=== PATIENT | male | born 1930 | race American Indian/Alaskan Native ===

== ENCOUNTER 2016-10-05 21:52 | Inpatient (IN) | payer MEDICARE ==
[2016-10-05 22:59] LABS: BASO % 0.4 % (0.0-2.0); EOS # 0.1 K/uL (0.0-0.7); EOS % 0.7 % (0.0-4.0); HEMOGLOBIN 11.2 g/dL (12.0-18.0); LYMPH # 0.9 K/uL (1.0-4.3); LYMPH % 12.3 % (20.0-40.0); MEAN CELL VOLUME 89.6 fL (80.0-94.0); MEAN CORPUSCULAR HEMOGLOBIN 28.7 pg (27.0-31.0); MEAN CORPUSCULAR HGB CONC 32.1 g/dL (33.0-37.0); MEAN PLATELET VOLUME 10.4 fL (7.2-11.7); MONO # 0.6 K/uL (0.0-0.8); MONO % 7.7 % (0.0-10.0); NEUT % 78.9 % (50.0-75.0); RBC 3.89 Mil/uL (4.40-5.90); RED CELL DISTRIBUTION WIDTH 16.6 % (11.5-14.5); WHITE BLOOD COUNT 7.7 K/uL (4.8-10.8)
[2016-10-05 22:59] LABS: VENOUS BLOOD GAS BASE EXCESS -3.5 mmol/L (0.0-2.0); VENOUS BLOOD GAS PCO2 44 mmHg (40-60); VENOUS BLOOD GAS PO2 35 mm/Hg (30-55); VENOUS BLOOD PH 7.32 (7.32-7.43)
[2016-10-05] MEDS: (Novolog) Insulin Aspart, Recombinant 100 u/ml 10 ml vial SC SCH (23:00)
[2016-10-05 23:07] LABS: ALBUMIN 3.3 g/dL (3.5-5.0)
[2016-10-05 23:10] LABS: ALB/GLOB RATIO 0.8 (1.0-2.1)
[2016-10-05 23:11] LABS: CALCIUM 8.9 mg/dl (8.6-10.4)
--- NOTE | 2016-10-05 23:18 | C.PDOC ---
History Of Present Illness 86 y/o male brought in to ER from snf for abdominal pain and reported altered mental status. Patient also reports chest pain and back pain. Denies fever, chills, shortness of breath, nausea, vomiting, diarrhea, or other associated symptoms. Time Seen by Provider: 10/05/16 23:17 Chief Complaint (Nursing): Weakness/Neurological Deficit History Per: Patient History/Exam Limitations: no limitations Onset/Duration Of Symptoms: Hrs Current Symptoms Are (Timing): Still Present Fall Associated With With Symptoms: No Recent travel outside of the [place]: No Additional History Per: [facility] Past Medical History Reviewed: Historical Data, Nursing Documentation, Vital Signs Vital Signs: Last Vital Signs Temp 98.7 F 10/06/16 00:59 Pulse 131 H 10/06/16 03:10 Resp 20 10/06/16 03:10 BP 113/74 10/06/16 02:59 Pulse Ox 97 10/06/16 03:32 - Medical History PMH: CHF, HTN Surgical History: CABG Family History: States: No Known Family Hx - Social History Hx Alcohol Use: No Hx Substance Use: No Review Of Systems Constitutional: Positive for: Malaise. Negative for: Fever, Chills Eyes: Negative for: Redness Cardiovascular: Positive for: Chest Pain. Negative for: Palpitations Respiratory: Negative for: Cough, Shortness of Breath Gastrointestinal: Positive for: Abdominal Pain. Negative for: Nausea, Vomiting , Diarrhea Musculoskeletal: Positive for: Back Pain. Negative for: Neck Pain Skin: Negative for: Rash Neurological: Negative for: Weakness, Numbness, Dizziness Psych: Negative for: Anxiety Physical Exam - Physical Exam Appears: Non-toxic, Other (moderate distress, AAO x 3) Skin: Warm, Dry Head: Atraumatic, Normacephalic Oral Mucosa: Dry Lips: Other (dry) Neck: Normal ROM, Supple Chest: Symmetrical, Other (fresh CABG scars with keloids ) Cardiovascular: Rhythm Regular (tachycardic), Other (pacemaker left chest) Respiratory: No Accessory Muscle Use, No Rales, Rhonchi (bibasilar), No Wheezing Gastrointestinal/Abdominal: Soft, Distention, No Guarding, No Rebound, Other ( tympanic to percussion, right lower quadrant T tube drainage) Back: Normal Inspection, No Vertebral Tenderness, No Paraspinal Tenderness Extremity: Normal ROM, Pedal Edema (trace, bilateral) Neurological/Psych: Oriented x3, Normal Speech, Normal Cognition ED Course And Treatment - Laboratory Results Result Diagrams: 10/05/16 22:56 10/05/16 22:56 ECG: Interpreted By Me, Viewed By Me ECG Rhythm: Sinus Tachycardia (128), R BBB, Nonspecific Changes (lahb) O2 Sat by Pulse Oximetry: 97 Pulse Ox Interpretation: Normal - Radiology CXR: Interpreted by Me, Viewed By Me CXR Interpretation: Yes: Cardiomegaly, Other (pacer left, cabg). No: Fracture Progress Note: Treated with Tylenol and IVFs. Bloodwork, VBG, and chest xray ordered. spoke with dr willett - icu- will come and see the pt in the ed. fluids not given as per sepsis protocol due to the pt's cardiac function. vitals stable Critical Care Time - Critical Care Note Total Time (in mins): 30 Documented critical care: time excludes all time spent performing seperately billable procedures. Disposition Discussed With : Eva Barrow Comment: accepted the pt on his service and took over the care Doctor Will See Patient In The: Hospital Counseled Patient/Family Regarding: Studies Performed, Diagnosis - Disposition Disposition: HOSPITALIZED Disposition Time: 01:00 Condition: CRITICAL - POA Present On Arrival: Poor Glycemic Control, [facility] - Clinical Impression Clinical Impression: Abdominal pain, Sepsis - Scribe Statement The provider has reviewed the documentation as recorded by the Leela Johnson Provider Attestation: All medical record entries made by the Leela were at my direction and personally dictated by me. I have reviewed the chart and agree that the record accurately reflects my personal performance of the history, physical exam, medical decision making, and the department course for this patient. I have also personally directed, reviewed, and agree with the discharge instructions and disposition. Decision To Admit - Pt Status Changed To: Hospital Disposition Of: Inpatient - Admit Certification Admit to Inpatient:: After my assessment, the patient will require hospitalization for at least two midnights. This is because of the severity of symptoms shown, intensity of services needed, and/or the medical risk in this patient being treated as an outpatient. - InPatient: Physician Admission Certification: I certify that this patient requires 2 or more midnights of care for the following reason:: After my assessment, the patient will require hospitalization for at least two midnights. This is because of the severity of symptoms shown, intensity of services needed, and/or the medical risk in this patient being treated as an outpatient. - . Bed Request Type: ICU Admitting Physician: Eva Barrow Patient Diagnosis: Abdominal pain, Sepsis
[2016-10-05] MEDS ORDERED: Sodium Chloride 0.9% 1,000 ML IV ONE (23:33)
[2016-10-05] MEDS ORDERED: Vancomycin 1 GM 1 GM/250 ML BAG IVPB SCH (23:45)
[2016-10-05] MEDS ORDERED: Vancomycin 1 GM 1 GM/250 ML BAG IVPB ONE ×2 (23:45→23:56)
[2016-10-05] MEDS ORDERED: Piperacillin/Tazobact 3.375 gm 100 ML IVPB STA (23:50)
[2016-10-05] MEDS ORDERED: Piperacillin/Tazobact 3.375 gm 100 ML IVPB ONE (23:56)
[2016-10-06] MEDS ORDERED: Vancomycin 1 GM 1 GM/250 ML BAG IVPB STA (00:04)
--- NOTE | 2016-10-06 00:33 | CP.CCUPN ---
CCU Subjective - Physician Review Events Since Last Encounter (Free Text): 10/06/16 01:15 The Patient was seen and examined at the bedside, Medical records reviewed, all clinical/lab/hemodynamic/radiographic data were reviewed and management issues were discussed and formulated, Mr Wilder is 86 years old Male with PMHx of HTN, HLD, DM, CHF, CAD S/P CABG who was brought in to ER from long term for abdominal pain and reported altered mental status. In the emergency room code sepsis was called for hypotension, tachycardia and elevated temp of 100.4 with 2.4 serum lactate. Patient is alert and awake Patient reports RUQ and Right lower chest pain and back pain. Denies fever, chills, shortness of breath, nausea, vomiting, diarrhea, or other associated symptoms. IV fluids initiated with good blood pressure response but still tachycardia Patient received rectal Tylenol, IV antibiotics with Vanco and Zosyn and IVFs. CXR: Cardiomegaly, There is no evidence of pulmonary parenchymal consolidation or pleural effusion. The mediastinum is unremarkable. Osseous thoracic structures are unremarkable. 10/06/16 02:12 CCU Objective - Vital Signs / Intake & Output Vital Signs (Last 4 hours): Vital Signs Temp Pulse Resp BP Pulse Ox 10/06/16 00:22 97 10/05/16 23:50 100.1 F H 10/05/16 22:20 100.4 F H 128 H 22 100/56 L 97 Intake and Output (Last 8hrs): Intake & Output 10/05/16 10/05/16 10/06/16 14:59 22:59 06:59 Weight 177 lb - Physical Exam Physical Exam Limitations: Positive for: Clinical Condition Head: Positive for: Atraumatic, Normocephalic Pupils: Positive for: PERRL. Negative for: Sluggish, Non-Reactive Extroacular Muscles: Positive for: EOMI Conjunctiva: Positive for: Normal. Negative for: Injected, Icteric Mouth: Positive for: Moist Mucous Membranes Neck: Positive for: Normal Range of Motion, Trachea Midline. Negative for: Meningeal Signs, MIDLINE TENDERNESS, Paraspinal Tenderness, JVD, Lymphadenopathy , Bruit, Other Respiratory/Chest: Positive for: Clear to Auscultation, Good Air Exchange. Negative for: Respiratory Distress, Accessory Muscle Use, Wheezes, Decreased Breath Sounds, Rales, Retracting Cardiovascular: Positive for: Regular Rate and Rhythm, Peripheal Pulses Present , Tachycardic. Negative for: Murmurs Abdomen: Positive for: Tenderness, Distention, Peritoneal Signs Upper Extremity: Positive for: Normal Inspection, NORMAL PULSES, Capillary Refill < 2s. Negative for: Cyanosis, Edema Lower Extremity: Positive for: Normal Inspection, NORMAL PULSES, Capillary Refill < 2 s. Negative for: Edema, CALF TENDERNESS - Medications Active Medications: Active Medications Generic Name Dose Route Start Last Admin Trade Name Freq PRN Reason Stop Dose Admin Sodium Chloride 1,000 mls @ 100 mls/hr 10/05/16 23:33 10/05/16 23:39 Sodium Chloride 0.9% IV 10/06/16 09:32 100 mls/hr .Q10H ONE Administration Vancomycin HCl 1 gm in 250 mls @ 166.667 mls/hr 10/06/16 00:04 Vancomycin 1gm In Normal Saline Addvantage IVPB 10/06/16 01:33 STAT STA - Patient Studies Lab Studies: Lab Studies 10/05/16 10/05/16 10/05/16 Range/Units 22:56 22:56 22:55 WBC 7.7 (4.8-10.8) K/uL RBC 3.89 L (4.40-5.90) Mil/uL Hgb 11.2 L (12.0-18.0) g/dL Hct 34.9 L (35.0-51.0) % MCV 89.6 (80.0-94.0) fL MCH 28.7 (27.0-31.0) pg MCHC 32.1 L (33.0-37.0) g/dL RDW 16.6 H (11.5-14.5) % Plt Count 100 L (130-400) K/uL MPV 10.4 (7.2-11.7) fL Neut % (Auto) 78.9 H (50.0-75.0) % Lymph % (Auto) 12.3 L (20.0-40.0) % Branch % (Auto) 7.7 (0.0-10.0) % Eos % (Auto) 0.7 (0.0-4.0) % Baso % (Auto) 0.4 (0.0-2.0) % Neut # 6.0 (1.8-7.0) K/uL Lymph # 0.9 L (1.0-4.3) K/uL Branch # 0.6 (0.0-0.8) K/uL Eos # 0.1 (0.0-0.7) K/uL Baso # 0.0 (0.0-0.2) K/uL pO2 35 (30-55) mm/Hg VBG pH 7.32 (7.32-7.43) VBG pCO2 44 (40-60) mmHg VBG HCO3 21.2 mmol/L VBG Total CO2 24.1 (22-28) mmol/L VBG O2 Sat (Calc) 75.5 H (40-65) % VBG Base Excess -3.5 L (0.0-2.0) mmol/L VBG Potassium 5.1 (3.6-5.2) mmol/L Sodium 134 132.0 (132-148) mmol/l Chloride 99 101.0 (98-107) mmol/L Glucose 242 H (75-110) mg/dl Lactate 2.4 H (0.7-2.1) mmol/L Potassium 5.0 (3.6-5.2) mmol/L Carbon Dioxide 19 L (22-30) mmol/L Anion Gap 21 H (10-20) BUN 65 H (9-20) mg/dL Creatinine 4.1 H (0.8-1.5) MG/DL Est GFR ( Amer) 17 Est GFR (Non-Af Amer) 14 Random Glucose 253 H (75-110) mg/dL Calcium 8.9 (8.6-10.4) mg/dl Total Bilirubin 1.9 H (0.2-1.3) mg/dL AST 85 H (17-59) U/L ALT 90 H (21-72) U/L Alkaline Phosphatase 85 (38-126) U/L Total Protein 7.2 (6.3-8.3) g/dL Albumin 3.3 L (3.5-5.0) g/dL Globulin 3.9 (2.2-3.9) gm/dL Albumin/Globulin Ratio 0.8 L (1.0-2.1) Venous Blood Potassium 5.1 (3.6-5.2) mmol/L Laboratory Results - last 24 hr 06/22/17 06/22/17 06/22/17 22:55 22:56 22:56 WBC 7.7 RBC 3.89 L Hgb 11.2 L Hct 34.9 L MCV 89.6 MCH 28.7 MCHC 32.1 L RDW 16.6 H Plt Count 100 L MPV 10.4 Neut % (Auto) 78.9 H Lymph % (Auto) 12.3 L Branch % (Auto) 7.7 Eos % (Auto) 0.7 Baso % (Auto) 0.4 Neut # 6.0 Lymph # 0.9 L Branch # 0.6 Eos # 0.1 Baso # 0.0 pO2 35 VBG pH 7.32 VBG pCO2 44 VBG HCO3 21.2 VBG Total CO2 24.1 VBG O2 Sat (Calc) 75.5 H VBG Base Excess -3.5 L VBG Potassium 5.1 Sodium 132.0 134 Chloride 101.0 99 Glucose 242 H Lactate 2.4 H Potassium 5.0 Carbon Dioxide 19 L Anion Gap 21 H BUN 65 H Creatinine 4.1 H Est GFR ( Amer) 17 Est GFR (Non-Af Amer) 14 Random Glucose 253 H Calcium 8.9 Total Bilirubin 1.9 H AST 85 H ALT 90 H Alkaline Phosphatase 85 Total Protein 7.2 Albumin 3.3 L Globulin 3.9 Albumin/Globulin Ratio 0.8 L Venous Blood Potassium 5.1 Review of Systems - Cardiovascular Cardiovascular: absent: Chest Pain, Chest Pain at Rest, Chest Pain with Activity , Claudication, Diaphoresis, Dyspnea, Dyspnea on Exertion, Edema - Respiratory Respiratory: Pain with Coughing (Right lower chest). absent: Cough, Dyspnea, Hemoptysis - Gastrointestinal Gastrointestinal: Abdominal Pain (RUQ), Bloating, Constipation. absent: Coffee Ground Emesis, Cramping, Diarrhea, Melena, Nausea, Vomiting Critical Care Progress Note - Extremities/Vascular Does the Patient have a Central Venous Catheter?: Yes Does the Patient need a Central Venous Catheter?: Yes Does the Patient have a Casey Catheter?: Yes Does the Patient need a Casey Catheter?: Yes Assessment/Plan (1) Severe sepsis Current Visit: Yes Status: Acute (2) HTN (hypertension) Current Visit: Yes Status: Acute (3) CAD (coronary artery disease) Current Visit: Yes Status: Acute - Assessment and Plan (Free Text) Assessment: Admit to ICU for hemodynamic monitoring Optimize blood pressure, hemodynamic monitoring and maintain end-organ perfusion Continuer BP support, Vasopressors as needed to maintain MAP 65-75 Monitor resp status IV hydration with 0.9%ns @ 75 ml/hr; continue to reassess fluid status regularly Monitor UOP Strict Is/Os IV antibiotics with IV vanco and zosyn Pain control with tylenol Monitor urine output Monitor fever curve, Tylenol PRN fevers Trend WBC count, lactate ABD CT Scan Tight glycemic control, RISS coverage Repeat LABS/LYTES/CBC/Amylase/lipase/Serum lactate TOTAL CRITICAL CARE TIME 58 MINUTES - Date & Time Date: 10/06/16 Time: :
--- NOTE | 2016-10-06 00:33 | PCM.SEPTIC ---
Sepsis Progress Note - Reassessment Type Date of Evaluation: 10/06/16 Time of Evaluation: 02:15 Reassessment Type: Non-invasive reassessment - Non Invasive Reassessment Were the most recent vital sign reviewed: Yes Vital Sign (Latest): Temp Pulse Resp BP Pulse Ox 100.1 F H 128 H 22 100/56 L 97 10/05/16 23:50 10/05/16 22:20 10/05/16 22:20 10/05/16 22:20 10/06/16 00:22 Cardiovascular: Yes: Regular Rate, Rhythm, Tachycardia. No: Chest Non Tender, Edema, Gallop, JVD, Murmur, Bradycardia Respiratory: Yes: Normal Breath Sounds. No: Accessory Muscle Use, Crackles, Rales, Rhonchi, Wheezing, Respiratory Distress Capillary Refill: Normal (Less than 2 sec) Pulses: Normal Radial, Normal Dorsalis Pedis, Normal Posterior Tibialis Skin: Warm
[2016-10-06] MEDS: Piperacill/Tazo 2.25gm in Dex 2.25 GM/50 ML BAG IVPB SCH ×2 (01:13→06:33)
[2016-10-06 01:44] LABS: VENOUS BLOOD GAS BASE EXCESS -2.6 mmol/L (0.0-2.0); VENOUS BLOOD GAS PCO2 43 mmHg (40-60); VENOUS BLOOD GAS PO2 58 mm/Hg (30-55); VENOUS BLOOD PH 7.34 (7.32-7.43)
[2016-10-06] MEDS: Sodium Chloride 0.9% 1,000 ML IV SCH ×2 (01:45→14:28)
--- NOTE | 2016-10-06 02:13 | CT ---
EXAM: CT Abdomen and Pelvis Without Intravenous Contrast CLINICAL HISTORY: 86 years old, male; Pain; Abdominal pain; Generalized; Additional info: Intra abdominal source of sepsis TECHNIQUE: Axial computed tomography images of the abdomen and pelvis without intravenous contrast. This CT exam was performed using one or more of the following dose reduction techniques: automated exposure control, adjustment of the mA and/or kV according to patient size, and/or use of iterative reconstruction technique. Coronal and sagittal reformatted images were created and reviewed. COMPARISON: No relevant prior studies available. FINDINGS: Limitations: Motion artifact - mild. Lack of intravenous contrast. Lower thorax: Moderate cardiomegaly. Coronary artery and valvular calcifications. Pacemaker lead. Small RIGHT pleural effusion. Mild patchy airspace disease posterior lower lobes. ABDOMEN: Liver: Unremarkable. Gallbladder and bile ducts: Cholecystostomy tube. No calcified gallstones. No ductal dilation. Pancreas: Unremarkable. No ductal dilation. Spleen: No splenomegaly. Adrenals: No mass. Kidneys and ureters: Mild stranding about kidneys, nonspecific. Few renal cysts. No renal calculi. No hydronephrosis. Stomach and bowel: No definite mural thickening. No obstruction. Appendix: Normal caliber. No inflammation. PELVIS: Bladder: Unremarkable. No stones. Reproductive: Mildly enlarged prostate. ABDOMEN and PELVIS: Intraperitoneal space: No significant fluid collection. No free air. Bones/joints: Median sternotomy with mild stranding about scar. Degenerative changes of spine. No acute fracture. Soft tissues: Mild stranding about laparotomy scar. 7.6 x 2.9 x 2.7 cm fluid collection within LEFT inguinal region Vasculature: Extensive atherosclerotic disease of visualized arteries. No aneurysm. Lymph nodes: No pathologically enlarged lymph nodes. Other findings: IMPRESSION: 1. RIGHT pleural effusion with bibasilar atelectasis. Superimposed pneumonia not excluded. 2. LEFT inguinal collection. DDX: Seroma, hematoma, abscess, pseudoaneurysm. 3. Incidental/non-acute findings are described above.
[2016-10-06] MEDS ORDERED: Phenylephrine 30 MG in Sodium Chloride 0.9% 250 ML IV PRN (02:16)
[2016-10-06] MEDS ORDERED: Sodium Chloride 0.9% 250 ML IV ONE (02:17)
[2016-10-06 06:28] LABS: BASO % 0.9 % (0.0-2.0); EOS # 0.1 K/uL (0.0-0.7); EOS % 2.4 % (0.0-4.0); HEMOGLOBIN 10.5 g/dL (12.0-18.0); LYMPH # 0.8 K/uL (1.0-4.3); LYMPH % 14.4 % (20.0-40.0); MEAN CELL VOLUME 89.4 fL (80.0-94.0); MEAN CORPUSCULAR HEMOGLOBIN 28.6 pg (27.0-31.0); MEAN PLATELET VOLUME 10.4 fL (7.2-11.7); MONO # 0.4 K/uL (0.0-0.8); MONO % 7.9 % (0.0-10.0); NEUT % 74.4 % (50.0-75.0); RBC 3.66 Mil/uL (4.40-5.90); RED CELL DISTRIBUTION WIDTH 16.9 % (11.5-14.5); WHITE BLOOD COUNT 5.3 K/uL (4.8-10.8)
[2016-10-06 06:56] LABS: ALB/GLOB RATIO 0.8 (1.0-2.1)
[2016-10-06 06:57] LABS: CALCIUM 8.4 mg/dl (8.6-10.4)
--- NOTE | 2016-10-06 07:02 | CP.PCM.CON ---
History of Present Illness - History of Present Illness History of Present Illness: General surgery - Dr. Acevedo 86yo M brought in to ER last night from senior care fro abdominal pain and AMS. Pt is somewhat altered on exam but states that he developed severe Right Flank pain yesterday with SOB. He has a cholecystostomy tube in place which is draining bilious fluid. Pt states that this was placed approx 2 weeks ago at [facility] center. Pt denies any N/V, Diarrhea. Pt was a code sepsis with Fever of 101.4, Hypotension, tachycardia in the 130s, Lactate 2.4. Pt was admitted to the ICU and started on IV Abx, unable to give aggressive IVF d/t cardiac hx. CT Abdomen pelvis was done which showed possible R LL pneumonia, Cadence tube in place, and a small fluid collection in the L groin, otherwise unremarkable for any acute pathology. Surgery was consulted for the cholecystostomy tube. Review of Systems - Review of Systems Systems not reviewed;Unavailable: Altered Mental Status All systems: reviewed and no additional remarkable complaints except (as oper HPI) Past Patient History - Past Medical History & Family History Past Medical History?: Yes - Past Social History Smoking Status: Never Smoked - CARDIAC Hx Congestive Heart Failure: Yes Hx Hypertension: Yes - PULMONARY Hx Respiratory Disorders: No - NEUROLOGICAL Hx Neurological Disorder: No - HEENT Hx HEENT Problems: No - RENAL Hx Chronic Kidney Disease: Yes - ENDOCRINE/METABOLIC Hx Diabetes Mellitus Type 1: Yes - HEMATOLOGICAL/ONCOLOGICAL Hx Blood Disorders: No - INTEGUMENTARY Hx Dermatological Problems: No - MUSCULOSKELETAL/RHEUMATOLOGICAL Hx Musculoskeletal Disorders: No Hx Falls: No - GASTROINTESTINAL Hx Gastrointestinal Disorders: No - GENITOURINARY/GYNECOLOGICAL Hx Genitourinary Disorders: No - PSYCHIATRIC Hx Substance Use: No - SURGICAL HISTORY Hx Coronary Artery Bypass Graft: Yes - ANESTHESIA Hx Anesthesia: Yes Hx Anesthesia Reactions: No Hx Malignant Hyperthermia: No Has any member of the family had a problem w/ anesthesia?: No Meds Allergies/Adverse Reactions: Allergies Allergy/AdvReac Type Severity Reaction Status Date / Time No Known Allergies Allergy Unverified 10/05/16 22:02 - Medications Medications: Current Medications Sodium Chloride (Sodium Chloride 0.9%) 1,000 mls @ 100 mls/hr IV .Q10H ONE Stop: 10/06/16 09:32 Last Admin: 10/05/16 23:39 Dose: 100 mls/hr Piperacillin Sod/Tazobactam Sod (Zosyn 2.25 Gm Iv Premix) 2.25 gm in 50 mls @ 100 mls/hr IVPB Q6H [facility] Last Admin: 10/06/16 06:33 Dose: 100 mls/hr Sodium Chloride (Sodium Chloride 0.9%) 1,000 mls @ 75 mls/hr IV .[id number] [facility] Last Admin: 10/06/16 01:45 Dose: 75 mls/hr Phenylephrine HCl 30 mg/ (Sodium Chloride) 253 mls @ 10.12 mls/hr IV .Q24H PRN ; Protocol; 20 MCG/MIN PRN Reason: TITRATE PER MD ORDER Last Admin: 10/06/16 03:41 Dose: 20 mcg/min, 10.12 mls/hr Physical Exam - Constitutional Appears: No Acute Distress - Head Exam Head Exam: ATRAUMATIC, NORMAL INSPECTION, NORMOCEPHALIC - Respiratory Exam Respiratory Exam: Chest Wall Tenderness (R lower ), Respiratory Distress ( Tachypneic and chest congestion) - Cardiovascular Exam Cardiovascular Exam: Tachycardia - GI/Abdominal Exam GI & Abdominal Exam: Distended, Firm (R flank), Guarding (RUQ), Tenderness (R abdomen) - Neurological Exam Neurological exam: Alert, Altered - Skin Skin Exam: Dry, Intact Results - Vital Signs Recent Vital Signs: Last Vital Signs Temp 98.7 F 10/06/16 00:59 Pulse 130 H 10/06/16 05:20 Resp 24 10/06/16 05:20 BP 111/63 10/06/16 05:10 Pulse Ox 85 L 10/06/16 05:20 - Labs Result Diagrams: 10/06/16 06:20 10/05/16 22:56 Labs: Laboratory Results - last 24 hr 10/06/16 10/06/16 01:40 06:20 WBC 5.3 RBC 3.66 L Hgb 10.5 L Hct 32.8 L MCV 89.4 MCH 28.6 MCHC 32.0 L RDW 16.9 H Plt Count 110 L MPV 10.4 Neut % (Auto) 74.4 Lymph % (Auto) 14.4 L [place] % (Auto) 7.9 Eos % (Auto) 2.4 Baso % (Auto) 0.9 Neut # 4.0 Lymph # 0.8 L [place] # 0.4 Eos # 0.1 Baso # 0.0 pO2 58 H VBG pH 7.34 VBG pCO2 43 VBG HCO3 22.6 VBG Total CO2 24.5 VBG O2 Sat (Calc) 94.4 H VBG Base Excess -2.6 L VBG Potassium 4.9 Sodium 133.0 Chloride 103.0 Glucose 252 H Lactate 1.6 Venous Blood Potassium 4.9 - Imaging and Cardiology CT scan - abdomen Status: Image reviewed by me, Report reviewed by me Assessment & Plan - Assessment and Plan (Free Text) Assessment: 86 yo M w/ recent cholecystostomy tube admitted w/ Sepsis, R Flank pain and SOB -Continue care in ICU, IVF as able, IV Abx -CT images reviewed -Unclear source of sepsis -Poss. pneumonia vs. RUQ pathology -Will obtain records from medical center regarding previous admission -Dr Acevedo to see this AM and give further reccs DW Dr Kristina Dickson PGY2
[2016-10-06] MEDS ORDERED: Metoprolol 1 mg/ml Inj IVP ONE (07:16)
--- NOTE | 2016-10-06 08:19 | RAD ---
HISTORY: COUGH COMPARISON: No prior. FINDINGS: LUNGS: Mild venous congestion. Patchy bibasilar airspace opacities. Question trace bilateral pleural effusions. PLEURA: As above. CARDIOVASCULAR: Cardiomegaly. Left-sided pacemaker. OSSEOUS STRUCTURES: No significant abnormalities. VISUALIZED UPPER ABDOMEN: Normal. OTHER FINDINGS: None. IMPRESSION: Mild venous congestion. Patchy bibasilar airspace opacities. Question trace bilateral pleural effusions. Cardiomegaly. Left-sided pacemaker.
--- NOTE | 2016-10-06 11:17 | CARD ---
APPROVED REPORT EKG Measurement Heart [id number] <Conclusion> Wide QRS tachycardia Right bundle branch block Left anterior fascicular block Bifascicular block Cannot rule out Inferior infarct, age undetermined Abnormal ECG
[2016-10-06] MEDS: Acetylcysteine 20% Inhal Soln (4ml) INH SCH ×2 (13:02→19:31)
[2016-10-06] MEDS: Albuterol-Ipratrop 3 mg / 0.5 (3 ml) UD INH SCH ×2 (13:02→19:30)
--- NOTE | 2016-10-06 13:28 | CP.PCM.CON ---
History of Present Illness - History of Present Illness History of Present Illness: 86yo M brought in to ER last night from assisted for abdominal pain and AMS. patient states that he developed severe Right Flank pain yesterday with SOB. He has a cholecystostomy tube in place which is draining bilious fluid. Tube placed approx [address] [facility]. Pt was a code sepsis with Fever of 101.4, Hypotension, tachycardia in the 130s , Lactate 2.4. Pt was admitted to the ICU and started on IV Abx,. CT Abdomen pelvis was done which showed possible R LL pneumonia, Cadence tube in place, and a small fluid collection in the L groin, otherwise unremarkable for any acute pathology. ID consulted for sepsis PMH HTN CKD CAD s/p CABG COPD ASHD Review of Systems - Constitutional Constitutional: As Per HPI, Chills, Fever, Malaise - EENT Eyes: absent: As Per HPI, Blind Spots, Blurred Vision, Change in Vision, Decreased Night Vision, Diplopia, Discharge, Dry Eye, Exophthalmos, Floaters, Irritation, Itchy Eyes, Loss of Peripheral Vision, Pain, Photophobia, Requires Corrective Lenses, Sees Flashes, Spots in Vision, Tunnel Vision, Other Visual Disturbances, Loss of Vision, Other Ears: absent: As Per HPI, Decreased Hearing, Ear Discharge, Ear Pain, Tinnitus, Abnormal Hearing, Disequilibrium, Dizziness, Other Nose/Mouth/Throat: absent: As Per HPI, Epistaxis, Nasal Congestion, Nasal Discharge, Nasal Obstruction, Nasal Trauma, Nose Pain, Post Nasal Drip, Sinus Pain, Sinus Pressure, Bleeding Gums, Change in Voice, Dental Pain, Dry Mouth, Dysphagia, Halitosis, Hoarsness, Lip Swelling, Mouth Lesions, Mouth Pain, Odynophagia, Sore Throat, Throat Swelling, Tongue Swelling, Facial Pain, Neck Pain, Neck Mass, Other - Cardiovascular Cardiovascular: As Per HPI - Respiratory Respiratory: As Per HPI, Cough, Dyspnea. absent: Hemoptysis - Gastrointestinal Gastrointestinal: As Per HPI - Genitourinary Genitourinary: absent: As Per HPI, Change in Urinary Stream, Difficulty Urinating, Dysuria, Flank Pain, Hematuria, Pyuria, Nocturia, Urinary Incontinence, Urinary Frequency, Urinary Hesitance, Urinary Urgency, Voiding Freq/Small Amts, Freq UTI, Hx Renal/Bladder Calculi, Hx /Renal Surgery, Bladder Distension, Other - Musculoskeletal Musculoskeletal: absent: As Per HPI, Abnormal Gait, Arthralgias, Atrophy, Back Pain, Deformity, Joint Swelling, Limited Range of Motion, Loss of Height, Muscle Cramps, Muscle Weakness, Myalgias, Neck Pain, Numbness, Radiating Pain into Limb, Stiffness, Tingling, Other - Integumentary Integumentary: absent: As Per HPI, Acne, Alopecia, Bleeding Lesions, Change in Hair, Change in Nails, Change in Pigmentation, Changing Lesions, Dry Skin, Erythema, Furuncle, Hirsutism, Lesions, New Lesions, Non-Healing Lesions, Photosensitivity, Pruritus, Rash, Skin Pain, Skin Ulcer, Sores, Striae, Swelling , Unusual Bruising, Wounds, Jaundice, Other - Neurological Neurological: absent: As Per HPI, Abnormal Gait, Abnormal Hearing, Abnormal Movements, Abnormal Speech, Behavioral Changes, Burning Sensations, Confusion, Convulsions, Disequilibrium, Dizziness, Numbness, Focal Weakness, Frequent Falls , Headaches, Lack of Coordination, Loss of Vision, Memory Loss, Paresthesias, Radicular Pain, Restless Legs, Sensory Deficit, Syncope, Tingling, Tremor, Vertigo, Weakness, Other Visual Disturbances, Other - Psychiatric Psychiatric: absent: As Per HPI, Abnormal Sleep Pattern, Anhedonia, Anxiety, Auditory Hallucinations, Behavioral Changes, Change in Appetite, Change in Libido, Confusion, Depression, Difficulty Concentrating, Hallucinations, Homicidal Ideation, Hopelessness, Irritability, Memory Loss, Mood Swings, Panic Attacks, Paranoia, Suicidal Ideation, Visual Hallucinations, Tactile Hallucinations, Other - Endocrine Endocrine: absent: As Per HPI, Change in Body Appearance, Change in Libido, Cold Intolorance, Deepening of Voice, Excessive Sweating, Fatigue, Flushing, Heat Intolorance, Increase in Ring/Shoe/Hat Size, Palpitations, Polydipsia, Polyphagia, Polyuria, Other - Hematologic/Lymphatic Hematologic: absent: As Per HPI, Easy Bleeding, Easy Bruising, Lymphadenopathy, Other Past Patient History - Past Medical History & Family History Past Medical History?: Yes - Past Social History Smoking Status: Never Smoked - CARDIAC Hx Congestive Heart Failure: Yes Hx Hypertension: Yes - PULMONARY Hx Respiratory Disorders: No - NEUROLOGICAL Hx Neurological Disorder: No - HEENT Hx HEENT Problems: No - RENAL Hx Chronic Kidney Disease: Yes - ENDOCRINE/METABOLIC Hx Diabetes Mellitus Type 1: Yes - HEMATOLOGICAL/ONCOLOGICAL Hx Blood Disorders: No - INTEGUMENTARY Hx Dermatological Problems: No - MUSCULOSKELETAL/RHEUMATOLOGICAL Hx Musculoskeletal Disorders: No Hx Falls: No - GASTROINTESTINAL Hx Gastrointestinal Disorders: No - GENITOURINARY/GYNECOLOGICAL Hx Genitourinary Disorders: No - PSYCHIATRIC Hx Substance Use: No - SURGICAL HISTORY Hx Coronary Artery Bypass Graft: Yes - ANESTHESIA Hx Anesthesia: Yes Hx Anesthesia Reactions: No Hx Malignant Hyperthermia: No Has any member of the family had a problem w/ anesthesia?: No Meds Allergies/Adverse Reactions: Allergies Allergy/AdvReac Type Severity Reaction Status Date / Time No Known Allergies Allergy Unverified 10/05/16 22:02 - Medications Medications: Current Medications Acetylcysteine (Acetylcysteine 20%) 4 ml INH RQ6 [facility] Last Admin: 10/06/16 13:02 Dose: 4 ml Albuterol/Ipratropium (Duoneb 3 Mg/0.5 Mg (3 Ml) Ud) 3 ml INH RQ6 [facility] Last Admin: 10/06/16 13:02 Dose: 3 ml Heparin Sodium (Porcine) (Heparin) 5,000 units SC Q12 [facility] Last Admin: 10/06/16 10:37 Dose: 5,000 units Piperacillin Sod/Tazobactam Sod (Zosyn 2.25 Gm Iv Premix) 2.25 gm in 50 mls @ 100 mls/hr IVPB Q6H [facility] Last Admin: 10/06/16 06:33 Dose: 100 mls/hr Sodium Chloride (Sodium Chloride 0.9%) 1,000 mls @ 75 mls/hr IV .[id number] [facility] Last Admin: 10/06/16 01:45 Dose: 75 mls/hr Phenylephrine HCl 30 mg/ (Sodium Chloride) 253 mls @ 10.12 mls/hr IV .Q24H PRN ; Protocol; 20 MCG/MIN PRN Reason: TITRATE PER MD ORDER Last Titration: 10/06/16 13:20 Dose: 10 mcg/min, 5.05 mls/hr Insulin Aspart (Novolog) 0 unit SC ACHS [facility] PRN Reason: Protocol Physical Exam - Constitutional Appears: Toxic, Chronically Ill - Head Exam Head Exam: ATRAUMATIC, NORMAL INSPECTION, NORMOCEPHALIC - Eye Exam Eye Exam: PERRL. absent: Scleral icterus - ENT Exam ENT Exam: Mucous Membranes Dry, Normal External Ear Exam - Neck Exam Neck exam: Negative for: Lymphadenopathy - Respiratory Exam Respiratory Exam: Decreased Breath Sounds, Rhonchi - Cardiovascular Exam Cardiovascular Exam: REGULAR RHYTHM, +S1, +S2 - GI/Abdominal Exam GI & Abdominal Exam: Diminished Bowel Sounds, Distended, Soft. absent: Guarding , Rebound, Rigid, Tenderness Additional comments: tube in RUQ - Rectal Exam Rectal Exam: Deferred - Exam Exam: NORMAL INSPECTION - Extremities Exam Extremities exam: Positive for: pedal pulses present. Negative for: calf tenderness, pedal edema, tenderness - Back Exam Back exam: absent: CVA tenderness (L), CVA tenderness (R) - Neurological Exam Neurological exam: Alert, CN II-XII Intact, Oriented x3, Reflexes Normal - Psychiatric Exam Psychiatric exam: Normal Mood - Skin Skin Exam: Dry Results - Vital Signs Recent Vital Signs: Last Vital Signs Temp 97.4 F L 10/06/16 08:00 Pulse 132 H 10/06/16 13:20 Resp 22 10/06/16 13:20 BP 113/80 10/06/16 13:10 Pulse Ox 100 10/06/16 13:20 - Labs Result Diagrams: 10/06/16 06:20 10/06/16 06:22 Labs: Laboratory Results - last 24 hr 10/06/16 10/06/16 10/06/16 01:40 06:20 06:22 WBC 5.3 RBC 3.66 L Hgb 10.5 L Hct 32.8 L MCV 89.4 MCH 28.6 MCHC 32.0 L RDW 16.9 H Plt Count 110 L MPV 10.4 Neut % (Auto) 74.4 Lymph % (Auto) 14.4 L Will % (Auto) 7.9 Eos % (Auto) 2.4 Baso % (Auto) 0.9 Neut # 4.0 Lymph # 0.8 L Will # 0.4 Eos # 0.1 Baso # 0.0 pO2 58 H VBG pH 7.34 VBG pCO2 43 VBG HCO3 22.6 VBG Total CO2 24.5 VBG O2 Sat (Calc) 94.4 H VBG Base Excess -2.6 L VBG Potassium 4.9 Sodium 133.0 136 Chloride 103.0 97 L Glucose 252 H Lactate 1.6 Potassium 4.6 Carbon Dioxide 24 Anion Gap 20 BUN 61 H Creatinine 4.1 H Est GFR ( Amer) 17 Est GFR (Non-Af Amer) 14 POC Glucose (mg/dL) Random Glucose 206 H Hemoglobin A1c Calcium 8.4 L Total Bilirubin 2.1 H AST 74 H ALT 72 Alkaline Phosphatase 82 Total Protein 6.7 Albumin 3.0 L Globulin 3.7 Albumin/Globulin Ratio 0.8 L Venous Blood Potassium 4.9 10/06/16 10/06/16 11:14 11:52 WBC RBC Hgb Hct MCV MCH MCHC RDW Plt Count MPV Neut % (Auto) Lymph % (Auto) Will % (Auto) Eos % (Auto) Baso % (Auto) Neut # Lymph # Will # Eos # Baso # pO2 VBG pH VBG pCO2 VBG HCO3 VBG Total CO2 VBG O2 Sat (Calc) VBG Base Excess VBG Potassium Sodium Chloride Glucose Lactate Potassium Carbon Dioxide Anion Gap BUN Creatinine Est GFR ( Amer) Est GFR (Non-Af Amer) POC Glucose (mg/dL) 203 H Random Glucose Hemoglobin A1c 8.6 H Calcium Total Bilirubin AST ALT Alkaline Phosphatase Total Protein Albumin Globulin Albumin/Globulin Ratio Venous Blood Potassium Assessment & Plan (1) Pneumonia Status: Acute (2) Abdominal pain Status: Acute (3) CAD (coronary artery disease) Status: Acute (4) HTN (hypertension) Status: Acute (5) Sepsis Status: Acute (6) Severe sepsis Status: Acute - Assessment and Plan (Free Text) Assessment: r/o HCAP sepsis resp insuff cad s/p cabg ckd cont empiric IV rx check vanco levels add merrem
[2016-10-06 13:46] LABS: CK-MB 1.08 ng/mL (0.0-3.38)
[2016-10-06] MEDS ORDERED: Meropenem 500 MG in Sodium Chloride 0.9% 100 ML IVPB SCH (14:00)
[2016-10-06] MEDS: Meropenem 500 MG in Sodium Chloride 0.9% 100 ML IVPB SCH ×2 (15:00→21:00)
[2016-10-06 15:54] LABS: SQUAMOUS EPITHIAL < 1 /hpf (0-5); URINE AMORPHOUS SEDIMENT RARE /ul (<OCC); URINE BILIRUBIN NEGATIVE (NEGATIVE); URINE BLOOD NEGATIVE (NEGATIVE); URINE CLARITY Hazy (Clear); URINE COLOR Amber (YELLOW); URINE GLUCOSE (UA) NORMAL (Normal); URINE LEUKOCYTE ESTERASE NEG Leu/uL (Negative); URINE NITRATE NEGATIVE (NEGATIVE); URINE PROTEIN 1+ mg/dL (NEGATIVE); URINE UROBILINOGEN NORMAL mg/dL (0.2-1.0)
--- NOTE | 2016-10-06 16:47 | CON ---
DATE: 10/06/2016 This is an 86-year-old black male who was transferred from half-way. The patient complained of a bdominal pain and chest pain. The patient also has altered mental status. Complete detailed history not available from patient. The patient is moaning. The patient had coronary artery bypass surgery done about 3 weeks ago. The details of bypass surgery are also not available. Since patient had hy potension and altered mental status with possible septic shock, patient was admitted to the ICU. REVIEW OF SYSTEMS: The patient is not able to give. PAST MEDICAL HISTORY: History of coronary artery disease, congestive heart failure and hypertension. MEDICATIONS: Reviewed by me. FAMILY HISTORY: No history of coronary artery disease. ALLERGIES: No known allergy. SOCIAL HISTORY: Nonsmoker, nonalcoholic, no IVDA. PHYSICAL EXAMINATION: GENERAL: This is an 86-year-old black male, weak and moaning, but awake and oriented. VITAL SIGNS: Temperature 98.8 degrees, pulse 92 per minute, respirations 16 per minute, and blood pr essure 91/60 mmHg. HEENT: Normal. NECK: JVP is flat. Carotids, no bruit. LUNGS: No rales, no wheezing. HEART: S1, S2 normal. No gallop, no murmur. Tachycardic. ABDOMEN: Soft, mild tenderness present. No rebound. No mass. CENTRAL NERVOUS SYSTEM: No focal neurological deficit. On admission, EKG is sinus tachycardia with right bundle branch and bifascicular block. LABORATORY WORK: Shows elevated BUN and creatinine. Chest x-ray is consistent with mild congestive heart failure. IMPRESSION: Hypotension. Rule out sepsis. Rule out septic shock. Status post bypass surgery, everett nary artery disease. SUGGEST: Agree with present management. Will need septic workup. For cardiac workup, patient needs EKG, workup to rule out myocardial infarction. Echocardiogram. Continue all the medication. Other workup as needed. Afia Anderson MD cc: [phone] TT: 10/06/2016 15:55:33 Confirmation # [id number] Dictation # [id number]
--- NOTE | 2016-10-06 17:36 | PCM.PROC ---
<Mary Ventura - Last Filed: 10/06/16 17:33> Procedures Attestation:: I certify that I have explained the specified Operation(s) or Procedure(s), risks, benefits and reasonable alternatives to the Patient and/or other person responsible. The opportunity was given to ask questions and all questions answered - Central Line Placement Right Internal Jugular Triple Lumen Catheter Aseptic technique was employed throughout the procedure: Hand Hygiene done prior to procedure, Full sterile barriers (mask, hair cover, sterile gown, sterile gloves), Full body sterile drape, Chloraprep Antiseptic: 30 second prep for IJ or SC sites CVP Time Out Performed: Yes Pt. Placed on Pulse Ox Monitor: Yes Central Line Prep: Chlorhexidine-Alcohol Combination Local Anesthesia Used: Lidocaine 2% Ultrasound Used for Placement: Yes Central Line Lumen Inserted: triple Central Line Length: 20 cm Post Procedure: Sutured in Place, Good Blood Return, All Ports Aspirated, Flushed, Capped, Sterile Dressing Applied Secured by: Suture Post procedure dressing: Gauze, Chlorhexidine disc (Biopatch) Post Procedure X-Ray: Yes Patient Tolerated Procedure: No Complications Immediate Complications: None Additional Comments: Triple lumen IJ catheter was placed under direct supervision and guidance of certified athletic trainer Dr. Win Consent was given by son Mr. Genaro Wilder as patient had AMS. Nurse witnessed consent. <Alejandro Win - Last Filed: 10/06/16 18:57> Attending/Attestation - Attestation I have personally seen and examined this patient.: Yes I have fully participated in the care of the patient.: Yes I have reviewed all pertinent clinical information, including history, physical exam and plan: Yes Notes (Text): 10/06/16 18:56 Procedure performed with resident under my supervision. No complications, patient tolerated well. Line confirmed on CXR and no pneumothorax.
[2016-10-06 17:44] LABS: ABG ALLEN TEST POS; ARTERIAL BLOOD GAS HCO3 20.1 mmol/L (21-28); ARTERIAL BLOOD GAS O2 SAT 97.3 % (95-98); ARTERIAL BLOOD GAS PCO2 34 mm/Hg (35-45); ARTERIAL BLOOD GAS PH 7.35 (7.35-7.45); ARTERIAL BLOOD GAS PO2 70 mm/Hg (80-100); ARTERIAL BLOOD GAS TCO2 19.8 mmol/L (22-28)
[2016-10-06] MEDS: (Novolog) Insulin Aspart, Recombinant 100 u/ml 10 ml vial SC SCH (17:55)
--- NOTE | 2016-10-06 19:12 | CARD ---
APPROVED REPORT EXAM: Two-dimensional and M-mode echocardiogram with Doppler and color Doppler. Other Information Quality : GoodRhythm : INDICATION Congestive Heart Failure CARDIGENIC SHOCK Surgery/Intervention CABG: RISK FACTORS Hypertension 2D DIMENSIONS LVOT Diameter1.7 (1.8-2.4cm) M-Mode DIMENSIONS Left Atrium (MM)4.87 (2.5-4.0cm)IVSd0.90 (0.7-1.1cm) Aortic Root2.58 (2.2-3.7cm)LVDd5.83 (4.0-5.6cm) Aortic Cusp Exc.1.11 (1.5-2.0cm)PWd1.18 (0.7-1.1cm) FS (%) 28 %LVDs4.20 (2.0-3.8cm) LVEF (%)53 (>50%) Aortic Valve AoV Peak Qmnjtoqh869.6cm/sAoV VTI35.7cmAO Peak GR.21mmHg LVOT Peak Ddjfjmvg466.4cm/sLVOT VTI18.08cmAO Mean GR.11mmHg GALA (VMAX)0.75ys0TKZ (VTI)1.09cm2 Mitral Valve MV E Wfozrcst246.5cm/sMV A Abreycvu06.3cm/sE/A ratio3.0 TDI E/Lateral E'0.0E/Medial E'0.0 Tricuspid Valve TR Peak Jyqzhpha522pq/sTR Peak Gr.[id number] LEFT VENTRICLE The left ventricle is normal size. There is borderline concentric left ventricular hypertrophy. Left ventricle systolic function is low normal. The Ejection Fraction is 50-55%. There is hypokinesis in the inferior wall. Transmitral Doppler flow pattern is Grade II-pseudonormal filling dynamics. There is no ventricular septal defect visualized. RIGHT VENTRICLE The right ventricle is normal size. The right ventricular systolic function is normal. There is a pacemaker lead in the right ventricle. ATRIA The left atrium is mildly dilated. The right atrium size is normal. AORTIC VALVE The aortic valve is mildly sclerotic. The aortic valve is tri-cuspid. The aortic valve is not well visualized. No aortic regurgitation is present. There is mild valvular aortic stenosis. Calculated aortic valve area is 1.5 cm2 with maximum pressure gradient of 27 mmHg. MITRAL VALVE Mitral annular calcification is mild. There is no evidence of mitral valve prolapse. There is no mitral valve regurgitation noted. TRICUSPID VALVE The tricuspid valve is normal in structure. There is mild tricuspid regurgitation. Right ventricular systolic pressure is estimated at 30-40 mmHg. There is mild pulmonary hypertension. PULMONIC VALVE The pulmonic valve is not well visualized. There is trace pulmonic valvular regurgitation. GREAT VESSELS The IVC is dilated. PERICARDIAL EFFUSION There is no pericardial effusion. <Conclusion> Suboptimal study, poor acoustic window, RICH is more specific to evaluate endocarditis. There is borderline concentric left ventricular hypertrophy. Left ventricle systolic function is low normal. The Ejection Fraction is 50-55%. There is hypokinesis in the inferior wall. Transmitral Doppler flow pattern is Grade II-pseudonormal filling dynamics. There is mild valvular aortic stenosis. There is mild pulmonary hypertension.
[2016-10-06] MEDS: Metoprolol 1 mg/ml Inj IVP SCH (20:03)
[2016-10-06 21:48] LABS: CK-MB 1.19 ng/mL (0.0-3.38)
--- NOTE | 2016-10-06 22:22 | CP.PCM.CON ---
History of Present Illness - History of Present Illness History of Present Illness: 86 yo male w/ hx of HTN, HLD, DM, CHF, CAD S/P CABG who was brought in to ER from shelter for abdominal pain and reported altered mental status. In the emergency room code sepsis was called for hypotension, tachycardia and elevated temp of 100.4 with 2.4 serum lactate. REceived iv fluids 80cc/hr NS, iv vanco and zosyn. appears comfortable at this time. c/o rt abdominal pain. of note, pt had a cholecystostomy tube placed at [facility] [place] [address] scan revealed possible pneumonia and rlq fluid collection. creatinine elevated to 4 mg/dl, renal consultation called. Review of Systems - Review of Systems Systems not reviewed;Unavailable: Altered Mental Status Past Patient History - Past Medical History & Family History Past Medical History?: Yes - Past Social History Smoking Status: Never Smoked - CARDIAC Hx Congestive Heart Failure: Yes Hx Hypertension: Yes - PULMONARY Hx Respiratory Disorders: No - NEUROLOGICAL Hx Neurological Disorder: No - HEENT Hx HEENT Problems: No - RENAL Hx Chronic Kidney Disease: Yes - ENDOCRINE/METABOLIC Hx Diabetes Mellitus Type 1: Yes - HEMATOLOGICAL/ONCOLOGICAL Hx Blood Disorders: No - INTEGUMENTARY Hx Dermatological Problems: No - MUSCULOSKELETAL/RHEUMATOLOGICAL Hx Musculoskeletal Disorders: No Hx Falls: No - GASTROINTESTINAL Hx Gastrointestinal Disorders: No - GENITOURINARY/GYNECOLOGICAL Hx Genitourinary Disorders: No - PSYCHIATRIC Hx Substance Use: No - SURGICAL HISTORY Hx Coronary Artery Bypass Graft: Yes - ANESTHESIA Hx Anesthesia: Yes Hx Anesthesia Reactions: No Hx Malignant Hyperthermia: No Has any member of the family had a problem w/ anesthesia?: No Meds Allergies/Adverse Reactions: Allergies Allergy/AdvReac Type Severity Reaction Status Date / Time No Known Allergies Allergy Unverified 10/05/16 22:02 - Medications Medications: Current Medications Acetylcysteine (Acetylcysteine 20%) 4 ml INH RQ6 [facility] Last Admin: 10/06/16 19:31 Dose: 4 ml Albuterol/Ipratropium (Duoneb 3 Mg/0.5 Mg (3 Ml) Ud) 3 ml INH RQ6 [facility] Last Admin: 10/06/16 19:30 Dose: 3 ml Heparin Sodium (Porcine) (Heparin) 5,000 units SC Q12 [facility] Last Admin: 10/06/16 21:03 Dose: 5,000 units Sodium Chloride (Sodium Chloride 0.9%) 1,000 mls @ 75 mls/hr IV .[id number] [facility] Last Admin: 10/06/16 14:28 Dose: Not Given Phenylephrine HCl 30 mg/ (Sodium Chloride) 253 mls @ 10.12 mls/hr IV .Q24H PRN ; Protocol; 20 MCG/MIN PRN Reason: TITRATE PER MD ORDER Last Titration: 10/06/16 14:00 Dose: 0 mcg/min, 0 mls/hr Meropenem 500 mg/ Sodium (Chloride) 100 mls @ 100 mls/hr IVPB Q8 [facility] Last Admin: 10/06/16 21:00 Dose: 100 mls/hr Insulin Aspart (Novolog) 0 unit SC ACHS [facility] PRN Reason: Protocol Last Admin: 10/06/16 17:55 Dose: 3 unit Metoprolol Tartrate (Lopressor) 5 mg IVP Q6H [facility] Last Admin: 10/06/16 20:03 Dose: 5 mg Physical Exam - Constitutional Appears: Non-toxic, No Acute Distress, Agitated - Head Exam Head Exam: NORMAL INSPECTION - Eye Exam Eye Exam: Normal appearance - ENT Exam ENT Exam: Mucous Membranes Dry - Neck Exam Neck exam: Positive for: Normal Inspection - Respiratory Exam Respiratory Exam: Decreased Breath Sounds, NORMAL BREATHING PATTERN - Cardiovascular Exam Cardiovascular Exam: Tachycardia, REGULAR RHYTHM - GI/Abdominal Exam GI & Abdominal Exam: Distended, Soft, Tenderness - Extremities Exam Extremities exam: Positive for: normal inspection Results - Vital Signs Recent Vital Signs: Last Vital Signs Temp 98.2 F 10/06/16 16:00 Pulse 133 H 10/06/16 19:00 Resp 23 10/06/16 19:00 BP 109/62 10/06/16 18:10 Pulse Ox 96 10/06/16 19:00 - Labs Result Diagrams: 10/06/16 06:20 10/06/16 06:22 Labs: Laboratory Results - last 24 hr 10/06/16 10/06/16 10/06/16 01:40 06:20 06:22 WBC 5.3 RBC 3.66 L Hgb 10.5 L Hct 32.8 L MCV 89.4 MCH 28.6 MCHC 32.0 L RDW 16.9 H Plt Count 110 L MPV 10.4 Neut % (Auto) 74.4 Lymph % (Auto) 14.4 L Ralls % (Auto) 7.9 Eos % (Auto) 2.4 Baso % (Auto) 0.9 Neut # 4.0 Lymph # 0.8 L Ralls # 0.4 Eos # 0.1 Baso # 0.0 Puncture Site pCO2 pO2 58 H HCO3 ABG pH ABG Total CO2 ABG O2 Saturation ABG Base Excess Julius Test VBG pH 7.34 VBG pCO2 43 VBG HCO3 22.6 VBG Total CO2 24.5 VBG O2 Sat (Calc) 94.4 H VBG Base Excess -2.6 L VBG Potassium 4.9 Sodium 133.0 136 Chloride 103.0 97 L Glucose 252 H Lactate 1.6 Liter Flow Crit Value Called To Crit Value Called By Crit Value Read Back Blood Gas Notified Time Potassium 4.6 Carbon Dioxide 24 Anion Gap 20 BUN 61 H Creatinine 4.1 H Est GFR ( Amer) 17 Est GFR (Non-Af Amer) 14 POC Glucose (mg/dL) Random Glucose 206 H Hemoglobin A1c Calcium 8.4 L Total Bilirubin 2.1 H AST 74 H ALT 72 Alkaline Phosphatase 82 Total Creatine Kinase CK-MB (Mass) Troponin I, Quant Total Protein 6.7 Albumin 3.0 L Globulin 3.7 Albumin/Globulin Ratio 0.8 L Venous Blood Potassium 4.9 Urine Color Urine Clarity Urine pH Ur Specific Webster Urine Protein Urine Glucose (UA) Urine Ketones Urine Blood Urine Nitrate Urine Bilirubin Urine Urobilinogen Ur Leukocyte Esterase Urine WBC (Auto) Ur Squamous Epith Cells Amorphous Sediment 10/06/16 10/06/16 10/06/16 11:14 11:52 13:22 WBC RBC Hgb Hct MCV MCH MCHC RDW Plt Count MPV Neut % (Auto) Lymph % (Auto) Ralls % (Auto) Eos % (Auto) Baso % (Auto) Neut # Lymph # Ralls # Eos # Baso # Puncture Site pCO2 pO2 HCO3 ABG pH ABG Total CO2 ABG O2 Saturation ABG Base Excess Julius Test VBG pH VBG pCO2 VBG HCO3 VBG Total CO2 VBG O2 Sat (Calc) VBG Base Excess VBG Potassium Sodium Chloride Glucose Lactate Liter Flow Crit Value Called To Crit Value Called By Crit Value Read Back Blood Gas Notified Time Potassium Carbon Dioxide Anion Gap BUN Creatinine Est GFR ( Amer) Est GFR (Non-Af Amer) POC Glucose (mg/dL) 203 H Random Glucose Hemoglobin A1c 8.6 H Calcium Total Bilirubin AST ALT Alkaline Phosphatase Total Creatine Kinase 20 L CK-MB (Mass) 1.08 Troponin I, Quant 0.1620 H* Total Protein Albumin Globulin Albumin/Globulin Ratio Venous Blood Potassium Urine Color Urine Clarity Urine pH Ur Specific Webster Urine Protein Urine Glucose (UA) Urine Ketones Urine Blood Urine Nitrate Urine Bilirubin Urine Urobilinogen Ur Leukocyte Esterase Urine WBC (Auto) Ur Squamous Epith Cells Amorphous Sediment 10/06/16 10/06/16 10/06/16 15:46 17:35 17:38 WBC RBC Hgb Hct MCV MCH MCHC RDW Plt Count MPV Neut % (Auto) Lymph % (Auto) Ralls % (Auto) Eos % (Auto) Baso % (Auto) Neut # Lymph # Ralls # Eos # Baso # Puncture Site Lra pCO2 34 L pO2 70 L HCO3 20.1 L ABG pH 7.35 ABG Total CO2 19.8 L ABG O2 Saturation 97.3 ABG Base Excess -6.0 L Julius Test Pos VBG pH VBG pCO2 VBG HCO3 VBG Total CO2 VBG O2 Sat (Calc) VBG Base Excess VBG Potassium Sodium 137.0 Chloride 109.0 H Glucose 247 H Lactate 1.8 Liter Flow 3.0 Crit Value Called To Dr sanford Crit Value Called By Kimberly ozuna Crit Value Read Back Y Blood Gas Notified Time 1745 Potassium Carbon Dioxide Anion Gap BUN Creatinine Est GFR ( Amer) Est GFR (Non-Af Amer) POC Glucose (mg/dL) 261 H Random Glucose Hemoglobin A1c Calcium Total Bilirubin AST ALT Alkaline Phosphatase Total Creatine Kinase CK-MB (Mass) Troponin I, Quant Total Protein Albumin Globulin Albumin/Globulin Ratio Venous Blood Potassium Urine Color Mary Urine Clarity Hazy Urine pH 5.0 Ur Specific Webster 1.016 Urine Protein 1+ H Urine Glucose (UA) Normal Urine Ketones Negative Urine Blood Negative Urine Nitrate Negative Urine Bilirubin Negative Urine Urobilinogen Normal Ur Leukocyte Esterase Neg Urine WBC (Auto) 1 Ur Squamous Epith Cells < 1 Amorphous Sediment Rare H 10/06/16 10/06/16 21:22 21:36 WBC RBC Hgb Hct MCV MCH MCHC RDW Plt Count MPV Neut % (Auto) Lymph % (Auto) Ralls % (Auto) Eos % (Auto) Baso % (Auto) Neut # Lymph # Ralls # Eos # Baso # Puncture Site pCO2 pO2 HCO3 ABG pH ABG Total CO2 ABG O2 Saturation ABG Base Excess Julius Test VBG pH VBG pCO2 VBG HCO3 VBG Total CO2 VBG O2 Sat (Calc) VBG Base Excess VBG Potassium Sodium Chloride Glucose Lactate Liter Flow Crit Value Called To Crit Value Called By Crit Value Read Back Blood Gas Notified Time Potassium Carbon Dioxide Anion Gap BUN Creatinine Est GFR ( Amer) Est GFR (Non-Af Amer) POC Glucose (mg/dL) 307 H Random Glucose Hemoglobin A1c Calcium Total Bilirubin AST ALT Alkaline Phosphatase Total Creatine Kinase 22 L CK-MB (Mass) 1.19 Troponin I, Quant 0.1430 H* Total Protein Albumin Globulin Albumin/Globulin Ratio Venous Blood Potassium Urine Color Urine Clarity Urine pH Ur Specific Webster Urine Protein Urine Glucose (UA) Urine Ketones Urine Blood Urine Nitrate Urine Bilirubin Urine Urobilinogen Ur Leukocyte Esterase Urine WBC (Auto) Ur Squamous Epith Cells Amorphous Sediment Assessment & Plan (1) Abdominal pain Status: Acute (2) CAD (coronary artery disease) Status: Acute (3) HTN (hypertension) Status: Acute (4) Pneumonia Status: Acute (5) Sepsis Status: Acute - Assessment and Plan (Free Text) Assessment: # tc / sepsis # ckd, unclear baseline # septic shock # abdominal pain # troponin leak plan: iv fluids, pressor support as needed to maintain map>65 mm hg quijano catheter for strict I/Os urine culture antibiotics per id obtain prior records troponon leak of unclear significance, follow trend ct abd negative for obstruction
[2016-10-07] MEDS: Metoprolol 1 mg/ml Inj IVP SCH ×4 (00:35→19:55)
[2016-10-07] MEDS: Albuterol-Ipratrop 3 mg / 0.5 (3 ml) UD INH SCH ×4 (01:14→19:34)
[2016-10-07] MEDS: Acetylcysteine 20% Inhal Soln (4ml) INH SCH ×4 (01:14→19:33)
[2016-10-07] MEDS: Sodium Chloride 0.9% 1,000 ML IV SCH ×2 (02:45→09:54)
[2016-10-07] MEDS: Meropenem 500 MG in Sodium Chloride 0.9% 100 ML IVPB SCH ×3 (05:00→21:00)
[2016-10-07 06:32] LABS: BASO % 0.7 % (0.0-2.0); EOS # 0.1 K/uL (0.0-0.7); EOS % 1.3 % (0.0-4.0); HEMOGLOBIN 9.4 g/dL (12.0-18.0); LYMPH # 0.6 K/uL (1.0-4.3); LYMPH % 14.7 % (20.0-40.0); MEAN CELL VOLUME 88.8 fL (80.0-94.0); MEAN CORPUSCULAR HEMOGLOBIN 28.6 pg (27.0-31.0); MEAN CORPUSCULAR HGB CONC 32.2 g/dL (33.0-37.0); MEAN PLATELET VOLUME 10.4 fL (7.2-11.7); MONO # 0.3 K/uL (0.0-0.8); MONO % 6.8 % (0.0-10.0); NEUT # 3.2 K/uL (1.8-7.0); NEUT % 76.5 % (50.0-75.0); NRBC % 0.2 % (0.0-2.0); RBC 3.29 Mil/uL (4.40-5.90); RED CELL DISTRIBUTION WIDTH 16.7 % (11.5-14.5); WHITE BLOOD COUNT 4.2 K/uL (4.8-10.8)
[2016-10-07 06:33] LABS: ALBUMIN 2.7 g/dL (3.5-5.0)
[2016-10-07 06:35] LABS: GFR AFRICAN-AMERICAN 20; GFR NON-AFRICAN AMERICAN 17
[2016-10-07 06:36] LABS: ALB/GLOB RATIO 0.7 (1.0-2.1); ALT/SGPT 68 U/L (21-72); AST/SGOT 36 U/L (17-59); BLOOD UREA NITROGEN 58 mg/dL (9-20)
[2016-10-07 06:37] LABS: CALCIUM 8.5 mg/dl (8.6-10.4); MAGNESIUM 1.7 mg/dL (1.6-2.3)
[2016-10-07 06:45] LABS: CK-MB 0.67 ng/mL (0.0-3.38)
[2016-10-07] MEDS: (Novolog) Insulin Aspart, Recombinant 100 u/ml 10 ml vial SC SCH ×4 (07:54→22:00)
--- NOTE | 2016-10-07 09:16 | CP.PCM.PN ---
Subjective - Date & Time of Evaluation Date of Evaluation: 10/07/16 Time of Evaluation: 09:10 - Subjective Subjective: outoput 1338 about 1.8 liter positive water balance afebrile creatine down to 3.8,bun down to [address] shows large prostate,no hydronephrosis and kidney cysts and left inguinal collection Up in bed eating intermittent cough states was told of renal problem in past No head ache dizziness pleuritic chest pain cough productive of brown sputum no abd pain nausea vomiting dialrrhea quijano in place Objective - Vital Signs/Intake and Output Vital Signs (last 24 hours): Temp Pulse Resp BP Pulse Ox 97.5 F L 130 H 32 H 105/57 L 98 10/07/16 08:00 10/07/16 08:20 10/07/16 08:20 10/07/16 08:10 10/07/16 08:20 Intake and Output: 10/07/16 10/07/16 06:59 18:59 Intake Total 1870 150 Output Total 688 233 Balance 1182 -83 - Medications Medications: Current Medications Acetylcysteine (Acetylcysteine 20%) 4 ml INH RQ6 [facility] Last Admin: 10/07/16 07:49 Dose: Not Given Albuterol/Ipratropium (Duoneb 3 Mg/0.5 Mg (3 Ml) Ud) 3 ml INH RQ6 [facility] Last Admin: 10/07/16 07:50 Dose: Not Given Heparin Sodium (Porcine) (Heparin) 5,000 units SC Q12 [facility] Last Admin: 10/06/16 21:03 Dose: 5,000 units Sodium Chloride (Sodium Chloride 0.9%) 1,000 mls @ 75 mls/hr IV .[id number] [facility] Last Admin: 10/07/16 02:45 Dose: 75 mls/hr Phenylephrine HCl 30 mg/ (Sodium Chloride) 253 mls @ 10.12 mls/hr IV .Q24H PRN ; Protocol; 20 MCG/MIN PRN Reason: TITRATE PER MD ORDER Last Titration: 10/06/16 14:00 Dose: 0 mcg/min, 0 mls/hr Meropenem 500 mg/ Sodium (Chloride) 100 mls @ 100 mls/hr IVPB Q8 [facility] Last Admin: 10/07/16 05:00 Dose: 100 mls/hr Insulin Aspart (Novolog) 0 unit SC ACHS [facility] PRN Reason: Protocol Last Admin: 10/07/16 07:54 Dose: 3 unit Metoprolol Tartrate (Lopressor) 5 mg IVP Q6H [facility] Last Admin: 10/07/16 06:53 Dose: 5 mg - Labs Labs: 10/07/16 06:17 10/07/16 06:17 - Constitutional Appears: No Acute Distress - ENT Exam ENT Exam: Mucous Membranes Moist - Respiratory Exam Additional comments: midsternal scar appears clean ocasional rhonchi coarse sounds prolonged inspiration and expiration - Cardiovascular Exam Cardiovascular Exam: Tachycardia, Irregular Rhythm - GI/Abdominal Exam GI & Abdominal Exam: Distended, Soft. absent: Tenderness - Exam Additional comments: quijano in place - Extremities Exam Extremities Exam: absent: Calf Tenderness, Pedal Edema - Skin Skin Exam: Dry Assessment and Plan (1) SAGAR (acute kidney injury) Status: Acute (2) CAD (coronary artery disease) Status: Acute (3) HTN (hypertension) Status: Acute (4) Pneumonia Status: Acute (5) Sepsis Status: Acute - Assessment and Plan (Free Text) Plan: follow cardiolgy recommendations re probable atrial fib antibitics per ID follow chems closely reduce iv's for now repeat bmp this PM
[2016-10-07] MEDS ORDERED: Metoprolol 1 mg/ml Inj IVP ONE (10:09)
--- NOTE | 2016-10-07 11:10 | CP.PCM.PN ---
Subjective - Date & Time of Evaluation Date of Evaluation: 10/07/16 Time of Evaluation: 11:08 - Subjective Subjective: PT AWAKE. NO DISTRESS. NO CHEST PAIN. AFEBRILE. VS WNL. TROPONIN SLIGHTLY ELEVATED. BLOOD C/S POSITIVE FOR GM POS COCCI. Objective - Vital Signs/Intake and Output Vital Signs (last 24 hours): Temp Pulse Resp BP Pulse Ox 97.5 F L 130 H 32 H 105/57 L 98 10/07/16 08:00 10/07/16 08:20 10/07/16 08:20 10/07/16 08:10 10/07/16 08:20 Intake and Output: 10/07/16 10/07/16 06:59 18:59 Intake Total 1870 150 Output Total 688 233 Balance 1182 -83 - Medications Medications: Current Medications Acetylcysteine (Acetylcysteine 20%) 4 ml INH RQ6 [facility] Last Admin: 10/07/16 07:49 Dose: Not Given Albuterol/Ipratropium (Duoneb 3 Mg/0.5 Mg (3 Ml) Ud) 3 ml INH RQ6 [facility] Last Admin: 10/07/16 07:50 Dose: Not Given Aspirin (Ecotrin) 81 mg PO DAILY [facility] Famotidine (Pepcid) 20 mg PO DAILY [facility] Heparin Sodium (Porcine) (Heparin) 5,000 units SC Q12 [facility] Last Admin: 10/07/16 09:21 Dose: 5,000 units Phenylephrine HCl 30 mg/ (Sodium Chloride) 253 mls @ 10.12 mls/hr IV .Q24H PRN ; Protocol; 20 MCG/MIN PRN Reason: TITRATE PER MD ORDER Last Titration: 10/06/16 14:00 Dose: 0 mcg/min, 0 mls/hr Meropenem 500 mg/ Sodium (Chloride) 100 mls @ 100 mls/hr IVPB Q8 [facility] Last Admin: 10/07/16 05:00 Dose: 100 mls/hr Sodium Chloride (Sodium Chloride 0.9%) 1,000 mls @ 50 mls/hr IV .Q20H [facility] Last Admin: 10/07/16 09:54 Dose: 50 mls/hr Insulin Aspart (Novolog) 0 unit SC ACHS [facility] PRN Reason: Protocol Metoprolol Tartrate (Lopressor) 5 mg IVP Q6H [facility] Last Admin: 10/07/16 06:53 Dose: 5 mg - Labs Labs: 10/07/16 06:17 10/07/16 06:17 - Constitutional Appears: No Acute Distress - Eye Exam Eye Exam: Normal appearance Pupil Exam: PERRL - ENT Exam ENT Exam: Mucous Membranes Moist - Neck Exam Neck Exam: Full ROM - Respiratory Exam Respiratory Exam: NORMAL BREATHING PATTERN - Cardiovascular Exam Cardiovascular Exam: Tachycardia, +S1, +S2 - GI/Abdominal Exam GI & Abdominal Exam: Soft. absent: Organomegaly - Exam External exam: NORMAL EXTERNAL EXAM - Extremities Exam Extremities Exam: Normal Capillary Refill - Back Exam Back Exam: NORMAL INSPECTION - Neurological Exam Neurological Exam: Alert, Awake, CN II-XII Intact, Normal Gait, Oriented x3 - Skin Skin Exam: Dry, Intact, Normal Color, Warm Assessment and Plan - Assessment and Plan (Free Text) Assessment: SEPSIS. CABG STABLE. ECHO CONSISTENT WITH CAD. LV FUNCTION LOW NORMAL.EF 50-55%. Plan: CT PRESENT TREATMENT. RENAL EVAL. METOPROLOL.
[2016-10-07 11:26] LABS: INR 1.5; PROTHROMBIN TIME 17.9 SECONDS (9.7-12.2)
[2016-10-07 11:29] LABS: CALCIUM 8.8 mg/dl (8.6-10.4)
--- NOTE | 2016-10-07 12:00 | CP.PCM.PN ---
Subjective - Date & Time of Evaluation Date of Evaluation: 10/07/16 Time of Evaluation: 11:59 - Subjective Subjective: clinically improved abdomen benign would dc drain tube prior to dc Objective - Vital Signs/Intake and Output Vital Signs (last 24 hours): Temp Pulse Resp BP Pulse Ox 97.5 F L 129 H 25 H 97/62 L 98 10/07/16 08:00 10/07/16 11:50 10/07/16 11:50 10/07/16 11:10 10/07/16 11:50 Intake and Output: 10/07/16 10/07/16 06:59 18:59 Intake Total 1870 375 Output Total 688 363 Balance 1182 12 - Medications Medications: Current Medications Acetylcysteine (Acetylcysteine 20%) 4 ml INH RQ6 [facility] Last Admin: 10/07/16 07:49 Dose: Not Given Albuterol/Ipratropium (Duoneb 3 Mg/0.5 Mg (3 Ml) Ud) 3 ml INH RQ6 [facility] Last Admin: 10/07/16 07:50 Dose: Not Given Aspirin (Ecotrin) 81 mg PO DAILY [facility] Last Admin: 10/07/16 11:09 Dose: 81 mg Famotidine (Pepcid) 20 mg PO DAILY [facility] Last Admin: 10/07/16 11:09 Dose: 20 mg Heparin Sodium (Porcine) (Heparin) 5,000 units SC Q12 [facility] Last Admin: 10/07/16 09:21 Dose: 5,000 units Phenylephrine HCl 30 mg/ (Sodium Chloride) 253 mls @ 10.12 mls/hr IV .Q24H PRN ; Protocol; 20 MCG/MIN PRN Reason: TITRATE PER MD ORDER Last Titration: 10/06/16 14:00 Dose: 0 mcg/min, 0 mls/hr Meropenem 500 mg/ Sodium (Chloride) 100 mls @ 100 mls/hr IVPB Q8 [facility] Last Admin: 10/07/16 05:00 Dose: 100 mls/hr Sodium Chloride (Sodium Chloride 0.9%) 1,000 mls @ 50 mls/hr IV .Q20H [facility] Last Admin: 10/07/16 09:54 Dose: 50 mls/hr Insulin Aspart (Novolog) 0 unit SC ACHS [facility] PRN Reason: Protocol Last Admin: 10/07/16 11:47 Dose: 6 unit Metoprolol Tartrate (Lopressor) 5 mg IVP Q6H [facility] Last Admin: 10/07/16 06:53 Dose: 5 mg - Labs Labs: 10/07/16 06:17 10/07/16 11:14 PT 17.9 SECONDS (9.7-12.2) H 10/07/16 11:14 INR 1.5 10/07/16 11:14 APTT 33 SECONDS (21-34) 10/07/16 11:14
--- NOTE | 2016-10-07 13:44 | RAD ---
HISTORY: s/p central line COMPARISON: 10/05/2016 FINDINGS: LUNGS: No definite infiltrate. Opacity at right lung base most likely secondary to pleural effusion. PLEURA: Small right pleural effusion. No left pleural effusion. No pneumothorax. CARDIOVASCULAR: New right subclavian central venous catheter terminating at the level of the cavoatrial junction. AICD noted. Sternotomy wires. Status post CABG. OSSEOUS STRUCTURES: No significant abnormalities. VISUALIZED UPPER ABDOMEN: Normal. OTHER FINDINGS: None. IMPRESSION: Right central venous catheter terminating at approximately the level of the cavoatrial junction. Small right pleural effusion.
--- NOTE | 2016-10-07 15:32 | CP.CCUPN ---
CCU Subjective - Physician Review Events Since Last Encounter (Free Text): 10/07/16 15:30 patient seen and examined in the intensive care unit. 86-year-old male admitted for abdominal pain and change in mental status. He has a cholecystostomy tube in place which is draining bilious fluid. Pt states that this was placed approx 2 weeks ago at [facility]. Pt was a code sepsis on admission with Fever of 101.4, Hypotension, tachycardia in the 130s, Lactate 2.4. Pt was admitted to the ICU and started on IV Abx. CT Abdomen pelvis was done which showed possible R LL pneumonia patient started on IV antibiotics with positive blood cultures. Midline removed and triple lumen catheter placed Patient with persistent tachycardia heart rate 125-130 Also complaining of slight cough Denies chest pain patient also has elevated troponins CCU Objective - Vital Signs / Intake & Output Vital Signs (Last 4 hours): Vital Signs Temp Pulse Resp BP Pulse Ox 10/07/16 13:00 127 H 20 96 10/07/16 12:50 127 H 29 H 96 10/07/16 12:40 122 H 10/07/16 12:30 125 H 15 98 10/07/16 12:20 128 H 22 97 10/07/16 12:10 127 H 17 105/66 97 10/07/16 12:00 98.1 F 128 H 21 98 10/07/16 11:50 129 H 25 H 98 10/07/16 11:40 127 H 32 H 98 Intake and Output (Last 8hrs): Intake & Output 10/07/16 10/07/16 10/07/16 06:59 14:59 22:59 Intake Total 1005 425 Output Total 464 443 Balance 541 -18 Weight 178 lb 9 oz Intake: Intake, IV Amount 625 425 Left Forearm 625 225 RJugTLC 200 Oral 380 Output: Drainage 100 Right Medial Abdomen 100 Urine 464 343 Urine, Voided 464 343 Stool 0 - Physical Exam Head: Positive for: Atraumatic, Normocephalic Pupils: Positive for: PERRL. Negative for: Sluggish, Non-Reactive Extroacular Muscles: Positive for: EOMI Conjunctiva: Positive for: Normal. Negative for: Injected, Icteric Mouth: Positive for: Moist Mucous Membranes Neck: Positive for: Normal Range of Motion, Trachea Midline. Negative for: Meningeal Signs, MIDLINE TENDERNESS, Paraspinal Tenderness, JVD, Lymphadenopathy , Bruit, Other Respiratory/Chest: Positive for: Clear to Auscultation, Good Air Exchange. Negative for: Respiratory Distress, Accessory Muscle Use, Wheezes, Decreased Breath Sounds, Rales, Retracting Cardiovascular: Positive for: Regular Rate and Rhythm, Peripheal Pulses Present , Tachycardic. Negative for: Murmurs Abdomen: Positive for: Tenderness, Distention, Peritoneal Signs Upper Extremity: Positive for: Normal Inspection, NORMAL PULSES, Capillary Refill < 2s. Negative for: Cyanosis, Edema Lower Extremity: Positive for: Normal Inspection, NORMAL PULSES, Capillary Refill < 2 s. Negative for: Edema, CALF TENDERNESS - Medications Active Medications: Active Medications Generic Name Dose Route Start Last Admin Trade Name Freq PRN Reason Stop Dose Admin Acetylcysteine 4 ml 10/06/16 14:00 10/07/16 13:32 Acetylcysteine 20% INH Not Given RQ6 CHERY Albuterol/Ipratropium 3 ml 10/06/16 14:00 10/07/16 13:32 Duoneb 3 Mg/0.5 Mg (3 Ml) Ud INH Not Given RQ6 CHERY Aspirin 81 mg 10/07/16 10:15 10/07/16 11:09 Ecotrin PO 81 mg DAILY CHERY Administration Famotidine 20 mg 10/07/16 10:15 10/07/16 11:09 Pepcid PO 20 mg DAILY CHERY Administration Heparin Sodium (Porcine) 5,000 units 10/06/16 10:30 10/07/16 09:21 Heparin SC 5,000 units Q12 CHERY Administration Phenylephrine HCl 30 mg/ 253 mls @ 10.12 mls/hr 10/06/16 02:16 10/06/16 14:00 Sodium Chloride IV 0 mcg/min .Q24H PRN 0 mls/hr TITRATE PER MD ORDER Titration Protocol 20 MCG/MIN Meropenem 500 mg/ Sodium 100 mls @ 100 mls/hr 10/06/16 14:00 10/07/16 13:09 Chloride IVPB 100 mls/hr Q8 CHERY Administration Sodium Chloride 1,000 mls @ 50 mls/hr 10/07/16 09:45 10/07/16 09:54 Sodium Chloride 0.9% IV 50 mls/hr .Q20H CHERY Administration Insulin Aspart 0 unit 10/07/16 10:14 10/07/16 11:47 Novolog SC 6 unit ACHS CHERY Administration Protocol Metoprolol Tartrate 5 mg 10/06/16 19:15 10/07/16 13:07 Lopressor IVP 5 mg Q6H CHERY Administration - Patient Studies Lab Studies: Microbiology Studies 10/06/16 06:00 MRSA Culture (Admit) - Final Nose MRSA DETECTED 10/06/16 12:08 Gram Stain - Final Sputum Induced Sputum Culture - Preliminary Gram Negative Pop Gram Positive Cocci 10/06/16 15:20 Urine Culture - Final Urine,Casey No Growth (<1,000 CFU/ML) Lab Studies 10/07/16 10/07/16 10/07/16 Range/Units 11:22 11:14 11:14 WBC (4.8-10.8) K/uL RBC (4.40-5.90) Mil/uL Hgb (12.0-18.0) g/dL Hct (35.0-51.0) % MCV (80.0-94.0) fL MCH (27.0-31.0) pg MCHC (33.0-37.0) g/dL RDW (11.5-14.5) % Plt Count (130-400) K/uL MPV (7.2-11.7) fL Neut % (Auto) (50.0-75.0) % Lymph % (Auto) (20.0-40.0) % [place] % (Auto) (0.0-10.0) % Eos % (Auto) (0.0-4.0) % Baso % (Auto) (0.0-2.0) % Neut # (1.8-7.0) K/uL Lymph # (1.0-4.3) K/uL [place] # (0.0-0.8) K/uL Eos # (0.0-0.7) K/uL Baso # (0.0-0.2) K/uL PT 17.9 H (9.7-12.2) SECONDS INR 1.5 APTT 33 (21-34) SECONDS Puncture Site pCO2 (35-45) mm/Hg pO2 (80-100) mm/Hg HCO3 (21-28) mmol/L ABG pH (7.35-7.45) ABG Total CO2 (22-28) mmol/L ABG O2 Saturation (95-98) % ABG Base Excess (-2.0-3.0) mmol/L Julius Test Sodium (132-148) mmol/l Chloride (98-107) mmol/L Glucose (75-110) mg/dl Lactate (0.7-2.1) mmol/L Liter Flow Crit Value Called To Crit Value Called By Crit Value Read Back Blood Gas Notified Time Potassium (3.6-5.2) mmol/L Carbon Dioxide (22-30) mmol/L Anion Gap (10-20) BUN (9-20) mg/dL Creatinine (0.8-1.5) MG/DL Est GFR ( Amer) Est GFR (Non-Af Amer) POC Glucose (mg/dL) 275 H (65-110) mg/dL Random Glucose (75-110) mg/dL Calcium (8.6-10.4) mg/dl Phosphorus (2.5-4.5) mg/dL Magnesium (1.6-2.3) mg/dL Total Bilirubin (0.2-1.3) mg/dL AST (17-59) U/L ALT (21-72) U/L Alkaline Phosphatase (38-126) U/L Total Creatine Kinase (55-170) U/L CK-MB (Mass) (0.0-3.38) ng/mL Troponin I, Quant (0.00-0.120) ng/mL Total Protein (6.3-8.3) g/dL Albumin (3.5-5.0) g/dL Globulin (2.2-3.9) gm/dL Albumin/Globulin Ratio (1.0-2.1) Procalcitonin 7.00 H (0.19-0.49) NG/ML Urine Color (YELLOW) Urine Clarity (Clear) Urine pH (5.0-8.0) Ur Specific [place] (1.003-1.030) Urine Protein (NEGATIVE) mg/dL Urine Glucose (UA) (Normal) mg/dL Urine Ketones (NEGATIVE) mg/dL Urine Blood (NEGATIVE) Urine Nitrate (NEGATIVE) Urine Bilirubin (NEGATIVE) Urine Urobilinogen (0.2-1.0) mg/dL Ur Leukocyte Esterase (Negative) Andrew/uL Urine WBC (Auto) (0-5) /hpf Ur Squamous Epith Cells (0-5) /hpf Amorphous Sediment (<OCC) /ul Random Vancomycin ug/mL 10/07/16 10/07/16 10/07/16 Range/Units 11:14 07:29 06:17 WBC (4.8-10.8) K/uL RBC (4.40-5.90) Mil/uL Hgb (12.0-18.0) g/dL Hct (35.0-51.0) % MCV (80.0-94.0) fL MCH (27.0-31.0) pg MCHC (33.0-37.0) g/dL RDW (11.5-14.5) % Plt Count (130-400) K/uL MPV (7.2-11.7) fL Neut % (Auto) (50.0-75.0) % Lymph % (Auto) (20.0-40.0) % [place] % (Auto) (0.0-10.0) % Eos % (Auto) (0.0-4.0) % Baso % (Auto) (0.0-2.0) % Neut # (1.8-7.0) K/uL Lymph # (1.0-4.3) K/uL [place] # (0.0-0.8) K/uL Eos # (0.0-0.7) K/uL Baso # (0.0-0.2) K/uL PT (9.7-12.2) SECONDS INR APTT (21-34) SECONDS Puncture Site pCO2 (35-45) mm/Hg pO2 (80-100) mm/Hg HCO3 (21-28) mmol/L ABG pH (7.35-7.45) ABG Total CO2 (22-28) mmol/L ABG O2 Saturation (95-98) % ABG Base Excess (-2.0-3.0) mmol/L Julius Test Sodium 138 (132-148) mmol/l Chloride 104 (98-107) mmol/L Glucose (75-110) mg/dl Lactate (0.7-2.1) mmol/L Liter Flow Crit Value Called To Crit Value Called By Crit Value Read Back Blood Gas Notified Time Potassium 4.8 (3.6-5.2) mmol/L Carbon Dioxide 24 (22-30) mmol/L Anion Gap 14 (10-20) BUN 58 H (9-20) mg/dL Creatinine 3.4 H (0.8-1.5) MG/DL Est GFR ( Amer) 21 Est GFR (Non-Af Amer) 17 POC Glucose (mg/dL) 292 H (65-110) mg/dL Random Glucose 268 H (75-110) mg/dL Calcium 8.8 (8.6-10.4) mg/dl Phosphorus (2.5-4.5) mg/dL Magnesium (1.6-2.3) mg/dL Total Bilirubin (0.2-1.3) mg/dL AST (17-59) U/L ALT (21-72) U/L Alkaline Phosphatase (38-126) U/L Total Creatine Kinase (55-170) U/L CK-MB (Mass) (0.0-3.38) ng/mL Troponin I, Quant (0.00-0.120) ng/mL Total Protein (6.3-8.3) g/dL Albumin (3.5-5.0) g/dL Globulin (2.2-3.9) gm/dL Albumin/Globulin Ratio (1.0-2.1) Procalcitonin (0.19-0.49) NG/ML Urine Color (YELLOW) Urine Clarity (Clear) Urine pH (5.0-8.0) Ur Specific [place] (1.003-1.030) Urine Protein (NEGATIVE) mg/dL Urine Glucose (UA) (Normal) mg/dL Urine Ketones (NEGATIVE) mg/dL Urine Blood (NEGATIVE) Urine Nitrate (NEGATIVE) Urine Bilirubin (NEGATIVE) Urine Urobilinogen (0.2-1.0) mg/dL Ur Leukocyte Esterase (Negative) Andrew/uL Urine WBC (Auto) (0-5) /hpf Ur Squamous Epith Cells (0-5) /hpf Amorphous Sediment (<OCC) /ul Random Vancomycin 8.10 ug/mL 10/07/16 10/07/16 10/06/16 Range/Units 06:17 06:17 21:36 WBC 4.2 L (4.8-10.8) K/uL RBC 3.29 L (4.40-5.90) Mil/uL Hgb 9.4 L (12.0-18.0) g/dL Hct 29.2 L (35.0-51.0) % MCV 88.8 (80.0-94.0) fL MCH 28.6 (27.0-31.0) pg MCHC 32.2 L (33.0-37.0) g/dL RDW 16.7 H (11.5-14.5) % Plt Count 97 L (130-400) K/uL MPV 10.4 (7.2-11.7) fL Neut % (Auto) 76.5 H (50.0-75.0) % Lymph % (Auto) 14.7 L (20.0-40.0) % [place] % (Auto) 6.8 (0.0-10.0) % Eos % (Auto) 1.3 (0.0-4.0) % Baso % (Auto) 0.7 (0.0-2.0) % Neut # 3.2 (1.8-7.0) K/uL Lymph # 0.6 L (1.0-4.3) K/uL [place] # 0.3 (0.0-0.8) K/uL Eos # 0.1 (0.0-0.7) K/uL Baso # 0.0 (0.0-0.2) K/uL PT (9.7-12.2) SECONDS INR APTT (21-34) SECONDS Puncture Site pCO2 (35-45) mm/Hg pO2 (80-100) mm/Hg HCO3 (21-28) mmol/L ABG pH (7.35-7.45) ABG Total CO2 (22-28) mmol/L ABG O2 Saturation (95-98) % ABG Base Excess (-2.0-3.0) mmol/L Julius Test Sodium 135 (132-148) mmol/l Chloride 100 (98-107) mmol/L Glucose (75-110) mg/dl Lactate (0.7-2.1) mmol/L Liter Flow Crit Value Called To Crit Value Called By Crit Value Read Back Blood Gas Notified Time Potassium 4.9 (3.6-5.2) mmol/L Carbon Dioxide 22 (22-30) mmol/L Anion Gap 18 (10-20) BUN 58 H (9-20) mg/dL Creatinine 3.5 H (0.8-1.5) MG/DL Est GFR ( Amer) 20 Est GFR (Non-Af Amer) 17 POC Glucose (mg/dL) 307 H (65-110) mg/dL Random Glucose 283 H (75-110) mg/dL Calcium 8.5 L (8.6-10.4) mg/dl Phosphorus 4.7 H (2.5-4.5) mg/dL Magnesium 1.7 (1.6-2.3) mg/dL Total Bilirubin 2.2 H (0.2-1.3) mg/dL AST 36 (17-59) U/L ALT 68 (21-72) U/L Alkaline Phosphatase 86 (38-126) U/L Total Creatine Kinase < 20 L (55-170) U/L CK-MB (Mass) 0.67 (0.0-3.38) ng/mL Troponin I, Quant 0.1120 (0.00-0.120) ng/mL Total Protein 6.3 (6.3-8.3) g/dL Albumin 2.7 L (3.5-5.0) g/dL Globulin 3.7 (2.2-3.9) gm/dL Albumin/Globulin Ratio 0.7 L (1.0-2.1) Procalcitonin (0.19-0.49) NG/ML Urine Color (YELLOW) Urine Clarity (Clear) Urine pH (5.0-8.0) Ur Specific [place] (1.003-1.030) Urine Protein (NEGATIVE) mg/dL Urine Glucose (UA) (Normal) mg/dL Urine Ketones (NEGATIVE) mg/dL Urine Blood (NEGATIVE) Urine Nitrate (NEGATIVE) Urine Bilirubin (NEGATIVE) Urine Urobilinogen (0.2-1.0) mg/dL Ur Leukocyte Esterase (Negative) Andrew/uL Urine WBC (Auto) (0-5) /hpf Ur Squamous Epith Cells (0-5) /hpf Amorphous Sediment (<OCC) /ul Random Vancomycin ug/mL 10/06/16 10/06/16 10/06/16 Range/Units 21:22 17:38 17:35 WBC (4.8-10.8) K/uL RBC (4.40-5.90) Mil/uL Hgb (12.0-18.0) g/dL Hct (35.0-51.0) % MCV (80.0-94.0) fL MCH (27.0-31.0) pg MCHC (33.0-37.0) g/dL RDW (11.5-14.5) % Plt Count (130-400) K/uL MPV (7.2-11.7) fL Neut % (Auto) (50.0-75.0) % Lymph % (Auto) (20.0-40.0) % [place] % (Auto) (0.0-10.0) % Eos % (Auto) (0.0-4.0) % Baso % (Auto) (0.0-2.0) % Neut # (1.8-7.0) K/uL Lymph # (1.0-4.3) K/uL [place] # (0.0-0.8) K/uL Eos # (0.0-0.7) K/uL Baso # (0.0-0.2) K/uL PT (9.7-12.2) SECONDS INR APTT (21-34) SECONDS Puncture Site Lra pCO2 34 L (35-45) mm/Hg pO2 70 L (80-100) mm/Hg HCO3 20.1 L (21-28) mmol/L ABG pH 7.35 (7.35-7.45) ABG Total CO2 19.8 L (22-28) mmol/L ABG O2 Saturation 97.3 (95-98) % ABG Base Excess -6.0 L (-2.0-3.0) mmol/L Julius Test Pos Sodium 137.0 (132-148) mmol/l Chloride 109.0 H (98-107) mmol/L Glucose 247 H (75-110) mg/dl Lactate 1.8 (0.7-2.1) mmol/L Liter Flow 3.0 Crit Value Called To Dr sanford Crit Value Called By Kimberly ozuna Crit Value Read Back Y Blood Gas Notified Time 1745 Potassium (3.6-5.2) mmol/L Carbon Dioxide (22-30) mmol/L Anion Gap (10-20) BUN (9-20) mg/dL Creatinine (0.8-1.5) MG/DL Est GFR ( Amer) Est GFR (Non-Af Amer) POC Glucose (mg/dL) 261 H (65-110) mg/dL Random Glucose (75-110) mg/dL Calcium (8.6-10.4) mg/dl Phosphorus (2.5-4.5) mg/dL Magnesium (1.6-2.3) mg/dL Total Bilirubin (0.2-1.3) mg/dL AST (17-59) U/L ALT (21-72) U/L Alkaline Phosphatase (38-126) U/L Total Creatine Kinase 22 L (55-170) U/L CK-MB (Mass) 1.19 (0.0-3.38) ng/mL Troponin I, Quant 0.1430 H* (0.00-0.120) ng/mL Total Protein (6.3-8.3) g/dL Albumin (3.5-5.0) g/dL Globulin (2.2-3.9) gm/dL Albumin/Globulin Ratio (1.0-2.1) Procalcitonin (0.19-0.49) NG/ML Urine Color (YELLOW) Urine Clarity (Clear) Urine pH (5.0-8.0) Ur Specific [place] (1.003-1.030) Urine Protein (NEGATIVE) mg/dL Urine Glucose (UA) (Normal) mg/dL Urine Ketones (NEGATIVE) mg/dL Urine Blood (NEGATIVE) Urine Nitrate (NEGATIVE) Urine Bilirubin (NEGATIVE) Urine Urobilinogen (0.2-1.0) mg/dL Ur Leukocyte Esterase (Negative) Andrew/uL Urine WBC (Auto) (0-5) /hpf Ur Squamous Epith Cells (0-5) /hpf Amorphous Sediment (<OCC) /ul Random Vancomycin ug/mL 10/06/16 10/06/16 Range/Units 15:46 13:22 WBC (4.8-10.8) K/uL RBC (4.40-5.90) Mil/uL Hgb (12.0-18.0) g/dL Hct (35.0-51.0) % MCV (80.0-94.0) fL MCH (27.0-31.0) pg MCHC (33.0-37.0) g/dL RDW (11.5-14.5) % Plt Count (130-400) K/uL MPV (7.2-11.7) fL Neut % (Auto) (50.0-75.0) % Lymph % (Auto) (20.0-40.0) % [place] % (Auto) (0.0-10.0) % Eos % (Auto) (0.0-4.0) % Baso % (Auto) (0.0-2.0) % Neut # (1.8-7.0) K/uL Lymph # (1.0-4.3) K/uL [place] # (0.0-0.8) K/uL Eos # (0.0-0.7) K/uL Baso # (0.0-0.2) K/uL PT (9.7-12.2) SECONDS INR APTT (21-34) SECONDS Puncture Site pCO2 (35-45) mm/Hg pO2 (80-100) mm/Hg HCO3 (21-28) mmol/L ABG pH (7.35-7.45) ABG Total CO2 (22-28) mmol/L ABG O2 Saturation (95-98) % ABG Base Excess (-2.0-3.0) mmol/L Julius Test Sodium (132-148) mmol/l Chloride (98-107) mmol/L Glucose (75-110) mg/dl Lactate (0.7-2.1) mmol/L Liter Flow Crit Value Called To Crit Value Called By Crit Value Read Back Blood Gas Notified Time Potassium (3.6-5.2) mmol/L Carbon Dioxide (22-30) mmol/L Anion Gap (10-20) BUN (9-20) mg/dL Creatinine (0.8-1.5) MG/DL Est GFR ( Amer) Est GFR (Non-Af Amer) POC Glucose (mg/dL) (65-110) mg/dL Random Glucose (75-110) mg/dL Calcium (8.6-10.4) mg/dl Phosphorus (2.5-4.5) mg/dL Magnesium (1.6-2.3) mg/dL Total Bilirubin (0.2-1.3) mg/dL AST (17-59) U/L ALT (21-72) U/L Alkaline Phosphatase (38-126) U/L Total Creatine Kinase 20 L (55-170) U/L CK-MB (Mass) 1.08 (0.0-3.38) ng/mL Troponin I, Quant 0.1620 H* (0.00-0.120) ng/mL Total Protein (6.3-8.3) g/dL Albumin (3.5-5.0) g/dL Globulin (2.2-3.9) gm/dL Albumin/Globulin Ratio (1.0-2.1) Procalcitonin (0.19-0.49) NG/ML Urine Color Mary (YELLOW) Urine Clarity Hazy (Clear) Urine pH 5.0 (5.0-8.0) Ur Specific [place] 1.016 (1.003-1.030) Urine Protein 1+ H (NEGATIVE) mg/dL Urine Glucose (UA) Normal (Normal) mg/dL Urine Ketones Negative (NEGATIVE) mg/dL Urine Blood Negative (NEGATIVE) Urine Nitrate Negative (NEGATIVE) Urine Bilirubin Negative (NEGATIVE) Urine Urobilinogen Normal (0.2-1.0) mg/dL Ur Leukocyte Esterase Neg (Negative) Andrew/uL Urine WBC (Auto) 1 (0-5) /hpf Ur Squamous Epith Cells < 1 (0-5) /hpf Amorphous Sediment Rare H (<OCC) /ul Random Vancomycin ug/mL Laboratory Results - last 24 hr 10/06/16 10/06/16 10/06/16 13:22 15:46 17:35 WBC RBC Hgb Hct MCV MCH MCHC RDW Plt Count MPV Neut % (Auto) Lymph % (Auto) [place] % (Auto) Eos % (Auto) Baso % (Auto) Neut # Lymph # [place] # Eos # Baso # PT INR APTT Puncture Site Lra pCO2 34 L pO2 70 L HCO3 20.1 L ABG pH 7.35 ABG Total CO2 19.8 L ABG O2 Saturation 97.3 ABG Base Excess -6.0 L Julius Test Pos Sodium 137.0 Chloride 109.0 H Glucose 247 H Lactate 1.8 Liter Flow 3.0 Crit Value Called To Dr sanford Crit Value Called By Kimberly ozuna Crit Value Read Back Y Blood Gas Notified Time 1745 Potassium Carbon Dioxide Anion Gap BUN Creatinine Est GFR ( Amer) Est GFR (Non-Af Amer) POC Glucose (mg/dL) Random Glucose Calcium Phosphorus Magnesium Total Bilirubin AST ALT Alkaline Phosphatase Total Creatine Kinase 20 L CK-MB (Mass) 1.08 Troponin I, Quant 0.1620 H* Total Protein Albumin Globulin Albumin/Globulin Ratio Procalcitonin Urine Color Mary Urine Clarity Hazy Urine pH 5.0 Ur Specific [place] 1.016 Urine Protein 1+ H Urine Glucose (UA) Normal Urine Ketones Negative Urine Blood Negative Urine Nitrate Negative Urine Bilirubin Negative Urine Urobilinogen Normal Ur Leukocyte Esterase Neg Urine WBC (Auto) 1 Ur Squamous Epith Cells < 1 Amorphous Sediment Rare H Random Vancomycin 10/06/16 10/06/16 10/06/16 17:38 21:22 21:36 WBC RBC Hgb Hct MCV MCH MCHC RDW Plt Count MPV Neut % (Auto) Lymph % (Auto) [place] % (Auto) Eos % (Auto) Baso % (Auto) Neut # Lymph # [place] # Eos # Baso # PT INR APTT Puncture Site pCO2 pO2 HCO3 ABG pH ABG Total CO2 ABG O2 Saturation ABG Base Excess Julius Test Sodium Chloride Glucose Lactate Liter Flow Crit Value Called To Crit Value Called By Crit Value Read Back Blood Gas Notified Time Potassium Carbon Dioxide Anion Gap BUN Creatinine Est GFR ( Amer) Est GFR (Non-Af Amer) POC Glucose (mg/dL) 261 H 307 H Random Glucose Calcium Phosphorus Magnesium Total Bilirubin AST ALT Alkaline Phosphatase Total Creatine Kinase 22 L CK-MB (Mass) 1.19 Troponin I, Quant 0.1430 H* Total Protein Albumin Globulin Albumin/Globulin Ratio Procalcitonin Urine Color Urine Clarity Urine pH Ur Specific [place] Urine Protein Urine Glucose (UA) Urine Ketones Urine Blood Urine Nitrate Urine Bilirubin Urine Urobilinogen Ur Leukocyte Esterase Urine WBC (Auto) Ur Squamous Epith Cells Amorphous Sediment Random Vancomycin 10/07/16 10/07/16 10/07/16 06:17 06:17 06:17 WBC 4.2 L RBC 3.29 L Hgb 9.4 L Hct 29.2 L MCV 88.8 MCH 28.6 MCHC 32.2 L RDW 16.7 H Plt Count 97 L MPV 10.4 Neut % (Auto) 76.5 H Lymph % (Auto) 14.7 L [place] % (Auto) 6.8 Eos % (Auto) 1.3 Baso % (Auto) 0.7 Neut # 3.2 Lymph # 0.6 L [place] # 0.3 Eos # 0.1 Baso # 0.0 PT INR APTT Puncture Site pCO2 pO2 HCO3 ABG pH ABG Total CO2 ABG O2 Saturation ABG Base Excess Julius Test Sodium 135 Chloride 100 Glucose Lactate Liter Flow Crit Value Called To Crit Value Called By Crit Value Read Back Blood Gas Notified Time Potassium 4.9 Carbon Dioxide 22 Anion Gap 18 BUN 58 H Creatinine 3.5 H Est GFR ( Amer) 20 Est GFR (Non-Af Amer) 17 POC Glucose (mg/dL) Random Glucose 283 H Calcium 8.5 L Phosphorus 4.7 H Magnesium 1.7 Total Bilirubin 2.2 H AST 36 ALT 68 Alkaline Phosphatase 86 Total Creatine Kinase < 20 L CK-MB (Mass) 0.67 Troponin I, Quant 0.1120 Total Protein 6.3 Albumin 2.7 L Globulin 3.7 Albumin/Globulin Ratio 0.7 L Procalcitonin Urine Color Urine Clarity Urine pH Ur Specific [place] Urine Protein Urine Glucose (UA) Urine Ketones Urine Blood Urine Nitrate Urine Bilirubin Urine Urobilinogen Ur Leukocyte Esterase Urine WBC (Auto) Ur Squamous Epith Cells Amorphous Sediment Random Vancomycin 8.10 10/07/16 10/07/16 10/07/16 07:29 11:14 11:14 WBC RBC Hgb Hct MCV MCH MCHC RDW Plt Count MPV Neut % (Auto) Lymph % (Auto) [place] % (Auto) Eos % (Auto) Baso % (Auto) Neut # Lymph # [place] # Eos # Baso # PT INR APTT Puncture Site pCO2 pO2 HCO3 ABG pH ABG Total CO2 ABG O2 Saturation ABG Base Excess Julius Test Sodium 138 Chloride 104 Glucose Lactate Liter Flow Crit Value Called To Crit Value Called By Crit Value Read Back Blood Gas Notified Time Potassium 4.8 Carbon Dioxide 24 Anion Gap 14 BUN 58 H Creatinine 3.4 H Est GFR ( Amer) 21 Est GFR (Non-Af Amer) 17 POC Glucose (mg/dL) 292 H Random Glucose 268 H Calcium 8.8 Phosphorus Magnesium Total Bilirubin AST ALT Alkaline Phosphatase Total Creatine Kinase CK-MB (Mass) Troponin I, Quant Total Protein Albumin Globulin Albumin/Globulin Ratio Procalcitonin 7.00 H Urine Color Urine Clarity Urine pH Ur Specific [place] Urine Protein Urine Glucose (UA) Urine Ketones Urine Blood Urine Nitrate Urine Bilirubin Urine Urobilinogen Ur Leukocyte Esterase Urine WBC (Auto) Ur Squamous Epith Cells Amorphous Sediment Random Vancomycin 10/07/16 10/07/16 11:14 11:22 WBC RBC Hgb Hct MCV MCH MCHC RDW Plt Count MPV Neut % (Auto) Lymph % (Auto) [place] % (Auto) Eos % (Auto) Baso % (Auto) Neut # Lymph # [place] # Eos # Baso # PT 17.9 H INR 1.5 APTT 33 Puncture Site pCO2 pO2 HCO3 ABG pH ABG Total CO2 ABG O2 Saturation ABG Base Excess Julius Test Sodium Chloride Glucose Lactate Liter Flow Crit Value Called To Crit Value Called By Crit Value Read Back Blood Gas Notified Time Potassium Carbon Dioxide Anion Gap BUN Creatinine Est GFR ( Amer) Est GFR (Non-Af Amer) POC Glucose (mg/dL) 275 H Random Glucose Calcium Phosphorus Magnesium Total Bilirubin AST ALT Alkaline Phosphatase Total Creatine Kinase CK-MB (Mass) Troponin I, Quant Total Protein Albumin Globulin Albumin/Globulin Ratio Procalcitonin Urine Color Urine Clarity Urine pH Ur Specific [place] Urine Protein Urine Glucose (UA) Urine Ketones Urine Blood Urine Nitrate Urine Bilirubin Urine Urobilinogen Ur Leukocyte Esterase Urine WBC (Auto) Ur Squamous Epith Cells Amorphous Sediment Random Vancomycin EKG/Cardiology Studies: Cardiology / EKG Studies 10/06/16 22:13 EKG [ELECTROCARDIOGRAM] Stat Comment: Mode Of Transportation: BED Reason For Exam: cp Fingerstick Blood Sugar Results: 203 Critical Care Progress Note - Nutrition Nutrition: Nutrition Category Date Time Status Heart Healthy Diet [DIET] Diets 10/06/16 Lunch Active Assessment/Plan (1) Severe sepsis Current Visit: Yes Status: Acute Comment: patient status post code sepsis Blood culture positive for gram-positive cocci On IV antibiotics CAT scan of the abdomen consistent with right lower lung infil Seen by surgery (2) SAGAR (acute kidney injury) Current Visit: Yes Status: Acute Comment: Continue gentle hydration and follow BUN and creatinine Nephrology consult (3) CAD (coronary artery disease) Current Visit: Yes Status: Acute (4) Pneumonia Current Visit: Yes Status: Acute
--- NOTE | 2016-10-07 18:04 | HP ---
An 86-year-old male chief complaint weakness, fatigue, tiredness, hypertension, tachycardia. T he patient came to the ER and advised admission. Patient ____ sepsis. PHYSICAL EXAMINATION: GENERAL: The patient is awake, alert, oriented. VITAL SIGNS: Temperature 98, pulse is ____. HEENT: Normal limits. NECK: Supple. CHEST: Symmetrical. HEART: Tachycardic. ABDOMEN: Distended. EXTREMITIES: No edema. Patient suffers from sepsis ____ antibiotic, supportive care ____. Eva Diaz MD cc: [phone] TT: 10/06/2016 11:24:44 [email or web address] 10/07/2016 17:03:13
--- NOTE | 2016-10-07 22:22 | CARD ---
APPROVED REPORT EKG Measurement Heart [id number] <Conclusion> Wide QRS tachycardia Left axis deviation Right bundle branch block Minimal voltage criteria for LVH, may be normal variant Abnormal ECG
[2016-10-08] MEDS: Metoprolol 1 mg/ml Inj IVP SCH ×2 (00:37→07:37)
[2016-10-08] MEDS: Acetylcysteine 20% Inhal Soln (4ml) INH SCH ×5 (01:53→19:46)
[2016-10-08] MEDS: Albuterol-Ipratrop 3 mg / 0.5 (3 ml) UD INH SCH ×4 (01:53→15:40)
[2016-10-08] MEDS: Sodium Chloride 0.9% 1,000 ML IV SCH ×2 (04:45→12:49)
[2016-10-08] MEDS: Meropenem 500 MG in Sodium Chloride 0.9% 100 ML IVPB SCH ×3 (05:00→21:26)
[2016-10-08 06:17] LABS: BASO % 0.4 % (0.0-2.0); EOS # 0.2 K/uL (0.0-0.7); EOS % 2.3 % (0.0-4.0); HEMOGLOBIN 9.4 g/dL (12.0-18.0); LYMPH # 0.8 K/uL (1.0-4.3); LYMPH % 11.1 % (20.0-40.0); MEAN CELL VOLUME 89.8 fL (80.0-94.0); MEAN CORPUSCULAR HEMOGLOBIN 28.8 pg (27.0-31.0); MEAN CORPUSCULAR HGB CONC 32.1 g/dL (33.0-37.0); MEAN PLATELET VOLUME 10.5 fL (7.2-11.7); MONO # 0.5 K/uL (0.0-0.8); MONO % 6.9 % (0.0-10.0); NEUT # 5.8 K/uL (1.8-7.0); NEUT % 79.3 % (50.0-75.0); NRBC % 0.2 % (0.0-2.0); RBC 3.28 Mil/uL (4.40-5.90); WHITE BLOOD COUNT 7.3 K/uL (4.8-10.8)
[2016-10-08 06:28] LABS: ALBUMIN 2.7 g/dL (3.5-5.0)
[2016-10-08 06:31] LABS: ALB/GLOB RATIO 0.7 (1.0-2.1)
[2016-10-08 06:32] LABS: CALCIUM 8.9 mg/dl (8.6-10.4)
[2016-10-08] MEDS: (Novolog) Insulin Aspart, Recombinant 100 u/ml 10 ml vial SC SCH ×4 (07:34→21:52)
--- NOTE | 2016-10-08 08:11 | CP.CCUPN ---
CCU Subjective - Physician Review Events Since Last Encounter (Free Text): 10/08/16 08:10 Patient is 85-year-old male with history of hypertension hyperlipidemia CHF CAD status post a CABG. Recently had cholecystostomy. Admitted with the sepsis and fever. Patient still continues to be having tachycardia. No fever noted. Currently covered with antibiotic. Patient has no no chills, complaining of cough, with the thick yellow mucus production. No abdominal pain. Leg swelling noted. Patient has a Casey catheter, urine output is on the low side On examination: Vital signs reviewed Low-grade fever noted, tachycardia noted. Chest bilateral rales and wheezing noted regular heart sound Abdomen soft nontender. Edema 1+ bilaterally noted Labs reviewed Elevated BUN/creatinine noted. Chest x-ray yesterday showing evidence of right lower lung pneumonia. Currently on patient is currently on low IV fluid Assessment and a condition: 85-year-old male with history of hypertension, high cholesterol, diabetes, heart failure, CAD, status post a CABG Patient is currently admitted with a multiple organisms a positive in the culture. Sepsis. Acute worsening renal insufficiency. Tachycardia. Patient is on low-dose metoprolol. IV fluid. Currently not responding well at. On antibiotic. We'll continue to monitor in the intensive care unit. Will follow the patient. CCU Objective - Vital Signs / Intake & Output Vital Signs (Last 4 hours): Vital Signs Pulse Resp Pulse Ox 10/08/16 07:00 121 H 18 100 10/08/16 06:50 120 H 23 10/08/16 06:40 119 H 10/08/16 06:30 116 H 18 10/08/16 06:20 122 H 23 90 L 10/08/16 06:10 123 H 26 H 90 L 10/08/16 06:00 120 H 25 H 93 L 10/08/16 05:50 118 H 31 H 94 L 10/08/16 05:40 120 H 21 90 L 10/08/16 05:30 122 H 28 H 85 L 10/08/16 05:20 123 H 29 H 92 L 10/08/16 05:10 124 H 29 H 91 L 10/08/16 05:00 127 H 31 H 93 L 10/08/16 04:50 127 H 25 H 79 L 10/08/16 04:40 130 H 25 H 100 10/08/16 04:30 130 H 29 H 98 10/08/16 04:20 130 H 28 H 100 Intake and Output (Last 8hrs): Intake & Output 10/07/16 10/08/16 10/08/16 22:59 06:59 14:59 Intake Total 1160 980 50 Output Total 510 680 385 Balance 650 300 -335 Weight 178 lb 5 oz Intake: Intake, IV Amount 500 500 50 Left Forearm 100 100 RJugTLC 400 400 50 Oral 660 480 Output: Drainage 300 Right Medial Abdomen 300 Urine 510 680 85 Urine, Voided 510 680 85 Stool 0 Other: # Bowel Movements 1 1 - Physical Exam Head: Positive for: Atraumatic, Normocephalic Pupils: Positive for: PERRL. Negative for: Sluggish, Non-Reactive Extroacular Muscles: Positive for: EOMI Conjunctiva: Positive for: Normal. Negative for: Injected, Icteric Mouth: Positive for: Moist Mucous Membranes Neck: Positive for: Normal Range of Motion, Trachea Midline. Negative for: Meningeal Signs, MIDLINE TENDERNESS, Paraspinal Tenderness, JVD, Lymphadenopathy , Bruit, Other Respiratory/Chest: Positive for: Clear to Auscultation, Good Air Exchange. Negative for: Respiratory Distress, Accessory Muscle Use, Wheezes, Decreased Breath Sounds, Rales, Retracting Cardiovascular: Positive for: Regular Rate and Rhythm, Peripheal Pulses Present , Tachycardic. Negative for: Murmurs Abdomen: Positive for: Tenderness, Distention, Peritoneal Signs Upper Extremity: Positive for: Normal Inspection, NORMAL PULSES, Capillary Refill < 2s. Negative for: Cyanosis, Edema Lower Extremity: Positive for: Normal Inspection, NORMAL PULSES, Capillary Refill < 2 s. Negative for: Edema, CALF TENDERNESS - Medications Active Medications: Active Medications Generic Name Dose Route Start Last Admin Trade Name Freq PRN Reason Stop Dose Admin Acetylcysteine 4 ml 10/06/16 14:00 10/08/16 07:45 Acetylcysteine 20% INH 4 ml RQ6 [facility]ERY Administration Albuterol/Ipratropium 3 ml 10/08/16 08:15 Duoneb 3 Mg/0.5 Mg (3 Ml) Ud INH RQ8 [facility] Aspirin 81 mg 10/07/16 10:15 10/07/16 11:09 Ecotrin PO 81 mg DAILY CHERY Administration Famotidine 20 mg 10/07/16 10:15 10/07/16 11:09 Pepcid PO 20 mg DAILY CHERY Administration Heparin Sodium (Porcine) 5,000 units 10/06/16 10:30 10/07/16 21:09 Heparin SC 5,000 units Q12 [facility]ERY Administration Meropenem 500 mg/ Sodium 100 mls @ 100 mls/hr 10/06/16 14:00 10/08/16 05:00 Chloride IVPB 100 mls/hr Q8 CHERY Administration Sodium Chloride 1,000 mls @ 50 mls/hr 10/07/16 09:45 10/08/16 04:45 Sodium Chloride 0.9% IV Not Given .Q20H CHERY Vancomycin/Sodium Chloride 1 gm in 200 mls @ 166.7 mls/hr 10/08/16 00:00 00:00 Vancocin IVPB 10/13/16 00:01 166.7 mls/hr Q24H CHERY Administration Insulin Aspart 0 unit 10/07/16 10:14 10/08/16 07:34 Novolog SC 4 unit ACHS CHERY Administration Protocol Metoprolol Tartrate 25 mg 10/08/16 10:00 Lopressor PO BID CHERY - Patient Studies Lab Studies: Microbiology Studies 10/06/16 06:00 MRSA Culture (Admit) - Final Nose MRSA DETECTED 10/06/16 12:08 Gram Stain - Final Sputum Induced Sputum Culture - Preliminary Gram Negative Pop Gram Positive Cocci 10/06/16 15:20 Urine Culture - Final Urine,Casey No Growth (<1,000 CFU/ML) Lab Studies 10/08/16 10/08/16 10/08/16 Range/Units 07:17 06:08 06:08 WBC 7.3 D (4.8-10.8) K/uL RBC 3.28 L (4.40-5.90) Mil/uL Hgb 9.4 L (12.0-18.0) g/dL Hct 29.5 L (35.0-51.0) % MCV 89.8 (80.0-94.0) fL MCH 28.8 (27.0-31.0) pg MCHC 32.1 L (33.0-37.0) g/dL RDW 17.0 H (11.5-14.5) % Plt Count 113 L (130-400) K/uL MPV 10.5 (7.2-11.7) fL Neut % (Auto) 79.3 H (50.0-75.0) % Lymph % (Auto) 11.1 L (20.0-40.0) % Preston % (Auto) 6.9 (0.0-10.0) % Eos % (Auto) 2.3 (0.0-4.0) % Baso % (Auto) 0.4 (0.0-2.0) % Neut # 5.8 (1.8-7.0) K/uL Lymph # 0.8 L (1.0-4.3) K/uL Preston # 0.5 (0.0-0.8) K/uL Eos # 0.2 (0.0-0.7) K/uL Baso # 0.0 (0.0-0.2) K/uL PT (9.7-12.2) SECONDS INR APTT (21-34) SECONDS Sodium 136 (132-148) mmol/L Potassium 5.1 (3.6-5.2) mmol/L Chloride 104 (98-107) mmol/L Carbon Dioxide 17 L (22-30) mmol/L Anion Gap 20 (10-20) BUN 64 H (9-20) mg/dL Creatinine 3.3 H (0.8-1.5) MG/DL Est GFR ( Amer) 22 Est GFR (Non-Af Amer) 18 POC Glucose (mg/dL) 218 H (65-110) mg/dL Random Glucose 197 H (75-110) mg/dL Calcium 8.9 (8.6-10.4) mg/dl Phosphorus 5.1 H (2.5-4.5) mg/dL Magnesium 2.0 (1.6-2.3) mg/dL Total Bilirubin 2.8 H (0.2-1.3) mg/dL AST 116 H D (17-59) U/L ALT 126 H D (21-72) U/L Alkaline Phosphatase 91 (38-126) U/L Total Protein 6.5 (6.3-8.3) g/dL Albumin 2.7 L (3.5-5.0) g/dL Globulin 3.8 (2.2-3.9) gm/dL Albumin/Globulin Ratio 0.7 L (1.0-2.1) Procalcitonin (0.19-0.49) NG/ML 10/07/16 10/07/16 10/07/16 Range/Units 21:27 16:37 11:22 WBC (4.8-10.8) K/uL RBC (4.40-5.90) Mil/uL Hgb (12.0-18.0) g/dL Hct (35.0-51.0) % MCV (80.0-94.0) fL MCH (27.0-31.0) pg MCHC (33.0-37.0) g/dL RDW (11.5-14.5) % Plt Count (130-400) K/uL MPV (7.2-11.7) fL Neut % (Auto) (50.0-75.0) % Lymph % (Auto) (20.0-40.0) % Preston % (Auto) (0.0-10.0) % Eos % (Auto) (0.0-4.0) % Baso % (Auto) (0.0-2.0) % Neut # (1.8-7.0) K/uL Lymph # (1.0-4.3) K/uL Preston # (0.0-0.8) K/uL Eos # (0.0-0.7) K/uL Baso # (0.0-0.2) K/uL PT (9.7-12.2) SECONDS INR APTT (21-34) SECONDS Sodium (132-148) mmol/L Potassium (3.6-5.2) mmol/L Chloride (98-107) mmol/L Carbon Dioxide (22-30) mmol/L Anion Gap (10-20) BUN (9-20) mg/dL Creatinine (0.8-1.5) MG/DL Est GFR ( Amer) Est GFR (Non-Af Amer) POC Glucose (mg/dL) 201 H 240 H 275 H (65-110) mg/dL Random Glucose (75-110) mg/dL Calcium (8.6-10.4) mg/dl Phosphorus (2.5-4.5) mg/dL Magnesium (1.6-2.3) mg/dL Total Bilirubin (0.2-1.3) mg/dL AST (17-59) U/L ALT (21-72) U/L Alkaline Phosphatase (38-126) U/L Total Protein (6.3-8.3) g/dL Albumin (3.5-5.0) g/dL Globulin (2.2-3.9) gm/dL Albumin/Globulin Ratio (1.0-2.1) Procalcitonin (0.19-0.49) NG/ML 10/07/16 10/07/16 10/07/16 Range/Units 11:14 11:14 11:14 WBC (4.8-10.8) K/uL RBC (4.40-5.90) Mil/uL Hgb (12.0-18.0) g/dL Hct (35.0-51.0) % MCV (80.0-94.0) fL MCH (27.0-31.0) pg MCHC (33.0-37.0) g/dL RDW (11.5-14.5) % Plt Count (130-400) K/uL MPV (7.2-11.7) fL Neut % (Auto) (50.0-75.0) % Lymph % (Auto) (20.0-40.0) % Preston % (Auto) (0.0-10.0) % Eos % (Auto) (0.0-4.0) % Baso % (Auto) (0.0-2.0) % Neut # (1.8-7.0) K/uL Lymph # (1.0-4.3) K/uL Preston # (0.0-0.8) K/uL Eos # (0.0-0.7) K/uL Baso # (0.0-0.2) K/uL PT 17.9 H (9.7-12.2) SECONDS INR 1.5 APTT 33 (21-34) SECONDS Sodium 138 (132-148) mmol/L Potassium 4.8 (3.6-5.2) mmol/L Chloride 104 (98-107) mmol/L Carbon Dioxide 24 (22-30) mmol/L Anion Gap 14 (10-20) BUN 58 H (9-20) mg/dL Creatinine 3.4 H (0.8-1.5) MG/DL Est GFR ( Amer) 21 Est GFR (Non-Af Amer) 17 POC Glucose (mg/dL) (65-110) mg/dL Random Glucose 268 H (75-110) mg/dL Calcium 8.8 (8.6-10.4) mg/dl Phosphorus (2.5-4.5) mg/dL Magnesium (1.6-2.3) mg/dL Total Bilirubin (0.2-1.3) mg/dL AST (17-59) U/L ALT (21-72) U/L Alkaline Phosphatase (38-126) U/L Total Protein (6.3-8.3) g/dL Albumin (3.5-5.0) g/dL Globulin (2.2-3.9) gm/dL Albumin/Globulin Ratio (1.0-2.1) Procalcitonin 7.00 H (0.19-0.49) NG/ML 10/07/16 Range/Units 07:29 WBC (4.8-10.8) K/uL RBC (4.40-5.90) Mil/uL Hgb (12.0-18.0) g/dL Hct (35.0-51.0) % MCV (80.0-94.0) fL MCH (27.0-31.0) pg MCHC (33.0-37.0) g/dL RDW (11.5-14.5) % Plt Count (130-400) K/uL MPV (7.2-11.7) fL Neut % (Auto) (50.0-75.0) % Lymph % (Auto) (20.0-40.0) % Preston % (Auto) (0.0-10.0) % Eos % (Auto) (0.0-4.0) % Baso % (Auto) (0.0-2.0) % Neut # (1.8-7.0) K/uL Lymph # (1.0-4.3) K/uL Preston # (0.0-0.8) K/uL Eos # (0.0-0.7) K/uL Baso # (0.0-0.2) K/uL PT (9.7-12.2) SECONDS INR APTT (21-34) SECONDS Sodium (132-148) mmol/L Potassium (3.6-5.2) mmol/L Chloride (98-107) mmol/L Carbon Dioxide (22-30) mmol/L Anion Gap (10-20) BUN (9-20) mg/dL Creatinine (0.8-1.5) MG/DL Est GFR ( Amer) Est GFR (Non-Af Amer) POC Glucose (mg/dL) 292 H (65-110) mg/dL Random Glucose (75-110) mg/dL Calcium (8.6-10.4) mg/dl Phosphorus (2.5-4.5) mg/dL Magnesium (1.6-2.3) mg/dL Total Bilirubin (0.2-1.3) mg/dL AST (17-59) U/L ALT (21-72) U/L Alkaline Phosphatase (38-126) U/L Total Protein (6.3-8.3) g/dL Albumin (3.5-5.0) g/dL Globulin (2.2-3.9) gm/dL Albumin/Globulin Ratio (1.0-2.1) Procalcitonin (0.19-0.49) NG/ML Laboratory Results - last 24 hr 10/07/16 10/07/16 10/07/16 07:29 11:14 11:14 WBC RBC Hgb Hct MCV MCH MCHC RDW Plt Count MPV Neut % (Auto) Lymph % (Auto) Preston % (Auto) Eos % (Auto) Baso % (Auto) Neut # Lymph # Preston # Eos # Baso # PT INR APTT Sodium 138 Potassium 4.8 Chloride 104 Carbon Dioxide 24 Anion Gap 14 BUN 58 H Creatinine 3.4 H Est GFR ( Amer) 21 Est GFR (Non-Af Amer) 17 POC Glucose (mg/dL) 292 H Random Glucose 268 H Calcium 8.8 Phosphorus Magnesium Total Bilirubin AST ALT Alkaline Phosphatase Total Protein Albumin Globulin Albumin/Globulin Ratio Procalcitonin 7.00 H 10/07/16 10/07/16 10/07/16 11:14 11:22 16:37 WBC RBC Hgb Hct MCV MCH MCHC RDW Plt Count MPV Neut % (Auto) Lymph % (Auto) Preston % (Auto) Eos % (Auto) Baso % (Auto) Neut # Lymph # Preston # Eos # Baso # PT 17.9 H INR 1.5 APTT 33 Sodium Potassium Chloride Carbon Dioxide Anion Gap BUN Creatinine Est GFR ( Amer) Est GFR (Non-Af Amer) POC Glucose (mg/dL) 275 H 240 H Random Glucose Calcium Phosphorus Magnesium Total Bilirubin AST ALT Alkaline Phosphatase Total Protein Albumin Globulin Albumin/Globulin Ratio Procalcitonin 10/07/16 10/08/16 10/08/16 21:27 06:08 06:08 WBC 7.3 D RBC 3.28 L Hgb 9.4 L Hct 29.5 L MCV 89.8 MCH 28.8 MCHC 32.1 L RDW 17.0 H Plt Count 113 L MPV 10.5 Neut % (Auto) 79.3 H Lymph % (Auto) 11.1 L Preston % (Auto) 6.9 Eos % (Auto) 2.3 Baso % (Auto) 0.4 Neut # 5.8 Lymph # 0.8 L Preston # 0.5 Eos # 0.2 Baso # 0.0 PT INR APTT Sodium 136 Potassium 5.1 Chloride 104 Carbon Dioxide 17 L Anion Gap 20 BUN 64 H Creatinine 3.3 H Est GFR ( Amer) 22 Est GFR (Non-Af Amer) 18 POC Glucose (mg/dL) 201 H Random Glucose 197 H Calcium 8.9 Phosphorus 5.1 H Magnesium 2.0 Total Bilirubin 2.8 H AST 116 H D ALT 126 H D Alkaline Phosphatase 91 Total Protein 6.5 Albumin 2.7 L Globulin 3.8 Albumin/Globulin Ratio 0.7 L Procalcitonin 10/08/16 07:17 WBC RBC Hgb Hct MCV MCH MCHC RDW Plt Count MPV Neut % (Auto) Lymph % (Auto) Preston % (Auto) Eos % (Auto) Baso % (Auto) Neut # Lymph # Preston # Eos # Baso # PT INR APTT Sodium Potassium Chloride Carbon Dioxide Anion Gap BUN Creatinine Est GFR ( Amer) Est GFR (Non-Af Amer) POC Glucose (mg/dL) 218 H Random Glucose Calcium Phosphorus Magnesium Total Bilirubin AST ALT Alkaline Phosphatase Total Protein Albumin Globulin Albumin/Globulin Ratio Procalcitonin Fingerstick Blood Sugar Results: 203 Critical Care Progress Note - Nutrition Nutrition: Nutrition Category Date Time Status Heart Healthy Diet [DIET] Diets 10/06/16 Lunch Active
--- NOTE | 2016-10-08 08:18 | CP.PCM.PN ---
Subjective - Date & Time of Evaluation Date of Evaluation: 10/08/16 Time of Evaluation: 08:16 - Subjective Subjective: Surgery: Dr. Acevedo Pt seen and examined. Pt states that in general he does not feel well. No specific complaints of abd pain. No N/V. Objective - Vital Signs/Intake and Output Vital Signs (last 24 hours): Temp Pulse Resp BP Pulse Ox 97.9 F 121 H 18 114/66 100 10/08/16 04:00 10/08/16 07:00 10/08/16 07:00 10/08/16 04:10 10/08/16 07:00 Intake and Output: 10/08/16 10/08/16 06:59 18:59 Intake Total 1520 50 Output Total 1020 385 Balance 500 -335 - Medications Medications: Current Medications Acetylcysteine (Acetylcysteine 20%) 4 ml INH RQ6 [facility] Last Admin: 10/08/16 07:45 Dose: 4 ml Albuterol/Ipratropium (Duoneb 3 Mg/0.5 Mg (3 Ml) Ud) 3 ml INH RQ8 [facility] Aspirin (Ecotrin) 81 mg PO DAILY [facility] Last Admin: 10/07/16 11:09 Dose: 81 mg Famotidine (Pepcid) 20 mg PO DAILY [facility] Last Admin: 10/07/16 11:09 Dose: 20 mg Heparin Sodium (Porcine) (Heparin) 5,000 units SC Q12 [facility] Last Admin: 10/07/16 21:09 Dose: 5,000 units Meropenem 500 mg/ Sodium (Chloride) 100 mls @ 100 mls/hr IVPB Q8 [facility] Last Admin: 10/08/16 05:00 Dose: 100 mls/hr Sodium Chloride (Sodium Chloride 0.9%) 1,000 mls @ 50 mls/hr IV .Q20H [facility] Last Admin: 10/08/16 04:45 Dose: Not Given Vancomycin/Sodium Chloride (Vancocin) 1 gm in 200 mls @ 166.7 mls/hr IVPB Q24H [facility] Stop: 10/13/16 00:01 Last Admin: 10/08/16 00:00 Dose: 166.7 mls/hr Insulin Aspart (Novolog) 0 unit SC ACHS [facility]ERY PRN Reason: Protocol Last Admin: 10/08/16 07:34 Dose: 4 unit Metoprolol Tartrate (Lopressor) 25 mg PO BID CHERY - Labs Labs: 10/08/16 06:08 10/08/16 06:08 PT 17.9 SECONDS (9.7-12.2) H 10/07/16 11:14 INR 1.5 10/07/16 11:14 APTT 33 SECONDS (21-34) 10/07/16 11:14 - Constitutional Appears: Non-toxic, No Acute Distress - Head Exam Head Exam: ATRAUMATIC, NORMOCEPHALIC - Eye Exam Eye Exam: EOMI - ENT Exam ENT Exam: Mucous Membranes Moist - Neck Exam Neck Exam: Full ROM - Respiratory Exam Respiratory Exam: NORMAL BREATHING PATTERN. absent: Accessory Muscle Use, Respiratory Distress - Cardiovascular Exam Cardiovascular Exam: Tachycardia - GI/Abdominal Exam GI & Abdominal Exam: Soft. absent: Distended, Firm, Guarding, Rigid, Tenderness , Rebound - Neurological Exam Neurological Exam: Alert, Awake Assessment and Plan - Assessment and Plan (Free Text) Assessment: 86M w. sepsis -Blood Cx + gram (+) cocci -sputum cx positive gram + cocci and gram -rods -abd remains benign -LFTs trending up -will order MRCP -c/w abx and medical management -d/w attending Zemaitis PGY2
--- NOTE | 2016-10-08 10:55 | CP.PCM.PN ---
Subjective - Date & Time of Evaluation Date of Evaluation: 10/08/16 Time of Evaluation: 10:00 - Subjective Subjective: GENERAL CONDITION SAME AND POOR. SEPSIS- STAPH AUREUS. TACHYCARDIC. S/P CHOLECYSTECTOMY. DETERIORATING LFT'S. RENAL INSUFFICIENCY. OEDEMA OD LEGS. NO CP. Objective - Vital Signs/Intake and Output Vital Signs (last 24 hours): Temp Pulse Resp BP Pulse Ox 97.3 F L 128 H 28 H 92/51 L 96 10/08/16 08:00 10/08/16 10:10 10/08/16 10:10 10/08/16 10:10 10/08/16 10:10 Intake and Output: 10/08/16 10/08/16 06:59 18:59 Intake Total 1520 560 Output Total 1020 610 Balance 500 -50 - Medications Medications: Current Medications Acetylcysteine (Acetylcysteine 20%) 4 ml INH RQ6 [facility] Last Admin: 10/08/16 07:45 Dose: 4 ml Albuterol/Ipratropium (Duoneb 3 Mg/0.5 Mg (3 Ml) Ud) 3 ml INH RQ8 [facility] Aspirin (Ecotrin) 81 mg PO DAILY [facility] Last Admin: 10/08/16 09:35 Dose: 81 mg Famotidine (Pepcid) 20 mg PO DAILY [facility] Last Admin: 10/08/16 09:35 Dose: 20 mg Heparin Sodium (Porcine) (Heparin) 5,000 units SC Q12 [facility] Last Admin: 10/08/16 09:35 Dose: 5,000 units Meropenem 500 mg/ Sodium (Chloride) 100 mls @ 100 mls/hr IVPB Q8 [facility] Last Admin: 10/08/16 05:00 Dose: 100 mls/hr Sodium Chloride (Sodium Chloride 0.9%) 1,000 mls @ 50 mls/hr IV .Q20H [facility] Last Admin: 10/08/16 04:45 Dose: Not Given Vancomycin/Sodium Chloride (Vancocin) 1 gm in 200 mls @ 166.7 mls/hr IVPB Q24H [facility] Stop: 10/13/16 00:01 Last Admin: 10/08/16 00:00 Dose: 166.7 mls/hr Insulin Aspart (Novolog) 0 unit SC ACHS [facility] PRN Reason: Protocol Last Admin: 10/08/16 07:34 Dose: 4 unit Metoprolol Tartrate (Lopressor) 25 mg PO BID [facility] Last Admin: 10/08/16 09:36 Dose: 25 mg - Labs Labs: 10/08/16 06:08 10/08/16 06:08 PT 17.9 SECONDS (9.7-12.2) H 10/07/16 11:14 INR 1.5 10/07/16 11:14 APTT 33 SECONDS (21-34) 10/07/16 11:14 - Constitutional Appears: No Acute Distress, Chronically Ill - Eye Exam Eye Exam: Normal appearance, PERRL - ENT Exam ENT Exam: Normal Exam - Respiratory Exam Respiratory Exam: Clear to Ausculation Bilateral, NORMAL BREATHING PATTERN - Cardiovascular Exam Cardiovascular Exam: Tachycardia, +S1, +S2 - GI/Abdominal Exam GI & Abdominal Exam: Soft, Normal Bowel Sounds - Exam External exam: Swelling - Extremities Exam Extremities Exam: Pedal Edema - Back Exam Back Exam: NORMAL INSPECTION - Psychiatric Exam Psychiatric exam: Normal Affect, Normal Mood Assessment and Plan - Assessment and Plan (Free Text) Assessment: TACHYCARDIA. SEPSIS. CAD. CRF. S/P CHOLECYSTECTOMY. Plan: CT METOPROLOL. IV ABTS. PROGNOSIS POOR. ICU CARE.
--- NOTE | 2016-10-08 13:49 | CP.PCM.PN ---
Subjective - Date & Time of Evaluation Date of Evaluation: 10/08/16 Time of Evaluation: 09:00 - Subjective Subjective: improving awake alert less SOB\NAD Objective - Vital Signs/Intake and Output Vital Signs (last 24 hours): Temp Pulse Resp BP Pulse Ox 97.9 F 126 H 10 L 121/76 100 10/08/16 12:00 10/08/16 13:11 10/08/16 13:11 10/08/16 13:11 10/08/16 13:11 Intake and Output: 10/08/16 10/08/16 06:59 18:59 Intake Total 1520 830 Output Total 1020 835 Balance 500 -5 - Medications Medications: Current Medications Acetylcysteine (Acetylcysteine 20%) 4 ml INH RQ6 [facility] Last Admin: 10/08/16 13:28 Dose: Not Given Albuterol/Ipratropium (Duoneb 3 Mg/0.5 Mg (3 Ml) Ud) 3 ml INH RQ8 [facility] Last Admin: 10/08/16 13:28 Dose: Not Given Aspirin (Ecotrin) 81 mg PO DAILY [facility] Last Admin: 10/08/16 09:35 Dose: 81 mg Famotidine (Pepcid) 20 mg PO DAILY [facility] Last Admin: 10/08/16 09:35 Dose: 20 mg Heparin Sodium (Porcine) (Heparin) 5,000 units SC Q12 [facility] Last Admin: 10/08/16 09:35 Dose: 5,000 units Meropenem 500 mg/ Sodium (Chloride) 100 mls @ 100 mls/hr IVPB Q8 [facility] Last Admin: 10/08/16 13:29 Dose: 100 mls/hr Sodium Chloride (Sodium Chloride 0.9%) 1,000 mls @ 50 mls/hr IV .Q20H [facility] Last Admin: 10/08/16 12:49 Dose: 50 mls/hr Vancomycin/Sodium Chloride (Vancocin) 1 gm in 200 mls @ 166.7 mls/hr IVPB Q24H [facility] Stop: 10/13/16 00:01 Last Admin: 10/08/16 00:00 Dose: 166.7 mls/hr Insulin Aspart (Novolog) 0 unit SC ACHS [facility] PRN Reason: Protocol Last Admin: 10/08/16 12:23 Dose: 4 unit Metoprolol Tartrate (Lopressor) 25 mg PO BID [facility] Last Admin: 10/08/16 09:36 Dose: 25 mg - Labs Labs: 10/08/16 06:08 10/08/16 06:08 PT 17.9 SECONDS (9.7-12.2) H 10/07/16 11:14 INR 1.5 10/07/16 11:14 APTT 33 SECONDS (21-34) 10/07/16 11:14 - Constitutional Appears: Non-toxic, Cachectic, Chronically Ill - Head Exam Head Exam: NORMOCEPHALIC - Eye Exam Eye Exam: PERRL. absent: Scleral icterus - ENT Exam ENT Exam: Mucous Membranes Dry - Neck Exam Neck Exam: absent: Lymphadenopathy - Respiratory Exam Respiratory Exam: Decreased Breath Sounds, Rhonchi - Cardiovascular Exam Cardiovascular Exam: REGULAR RHYTHM, +S1, +S2 - GI/Abdominal Exam GI & Abdominal Exam: Distended, Soft. absent: Tenderness - Rectal Exam Rectal Exam: Deferred - Exam Exam: NORMAL INSPECTION - Extremities Exam Extremities Exam: absent: Pedal Edema - Back Exam Back Exam: absent: CVA tenderness (L), CVA tenderness (R), paraspinal tenderness - Neurological Exam Neurological Exam: Alert, Awake, Oriented x3 - Psychiatric Exam Psychiatric exam: Normal Mood - Skin Skin Exam: Dry Assessment and Plan (1) Pneumonia Status: Acute (2) Abdominal pain Status: Acute (3) CAD (coronary artery disease) Status: Acute (4) HTN (hypertension) Status: Acute (5) Sepsis Status: Acute (6) Severe sepsis Status: Acute - Assessment and Plan (Free Text) Assessment: MRSA bacteremia/ sepsis - r/o endocarditis will order TTE may need RICH repeat cultures Cardio eval dr Celestine Anderson
[2016-10-08] MEDS: Vancomycin 1 gm/NS 200 ml 1 GM/200 ML BAG IVPB SCH ×2 (23:25)
[2016-10-09] MEDS: Albuterol-Ipratrop 3 mg / 0.5 (3 ml) UD INH SCH ×4 (00:13→23:54)
[2016-10-09] MEDS: Sodium Chloride 0.9% 1,000 ML IV SCH (01:33)
[2016-10-09] MEDS: Meropenem 500 MG in Sodium Chloride 0.9% 100 ML IVPB SCH ×3 (05:05→21:05)
[2016-10-09 06:20] LABS: BASO % 0.3 % (0.0-2.0); EOS # 0.2 K/uL (0.0-0.7); EOS % 3.2 % (0.0-4.0); HEMOGLOBIN 9.3 g/dL (12.0-18.0); LYMPH # 0.8 K/uL (1.0-4.3); MEAN CELL VOLUME 89.8 fL (80.0-94.0); MEAN CORPUSCULAR HEMOGLOBIN 28.8 pg (27.0-31.0); MEAN CORPUSCULAR HGB CONC 32.1 g/dL (33.0-37.0); MEAN PLATELET VOLUME 10.6 fL (7.2-11.7); MONO # 0.4 K/uL (0.0-0.8); MONO % 5.9 % (0.0-10.0); NEUT # 6.1 K/uL (1.8-7.0); NEUT % 79.6 % (50.0-75.0); NRBC % 1.2 % (0.0-2.0); RBC 3.23 Mil/uL (4.40-5.90); RED CELL DISTRIBUTION WIDTH 17.2 % (11.5-14.5); WHITE BLOOD COUNT 7.7 K/uL (4.8-10.8)
[2016-10-09 06:33] LABS: ALBUMIN 2.6 g/dL (3.5-5.0)
[2016-10-09 06:36] LABS: ALB/GLOB RATIO 0.7 (1.0-2.1); CALCIUM 8.8 mg/dl (8.6-10.4)
[2016-10-09 06:37] LABS: MAGNESIUM 2.1 mg/dL (1.6-2.3)
--- NOTE | 2016-10-09 07:26 | CP.CCUPN ---
CCU Subjective - Physician Review Subjective (Free Text): 10/09/16 09:14 Patient seen and examined at beside. As per nursing patient was afebrile overnight but tachycardic. Has poor PO intake and not making good UO. Patient was sleeping and denied any headache, dizziness, chest pain, palpitations, SOB, nausea, vomiting, bowel/bladder complaints. He is still complaining of a cough with sputum and reports some mild abd pain. CCU Objective - Vital Signs / Intake & Output Vital Signs (Last 4 hours): Vital Signs Temp Pulse Resp BP Pulse Ox 10/09/16 07:00 126 H 21 100 10/09/16 06:28 128 H 24 101/58 L 100 10/09/16 06:00 126 H 19 100 10/09/16 05:28 126 H 17 111/66 98 10/09/16 05:00 127 H 24 100 10/09/16 04:28 127 H 25 H 107/66 100 10/09/16 04:00 97.7 F 129 H 29 H 100 10/09/16 03:28 126 H 32 H 102/63 98 Intake and Output (Last 8hrs): Intake & Output 10/08/16 10/09/16 10/09/16 22:59 06:59 14:59 Intake Total 530 650 50 Output Total 350 220 20 Balance 180 430 30 Weight 180 lb Intake: Intake, IV Amount 350 650 50 RJugTLC 350 650 50 Oral 180 Output: Drainage 60 Right Medial Abdomen 60 Urine 290 220 20 Urine, Voided 290 220 20 Stool 0 Emesis 0 - Physical Exam Head: Positive for: Atraumatic, Normocephalic Pupils: Positive for: PERRL. Negative for: Sluggish, Non-Reactive Extroacular Muscles: Positive for: EOMI Conjunctiva: Positive for: Normal. Negative for: Injected, Icteric Mouth: Positive for: Moist Mucous Membranes Neck: Positive for: Normal Range of Motion, Trachea Midline. Negative for: Meningeal Signs, MIDLINE TENDERNESS, Paraspinal Tenderness, JVD, Lymphadenopathy , Bruit, Other Respiratory/Chest: Positive for: Wheezes (b/l), Rales (b/l). Negative for: Clear to Auscultation, Respiratory Distress, Accessory Muscle Use, Decreased Breath Sounds, Retracting, Rhonchi Cardiovascular: Positive for: Regular Rate and Rhythm, Peripheal Pulses Present , Tachycardic. Negative for: Murmurs Abdomen: Positive for: Distention, Other (cholecystostomy tube in place) Upper Extremity: Positive for: Normal Inspection, Edema (+1 b/l), NORMAL PULSES , Capillary Refill < 2s. Negative for: Cyanosis Lower Extremity: Positive for: Normal Inspection, NORMAL PULSES, Capillary Refill < 2 s. Negative for: Edema, CALF TENDERNESS Skin: Positive for: Warm, Dry, Normal Color Psychiatric: Positive for: Alert - Medications Active Medications: Active Medications Generic Name Dose Route Start Last Admin Trade Name Freq PRN Reason Stop Dose Admin Acetylcysteine 4 ml 10/06/16 14:00 10/08/16 19:46 Acetylcysteine 20% INH Not Given RQ6 CHERY Albuterol/Ipratropium 3 ml 10/08/16 08:15 10/09/16 00:13 Duoneb 3 Mg/0.5 Mg (3 Ml) Ud INH 3 ml RQ8 CHERY Administration Aspirin 81 mg 10/07/16 10:15 10/08/16 09:35 Ecotrin PO 81 mg DAILY CHERY Administration Famotidine 20 mg 10/07/16 10:15 10/08/16 09:35 Pepcid PO 20 mg DAILY CHERY Administration Heparin Sodium (Porcine) 5,000 units 10/06/16 10:30 10/08/16 21:26 Heparin SC 5,000 units Q12 CHERY Administration Meropenem 500 mg/ Sodium 100 mls @ 100 mls/hr 10/06/16 14:00 10/09/16 05:05 Chloride IVPB 100 mls/hr Q8 CHERY Administration Sodium Chloride 1,000 mls @ 50 mls/hr 10/07/16 09:45 10/09/16 01:33 Sodium Chloride 0.9% IV Not Given .Q20H CHERY Vancomycin/Sodium Chloride 1 gm in 200 mls @ 166.7 mls/hr 10/08/16 00:00 23:25 Vancocin IVPB 10/13/16 00:01 166.7 mls/hr Q24H CHERY Administration Insulin Aspart 0 unit 10/07/16 10:14 10/08/16 21:52 Novolog SC Not Given ACHS CHERY Protocol Metoprolol Tartrate 25 mg 10/08/16 10:00 10/08/16 18:10 Lopressor PO 25 mg BID CHERY Administration - Patient Studies Lab Studies: Microbiology Studies 10/06/16 12:08 Gram Stain - Final Sputum Induced Sputum Culture - Final Acinetobacter Baumannii Methicillin Resistant S Aureus Lab Studies 10/09/16 10/09/16 10/08/16 Range/Units 06:09 06:09 21:46 WBC 7.7 (4.8-10.8) K/uL RBC 3.23 L (4.40-5.90) Mil/uL Hgb 9.3 L (12.0-18.0) g/dL Hct 29.0 L (35.0-51.0) % MCV 89.8 (80.0-94.0) fL MCH 28.8 (27.0-31.0) pg MCHC 32.1 L (33.0-37.0) g/dL RDW 17.2 H (11.5-14.5) % Plt Count 98 L (130-400) K/uL MPV 10.6 (7.2-11.7) fL Neut % (Auto) 79.6 H (50.0-75.0) % Lymph % (Auto) 11.0 L (20.0-40.0) % [place] % (Auto) 5.9 (0.0-10.0) % Eos % (Auto) 3.2 (0.0-4.0) % Baso % (Auto) 0.3 (0.0-2.0) % Neut # 6.1 (1.8-7.0) K/uL Lymph # 0.8 L (1.0-4.3) K/uL [place] # 0.4 (0.0-0.8) K/uL Eos # 0.2 (0.0-0.7) K/uL Baso # 0.0 (0.0-0.2) K/uL Sodium 139 (132-148) mmol/L Potassium 5.2 (3.6-5.2) mmol/L Chloride 105 (98-107) mmol/L Carbon Dioxide 21 L (22-30) mmol/L Anion Gap 18 (10-20) BUN 71 H (9-20) mg/dL Creatinine 3.9 H (0.8-1.5) MG/DL Est GFR ( Amer) 18 Est GFR (Non-Af Amer) 15 POC Glucose (mg/dL) 148 H (65-110) mg/dL Random Glucose 131 H (75-110) mg/dL Calcium 8.8 (8.6-10.4) mg/dl Phosphorus 5.9 H (2.5-4.5) mg/dL Magnesium 2.1 (1.6-2.3) mg/dL Total Bilirubin 3.2 H (0.2-1.3) mg/dL AST 913 H D (17-59) U/L ALT 713 H D (21-72) U/L Alkaline Phosphatase 104 (38-126) U/L Total Protein 6.5 (6.3-8.3) g/dL Albumin 2.6 L (3.5-5.0) g/dL Globulin 3.9 (2.2-3.9) gm/dL Albumin/Globulin Ratio 0.7 L (1.0-2.1) 10/08/16 10/08/16 Range/Units 16:04 11:19 WBC (4.8-10.8) K/uL RBC (4.40-5.90) Mil/uL Hgb (12.0-18.0) g/dL Hct (35.0-51.0) % MCV (80.0-94.0) fL MCH (27.0-31.0) pg MCHC (33.0-37.0) g/dL RDW (11.5-14.5) % Plt Count (130-400) K/uL MPV (7.2-11.7) fL Neut % (Auto) (50.0-75.0) % Lymph % (Auto) (20.0-40.0) % [place] % (Auto) (0.0-10.0) % Eos % (Auto) (0.0-4.0) % Baso % (Auto) (0.0-2.0) % Neut # (1.8-7.0) K/uL Lymph # (1.0-4.3) K/uL [place] # (0.0-0.8) K/uL Eos # (0.0-0.7) K/uL Baso # (0.0-0.2) K/uL Sodium (132-148) mmol/L Potassium (3.6-5.2) mmol/L Chloride (98-107) mmol/L Carbon Dioxide (22-30) mmol/L Anion Gap (10-20) BUN (9-20) mg/dL Creatinine (0.8-1.5) MG/DL Est GFR ( Amer) Est GFR (Non-Af Amer) POC Glucose (mg/dL) 222 H 247 H (65-110) mg/dL Random Glucose (75-110) mg/dL Calcium (8.6-10.4) mg/dl Phosphorus (2.5-4.5) mg/dL Magnesium (1.6-2.3) mg/dL Total Bilirubin (0.2-1.3) mg/dL AST (17-59) U/L ALT (21-72) U/L Alkaline Phosphatase (38-126) U/L Total Protein (6.3-8.3) g/dL Albumin (3.5-5.0) g/dL Globulin (2.2-3.9) gm/dL Albumin/Globulin Ratio (1.0-2.1) Laboratory Results - last 24 hr 10/08/16 10/08/16 10/08/16 11:19 16:04 21:46 WBC RBC Hgb Hct MCV MCH MCHC RDW Plt Count MPV Neut % (Auto) Lymph % (Auto) [place] % (Auto) Eos % (Auto) Baso % (Auto) Neut # Lymph # [place] # Eos # Baso # Sodium Potassium Chloride Carbon Dioxide Anion Gap BUN Creatinine Est GFR ( Amer) Est GFR (Non-Af Amer) POC Glucose (mg/dL) 247 H 222 H 148 H Random Glucose Calcium Phosphorus Magnesium Total Bilirubin AST ALT Alkaline Phosphatase Total Protein Albumin Globulin Albumin/Globulin Ratio 10/09/16 10/09/16 06:09 06:09 WBC 7.7 RBC 3.23 L Hgb 9.3 L Hct 29.0 L MCV 89.8 MCH 28.8 MCHC 32.1 L RDW 17.2 H Plt Count 98 L MPV 10.6 Neut % (Auto) 79.6 H Lymph % (Auto) 11.0 L [place] % (Auto) 5.9 Eos % (Auto) 3.2 Baso % (Auto) 0.3 Neut # 6.1 Lymph # 0.8 L [place] # 0.4 Eos # 0.2 Baso # 0.0 Sodium 139 Potassium 5.2 Chloride 105 Carbon Dioxide 21 L Anion Gap 18 BUN 71 H Creatinine 3.9 H Est GFR ( Amer) 18 Est GFR (Non-Af Amer) 15 POC Glucose (mg/dL) Random Glucose 131 H Calcium 8.8 Phosphorus 5.9 H Magnesium 2.1 Total Bilirubin 3.2 H AST 913 H D ALT 713 H D Alkaline Phosphatase 104 Total Protein 6.5 Albumin 2.6 L Globulin 3.9 Albumin/Globulin Ratio 0.7 L Fingerstick Blood Sugar Results: 203 Review of Systems - Constitutional Constitutional: absent: Fever, Chills - Cardiovascular Cardiovascular: As Per HPI. absent: Chest Pain, Dyspnea - Respiratory Respiratory: As Per HPI, Cough, Chest Congestion - Gastrointestinal Gastrointestinal: As Per HPI, Abdominal Pain (mild). absent: Constipation, Diarrhea, Nausea, Vomiting - Musculoskeletal Musculoskeletal: As Par HPI. absent: Numbness, Tingling - Integumentary Integumentary: As Per HPI. absent: Dry Skin, Rash - Neurological Neurological: As Per HPI. absent: Dizziness, Headaches Critical Care Progress Note - Nutrition Nutrition: Nutrition Category Date Time Status Heart Healthy Diet [DIET] Diets 10/06/16 Lunch Active Assessment/Plan - Assessment and Plan (Free Text) Assessment: 86yo M PMHx of HTN, HLD, DM, CHF, CAD s/p CABG presented with abdominal pain and reported AMS Plan: Neuro -AO x 3 -no acute issues Cardio -tachycardic and hypotensive -Amiodarone gtt started today- monitor LFTs -Echo 10/06: recommend RICH to evaluate endocarditis; [place] LVH, LV systolic function is low normal, EF 50-55%, hypokinesis in inferior wall, Grad II pseudonormal filling dynamics; mild valvular and mild pulmonary HTN -ASA 81mg po daily -EP Cardiology Dr Tinsley following -Cardiology Dr Celestine Anderson following Respiratory -CXR 10/09: mod venous congestion with bibasilar airspace opacities and small R pleural effusion. Cardiomegaly. -Spontaneous respiration on NC -Sputum: +Acinetobacter Baumannii and MRSA -Nares: +MRSA -Duoneb 3ml inh q8 -Acetylcystine 4ml inh q6 -Merrem 500mg Q8 -Vancocin 1gm ivpb q24 -Dr Nice ID following GI -f/u repeat CT abd/pelvis -Cholecystostomy tube in place -transaminitis AST 913 ALT 713 Alk Phos 104 -Acute hep panel negative -MRCP cancelled due to pacemaker -CT Abd/pelvis: R pleural effusion with bibasilar atelectasis. Superimposed pneumonia not excluded. L inguinal collection [seroma vs hematoma vs abscess vs pseudoaneurysm] -Surgery Dr Acevedo consulted -GI Dr Perry consulted -IR Dr Arzola consulted ID -Severe sepsis -No white count this AM -Procalcitonin 7 -Sputum: +Acinetobacter Baumannii and MRSA -Blood: +S Aureus x 2 -Nares: +MRSA -Urine: negative -Merrem 500mg Q8 -Vancocin 1gm ivpb q24 -Dr Nice ID following Heme -Likely anemia of chronic disease -H&H stable Renal -SAGAR vs CKD -f/u renal U/S -Nephro Dr. Newell following Endocrine -Hx of DM2 -RISS -Accucheck MSK -no acute issues DVT ppx: Heparin 5000u sc q12, SCDs GI ppx: Pepcid 20mg po daily Diet: Heart Healthy moderate consistent carb renal diet with supplements Code Status: full code Case discussed with Dr. Yodit Ventura PGY1
--- NOTE | 2016-10-09 07:43 | CP.PCM.PN ---
Subjective - Date & Time of Evaluation Date of Evaluation: 10/09/16 Time of Evaluation: 07:42 - Subjective Subjective: Gen Sx: Dr Acevedo Pt S&E. NAEO. Pt reports less pain in the abdomen. Denies N/V. Remains tachycardic and hypotensive. Objective - Vital Signs/Intake and Output Vital Signs (last 24 hours): Temp Pulse Resp BP Pulse Ox 97.7 F 126 H 21 101/58 L 100 10/09/16 04:00 10/09/16 07:00 10/09/16 07:00 10/09/16 06:28 10/09/16 07:00 Intake and Output: 10/09/16 10/09/16 06:59 18:59 Intake Total 800 50 Output Total 350 20 Balance 450 30 - Medications Medications: Current Medications Acetylcysteine (Acetylcysteine 20%) 4 ml INH RQ6 [facility] Last Admin: 10/08/16 19:46 Dose: Not Given Albuterol/Ipratropium (Duoneb 3 Mg/0.5 Mg (3 Ml) Ud) 3 ml INH RQ8 [facility] Last Admin: 10/09/16 00:13 Dose: 3 ml Aspirin (Ecotrin) 81 mg PO DAILY [facility] Last Admin: 10/08/16 09:35 Dose: 81 mg Famotidine (Pepcid) 20 mg PO DAILY [facility] Last Admin: 10/08/16 09:35 Dose: 20 mg Heparin Sodium (Porcine) (Heparin) 5,000 units SC Q12 [facility] Last Admin: 10/08/16 21:26 Dose: 5,000 units Meropenem 500 mg/ Sodium (Chloride) 100 mls @ 100 mls/hr IVPB Q8 [facility] Last Admin: 10/09/16 05:05 Dose: 100 mls/hr Sodium Chloride (Sodium Chloride 0.9%) 1,000 mls @ 50 mls/hr IV .Q20H [facility] Last Admin: 10/09/16 01:33 Dose: Not Given Vancomycin/Sodium Chloride (Vancocin) 1 gm in 200 mls @ 166.7 mls/hr IVPB Q24H [facility] Stop: 10/13/16 00:01 Last Admin: 10/08/16 23:25 Dose: 166.7 mls/hr Insulin Aspart (Novolog) 0 unit SC ACHS [facility] PRN Reason: Protocol Last Admin: 10/08/16 21:52 Dose: Not Given Metoprolol Tartrate (Lopressor) 25 mg PO BID [facility] Last Admin: 10/08/16 18:10 Dose: 25 mg - Labs Labs: 10/09/16 06:09 10/09/16 06:09 PT 17.9 SECONDS (9.7-12.2) H 10/07/16 11:14 INR 1.5 10/07/16 11:14 APTT 33 SECONDS (21-34) 10/07/16 11:14 - Constitutional Appears: Toxic - Respiratory Exam Respiratory Exam: absent: Accessory Muscle Use, Respiratory Distress - Cardiovascular Exam Cardiovascular Exam: Tachycardia Additional comments: hypotensive - GI/Abdominal Exam GI & Abdominal Exam: Distended, Soft, Tenderness (diffuse but improved). absent : Firm, Guarding, Rigid Additional comments: RUQ drain in place - Neurological Exam Neurological Exam: Alert, Awake - Psychiatric Exam Psychiatric exam: Normal Affect, Normal Mood - Skin Skin Exam: Normal Color, Warm Assessment and Plan - Assessment and Plan (Free Text) Plan: 86M w. sepsis -Blood Cx + gram (+) cocci -sputum cx positive gram + cocci and gram -rods -abd remains benign -No MRCP due to pacemaker -c/w abx and medical management -would recommend IR evaluation of RUQ tube some time this admission [facility] PGY2
[2016-10-09] MEDS: (Novolog) Insulin Aspart, Recombinant 100 u/ml 10 ml vial SC SCH ×3 (07:46→18:10)
[2016-10-09] MEDS: Acetylcysteine 20% Inhal Soln (4ml) INH SCH ×3 (08:11→23:54)
--- NOTE | 2016-10-09 08:37 | RAD ---
Chest x-ray single frontal view History: Coughing. Comparison: 10/06/2016 Findings: Moderate venous congestion with bibasilar airspace opacities and small right pleural effusion. Cardiomegaly. Status post median sternotomy and CABG. Left-sided pacemaker. Lines and tubes in stable position. Impression: Moderate venous congestion with bibasilar airspace opacities and small right pleural effusion. Cardiomegaly.
[2016-10-09 09:43] LABS: HEPATITIS B SURFACE AG NEGATIVE (NEGATIVE)
[2016-10-09 09:48] LABS: HEPATITIS A IGM NEGATIVE (NEGATIVE); HEPATITIS B CORE AB NEGATIVE (NEGATIVE)
[2016-10-09 10:00] LABS: HEPATITIS C ANTIBODY NEGATIVE (NEGATIVE)
--- NOTE | 2016-10-09 10:31 | CP.PCM.PN ---
Subjective - Date & Time of Evaluation Date of Evaluation: 10/09/16 Time of Evaluation: 08:00 - Subjective Subjective: slow progress growing MRSA in blood/ sputum echo pending Objective - Vital Signs/Intake and Output Vital Signs (last 24 hours): Temp Pulse Resp BP Pulse Ox 98 F 127 H 24 111/64 100 10/09/16 08:00 10/09/16 09:32 10/09/16 09:32 10/09/16 09:34 10/09/16 07:00 Intake and Output: 10/09/16 10/09/16 06:59 18:59 Intake Total 800 100 Output Total 350 50 Balance 450 50 - Medications Medications: Current Medications Acetylcysteine (Acetylcysteine 20%) 4 ml INH RQ6 [facility] Last Admin: 10/09/16 08:11 Dose: 4 ml Albuterol/Ipratropium (Duoneb 3 Mg/0.5 Mg (3 Ml) Ud) 3 ml INH RQ8 [facility] Last Admin: 10/09/16 08:11 Dose: 3 ml Aspirin (Ecotrin) 81 mg PO DAILY [facility] Last Admin: 10/09/16 09:33 Dose: 81 mg Famotidine (Pepcid) 20 mg PO DAILY [facility] Last Admin: 10/09/16 09:33 Dose: 20 mg Heparin Sodium (Porcine) (Heparin) 5,000 units SC Q12 [facility] Last Admin: 10/09/16 09:34 Dose: 5,000 units Meropenem 500 mg/ Sodium (Chloride) 100 mls @ 100 mls/hr IVPB Q8 [facility] Last Admin: 10/09/16 05:05 Dose: 100 mls/hr Vancomycin/Sodium Chloride (Vancocin) 1 gm in 200 mls @ 166.7 mls/hr IVPB Q24H [facility] Stop: 10/13/16 00:01 Last Admin: 10/08/16 23:25 Dose: 166.7 mls/hr Amiodarone HCl 900 mg/ (Dextrose) 500 mls @ 33.33 mls/hr IV .Q15H1M ONE; 1 MG/ MIN PRN Reason: Protocol Stop: 10/09/16 23:49 Last Admin: 10/09/16 09:32 Dose: 33.33 mls/hr Insulin Aspart (Novolog) 0 unit SC ACHS [facility] PRN Reason: Protocol Last Admin: 10/09/16 07:46 Dose: 2 unit Metoprolol Tartrate (Lopressor) 25 mg PO BID [facility] Last Admin: 10/09/16 09:34 Dose: 25 mg - Labs Labs: 10/09/16 06:09 10/09/16 06:09 PT 17.9 SECONDS (9.7-12.2) H 10/07/16 11:14 INR 1.5 10/07/16 11:14 APTT 33 SECONDS (21-34) 10/07/16 11:14 - Constitutional Appears: Non-toxic, Cachectic, Chronically Ill - Eye Exam Eye Exam: Normal appearance - ENT Exam ENT Exam: Mucous Membranes Dry, Normal External Ear Exam - Neck Exam Neck Exam: absent: Lymphadenopathy - Respiratory Exam Respiratory Exam: Decreased Breath Sounds - Cardiovascular Exam Cardiovascular Exam: REGULAR RHYTHM - GI/Abdominal Exam GI & Abdominal Exam: Distended, Soft - Rectal Exam Rectal Exam: Deferred - Exam Exam: NORMAL INSPECTION - Extremities Exam Extremities Exam: absent: Calf Tenderness, Pedal Edema - Back Exam Back Exam: absent: CVA tenderness (L), CVA tenderness (R) - Neurological Exam Neurological Exam: Alert, Awake, Oriented x3 - Psychiatric Exam Psychiatric exam: Normal Mood - Skin Skin Exam: Dry, Intact Assessment and Plan (1) Pneumonia Status: Acute (2) Abdominal pain Status: Acute (3) CAD (coronary artery disease) Status: Acute (4) HTN (hypertension) Status: Acute (5) Sepsis Status: Acute (6) Severe sepsis Status: Acute
--- NOTE | 2016-10-09 11:12 | CP.PCM.PN ---
Subjective - Date & Time of Evaluation Date of Evaluation: 10/09/16 Time of Evaluation: 11:09 - Subjective Subjective: Lethargic Now with decreased UO Creat remains elevated at 3.9 CXR reported as CHF colostomy tube in place Objective - Vital Signs/Intake and Output Vital Signs (last 24 hours): Temp Pulse Resp BP Pulse Ox 98 F 125 H 24 106/55 L 100 10/09/16 08:00 10/09/16 10:28 10/09/16 10:28 10/09/16 10:28 10/09/16 10:28 Intake and Output: 10/09/16 10/09/16 06:59 18:59 Intake Total 800 303.3 Output Total 350 70 Balance 450 233.3 - Medications Medications: Current Medications Acetylcysteine (Acetylcysteine 20%) 4 ml INH RQ6 [facility] Last Admin: 10/09/16 08:11 Dose: 4 ml Albuterol/Ipratropium (Duoneb 3 Mg/0.5 Mg (3 Ml) Ud) 3 ml INH RQ8 [facility] Last Admin: 10/09/16 08:11 Dose: 3 ml Aspirin (Ecotrin) 81 mg PO DAILY [facility] Last Admin: 10/09/16 09:33 Dose: 81 mg Famotidine (Pepcid) 20 mg PO DAILY [facility] Last Admin: 10/09/16 09:33 Dose: 20 mg Heparin Sodium (Porcine) (Heparin) 5,000 units SC Q12 [facility] Last Admin: 10/09/16 09:34 Dose: 5,000 units Meropenem 500 mg/ Sodium (Chloride) 100 mls @ 100 mls/hr IVPB Q8 [facility] Last Admin: 10/09/16 05:05 Dose: 100 mls/hr Vancomycin/Sodium Chloride (Vancocin) 1 gm in 200 mls @ 166.7 mls/hr IVPB Q24H [facility] Stop: 10/13/16 00:01 Last Admin: 10/08/16 23:25 Dose: 166.7 mls/hr Amiodarone HCl 900 mg/ (Dextrose) 500 mls @ 33.33 mls/hr IV .Q15H1M ONE; 1 MG/ MIN PRN Reason: Protocol Stop: 10/09/16 23:49 Last Admin: 10/09/16 09:32 Dose: 33.33 mls/hr Amiodarone HCl 900 mg/ (Dextrose) 500 mls @ 16.66 mls/hr IV .Q24H ONE; 0.5 MG/ MIN PRN Reason: Protocol Stop: 10/10/16 15:29 Insulin Aspart (Novolog) 0 unit SC ACHS [facility] PRN Reason: Protocol Last Admin: 10/09/16 07:46 Dose: 2 unit Metoprolol Tartrate (Lopressor) 25 mg PO BID [facility] Last Admin: 10/09/16 09:34 Dose: 25 mg - Labs Labs: 10/09/16 06:09 10/09/16 06:09 PT 17.9 SECONDS (9.7-12.2) H 10/07/16 11:14 INR 1.5 10/07/16 11:14 APTT 33 SECONDS (21-34) 10/07/16 11:14 - Constitutional Appears: Confused, Chronically Ill - Head Exam Head Exam: ATRAUMATIC, NORMAL INSPECTION - Eye Exam Eye Exam: EOMI, Normal appearance - Neck Exam Neck Exam: Normal Inspection. absent: Tenderness - Respiratory Exam Respiratory Exam: Clear to Ausculation Bilateral, NORMAL BREATHING PATTERN - Cardiovascular Exam Cardiovascular Exam: REGULAR RHYTHM, +S1 - GI/Abdominal Exam GI & Abdominal Exam: Soft, Tenderness - Extremities Exam Extremities Exam: Normal Inspection. absent: Tenderness - Neurological Exam Neurological Exam: Awake, CN II-XII Intact - Skin Skin Exam: Dry, Warm Assessment and Plan - Assessment and Plan (Free Text) Assessment: Oliguria Sepsis syndrome CHF as per CXR report s/p CABG s/p colostomy Tachyarrythmias CKD 4- SAGAR Plan: Trial lasix Treat sepsis Renal US Serial chemistries
--- NOTE | 2016-10-09 11:14 | CP.PCM.CON ---
History of Present Illness - History of Present Illness History of Present Illness: Consult Note for Dr. Tinsley Reason for Consult: Persistent Tachycardia 86 y/o M with PMH of HTN, HLD, CHF, DM, and CAD s/p CABG initially presented from retirement on 10/05/16. Information gathered from prior medical records and staff due to pt's altered mental status. Pt had recently had a cholecystomy tube placed. Pt developed severe abdominal pain in addition to altered mental status. Pt was found to be in sever sepsis and was admitted to the ICU for further observation. Cardiology has been consulted due to persistent tachycardia. Pt's heart rate has steadily been in the 120's over the past several days. Pt has been on metoprolol, which is his home medication, but it has not helped to control his heart rate. 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 PMH: HTN, HLD, CHF, DM, CAD PSH: CABG Allergies: NKDA Medication: See MAR Review of Systems - Review of Systems Systems not reviewed;Unavailable: Altered Mental Status Past Patient History - Past Medical History & Family History Past Medical History?: Yes - Past Social History Smoking Status: Never Smoked - CARDIAC Hx Congestive Heart Failure: Yes Hx Hypertension: Yes - PULMONARY Hx Respiratory Disorders: No - NEUROLOGICAL Hx Neurological Disorder: No - HEENT Hx HEENT Problems: No - RENAL Hx Chronic Kidney Disease: Yes - ENDOCRINE/METABOLIC Hx Diabetes Mellitus Type 1: Yes - HEMATOLOGICAL/ONCOLOGICAL Hx Blood Disorders: No - INTEGUMENTARY Hx Dermatological Problems: No - MUSCULOSKELETAL/RHEUMATOLOGICAL Hx Musculoskeletal Disorders: No Hx Falls: No - GASTROINTESTINAL Hx Gastrointestinal Disorders: No - GENITOURINARY/GYNECOLOGICAL Hx Genitourinary Disorders: No - PSYCHIATRIC Hx Substance Use: No - SURGICAL HISTORY Hx Coronary Artery Bypass Graft: Yes - ANESTHESIA Hx Anesthesia: Yes Hx Anesthesia Reactions: No Hx Malignant Hyperthermia: No Has any member of the family had a problem w/ anesthesia?: No Meds Allergies/Adverse Reactions: Allergies Allergy/AdvReac Type Severity Reaction Status Date / Time No Known Allergies Allergy Unverified 10/05/16 22:02 - Medications Medications: Current Medications Acetylcysteine (Acetylcysteine 20%) 4 ml INH RQ6 [facility] Last Admin: 10/09/16 08:11 Dose: 4 ml Albuterol/Ipratropium (Duoneb 3 Mg/0.5 Mg (3 Ml) Ud) 3 ml INH RQ8 [facility] Last Admin: 10/09/16 08:11 Dose: 3 ml Aspirin (Ecotrin) 81 mg PO DAILY [facility] Last Admin: 10/09/16 09:33 Dose: 81 mg Famotidine (Pepcid) 20 mg PO DAILY [facility] Last Admin: 10/09/16 09:33 Dose: 20 mg Heparin Sodium (Porcine) (Heparin) 5,000 units SC Q12 [facility] Last Admin: 10/09/16 09:34 Dose: 5,000 units Meropenem 500 mg/ Sodium (Chloride) 100 mls @ 100 mls/hr IVPB Q8 [facility] Last Admin: 10/09/16 05:05 Dose: 100 mls/hr Vancomycin/Sodium Chloride (Vancocin) 1 gm in 200 mls @ 166.7 mls/hr IVPB Q24H [facility] Stop: 10/13/16 00:01 Last Admin: 10/08/16 23:25 Dose: 166.7 mls/hr Amiodarone HCl 900 mg/ (Dextrose) 500 mls @ 33.33 mls/hr IV .Q15H1M ONE; 1 MG/ MIN PRN Reason: Protocol Stop: 10/09/16 23:49 Last Admin: 10/09/16 09:32 Dose: 33.33 mls/hr Amiodarone HCl 900 mg/ (Dextrose) 500 mls @ 16.66 mls/hr IV .Q24H ONE; 0.5 MG/ MIN PRN Reason: Protocol Stop: 10/10/16 15:29 Insulin Aspart (Novolog) 0 unit SC ACHS [facility] PRN Reason: Protocol Last Admin: 10/09/16 07:46 Dose: 2 unit Metoprolol Tartrate (Lopressor) 25 mg PO BID [facility] Last Admin: 10/09/16 09:34 Dose: 25 mg Physical Exam - Constitutional Appears: Toxic, No Acute Distress - Head Exam Head Exam: ATRAUMATIC, NORMAL INSPECTION, NORMOCEPHALIC - ENT Exam ENT Exam: Mucous Membranes Dry - Respiratory Exam Respiratory Exam: Decreased Breath Sounds, NORMAL BREATHING PATTERN - Cardiovascular Exam Cardiovascular Exam: Tachycardia, +S1, +S2 - GI/Abdominal Exam GI & Abdominal Exam: Normal Bowel Sounds, Soft. absent: Tenderness Results - Vital Signs Recent Vital Signs: Last Vital Signs Temp 98 F 10/09/16 08:00 Pulse 125 H 10/09/16 10:28 Resp 24 10/09/16 10:28 BP 106/55 L 10/09/16 10:28 Pulse Ox 100 10/09/16 10:28 - Labs Result Diagrams: 10/09/16 06:09 10/09/16 06:09 Labs: Laboratory Results - last 24 hr 10/08/16 10/08/16 10/08/16 11:19 16:04 21:46 WBC RBC Hgb Hct MCV MCH MCHC RDW Plt Count MPV Neut % (Auto) Lymph % (Auto) Calloway % (Auto) Eos % (Auto) Baso % (Auto) Neut # Lymph # Calloway # Eos # Baso # Sodium Potassium Chloride Carbon Dioxide Anion Gap BUN Creatinine Est GFR ( Amer) Est GFR (Non-Af Amer) POC Glucose (mg/dL) 247 H 222 H 148 H Random Glucose Calcium Phosphorus Magnesium Total Bilirubin AST ALT Alkaline Phosphatase Total Protein Albumin Globulin Albumin/Globulin Ratio Hepatitis A IgM Ab Hep Bs Antigen Hep B Core IgM Ab Hepatitis C Antibody 10/09/16 10/09/16 10/09/16 06:09 06:09 07:28 WBC 7.7 RBC 3.23 L Hgb 9.3 L Hct 29.0 L MCV 89.8 MCH 28.8 MCHC 32.1 L RDW 17.2 H Plt Count 98 L MPV 10.6 Neut % (Auto) 79.6 H Lymph % (Auto) 11.0 L Calloway % (Auto) 5.9 Eos % (Auto) 3.2 Baso % (Auto) 0.3 Neut # 6.1 Lymph # 0.8 L Calloway # 0.4 Eos # 0.2 Baso # 0.0 Sodium 139 Potassium 5.2 Chloride 105 Carbon Dioxide 21 L Anion Gap 18 BUN 71 H Creatinine 3.9 H Est GFR ( Amer) 18 Est GFR (Non-Af Amer) 15 POC Glucose (mg/dL) 158 H Random Glucose 131 H Calcium 8.8 Phosphorus 5.9 H Magnesium 2.1 Total Bilirubin 3.2 H AST 913 H D ALT 713 H D Alkaline Phosphatase 104 Total Protein 6.5 Albumin 2.6 L Globulin 3.9 Albumin/Globulin Ratio 0.7 L Hepatitis A IgM Ab Hep Bs Antigen Hep B Core IgM Ab Hepatitis C Antibody 10/09/16 08:56 WBC RBC Hgb Hct MCV MCH MCHC RDW Plt Count MPV Neut % (Auto) Lymph % (Auto) Calloway % (Auto) Eos % (Auto) Baso % (Auto) Neut # Lymph # Calloway # Eos # Baso # Sodium Potassium Chloride Carbon Dioxide Anion Gap BUN Creatinine Est GFR ( Amer) Est GFR (Non-Af Amer) POC Glucose (mg/dL) Random Glucose Calcium Phosphorus Magnesium Total Bilirubin AST ALT Alkaline Phosphatase Total Protein Albumin Globulin Albumin/Globulin Ratio Hepatitis A IgM Ab Negative Hep Bs Antigen Negative Hep B Core IgM Ab Negative Hepatitis C Antibody Negative Assessment & Plan (1) Tachycardia Assessment and Plan: May be secondary to severe sepsis In addition to metoprolol, pt will be started on Amiodarone Continue to monitor for any worsening of tachycardia Status: Acute
--- NOTE | 2016-10-09 12:44 | CP.PCM.PN ---
Subjective - Date & Time of Evaluation Date of Evaluation: 10/09/16 Time of Evaluation: 12:41 - Subjective Subjective: CONDITION POOR. CONGESTED. TACHYCARDIC. SEPTIC , MRSA. CAD. DETERIORATING LFT'S. S/P CHILECYSTECTOMY. Objective - Vital Signs/Intake and Output Vital Signs (last 24 hours): Temp Pulse Resp BP Pulse Ox 98 F 125 H 24 106/55 L 100 10/09/16 08:00 10/09/16 10:28 10/09/16 10:28 10/09/16 10:28 10/09/16 10:28 Intake and Output: 10/09/16 10/09/16 06:59 18:59 Intake Total 800 303.3 Output Total 350 70 Balance 450 233.3 - Medications Medications: Current Medications Acetylcysteine (Acetylcysteine 20%) 4 ml INH RQ6 [facility] Last Admin: 10/09/16 08:11 Dose: 4 ml Albuterol/Ipratropium (Duoneb 3 Mg/0.5 Mg (3 Ml) Ud) 3 ml INH RQ8 [facility] Last Admin: 10/09/16 08:11 Dose: 3 ml Aspirin (Ecotrin) 81 mg PO DAILY [facility] Last Admin: 10/09/16 09:33 Dose: 81 mg Famotidine (Pepcid) 20 mg PO DAILY [facility] Last Admin: 10/09/16 09:33 Dose: 20 mg Furosemide (Lasix) 40 mg IVP BID [facility] Heparin Sodium (Porcine) (Heparin) 5,000 units SC Q12 [facility] Last Admin: 10/09/16 09:34 Dose: 5,000 units Meropenem 500 mg/ Sodium (Chloride) 100 mls @ 100 mls/hr IVPB Q8 [facility] Last Admin: 10/09/16 05:05 Dose: 100 mls/hr Vancomycin/Sodium Chloride (Vancocin) 1 gm in 200 mls @ 166.7 mls/hr IVPB Q24H [facility] Stop: 10/13/16 00:01 Last Admin: 10/08/16 23:25 Dose: 166.7 mls/hr Amiodarone HCl 900 mg/ (Dextrose) 500 mls @ 33.33 mls/hr IV .Q15H1M [facility]; 1 MG/ MIN PRN Reason: Protocol Stop: 10/09/16 23:49 Last Admin: 10/09/16 09:32 Dose: 33.33 mls/hr Amiodarone HCl 900 mg/ (Dextrose) 500 mls @ 16.66 mls/hr IV .Q24H [facility]; 0.5 MG/ MIN PRN Reason: Protocol Stop: 10/10/16 15:29 Insulin Aspart (Novolog) 0 unit SC ACHS [facility] PRN Reason: Protocol Last Admin: 10/09/16 12:09 Dose: 4 unit Metoprolol Tartrate (Lopressor) 25 mg PO BID [facility] Last Admin: 10/09/16 09:34 Dose: 25 mg - Labs Labs: 10/09/16 06:09 10/09/16 06:09 PT 17.9 SECONDS (9.7-12.2) H 10/07/16 11:14 INR 1.5 10/07/16 11:14 APTT 33 SECONDS (21-34) 10/07/16 11:14 - Constitutional Appears: Toxic, Chronically Ill - Head Exam Head Exam: NORMAL INSPECTION - Eye Exam Eye Exam: Normal appearance, PERRL - ENT Exam ENT Exam: Normal Exam - Respiratory Exam Respiratory Exam: Clear to Ausculation Bilateral - Cardiovascular Exam Cardiovascular Exam: Tachycardia, +S1, +S2 - GI/Abdominal Exam GI & Abdominal Exam: Soft, Normal Bowel Sounds - Extremities Exam Extremities Exam: Pedal Edema Assessment and Plan - Assessment and Plan (Free Text) Assessment: SEPTIC. CRF. ABN LFT'S. Plan: CT PRESENT TREATMENT. ICU CARE. AMIODORONE TO CONTROL HR. IV ANTIBIOTICS.
--- NOTE | 2016-10-09 13:24 | PN ---
DATE: 10/07/2016 The patient is more awake, still tachycardic. Blood cultures show ____ MRSA and acinetobacter in the sputum. 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 Will discuss with cardiology. Eva Diaz MD cc: [id number] TT: 10/09/2016 11:38:32 Confirmation # [id number] Dictation # [id number] mn
--- NOTE | 2016-10-09 14:04 | CON ---
DATE: 10/09/2016 LOCATION: ICU 4. This is an 86-year-old male who was [facility] to the hospital [facility] to recurrent episodes of severe crampy abdominal pain with change of mental status initial ly as well as chest pain and mid back pain, but no chills or fever and no reported active bleeding, b ut mild jaundice at the time of his initial admission. No other significant complaint at the patient's admission. However, there was elevated liver functio n test initially, but the most recent lab results done today showed low hemoglobin of 9.3, hematocrit 26.0 with thrombocytopenia of 98 with blood glucose level 216, low CO2 content of 21 indicative of m etabolic acidosis with increased BUN 71, creatinine elevated 3.9 with phosphorus elevated 5.9, total bilirubin 3.2 with AST elevated to 913, ALT 713 with low albumin 2.6. After being admitted, also patient had recently CAT scan of the abdomen and pelvis, which showed a ri ght-sided pleural effusion with possible pneumonia with left inguinal collection. PAST MEDICAL HISTORY: Including mainly, but not limited to: 1. Hypertension. 2. Congestive heart failure. 3. Peptic ulcer disease. 4. Coronary artery disease. 5. Status post coronary artery bypass graft. 6. Reported cholecystostomy tube for drainage, apparently done at [facility] recentl y. ALLERGY TO MEDICATION: None. CURRENT MEDICATIONS: Lists were reviewed. FAMILY HISTORY: Unknown. SOCIAL HISTORY: No known recent history of cigarette smoking or alcohol intake. PHYSICAL EXAMINATION: GENERAL: An 86-year-old male. VITAL SIGNS: Afebrile with pulse of 114, blood pressure 118/66, respiratory rate 20-22. HEENT: Showed pale, dry oral mucoid membranes. Bilateral icteric sclerae. LYMPH NODES: No lymphadenitis or lymphadenopathy. LUNGS: Few scattered crepitation bilaterally with decreased air entry, especially at the right side. HEART: Positive S1 and S2 with increased rate. ABDOMEN: Soft with mild generalized tenderness. Cholecystostomy tube is in place with small amount of drainage of bile content. No mass or organomegaly. No rebound tenderness or guarding. EXTREMITIES: With lower extremities mild edematous changes. No clubbing or cyanosis. NEUROLOGIC: No reported new significant neurological deficit, sensory or motor. IMPRESSION: 1. Abnormal liver function tests. 2. Obstructive jaundice clinically and biochemically versus hepatocellular injury, the possibility o f common bile duct partial obstruction was raised since admission, more proximal to the cystic duct. 3. Status post cholecystostomy tube insertion for drainage. 4. Right-sided pleural effusion with possible pneumonia. 5. Past medical history as above. 6. To rule out viral hepatitis, to rule out possible early stage of mononucleosis. 7. It has to be mentioned that the elevated liver function test could be also secondary to pneumonia with infectious process. 8. Anemia, secondary to above most likely. SUGGESTION: 1. Continue current management. 2. Abdominal ultrasound with attention to the biliary tree and the pancreas. 3. Viral hepatitis. 4. Monospot. 5. Pending on the outcome of the ultrasound, further recommendation to follow, patient may need endo scopic retrograde cholangiopancreatography with biliary stent insertion, as needed. 6. Surgical consultation. 7. Guaiac all the stool daily x 3. 8. Cancer markers including alpha fetoprotein. 9. Correct any underlying electrolyte imbalance. 10. Further recommendation to follow. It has to be mentioned that the case was discussed at length with the staff in the intensive care uni t. Emilia Perry MD cc: 14 TT: 10/09/2016 14:03:30 Confirmation # [id number] Dictation # [id number]
[2016-10-09 14:45] LABS: INR 1.8; PROTHROMBIN TIME 20.3 SECONDS (9.7-12.2)
[2016-10-09 15:04] LABS: ARTERIAL BLOOD GAS HCO3 11.2 mmol/L (21-28); ARTERIAL BLOOD GAS O2 SAT 89.8 % (95-98); ARTERIAL BLOOD GAS PCO2 48 mm/Hg (35-45); ARTERIAL BLOOD GAS PH 7.05 (7.35-7.45); ARTERIAL BLOOD GAS PO2 64 mm/Hg (80-100); ARTERIAL BLOOD GAS TCO2 14.8 mmol/L (22-28)
--- NOTE | 2016-10-09 15:06 | CP.PCM.PN ---
Subjective - Date & Time of Evaluation Date of Evaluation: 10/09/16 Time of Evaluation: 14:26 - Subjective Subjective: MICROBIOLOGY LAB ASSISTANT called at 14:26 due to possible vaso-vagal episode while patient was straining for a Bowel Movement. Upon entering the patients room, CPR was in progress, IVF were running, and 1 dose of Epi was administered. Total CPR time was approximately 5 minutes, with breaths provided via bag mask. Pulses were quickly recovered, and patient began to breath spontaneously at roughly 14:33, however breaths were shallow. Heart rhythm converted to sinus rhythm during CPR. BP 185/68, HR 106, RR 18, O2 sat 94. The patient was prepped for intubation and ABG's ordered. Objective - Vital Signs/Intake and Output Vital Signs (last 24 hours): Temp Pulse Resp BP Pulse Ox 98 F 125 H 24 106/55 L 100 10/09/16 08:00 10/09/16 10:28 10/09/16 10:28 10/09/16 10:28 10/09/16 10:28 Intake and Output: 10/09/16 10/09/16 06:59 18:59 Intake Total 800 303.3 Output Total 350 70 Balance 450 233.3 - Medications Medications: Current Medications Acetylcysteine (Acetylcysteine 20%) 4 ml INH RQ6 [facility] Last Admin: 10/09/16 08:11 Dose: 4 ml Albuterol/Ipratropium (Duoneb 3 Mg/0.5 Mg (3 Ml) Ud) 3 ml INH RQ8 [facility] Last Admin: 10/09/16 08:11 Dose: 3 ml Aspirin (Ecotrin) 81 mg PO DAILY [facility] Last Admin: 10/09/16 09:33 Dose: 81 mg Docusate Sodium (Colace) 100 mg PO DAILY [facility] Famotidine (Pepcid) 20 mg PO DAILY [facility] Last Admin: 10/09/16 09:33 Dose: 20 mg Furosemide (Lasix) 40 mg IVP BID [facility] Heparin Sodium (Porcine) (Heparin) 5,000 units SC Q12 [facility] Last Admin: 10/09/16 09:34 Dose: 5,000 units Meropenem 500 mg/ Sodium (Chloride) 100 mls @ 100 mls/hr IVPB Q8 [facility] Last Admin: 10/09/16 14:03 Dose: 100 mls/hr Vancomycin/Sodium Chloride (Vancocin) 1 gm in 200 mls @ 166.7 mls/hr IVPB Q24H [facility] Stop: 10/13/16 00:01 Last Admin: 10/08/16 23:25 Dose: 166.7 mls/hr Amiodarone HCl 900 mg/ (Dextrose) 500 mls @ 33.33 mls/hr IV .Q15H1M [facility]; 1 MG/ MIN PRN Reason: Protocol Stop: 10/09/16 23:49 Last Admin: 10/09/16 09:32 Dose: 33.33 mls/hr Amiodarone HCl 900 mg/ (Dextrose) 500 mls @ 16.66 mls/hr IV .Q24H [facility]; 0.5 MG/ MIN PRN Reason: Protocol Stop: 10/10/16 15:29 Norepinephrine Bitartrate 4 mg (/ Sodium Chloride) 254 mls @ 15.24 mls/hr IV .[id number] PRN; Protocol; 4 MCG/MIN PRN Reason: TITRATE PER MD ORDER Insulin Aspart (Novolog) 0 unit SC ACHS [facility] PRN Reason: Protocol Last Admin: 10/09/16 12:09 Dose: 4 unit Metoprolol Tartrate (Lopressor) 25 mg PO BID [facility] Last Admin: 10/09/16 09:34 Dose: 25 mg Simethicone (Mylicon Chew Tab) 80 mg PO BID [facility] - Labs Labs: 10/09/16 06:09 10/09/16 06:09 PT 20.3 SECONDS (9.7-12.2) H 10/09/16 14:22 INR 1.8 10/09/16 14:22 APTT 37 SECONDS (21-34) H 10/09/16 14:22
[2016-10-09] MEDS ORDERED: NS IV ONE (15:07)
[2016-10-09] MEDS ORDERED: Sodium Bicarbonate (8.4%) 50 Meq Syringe IVP ONE (15:07)
[2016-10-09] MEDS ORDERED: Sodium Chloride 0.9% 500 ML IV ONE (15:07)
[2016-10-09] MEDS ORDERED: DEXTROSE IV ONE (15:07)
[2016-10-09] MEDS ORDERED: SODIUM BICARBONATE IV ONE (15:07)
[2016-10-09] MEDS ORDERED: Etomidate 20 mg/10ml Inj IV ONE (15:12)
[2016-10-09] MEDS ORDERED: Succinylcholine Chloride 20 mg/ml Syr (5 ml) IV ONE (15:12)
--- NOTE | 2016-10-09 15:13 | US ---
Abdomen limited/renal ultrasound Indication: Transaminitis Comparison: CT abdomen and pelvis without oral or IV contrast performed the same day. Findings: Examination limited due to patient condition/discomfort. The liver measures approximately 18.4 cm in sagittal dimension. Echogenic liver may be seen in setting of hepatic parenchymal disease or fatty infiltration. The main portal vein appears patent with normal directional flow. There is no evidence of intrahepatic ductal dilatation. The common bile duct appears within normal limits of caliber, measuring approximately 4 mm. Cholecystectomy. The pancreas was not visualized. The right kidney measures 8.5 x 4.8 x 5.7 cm and is without evidence of stones or hydronephrosis. 1.8 cm midpole and 5.4 cm lower pole renal cysts. Echogenic renal parenchyma. The left kidney measures 9.6 x 5.4 x 4.9 and is without evidence of stones or hydronephrosis. 4.0 midpole and 2.4 cm lower pole renal cysts. Echogenic renal parenchyma. The spleen was not well-visualized. The abdominal aorta and IVC are not well visualized. Casey catheter within the urinary bladder. Incidental note is made of right pleural effusion. Impression: Limited study. Bilateral renal cysts. Echogenic renal parenchyma may be seen in the setting of medical renal disease. Casey catheter within the urinary bladder. Echogenic liver may be seen in setting of hepatic parenchymal disease or fatty infiltration. Cholecystectomy. Incidental note is made of right-sided pleural effusion.
--- NOTE | 2016-10-09 15:14 | CT ---
PROCEDURE: CT abdomen and pelvis dated neck 10/09/2016 HISTORY: Cholecystostomy my tube and acute hepatitis COMPARISON: Comparison made with prior study 10/06/2016 TECHNIQUE: Contiguous axial images of the abdomen and pelvis. Oral contrast was administered. No IV contrast given. Coronal and Sagittal reformats generated. Radiation dose: Total exam DLP = 413.1 mGy-cm. This CT exam was performed using one or more of the following dose reduction techniques: Automated exposure control, adjustment of the mA and/or kV according to patient size, and/or use of iterative reconstruction technique. FINDINGS: LOWER THORAX: Moderate size right-sided effusion increased from prior study. Mild right basilar atelectasis. There is also a trace left effusion and minimal left basilar atelectasis. Heart is enlarged. No significant pericardial effusion. LIVER: Liver exhibits normal size measuring approximately 15.4 cm in CC dimension. No obvious hepatic mass or collection seen on this noncontrast study. . GALLBLADDER AND BILE DUCTS: In situ cholecystostomy tube again noted. PANCREAS: There appears to be some vague infiltration changes in the mesenteries surrounding the distal pancreas nonspecific. Clinic correlation with serum amylase and lipase recommended. SPLEEN: Unremarkable. No splenomegaly. ADRENALS: No adrenal lesions. KIDNEYS AND URETERS: Bilateral renal cysts appeared unchanged. No evidence of nephrolithiasis or hydronephrosis. Infiltration changes in the perinephric fat left greater than right nonspecific. BLADDER: There is an in situ unclamped Casey catheter. Most of the bladder is collapsed about a Casey catheter though there is small amount of air within the nondependent anterior margin of the partially collapsed urinary bladder. The bladder wall is difficult to assess due to collapse of does appear somewhat thickened in part due to collapsed cell or however muscular hypertrophy may contribute. Clinic correlation recommended to exclude the possibility of a cystitis or other intrinsic wall lesion. REPRODUCTIVE: Prostate gland measures approximately 64.7 cm in transverse dimension. There appear to be a few punctate prostatic calcifications. . Probable scrotal hydroceles. APPENDIX: Appendix appears grossly unremarkable. BOWEL: Evaluation of the bowel is limited due to the lack of oral contrast material. . Bowel evaluation further limited by motion artifact Stomach is distended with food debris liquid and air. Visualized loops of small bowel exhibit normal contour and caliber. No evidence of acute mechanical bowel obstruction. . Stool and air seen throughout the colon. PERITONEUM: Unremarkable. No fluid collection. No free air. . Note again made of what may represent postoperative scarring and fluid within the left inguinal region. Scarring seen in the right parasagittal lower abdomen/pelvis region. Small fat containing umbilical hernia. LYMPH NODES: Unremarkable. No enlarged lymph nodes. VASCULATURE: The no evidence of abdominal aortic aneurysm however partially calcified atherosclerotic plaque seen along the abdominal aorta and iliac arteries and along the origins of the large branch vessels including the renal arteries BONES: Mild multilevel degenerative spondylosis of the lower thoracic and lumbar spine. There are no acute compression fractures. OTHER FINDINGS: None. IMPRESSION: Moderate size right-sided effusion increased from prior study. Mild right basilar atelectasis. Trace left effusion and minimal left basilar atelectasis. Cardiomegaly. Incident to cholecystostomy tube again noted. Vague infiltration changes seen within the mesentery about the distal pancreas nonspecific. Rule out pancreatitis therefore correlation with serum amylase and lipase recommended. . Areas present within the urinary bladder likely due to instrumentation with in situ unclamped Casey catheter as above. Rule out cystitis. Small fluid collection left inguinal region unchanged. Probable small scrotal hydroceles. See above discussion for additional findings and details.
--- NOTE | 2016-10-09 15:45 | RAD ---
HISTORY: s/p intubation and NGT COMPARISON: 10/09/2016. FINDINGS: The endotracheal tube terminates 1.9 cm proximal to the anita. The nasogastric tube terminates in the stomach. The right IJV line terminates at the cavoatrial junction. LUNGS: There is pulmonary venous congestion and increased interstitial markings in both lungs. PLEURA: Small bilateral pleural effusions. No pneumothorax. CARDIOVASCULAR: The heart remains enlarged. Status post CABG. OSSEOUS STRUCTURES: No significant abnormalities. VISUALIZED UPPER ABDOMEN: Normal. OTHER FINDINGS: None. IMPRESSION: 1. Endotracheal tube terminates 1.9 cm proximal to the anita. The nasogastric tube terminates in the stomach. 2. Findings are most compatible with congestive heart failure.
[2016-10-09] MEDS: [UNRECOGNIZED DRUG - OTHER] IV ONE (16:33)
[2016-10-09] MEDS: DEXTROSE IV ONE (16:33)
[2016-10-09] MEDS: SODIUM BICARBONATE IV ONE (16:33)
[2016-10-09] MEDS: Simethicone 80 mg Chewtab PO SCH (18:10)
[2016-10-09] MEDS: Dexmedetomidine Hydrochloride 200 MCG in Sodium Chloride 0.9% 48 ML IV PRN (19:00)
[2016-10-09] MEDS ORDERED: Digoxin 500 mcg/2ml (0.5 mg/2ml) Inj IVP ONE (20:50)
[2016-10-10] MEDS: (Novolog) Insulin Aspart, Recombinant 100 u/ml 10 ml vial SC SCH ×5 (00:03→23:37)
[2016-10-10] MEDS: Vancomycin 1 gm/NS 200 ml 1 GM/200 ML BAG IVPB SCH (00:08)
[2016-10-10] MEDS: Dexmedetomidine Hydrochloride 200 MCG in Sodium Chloride 0.9% 48 ML IV PRN ×7 (00:20→23:51)
[2016-10-10] MEDS: Acetylcysteine 20% Inhal Soln (4ml) INH SCH ×4 (03:12→23:50)
[2016-10-10 04:19] LABS: ABG ALLEN TEST POS; ARTERIAL BLOOD GAS HCO3 20.4 mmol/L (21-28); ARTERIAL BLOOD GAS HEMOGLOBIN 8.6 g/dL (11.7-17.4); ARTERIAL BLOOD GAS PCO2 41 mm/Hg (35-45); ARTERIAL BLOOD GAS PO2 139 mm/Hg (80-100); ARTERIAL BLOOD GAS TCO2 21.5 mmol/L (22-28)
[2016-10-10] MEDS: Meropenem 500 MG in Sodium Chloride 0.9% 100 ML IVPB SCH ×2 (05:53→18:29)
[2016-10-10 06:27] LABS: BASO % 0.4 % (0.0-2.0); EOS # 0.2 K/uL (0.0-0.7); EOS % 2.7 % (0.0-4.0); HEMOGLOBIN 8.6 g/dL (12.0-18.0); LYMPH # 0.9 K/uL (1.0-4.3); LYMPH % 10.1 % (20.0-40.0); MEAN CELL VOLUME 90.7 fL (80.0-94.0); MEAN CORPUSCULAR HEMOGLOBIN 28.9 pg (27.0-31.0); MEAN CORPUSCULAR HGB CONC 31.9 g/dL (33.0-37.0); MONO # 0.3 K/uL (0.0-0.8); MONO % 3.7 % (0.0-10.0); NEUT # 7.7 K/uL (1.8-7.0); NEUT % 83.1 % (50.0-75.0); NRBC % 3.4 % (0.0-2.0); RBC 2.99 Mil/uL (4.40-5.90); WHITE BLOOD COUNT 9.2 K/uL (4.8-10.8)
[2016-10-10 06:37] LABS: ALBUMIN 2.3 g/dL (3.5-5.0)
[2016-10-10 06:40] LABS: ALB/GLOB RATIO 0.7 (1.0-2.1); INR 2.3; PROTHROMBIN TIME 27.1 SECONDS (9.7-12.2)
[2016-10-10 06:41] LABS: CALCIUM 7.9 mg/dl (8.6-10.4)
--- NOTE | 2016-10-10 07:19 | CP.CCUPN ---
<Raymon Venturaima - Last Filed: 10/10/16 11:58> CCU Subjective - Physician Review Subjective (Free Text): 10/10/16 11:58 Patient seen and examined at beside. Intubated on vent (18, 100, 500, 5). Minimal secretions. No acute events overnight. Patient afebrile but continues to be tachycardic. Not making good urine. ERCP cancelled this AM. LFTs worsening and Creatinine is trending up. Amiodarone gtt on hold due to elevated LFTS. Patient on precedex gtt and levophed gtt. Will start tube feeds today @ 25cc/hr ROS unobtainable. CCU Objective - Vital Signs / Intake & Output Vital Signs (Last 4 hours): Vital Signs Temp Pulse Resp BP Pulse Ox 10/10/16 06:52 95 H 21 132/75 100 10/10/16 06:41 135/77 10/10/16 06:39 98 H 18 135/77 100 10/10/16 06:22 91 H 16 139/81 100 10/10/16 06:00 105 H 23 91 L 10/10/16 05:51 96 H 21 121/71 92 L 10/10/16 05:22 97 H 21 129/72 90 L 10/10/16 05:00 102 H 21 90 L 10/10/16 04:52 99 H 20 122/66 92 L 10/10/16 04:23 91 H 20 135/63 91 L 10/10/16 04:00 98 F 118 H 14 100 10/10/16 03:56 115 H 24 111/61 100 10/10/16 03:22 98 H 21 112/67 95 Intake and Output (Last 8hrs): Intake & Output 10/09/16 10/10/16 10/10/16 22:59 06:59 14:59 Intake Total 1029.1 1469.3 Output Total 130 260 Balance 899.1 1209.3 Weight 184 lb Intake: IV 254 354 Intake, IV Amount 775.1 1115.3 Right Distal Port 132 379.7 Internal Jugular Right Medial Port 326.4 202 Right Proximal Port 300 400 Internal Jugular right medial port y 16.7 133.6 Oral 0 Output: Drainage 30 Right Medial Abdomen 30 Urine 100 260 Urethral (Quijano) 70 260 Urine, Voided 30 - Physical Exam Head: Positive for: Atraumatic, Normocephalic Pupils: Positive for: PERRL. Negative for: Sluggish, Non-Reactive Extroacular Muscles: Positive for: EOMI Conjunctiva: Positive for: Normal. Negative for: Injected, Icteric Mouth: Positive for: Dry, Other (ET tube in place- minimal secretions) Neck: Positive for: Trachea Midline. Negative for: Meningeal Signs, MIDLINE TENDERNESS, Paraspinal Tenderness, JVD, Lymphadenopathy, Bruit, Other Respiratory/Chest: Positive for: Wheezes (b/l), Rales (b/l), Other (intubated on vent). Negative for: Clear to Auscultation, Respiratory Distress, Accessory Muscle Use, Decreased Breath Sounds, Retracting, Rhonchi Cardiovascular: Positive for: Normal S1, S2, Tachycardic. Negative for: Murmurs , Irregular Rhythm Abdomen: Positive for: Distention, Other (cholecystostomy tube in place) Upper Extremity: Positive for: Normal Inspection, Edema (+1 b/l), NORMAL PULSES , Capillary Refill < 2s. Negative for: Cyanosis Lower Extremity: Positive for: Normal Inspection, NORMAL PULSES, Capillary Refill < 2 s. Negative for: Edema, CALF TENDERNESS Neurological: Negative for: Speech Normal Skin: Positive for: Warm, Dry, Normal Color Psychiatric: Positive for: Other (sedated- intubated on vent). Negative for: Alert, Oriented x 3, Normal Insight, Normal Concentration - Medications Active Medications: Active Medications Generic Name Dose Route Start Last Admin Trade Name Freq PRN Reason Stop Dose Admin Acetylcysteine 4 ml 10/06/16 14:00 10/10/16 03:12 Acetylcysteine 20% INH Not Given RQ6 CHERY Albuterol/Ipratropium 3 ml 10/08/16 08:15 10/09/16 23:54 Duoneb 3 Mg/0.5 Mg (3 Ml) Ud INH 3 ml RQ8 CHERY Administration Aspirin 81 mg 10/07/16 10:15 10/09/16 09:33 Ecotrin PO 81 mg DAILY CHERY Administration Docusate Sodium 100 mg 10/09/16 14:15 10/09/16 15:40 Colace PO Not Given DAILY CHERY Famotidine 20 mg 10/07/16 10:15 10/09/16 09:33 Pepcid PO 20 mg DAILY CHERY Administration Furosemide 40 mg 10/09/16 18:00 10/09/16 18:10 Lasix IVP Not Given BID CHERY Heparin Sodium (Porcine) 5,000 units 10/06/16 10:30 10/09/16 21:05 Heparin SC 5,000 units Q12 CHERY Administration Meropenem 500 mg/ Sodium 100 mls @ 100 mls/hr 10/06/16 14:00 10/10/16 05:53 Chloride IVPB 100 mls/hr Q8 CHERY Administration Vancomycin/Sodium Chloride 1 gm in 200 mls @ 166.7 mls/hr 10/08/16 00:00 00:08 Vancocin IVPB 10/13/16 00:01 166.7 mls/hr Q24H CHERY Administration Amiodarone HCl 900 mg/ 500 mls @ 16.66 mls/hr 10/09/16 15:30 10/09/16 22:11 Dextrose IV 10/10/16 15:29 16.66 mls/hr .Q24H ONE Administration Protocol 0.5 MG/MIN Norepinephrine Bitartrate 4 mg 254 mls @ 15.24 mls/hr 10/09/16 14:32 06:41 / Sodium Chloride IV 5.24 mcg/min .[id number] PRN 19.96 mls/hr TITRATE PER MD ORDER Administration Protocol 4 MCG/MIN Sodium Bicarbonate 200 meq/ 1,000 mls @ 50 mls/hr 10/09/16 16:15 10/09/16 16: 33 Dextrose/Sodium Chloride IV 10/10/16 12:14 50 mls/hr .Q20H ONE Administration Dexmedetomidine HCl 200 mcg/ 50 mls @ 4.08 mls/hr 10/09/16 16:28 10/10/16 05: 52 Sodium Chloride IV 0.77 mcg/kg/hr TITR PRN 15.9 mls/hr Agitation Administration Protocol 0.2 MCG/KG/HR Insulin Aspart 0 unit 10/09/16 18:00 10/10/16 06:36 Novolog SC 4 unit Q6H CHERY Administration Protocol Lorazepam 2 mg 10/09/16 15:25 10/10/16 04:08 Ativan IVP 2 mg Q4H PRN Administration Anxiety Metoprolol Tartrate 25 mg 10/08/16 10:00 10/09/16 18:10 Lopressor PO Not Given BID [facility] Simethicone 80 mg 10/09/16 18:00 10/09/16 18:10 Mylicon Chew Tab PO Not Given BID CHERY - Patient Studies Lab Studies: Lab Studies 10/10/16 10/10/16 10/10/16 Range/Units 06:25 06:18 06:16 WBC (4.8-10.8) K/uL RBC (4.40-5.90) Mil/uL Hgb (12.0-18.0) g/dL Hct (35.0-51.0) % MCV (80.0-94.0) fL MCH (27.0-31.0) pg MCHC (33.0-37.0) g/dL RDW (11.5-14.5) % Plt Count (130-400) K/uL MPV (7.2-11.7) fL Neut % (Auto) (50.0-75.0) % Lymph % (Auto) (20.0-40.0) % [place] % (Auto) (0.0-10.0) % Eos % (Auto) (0.0-4.0) % Baso % (Auto) (0.0-2.0) % Neut # (1.8-7.0) K/uL Lymph # (1.0-4.3) K/uL [place] # (0.0-0.8) K/uL Eos # (0.0-0.7) K/uL Baso # (0.0-0.2) K/uL PT 27.1 H D (9.7-12.2) SECONDS INR 2.3 D APTT 36 H (21-34) SECONDS Puncture Site pCO2 (35-45) mm/Hg pO2 (80-100) mm/Hg HCO3 (21-28) mmol/L ABG pH (7.35-7.45) ABG Total CO2 (22-28) mmol/L ABG O2 Saturation (95-98) % ABG Base Excess (-2.0-3.0) mmol/L ABG Hemoglobin (11.7-17.4) g/dL ABG Carboxyhemoglobin (0.5-1.5) % POC ABG HHb (Measured) (0.0-5.0) % ABG Methemoglobin (0.0-3.0) % Julius Test ABG Potassium (3.6-5.2) mmol/L A-a O2 Difference mm/Hg Respiratory Index Hgb O2 Saturation (95.0-98.0) % Sodium (132-148) mmol/l Chloride (98-107) mmol/L Glucose (75-110) mg/dl Lactate (0.7-2.1) mmol/L Mechanical Rate FiO2 % Tidal Volume PEEP Crit Value Called To Crit Value Called By Crit Value Read Back Blood Gas Notified Time Potassium (3.6-5.2) mmol/L Carbon Dioxide (22-30) mmol/L Anion Gap (10-20) BUN (9-20) mg/dL Creatinine (0.8-1.5) MG/DL Est GFR ( Amer) Est GFR (Non-Af Amer) POC Glucose (mg/dL) 211 H (65-110) mg/dL Random Glucose (75-110) mg/dL Calcium (8.6-10.4) mg/dl Phosphorus (2.5-4.5) mg/dL Magnesium (1.6-2.3) mg/dL Total Bilirubin (0.2-1.3) mg/dL AST (17-59) U/L ALT (21-72) U/L Alkaline Phosphatase (38-126) U/L Total Protein (6.3-8.3) g/dL Albumin (3.5-5.0) g/dL Globulin (2.2-3.9) gm/dL Albumin/Globulin Ratio (1.0-2.1) Alpha Fetoprotein (0.0-7.5) ng/mL Carcinoembryonic Ag (0-3.0) ng/mL CA 19-9 Antigen (0-37) U/mL Arterial Blood Potassium (3.6-5.2) mmol/L Random Vancomycin 30.47 ug/mL Hepatitis A IgM Ab (NEGATIVE) Hep Bs Antigen (NEGATIVE) Hep B Core IgM Ab (NEGATIVE) Hepatitis C Antibody (NEGATIVE) 10/10/16 10/10/16 10/10/16 Range/Units 06:16 06:16 04:15 WBC 9.2 (4.8-10.8) K/uL RBC 2.99 L (4.40-5.90) Mil/uL Hgb 8.6 L (12.0-18.0) g/dL Hct 27.1 L (35.0-51.0) % MCV 90.7 (80.0-94.0) fL MCH 28.9 (27.0-31.0) pg MCHC 31.9 L (33.0-37.0) g/dL RDW 17.0 H (11.5-14.5) % Plt Count 74 L D (130-400) K/uL MPV 11.0 (7.2-11.7) fL Neut % (Auto) 83.1 H (50.0-75.0) % Lymph % (Auto) 10.1 L (20.0-40.0) % [place] % (Auto) 3.7 (0.0-10.0) % Eos % (Auto) 2.7 (0.0-4.0) % Baso % (Auto) 0.4 (0.0-2.0) % Neut # 7.7 H (1.8-7.0) K/uL Lymph # 0.9 L (1.0-4.3) K/uL [place] # 0.3 (0.0-0.8) K/uL Eos # 0.2 (0.0-0.7) K/uL Baso # 0.0 (0.0-0.2) K/uL PT (9.7-12.2) SECONDS INR APTT (21-34) SECONDS Puncture Site Rr pCO2 41 (35-45) mm/Hg pO2 139 H (80-100) mm/Hg HCO3 20.4 L (21-28) mmol/L ABG pH 7.30 L (7.35-7.45) ABG Total CO2 21.5 L (22-28) mmol/L ABG O2 Saturation 100.0 H (95-98) % ABG Base Excess -5.8 L (-2.0-3.0) mmol/L ABG Hemoglobin 8.6 L (11.7-17.4) g/dL ABG Carboxyhemoglobin 1.7 H (0.5-1.5) % POC ABG HHb (Measured) 0.0 (0.0-5.0) % ABG Methemoglobin 0.7 (0.0-3.0) % Julius Test Pos ABG Potassium (3.6-5.2) mmol/L A-a O2 Difference 523.0 mm/Hg Respiratory Index 3.8 Hgb O2 Saturation 97.6 (95.0-98.0) % Sodium 139 (132-148) mmol/l Chloride 106 (98-107) mmol/L Glucose (75-110) mg/dl Lactate (0.7-2.1) mmol/L Mechanical Rate 18 FiO2 100.0 % Tidal Volume 500 PEEP 5 Crit Value Called To Crit Value Called By Crit Value Read Back Blood Gas Notified Time Potassium 6.0 H (3.6-5.2) mmol/L Carbon Dioxide 23 (22-30) mmol/L Anion Gap 16 (10-20) BUN 76 H (9-20) mg/dL Creatinine 4.2 H (0.8-1.5) MG/DL Est GFR ( Amer) 16 Est GFR (Non-Af Amer) 14 POC Glucose (mg/dL) (65-110) mg/dL Random Glucose 213 H (75-110) mg/dL Calcium 7.9 L (8.6-10.4) mg/dl Phosphorus 6.4 H (2.5-4.5) mg/dL Magnesium 2.0 (1.6-2.3) mg/dL Total Bilirubin 4.7 H (0.2-1.3) mg/dL AST 3950 H (17-59) U/L ALT 2494 H (21-72) U/L Alkaline Phosphatase 110 (38-126) U/L Total Protein 5.8 L (6.3-8.3) g/dL Albumin 2.3 L (3.5-5.0) g/dL Globulin 3.4 (2.2-3.9) gm/dL Albumin/Globulin Ratio 0.7 L (1.0-2.1) Alpha Fetoprotein (0.0-7.5) ng/mL Carcinoembryonic Ag (0-3.0) ng/mL CA 19-9 Antigen (0-37) U/mL Arterial Blood Potassium (3.6-5.2) mmol/L Random Vancomycin ug/mL Hepatitis A IgM Ab (NEGATIVE) Hep Bs Antigen (NEGATIVE) Hep B Core IgM Ab (NEGATIVE) Hepatitis C Antibody (NEGATIVE) 10/09/16 10/09/16 10/09/16 Range/Units 23:50 17:52 15:54 WBC (4.8-10.8) K/uL RBC (4.40-5.90) Mil/uL Hgb (12.0-18.0) g/dL Hct (35.0-51.0) % MCV (80.0-94.0) fL MCH (27.0-31.0) pg MCHC (33.0-37.0) g/dL RDW (11.5-14.5) % Plt Count (130-400) K/uL MPV (7.2-11.7) fL Neut % (Auto) (50.0-75.0) % Lymph % (Auto) (20.0-40.0) % [place] % (Auto) (0.0-10.0) % Eos % (Auto) (0.0-4.0) % Baso % (Auto) (0.0-2.0) % Neut # (1.8-7.0) K/uL Lymph # (1.0-4.3) K/uL [place] # (0.0-0.8) K/uL Eos # (0.0-0.7) K/uL Baso # (0.0-0.2) K/uL PT (9.7-12.2) SECONDS INR APTT (21-34) SECONDS Puncture Site pCO2 (35-45) mm/Hg pO2 (80-100) mm/Hg HCO3 (21-28) mmol/L ABG pH (7.35-7.45) ABG Total CO2 (22-28) mmol/L ABG O2 Saturation (95-98) % ABG Base Excess (-2.0-3.0) mmol/L ABG Hemoglobin (11.7-17.4) g/dL ABG Carboxyhemoglobin (0.5-1.5) % POC ABG HHb (Measured) (0.0-5.0) % ABG Methemoglobin (0.0-3.0) % Julius Test ABG Potassium (3.6-5.2) mmol/L A-a O2 Difference mm/Hg Respiratory Index Hgb O2 Saturation (95.0-98.0) % Sodium (132-148) mmol/l Chloride (98-107) mmol/L Glucose (75-110) mg/dl Lactate (0.7-2.1) mmol/L Mechanical Rate FiO2 % Tidal Volume PEEP Crit Value Called To Crit Value Called By Crit Value Read Back Blood Gas Notified Time Potassium (3.6-5.2) mmol/L Carbon Dioxide (22-30) mmol/L Anion Gap (10-20) BUN (9-20) mg/dL Creatinine (0.8-1.5) MG/DL Est GFR ( Amer) Est GFR (Non-Af Amer) POC Glucose (mg/dL) 197 H 134 H 156 H (65-110) mg/dL Random Glucose (75-110) mg/dL Calcium (8.6-10.4) mg/dl Phosphorus (2.5-4.5) mg/dL Magnesium (1.6-2.3) mg/dL Total Bilirubin (0.2-1.3) mg/dL AST (17-59) U/L ALT (21-72) U/L Alkaline Phosphatase (38-126) U/L Total Protein (6.3-8.3) g/dL Albumin (3.5-5.0) g/dL Globulin (2.2-3.9) gm/dL Albumin/Globulin Ratio (1.0-2.1) Alpha Fetoprotein (0.0-7.5) ng/mL Carcinoembryonic Ag (0-3.0) ng/mL CA 19-9 Antigen (0-37) U/mL Arterial Blood Potassium (3.6-5.2) mmol/L Random Vancomycin ug/mL Hepatitis A IgM Ab (NEGATIVE) Hep Bs Antigen (NEGATIVE) Hep B Core IgM Ab (NEGATIVE) Hepatitis C Antibody (NEGATIVE) 10/09/16 10/09/16 10/09/16 Range/Units 15:01 14:22 14:22 WBC (4.8-10.8) K/uL RBC (4.40-5.90) Mil/uL Hgb (12.0-18.0) g/dL Hct (35.0-51.0) % MCV (80.0-94.0) fL MCH (27.0-31.0) pg MCHC (33.0-37.0) g/dL RDW (11.5-14.5) % Plt Count (130-400) K/uL MPV (7.2-11.7) fL Neut % (Auto) (50.0-75.0) % Lymph % (Auto) (20.0-40.0) % [place] % (Auto) (0.0-10.0) % Eos % (Auto) (0.0-4.0) % Baso % (Auto) (0.0-2.0) % Neut # (1.8-7.0) K/uL Lymph # (1.0-4.3) K/uL [place] # (0.0-0.8) K/uL Eos # (0.0-0.7) K/uL Baso # (0.0-0.2) K/uL PT (9.7-12.2) SECONDS INR APTT (21-34) SECONDS Puncture Site Rb pCO2 48 H (35-45) mm/Hg pO2 64 L (80-100) mm/Hg HCO3 11.2 L (21-28) mmol/L ABG pH 7.05 L* (7.35-7.45) ABG Total CO2 14.8 L (22-28) mmol/L ABG O2 Saturation 89.8 L (95-98) % ABG Base Excess -17.0 L (-2.0-3.0) mmol/L ABG Hemoglobin (11.7-17.4) g/dL ABG Carboxyhemoglobin (0.5-1.5) % POC ABG HHb (Measured) (0.0-5.0) % ABG Methemoglobin (0.0-3.0) % Julius Test Na ABG Potassium 5.4 H (3.6-5.2) mmol/L A-a O2 Difference 589.0 mm/Hg Respiratory Index 9.2 Hgb O2 Saturation (95.0-98.0) % Sodium 139.0 (132-148) mmol/l Chloride 110.0 H (98-107) mmol/L Glucose 155 H (75-110) mg/dl Lactate 5.7 H* (0.7-2.1) mmol/L Mechanical Rate 18 FiO2 100.0 % Tidal Volume 500 PEEP 5 Crit Value Called To Dr workman Crit Value Called By Oscar chow Crit Value Read Back Y Blood Gas Notified Time 1504 Potassium (3.6-5.2) mmol/L Carbon Dioxide (22-30) mmol/L Anion Gap (10-20) BUN (9-20) mg/dL Creatinine (0.8-1.5) MG/DL Est GFR ( Amer) Est GFR (Non-Af Amer) POC Glucose (mg/dL) (65-110) mg/dL Random Glucose (75-110) mg/dL Calcium (8.6-10.4) mg/dl Phosphorus (2.5-4.5) mg/dL Magnesium (1.6-2.3) mg/dL Total Bilirubin (0.2-1.3) mg/dL AST (17-59) U/L ALT (21-72) U/L Alkaline Phosphatase (38-126) U/L Total Protein (6.3-8.3) g/dL Albumin (3.5-5.0) g/dL Globulin (2.2-3.9) gm/dL Albumin/Globulin Ratio (1.0-2.1) Alpha Fetoprotein < 0.8 (0.0-7.5) ng/mL Carcinoembryonic Ag 3.5 H (0-3.0) ng/mL CA 19-9 Antigen 160 H (0-37) U/mL Arterial Blood Potassium 5.4 H (3.6-5.2) mmol/L Random Vancomycin ug/mL Hepatitis A IgM Ab (NEGATIVE) Hep Bs Antigen (NEGATIVE) Hep B Core IgM Ab (NEGATIVE) Hepatitis C Antibody (NEGATIVE) 10/09/16 10/09/16 10/09/16 Range/Units 14:22 12:04 08:56 WBC (4.8-10.8) K/uL RBC (4.40-5.90) Mil/uL Hgb (12.0-18.0) g/dL Hct (35.0-51.0) % MCV (80.0-94.0) fL MCH (27.0-31.0) pg MCHC (33.0-37.0) g/dL RDW (11.5-14.5) % Plt Count (130-400) K/uL MPV (7.2-11.7) fL Neut % (Auto) (50.0-75.0) % Lymph % (Auto) (20.0-40.0) % [place] % (Auto) (0.0-10.0) % Eos % (Auto) (0.0-4.0) % Baso % (Auto) (0.0-2.0) % Neut # (1.8-7.0) K/uL Lymph # (1.0-4.3) K/uL [place] # (0.0-0.8) K/uL Eos # (0.0-0.7) K/uL Baso # (0.0-0.2) K/uL PT 20.3 H (9.7-12.2) SECONDS INR 1.8 APTT 37 H (21-34) SECONDS Puncture Site pCO2 (35-45) mm/Hg pO2 (80-100) mm/Hg HCO3 (21-28) mmol/L ABG pH (7.35-7.45) ABG Total CO2 (22-28) mmol/L ABG O2 Saturation (95-98) % ABG Base Excess (-2.0-3.0) mmol/L ABG Hemoglobin (11.7-17.4) g/dL ABG Carboxyhemoglobin (0.5-1.5) % POC ABG HHb (Measured) (0.0-5.0) % ABG Methemoglobin (0.0-3.0) % Julius Test ABG Potassium (3.6-5.2) mmol/L A-a O2 Difference mm/Hg Respiratory Index Hgb O2 Saturation (95.0-98.0) % Sodium (132-148) mmol/l Chloride (98-107) mmol/L Glucose (75-110) mg/dl Lactate (0.7-2.1) mmol/L Mechanical Rate FiO2 % Tidal Volume PEEP Crit Value Called To Crit Value Called By Crit Value Read Back Blood Gas Notified Time Potassium (3.6-5.2) mmol/L Carbon Dioxide (22-30) mmol/L Anion Gap (10-20) BUN (9-20) mg/dL Creatinine (0.8-1.5) MG/DL Est GFR ( Amer) Est GFR (Non-Af Amer) POC Glucose (mg/dL) 216 H (65-110) mg/dL Random Glucose (75-110) mg/dL Calcium (8.6-10.4) mg/dl Phosphorus (2.5-4.5) mg/dL Magnesium (1.6-2.3) mg/dL Total Bilirubin (0.2-1.3) mg/dL AST (17-59) U/L ALT (21-72) U/L Alkaline Phosphatase (38-126) U/L Total Protein (6.3-8.3) g/dL Albumin (3.5-5.0) g/dL Globulin (2.2-3.9) gm/dL Albumin/Globulin Ratio (1.0-2.1) Alpha Fetoprotein (0.0-7.5) ng/mL Carcinoembryonic Ag (0-3.0) ng/mL CA 19-9 Antigen (0-37) U/mL Arterial Blood Potassium (3.6-5.2) mmol/L Random Vancomycin ug/mL Hepatitis A IgM Ab Negative (NEGATIVE) Hep Bs Antigen Negative (NEGATIVE) Hep B Core IgM Ab Negative (NEGATIVE) Hepatitis C Antibody Negative (NEGATIVE) 10/09/16 Range/Units 07:28 WBC (4.8-10.8) K/uL RBC (4.40-5.90) Mil/uL Hgb (12.0-18.0) g/dL Hct (35.0-51.0) % MCV (80.0-94.0) fL MCH (27.0-31.0) pg MCHC (33.0-37.0) g/dL RDW (11.5-14.5) % Plt Count (130-400) K/uL MPV (7.2-11.7) fL Neut % (Auto) (50.0-75.0) % Lymph % (Auto) (20.0-40.0) % [place] % (Auto) (0.0-10.0) % Eos % (Auto) (0.0-4.0) % Baso % (Auto) (0.0-2.0) % Neut # (1.8-7.0) K/uL Lymph # (1.0-4.3) K/uL [place] # (0.0-0.8) K/uL Eos # (0.0-0.7) K/uL Baso # (0.0-0.2) K/uL PT (9.7-12.2) SECONDS INR APTT (21-34) SECONDS Puncture Site pCO2 (35-45) mm/Hg pO2 (80-100) mm/Hg HCO3 (21-28) mmol/L ABG pH (7.35-7.45) ABG Total CO2 (22-28) mmol/L ABG O2 Saturation (95-98) % ABG Base Excess (-2.0-3.0) mmol/L ABG Hemoglobin (11.7-17.4) g/dL ABG Carboxyhemoglobin (0.5-1.5) % POC ABG HHb (Measured) (0.0-5.0) % ABG Methemoglobin (0.0-3.0) % Julius Test ABG Potassium (3.6-5.2) mmol/L A-a O2 Difference mm/Hg Respiratory Index Hgb O2 Saturation (95.0-98.0) % Sodium (132-148) mmol/l Chloride (98-107) mmol/L Glucose (75-110) mg/dl Lactate (0.7-2.1) mmol/L Mechanical Rate FiO2 % Tidal Volume PEEP Crit Value Called To Crit Value Called By Crit Value Read Back Blood Gas Notified Time Potassium (3.6-5.2) mmol/L Carbon Dioxide (22-30) mmol/L Anion Gap (10-20) BUN (9-20) mg/dL Creatinine (0.8-1.5) MG/DL Est GFR ( Amer) Est GFR (Non-Af Amer) POC Glucose (mg/dL) 158 H (65-110) mg/dL Random Glucose (75-110) mg/dL Calcium (8.6-10.4) mg/dl Phosphorus (2.5-4.5) mg/dL Magnesium (1.6-2.3) mg/dL Total Bilirubin (0.2-1.3) mg/dL AST (17-59) U/L ALT (21-72) U/L Alkaline Phosphatase (38-126) U/L Total Protein (6.3-8.3) g/dL Albumin (3.5-5.0) g/dL Globulin (2.2-3.9) gm/dL Albumin/Globulin Ratio (1.0-2.1) Alpha Fetoprotein (0.0-7.5) ng/mL Carcinoembryonic Ag (0-3.0) ng/mL CA 19-9 Antigen (0-37) U/mL Arterial Blood Potassium (3.6-5.2) mmol/L Random Vancomycin ug/mL Hepatitis A IgM Ab (NEGATIVE) Hep Bs Antigen (NEGATIVE) Hep B Core IgM Ab (NEGATIVE) Hepatitis C Antibody (NEGATIVE) Laboratory Results - last 24 hr 10/09/16 10/09/16 10/09/16 07:28 08:56 12:04 WBC RBC Hgb Hct MCV MCH MCHC RDW Plt Count MPV Neut % (Auto) Lymph % (Auto) [place] % (Auto) Eos % (Auto) Baso % (Auto) Neut # Lymph # [place] # Eos # Baso # PT INR APTT Puncture Site pCO2 pO2 HCO3 ABG pH ABG Total CO2 ABG O2 Saturation ABG Base Excess ABG Hemoglobin ABG Carboxyhemoglobin POC ABG HHb (Measured) ABG Methemoglobin Julius Test ABG Potassium A-a O2 Difference Respiratory Index Hgb O2 Saturation Sodium Chloride Glucose Lactate Mechanical Rate FiO2 Tidal Volume PEEP Crit Value Called To Crit Value Called By Crit Value Read Back Blood Gas Notified Time Potassium Carbon Dioxide Anion Gap BUN Creatinine Est GFR ( Amer) Est GFR (Non-Af Amer) POC Glucose (mg/dL) 158 H 216 H Random Glucose Calcium Phosphorus Magnesium Total Bilirubin AST ALT Alkaline Phosphatase Total Protein Albumin Globulin Albumin/Globulin Ratio Alpha Fetoprotein Carcinoembryonic Ag CA 19-9 Antigen Arterial Blood Potassium Random Vancomycin Hepatitis A IgM Ab Negative Hep Bs Antigen Negative Hep B Core IgM Ab Negative Hepatitis C Antibody Negative 10/09/16 10/09/16 10/09/16 14:22 14:22 14:22 WBC RBC Hgb Hct MCV MCH MCHC RDW Plt Count MPV Neut % (Auto) Lymph % (Auto) [place] % (Auto) Eos % (Auto) Baso % (Auto) Neut # Lymph # [place] # Eos # Baso # PT 20.3 H INR 1.8 APTT 37 H Puncture Site pCO2 pO2 HCO3 ABG pH ABG Total CO2 ABG O2 Saturation ABG Base Excess ABG Hemoglobin ABG Carboxyhemoglobin POC ABG HHb (Measured) ABG Methemoglobin Julius Test ABG Potassium A-a O2 Difference Respiratory Index Hgb O2 Saturation Sodium Chloride Glucose Lactate Mechanical Rate FiO2 Tidal Volume PEEP Crit Value Called To Crit Value Called By Crit Value Read Back Blood Gas Notified Time Potassium Carbon Dioxide Anion Gap BUN Creatinine Est GFR ( Amer) Est GFR (Non-Af Amer) POC Glucose (mg/dL) Random Glucose Calcium Phosphorus Magnesium Total Bilirubin AST ALT Alkaline Phosphatase Total Protein Albumin Globulin Albumin/Globulin Ratio Alpha Fetoprotein < 0.8 Carcinoembryonic Ag 3.5 H CA 19-9 Antigen 160 H Arterial Blood Potassium Random Vancomycin Hepatitis A IgM Ab Hep Bs Antigen Hep B Core IgM Ab Hepatitis C Antibody 10/09/16 10/09/16 10/09/16 15:01 15:54 17:52 WBC RBC Hgb Hct MCV MCH MCHC RDW Plt Count MPV Neut % (Auto) Lymph % (Auto) [place] % (Auto) Eos % (Auto) Baso % (Auto) Neut # Lymph # [place] # Eos # Baso # PT INR APTT Puncture Site Rb pCO2 48 H pO2 64 L HCO3 11.2 L ABG pH 7.05 L* ABG Total CO2 14.8 L ABG O2 Saturation 89.8 L ABG Base Excess -17.0 L ABG Hemoglobin ABG Carboxyhemoglobin POC ABG HHb (Measured) ABG Methemoglobin Julius Test Na ABG Potassium 5.4 H A-a O2 Difference 589.0 Respiratory Index 9.2 Hgb O2 Saturation Sodium 139.0 Chloride 110.0 H Glucose 155 H Lactate 5.7 H* Mechanical Rate 18 FiO2 100.0 Tidal Volume 500 PEEP 5 Crit Value Called To Dr workman Crit Value Called By Oscar chow Crit Value Read Back Y Blood Gas Notified Time 1504 Potassium Carbon Dioxide Anion Gap BUN Creatinine Est GFR ( Amer) Est GFR (Non-Af Amer) POC Glucose (mg/dL) 156 H 134 H Random Glucose Calcium Phosphorus Magnesium Total Bilirubin AST ALT Alkaline Phosphatase Total Protein Albumin Globulin Albumin/Globulin Ratio Alpha Fetoprotein Carcinoembryonic Ag CA 19-9 Antigen Arterial Blood Potassium 5.4 H Random Vancomycin Hepatitis A IgM Ab Hep Bs Antigen Hep B Core IgM Ab Hepatitis C Antibody 10/09/16 10/10/16 10/10/16 23:50 04:15 06:16 WBC 9.2 RBC 2.99 L Hgb 8.6 L Hct 27.1 L MCV 90.7 MCH 28.9 MCHC 31.9 L RDW 17.0 H Plt Count 74 L D MPV 11.0 Neut % (Auto) 83.1 H Lymph % (Auto) 10.1 L [place] % (Auto) 3.7 Eos % (Auto) 2.7 Baso % (Auto) 0.4 Neut # 7.7 H Lymph # 0.9 L [place] # 0.3 Eos # 0.2 Baso # 0.0 PT INR APTT Puncture Site Rr pCO2 41 pO2 139 H HCO3 20.4 L ABG pH 7.30 L ABG Total CO2 21.5 L ABG O2 Saturation 100.0 H ABG Base Excess -5.8 L ABG Hemoglobin 8.6 L ABG Carboxyhemoglobin 1.7 H POC ABG HHb (Measured) 0.0 ABG Methemoglobin 0.7 Julius Test Pos ABG Potassium A-a O2 Difference 523.0 Respiratory Index 3.8 Hgb O2 Saturation 97.6 Sodium Chloride Glucose Lactate Mechanical Rate 18 FiO2 100.0 Tidal Volume 500 PEEP 5 Crit Value Called To Crit Value Called By Crit Value Read Back Blood Gas Notified Time Potassium Carbon Dioxide Anion Gap BUN Creatinine Est GFR ( Amer) Est GFR (Non-Af Amer) POC Glucose (mg/dL) 197 H Random Glucose Calcium Phosphorus Magnesium Total Bilirubin AST ALT Alkaline Phosphatase Total Protein Albumin Globulin Albumin/Globulin Ratio Alpha Fetoprotein Carcinoembryonic Ag CA 19-9 Antigen Arterial Blood Potassium Random Vancomycin Hepatitis A IgM Ab Hep Bs Antigen Hep B Core IgM Ab Hepatitis C Antibody 10/10/16 10/10/16 10/10/16 06:16 06:16 06:18 WBC RBC Hgb Hct MCV MCH MCHC RDW Plt Count MPV Neut % (Auto) Lymph % (Auto) [place] % (Auto) Eos % (Auto) Baso % (Auto) Neut # Lymph # [place] # Eos # Baso # PT 27.1 H D INR 2.3 D APTT 36 H Puncture Site pCO2 pO2 HCO3 ABG pH ABG Total CO2 ABG O2 Saturation ABG Base Excess ABG Hemoglobin ABG Carboxyhemoglobin POC ABG HHb (Measured) ABG Methemoglobin Julius Test ABG Potassium A-a O2 Difference Respiratory Index Hgb O2 Saturation Sodium 139 Chloride 106 Glucose Lactate Mechanical Rate FiO2 Tidal Volume PEEP Crit Value Called To Crit Value Called By Crit Value Read Back Blood Gas Notified Time Potassium 6.0 H Carbon Dioxide 23 Anion Gap 16 BUN 76 H Creatinine 4.2 H Est GFR ( Amer) 16 Est GFR (Non-Af Amer) 14 POC Glucose (mg/dL) Random Glucose 213 H Calcium 7.9 L Phosphorus 6.4 H Magnesium 2.0 Total Bilirubin 4.7 H AST 3950 H ALT 2494 H Alkaline Phosphatase 110 Total Protein 5.8 L Albumin 2.3 L Globulin 3.4 Albumin/Globulin Ratio 0.7 L Alpha Fetoprotein Carcinoembryonic Ag CA 19-9 Antigen Arterial Blood Potassium Random Vancomycin 30.47 Hepatitis A IgM Ab Hep Bs Antigen Hep B Core IgM Ab Hepatitis C Antibody 10/10/16 06:25 WBC RBC Hgb Hct MCV MCH MCHC RDW Plt Count MPV Neut % (Auto) Lymph % (Auto) [place] % (Auto) Eos % (Auto) Baso % (Auto) Neut # Lymph # [place] # Eos # Baso # PT INR APTT Puncture Site pCO2 pO2 HCO3 ABG pH ABG Total CO2 ABG O2 Saturation ABG Base Excess ABG Hemoglobin ABG Carboxyhemoglobin POC ABG HHb (Measured) ABG Methemoglobin Julius Test ABG Potassium A-a O2 Difference Respiratory Index Hgb O2 Saturation Sodium Chloride Glucose Lactate Mechanical Rate FiO2 Tidal Volume PEEP Crit Value Called To Crit Value Called By Crit Value Read Back Blood Gas Notified Time Potassium Carbon Dioxide Anion Gap BUN Creatinine Est GFR ( Amer) Est GFR (Non-Af Amer) POC Glucose (mg/dL) 211 H Random Glucose Calcium Phosphorus Magnesium Total Bilirubin AST ALT Alkaline Phosphatase Total Protein Albumin Globulin Albumin/Globulin Ratio Alpha Fetoprotein Carcinoembryonic Ag CA 19-9 Antigen Arterial Blood Potassium Random Vancomycin Hepatitis A IgM Ab Hep Bs Antigen Hep B Core IgM Ab Hepatitis C Antibody EKG/Cardiology Studies: Cardiology / EKG Studies 10/09/16 15:56 EKG [ELECTROCARDIOGRAM] Stat Comment: Mode Of Transportation: Reason For Exam: s/p code blue Isolation: Contact Fingerstick Blood Sugar Results: 203 Review of Systems - Review of Systems Systems not reviewed;Unavailable: Intubated Critical Care Progress Note - Nutrition Nutrition: Nutrition Category Date Time Status NPO Diet [DIET] Diets 10/10/16 Breakfast Active Assessment/Plan - Assessment and Plan (Free Text) Assessment: 86yo M PMHx of HTN, HLD, DM, CHF, CAD s/p CABG presented with abdominal pain and reported AMS Plan: Neuro -Sedated on precedex -ROS unobtainable -CT head: negative- no intracranial mass, hemorrhage or evidence of acute infarct. 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 Trace R mastoid effusion. Cardio -tachycardic and hypotensive -Amiodarone gtt on hold -Levophed gtt -Echo 10/06: recommend RICH to evaluate endocarditis; Borderlie LVH, LV systolic function is low normal, EF 50-55%, hypokinesis in inferior wall, Grad II pseudonormal filling dynamics; mild valvular and mild pulmonary HTN -ASA 81mg po daily -EP Cardiology Dr Tinsley following -Cardiology Dr Celestine Anderson following Respiratory -Intubated on vent (18, 100, 500, 5) -CXR 10/10: interval increased pulmonary venous congestion. Interval increase small R pleural effusion. More superiorly some loculated R pleural fluid possible- similar appearing -ABG improving this AM after patient was started on bicarb yesterday 10/09 -f/u CT chest -Sputum: +Acinetobacter Baumannii and MRSA -Nares: +MRSA -Duoneb 3ml inh q8 -Acetylcystine 4ml inh q6 -Merrem 500mg Q12 -Vancocin 750mg ivpb q24- on hold- will check random vanc tomorrow 10/11 -Dr Nice ID following GI -repeat CT abd/pelvis 10/09: moderate size R sided effusion increased fro prior study. Mild R basilar atelectasis. Trace L effusion and minimal L basilar atelectasis. Cardiomegaly. Incident to cholecystostomy tube again noted. Vague infiltration changes seen within the mesentery about the distal pancreas nonspecific. r/o pancreatitis therefore correlation with serum amylase and lipase recommended. Areas present within the urinary bladder likely due to instrumentation with in situ unclamped quijano cath. r/o cystitis. Small fluid collection L inguinal region unchanged. Probable small scrotal hydroceles. -Abd/renal u/s: limited study; b/l renal cysts; echogenic renal parenchyma may be seen in setting of medical renal disease; quijano cath in urinary bladder; echogenic liver seen in setting of hepatic parenchymal disease or fatty infiltration. Cholecystectomy. Incidental note is made or R sided pleural effusion -Cholecystostomy tube in place -transaminitis worsening AST 3950 ALT 2494 Alk Phos 104 -CEA 3.5 -CA 19-9: 160 -AFP: <0.8 -Acute hep panel negative -MRCP cancelled due to pacemaker -ERCP cancelled as patient is unstable -CT Abd/pelvis: R pleural effusion with bibasilar atelectasis. Superimposed pneumonia not excluded. L inguinal collection [seroma vs hematoma vs abscess vs pseudoaneurysm] -Surgery Dr Acevedo consulted -NGT in place- feeds @ 25cc/hr -GI Dr Perry consulted -IR Dr Arzola consulted ID -Severe sepsis -No white count this AM -Acute hep panel negative -Legionella negative -Procalcitonin 7 -Sputum: +Acinetobacter Baumannii and MRSA -Blood: +S Aureus x 2 -Nares: +MRSA -Urine: negative -Merrem 500mg Q8 -Vancocin 1gm ivpb q24 -Dr Nice ID following Heme -Likely anemia of chronic disease -H&H stable -elevated INR 2.3 -Patient given one dose of vitamin K Renal -SAGAR vs CKD -renal u/s: limited study; b/l renal cysts; echogenic renal parenchyma may be seen in setting of medical renal disease; quijano cath in urinary bladder -Lasix 40mg ivp bid on hold -Nephro Dr. Newell following Endocrine -Hx of DM2 -HgbA1c 8.6 -RISS -Accucheck MSK -no acute issues DVT ppx: SCDs GI ppx: Pepcid 20mg po daily Diet: tube feeds @ 25cc/hr Code Status: full code Case discussed with Dr. Silverio Ventura PGY2 <Jamal Sawyer S - Last Filed: 10/10/16 16:39> CCU Objective - Vital Signs / Intake & Output Vital Signs (Last 4 hours): Vital Signs Pulse Resp BP Pulse Ox 10/10/16 15:03 120 H 14 107/66 100 10/10/16 14:04 118 H 23 91/52 L 100 10/10/16 13:03 107 H 14 119/73 100 10/10/16 12:51 109 H 19 116/72 100 Intake and Output (Last 8hrs): Intake & Output 10/10/16 10/10/16 10/10/16 06:59 14:59 22:59 Intake Total 1469.3 936.3 148.5 Output Total 260 255 45 Balance 1209.3 681.3 103.5 Weight 184 lb 184 lb Intake: IV 354 114 50 Intake, IV Amount 1115.3 692.3 73.5 Right Distal Port 379.7 127.2 15.9 Internal Jugular Right Medial Port 202 81.6 7.6 Right Proximal Port 400 400 50 Internal Jugular right medial port y 133.6 83.5 Oral 80 Tube Feeding 50 25 Output: Drainage 0 0 0 Right Medial Abdomen 0 0 0 Urine 260 255 45 Urethral (Quijano) 260 255 45 Other: # Bowel Movements 0 0 - Medications Active Medications: Active Medications Generic Name Dose Route Start Last Admin Trade Name Freq PRN Reason Stop Dose Admin Acetylcysteine 4 ml 10/06/16 14:00 10/10/16 16:17 Acetylcysteine 20% INH 4 ml RQ6 CHERY Administration Albuterol/Ipratropium 3 ml 10/08/16 08:15 10/10/16 16:16 Duoneb 3 Mg/0.5 Mg (3 Ml) Ud INH 3 ml RQ8 CHERY Administration Aspirin 81 mg 10/07/16 10:15 10/10/16 09:46 Ecotrin PO 81 mg DAILY CHERY Administration Docusate Sodium 100 mg 10/09/16 14:15 10/10/16 10:21 Colace PO Not Given DAILY CHERY Famotidine 20 mg 10/07/16 10:15 10/10/16 09:47 Pepcid PO 20 mg DAILY CHERY Administration Furosemide 40 mg 10/09/16 18:00 10/09/16 18:10 Lasix IVP Not Given BID [facility] Heparin Sodium (Porcine) 5,000 units 10/06/16 10:30 10/10/16 11:18 Heparin SC Not Given Q12 CHERY Norepinephrine Bitartrate 4 mg 254 mls @ 15.24 mls/hr 10/09/16 14:32 08:28 / Sodium Chloride IV 2 mcg/min .[id number] PRN 7.62 mls/hr TITRATE PER MD ORDER Titration Protocol 4 MCG/MIN Dexmedetomidine HCl 200 mcg/ 50 mls @ 4.08 mls/hr 10/09/16 16:28 10/10/16 16: 25 Sodium Chloride IV 0.77 mcg/kg/hr TITR PRN 15.71 mls/hr Agitation Administration Protocol 0.2 MCG/KG/HR Meropenem 500 mg/ Sodium 100 mls @ 100 mls/hr 10/10/16 18:00 Chloride IVPB Q12H CHERY Vancomycin HCl 750 mg/ Sodium 150 mls @ 100 mls/hr 10/11/16 10:00 Chloride IVPB DAILY CHERY Levetiracetam 500 mg/ Sodium 105 mls @ 420 mls/hr 10/10/16 15:00 10/10/16 15: 41 Chloride IVPB 420 mls/hr Q12H CHERY Administration Insulin Aspart 0 unit 10/09/16 18:00 10/10/16 12:25 Novolog SC 6 unit Q6H CHERY Administration Protocol Lorazepam 2 mg 10/09/16 15:25 10/10/16 11:45 Ativan IVP 2 mg Q4H PRN Administration Anxiety Metoprolol Tartrate 25 mg 10/08/16 10:00 10/09/16 18:10 Lopressor PO Not Given BID [facility] Simethicone 80 mg 10/09/16 18:00 10/10/16 10:21 Mylicon Chew Tab PO Not Given BID [facility] Thiamine HCl 100 mg 10/10/16 16:30 Vitamin B1 Inj IV Q8H CHERY - Patient Studies Lab Studies: Microbiology Studies 10/09/16 04:00 Blood Culture - Preliminary Blood-Venous NO GROWTH AFTER 24 HOURS 10/09/16 04:00 Blood Culture - Preliminary Blood-Venous NO GROWTH AFTER 24 HOURS Lab Studies 10/10/16 10/10/16 10/10/16 Range/Units 15:17 12:20 11:34 WBC (4.8-10.8) K/uL RBC (4.40-5.90) Mil/uL Hgb (12.0-18.0) g/dL Hct (35.0-51.0) % MCV (80.0-94.0) fL MCH (27.0-31.0) pg MCHC (33.0-37.0) g/dL RDW (11.5-14.5) % Plt Count (130-400) K/uL MPV (7.2-11.7) fL Neut % (Auto) (50.0-75.0) % Lymph % (Auto) (20.0-40.0) % [place] % (Auto) (0.0-10.0) % Eos % (Auto) (0.0-4.0) % Baso % (Auto) (0.0-2.0) % Neut # (1.8-7.0) K/uL Lymph # (1.0-4.3) K/uL [place] # (0.0-0.8) K/uL Eos # (0.0-0.7) K/uL Baso # (0.0-0.2) K/uL PT (9.7-12.2) SECONDS INR APTT (21-34) SECONDS Puncture Site pCO2 (35-45) mm/Hg pO2 (80-100) mm/Hg HCO3 (21-28) mmol/L ABG pH (7.35-7.45) ABG Total CO2 (22-28) mmol/L ABG O2 Saturation (95-98) % ABG Base Excess (-2.0-3.0) mmol/L ABG Hemoglobin (11.7-17.4) g/dL ABG Carboxyhemoglobin (0.5-1.5) % POC ABG HHb (Measured) (0.0-5.0) % ABG Methemoglobin (0.0-3.0) % Julius Test A-a O2 Difference mm/Hg Respiratory Index Hgb O2 Saturation (95.0-98.0) % Mechanical Rate FiO2 % Tidal Volume PEEP Sodium (132-148) mmol/L Potassium (3.6-5.2) mmol/L Chloride (98-107) mmol/L Carbon Dioxide (22-30) mmol/L Anion Gap (10-20) BUN (9-20) mg/dL Creatinine (0.8-1.5) MG/DL Est GFR ( Amer) Est GFR (Non-Af Amer) POC Glucose (mg/dL) 259 H (65-110) mg/dL Random Glucose (75-110) mg/dL Calcium (8.6-10.4) mg/dl Phosphorus (2.5-4.5) mg/dL Magnesium (1.6-2.3) mg/dL Total Bilirubin (0.2-1.3) mg/dL AST (17-59) U/L ALT (21-72) U/L Alkaline Phosphatase (38-126) U/L Total Protein (6.3-8.3) g/dL Albumin (3.5-5.0) g/dL Globulin (2.2-3.9) gm/dL Albumin/Globulin Ratio (1.0-2.1) Prolactin 44.7 H (3.7-17.9) ng/mL Random Vancomycin ug/mL Infectious [place] Assay Negative (NEGATIVE) Ur L.pneumophila Ag (NEGATIVE) 10/10/16 10/10/16 10/10/16 Range/Units 06:25 06:18 06:16 WBC (4.8-10.8) K/uL RBC (4.40-5.90) Mil/uL Hgb (12.0-18.0) g/dL Hct (35.0-51.0) % MCV (80.0-94.0) fL MCH (27.0-31.0) pg MCHC (33.0-37.0) g/dL RDW (11.5-14.5) % Plt Count (130-400) K/uL MPV (7.2-11.7) fL Neut % (Auto) (50.0-75.0) % Lymph % (Auto) (20.0-40.0) % [place] % (Auto) (0.0-10.0) % Eos % (Auto) (0.0-4.0) % Baso % (Auto) (0.0-2.0) % Neut # (1.8-7.0) K/uL Lymph # (1.0-4.3) K/uL [place] # (0.0-0.8) K/uL Eos # (0.0-0.7) K/uL Baso # (0.0-0.2) K/uL PT 27.1 H D (9.7-12.2) SECONDS INR 2.3 D APTT 36 H (21-34) SECONDS Puncture Site pCO2 (35-45) mm/Hg pO2 (80-100) mm/Hg HCO3 (21-28) mmol/L ABG pH (7.35-7.45) ABG Total CO2 (22-28) mmol/L ABG O2 Saturation (95-98) % ABG Base Excess (-2.0-3.0) mmol/L ABG Hemoglobin (11.7-17.4) g/dL ABG Carboxyhemoglobin (0.5-1.5) % POC ABG HHb (Measured) (0.0-5.0) % ABG Methemoglobin (0.0-3.0) % Julius Test A-a O2 Difference mm/Hg Respiratory Index Hgb O2 Saturation (95.0-98.0) % Mechanical Rate FiO2 % Tidal Volume PEEP Sodium (132-148) mmol/L Potassium (3.6-5.2) mmol/L Chloride (98-107) mmol/L Carbon Dioxide (22-30) mmol/L Anion Gap (10-20) BUN (9-20) mg/dL Creatinine (0.8-1.5) MG/DL Est GFR ( Amer) Est GFR (Non-Af Amer) POC Glucose (mg/dL) 211 H (65-110) mg/dL Random Glucose (75-110) mg/dL Calcium (8.6-10.4) mg/dl Phosphorus (2.5-4.5) mg/dL Magnesium (1.6-2.3) mg/dL Total Bilirubin (0.2-1.3) mg/dL AST (17-59) U/L ALT (21-72) U/L Alkaline Phosphatase (38-126) U/L Total Protein (6.3-8.3) g/dL Albumin (3.5-5.0) g/dL Globulin (2.2-3.9) gm/dL Albumin/Globulin Ratio (1.0-2.1) Prolactin (3.7-17.9) ng/mL Random Vancomycin 30.47 ug/mL Infectious [place] Assay (NEGATIVE) Ur L.pneumophila Ag (NEGATIVE) 10/10/16 10/10/16 10/10/16 Range/Units 06:16 06:16 04:15 WBC 9.2 (4.8-10.8) K/uL RBC 2.99 L (4.40-5.90) Mil/uL Hgb 8.6 L (12.0-18.0) g/dL Hct 27.1 L (35.0-51.0) % MCV 90.7 (80.0-94.0) fL MCH 28.9 (27.0-31.0) pg MCHC 31.9 L (33.0-37.0) g/dL RDW 17.0 H (11.5-14.5) % Plt Count 74 L D (130-400) K/uL MPV 11.0 (7.2-11.7) fL Neut % (Auto) 83.1 H (50.0-75.0) % Lymph % (Auto) 10.1 L (20.0-40.0) % [place] % (Auto) 3.7 (0.0-10.0) % Eos % (Auto) 2.7 (0.0-4.0) % Baso % (Auto) 0.4 (0.0-2.0) % Neut # 7.7 H (1.8-7.0) K/uL Lymph # 0.9 L (1.0-4.3) K/uL [place] # 0.3 (0.0-0.8) K/uL Eos # 0.2 (0.0-0.7) K/uL Baso # 0.0 (0.0-0.2) K/uL PT (9.7-12.2) SECONDS INR APTT (21-34) SECONDS Puncture Site Rr pCO2 41 (35-45) mm/Hg pO2 139 H (80-100) mm/Hg HCO3 20.4 L (21-28) mmol/L ABG pH 7.30 L (7.35-7.45) ABG Total CO2 21.5 L (22-28) mmol/L ABG O2 Saturation 100.0 H (95-98) % ABG Base Excess -5.8 L (-2.0-3.0) mmol/L ABG Hemoglobin 8.6 L (11.7-17.4) g/dL ABG Carboxyhemoglobin 1.7 H (0.5-1.5) % POC ABG HHb (Measured) 0.0 (0.0-5.0) % ABG Methemoglobin 0.7 (0.0-3.0) % Julius Test Pos A-a O2 Difference 523.0 mm/Hg Respiratory Index 3.8 Hgb O2 Saturation 97.6 (95.0-98.0) % Mechanical Rate 18 FiO2 100.0 % Tidal Volume 500 PEEP 5 Sodium 139 (132-148) mmol/L Potassium 6.0 H (3.6-5.2) mmol/L Chloride 106 (98-107) mmol/L Carbon Dioxide 23 (22-30) mmol/L Anion Gap 16 (10-20) BUN 76 H (9-20) mg/dL Creatinine 4.2 H (0.8-1.5) MG/DL Est GFR ( Amer) 16 Est GFR (Non-Af Amer) 14 POC Glucose (mg/dL) (65-110) mg/dL Random Glucose 213 H (75-110) mg/dL Calcium 7.9 L (8.6-10.4) mg/dl Phosphorus 6.4 H (2.5-4.5) mg/dL Magnesium 2.0 (1.6-2.3) mg/dL Total Bilirubin 4.7 H (0.2-1.3) mg/dL AST 3950 H (17-59) U/L ALT 2494 H (21-72) U/L Alkaline Phosphatase 110 (38-126) U/L Total Protein 5.8 L (6.3-8.3) g/dL Albumin 2.3 L (3.5-5.0) g/dL Globulin 3.4 (2.2-3.9) gm/dL Albumin/Globulin Ratio 0.7 L (1.0-2.1) Prolactin (3.7-17.9) ng/mL Random Vancomycin ug/mL Infectious [place] Assay (NEGATIVE) Ur L.pneumophila Ag (NEGATIVE) 10/09/16 10/09/16 10/07/16 Range/Units 23:50 17:52 06:00 WBC (4.8-10.8) K/uL RBC (4.40-5.90) Mil/uL Hgb (12.0-18.0) g/dL Hct (35.0-51.0) % MCV (80.0-94.0) fL MCH (27.0-31.0) pg MCHC (33.0-37.0) g/dL RDW (11.5-14.5) % Plt Count (130-400) K/uL MPV (7.2-11.7) fL Neut % (Auto) (50.0-75.0) % Lymph % (Auto) (20.0-40.0) % [place] % (Auto) (0.0-10.0) % Eos % (Auto) (0.0-4.0) % Baso % (Auto) (0.0-2.0) % Neut # (1.8-7.0) K/uL Lymph # (1.0-4.3) K/uL [place] # (0.0-0.8) K/uL Eos # (0.0-0.7) K/uL Baso # (0.0-0.2) K/uL PT (9.7-12.2) SECONDS INR APTT (21-34) SECONDS Puncture Site pCO2 (35-45) mm/Hg pO2 (80-100) mm/Hg HCO3 (21-28) mmol/L ABG pH (7.35-7.45) ABG Total CO2 (22-28) mmol/L ABG O2 Saturation (95-98) % ABG Base Excess (-2.0-3.0) mmol/L ABG Hemoglobin (11.7-17.4) g/dL ABG Carboxyhemoglobin (0.5-1.5) % POC ABG HHb (Measured) (0.0-5.0) % ABG Methemoglobin (0.0-3.0) % Julius Test A-a O2 Difference mm/Hg Respiratory Index Hgb O2 Saturation (95.0-98.0) % Mechanical Rate FiO2 % Tidal Volume PEEP Sodium (132-148) mmol/L Potassium (3.6-5.2) mmol/L Chloride (98-107) mmol/L Carbon Dioxide (22-30) mmol/L Anion Gap (10-20) BUN (9-20) mg/dL Creatinine (0.8-1.5) MG/DL Est GFR ( Amer) Est GFR (Non-Af Amer) POC Glucose (mg/dL) 197 H 134 H (65-110) mg/dL Random Glucose (75-110) mg/dL Calcium (8.6-10.4) mg/dl Phosphorus (2.5-4.5) mg/dL Magnesium (1.6-2.3) mg/dL Total Bilirubin (0.2-1.3) mg/dL AST (17-59) U/L ALT (21-72) U/L Alkaline Phosphatase (38-126) U/L Total Protein (6.3-8.3) g/dL Albumin (3.5-5.0) g/dL Globulin (2.2-3.9) gm/dL Albumin/Globulin Ratio (1.0-2.1) Prolactin (3.7-17.9) ng/mL Random Vancomycin ug/mL Infectious [place] Assay (NEGATIVE) Ur L.pneumophila Ag Negative (NEGATIVE) Laboratory Results - last 24 hr 10/07/16 10/09/16 10/09/16 06:00 17:52 23:50 WBC RBC Hgb Hct MCV MCH MCHC RDW Plt Count MPV Neut % (Auto) Lymph % (Auto) [place] % (Auto) Eos % (Auto) Baso % (Auto) Neut # Lymph # [place] # Eos # Baso # PT INR APTT Puncture Site pCO2 pO2 HCO3 ABG pH ABG Total CO2 ABG O2 Saturation ABG Base Excess ABG Hemoglobin ABG Carboxyhemoglobin POC ABG HHb (Measured) ABG Methemoglobin Julius Test A-a O2 Difference Respiratory Index Hgb O2 Saturation Mechanical Rate FiO2 Tidal Volume PEEP Sodium Potassium Chloride Carbon Dioxide Anion Gap BUN Creatinine Est GFR ( Amer) Est GFR (Non-Af Amer) POC Glucose (mg/dL) 134 H 197 H Random Glucose Calcium Phosphorus Magnesium Total Bilirubin AST ALT Alkaline Phosphatase Total Protein Albumin Globulin Albumin/Globulin Ratio Prolactin Random Vancomycin Infectious [place] Assay Ur L.pneumophila Ag Negative 10/10/16 10/10/16 10/10/16 04:15 06:16 06:16 WBC 9.2 RBC 2.99 L Hgb 8.6 L Hct 27.1 L MCV 90.7 MCH 28.9 MCHC 31.9 L RDW 17.0 H Plt Count 74 L D MPV 11.0 Neut % (Auto) 83.1 H Lymph % (Auto) 10.1 L [place] % (Auto) 3.7 Eos % (Auto) 2.7 Baso % (Auto) 0.4 Neut # 7.7 H Lymph # 0.9 L [place] # 0.3 Eos # 0.2 Baso # 0.0 PT INR APTT Puncture Site Rr pCO2 41 pO2 139 H HCO3 20.4 L ABG pH 7.30 L ABG Total CO2 21.5 L ABG O2 Saturation 100.0 H ABG Base Excess -5.8 L ABG Hemoglobin 8.6 L ABG Carboxyhemoglobin 1.7 H POC ABG HHb (Measured) 0.0 ABG Methemoglobin 0.7 Julius Test Pos A-a O2 Difference 523.0 Respiratory Index 3.8 Hgb O2 Saturation 97.6 Mechanical Rate 18 FiO2 100.0 Tidal Volume 500 PEEP 5 Sodium 139 Potassium 6.0 H Chloride 106 Carbon Dioxide 23 Anion Gap 16 BUN 76 H Creatinine 4.2 H Est GFR ( Amer) 16 Est GFR (Non-Af Amer) 14 POC Glucose (mg/dL) Random Glucose 213 H Calcium 7.9 L Phosphorus 6.4 H Magnesium 2.0 Total Bilirubin 4.7 H AST 3950 H ALT 2494 H Alkaline Phosphatase 110 Total Protein 5.8 L Albumin 2.3 L Globulin 3.4 Albumin/Globulin Ratio 0.7 L Prolactin Random Vancomycin Infectious [place] Assay Ur L.pneumophila Ag 10/10/16 10/10/16 10/10/16 06:16 06:18 06:25 WBC RBC Hgb Hct MCV MCH MCHC RDW Plt Count MPV Neut % (Auto) Lymph % (Auto) [place] % (Auto) Eos % (Auto) Baso % (Auto) Neut # Lymph # [place] # Eos # Baso # PT 27.1 H D INR 2.3 D APTT 36 H Puncture Site pCO2 pO2 HCO3 ABG pH ABG Total CO2 ABG O2 Saturation ABG Base Excess ABG Hemoglobin ABG Carboxyhemoglobin POC ABG HHb (Measured) ABG Methemoglobin Julius Test A-a O2 Difference Respiratory Index Hgb O2 Saturation Mechanical Rate FiO2 Tidal Volume PEEP Sodium Potassium Chloride Carbon Dioxide Anion Gap BUN Creatinine Est GFR ( Amer) Est GFR (Non-Af Amer) POC Glucose (mg/dL) 211 H Random Glucose Calcium Phosphorus Magnesium Total Bilirubin AST ALT Alkaline Phosphatase Total Protein Albumin Globulin Albumin/Globulin Ratio Prolactin Random Vancomycin 30.47 Infectious [place] Assay Ur L.pneumophila Ag 10/10/16 10/10/16 10/10/16 11:34 12:20 15:17 WBC RBC Hgb Hct MCV MCH MCHC RDW Plt Count MPV Neut % (Auto) Lymph % (Auto) [place] % (Auto) Eos % (Auto) Baso % (Auto) Neut # Lymph # [place] # Eos # Baso # PT INR APTT Puncture Site pCO2 pO2 HCO3 ABG pH ABG Total CO2 ABG O2 Saturation ABG Base Excess ABG Hemoglobin ABG Carboxyhemoglobin POC ABG HHb (Measured) ABG Methemoglobin Julius Test A-a O2 Difference Respiratory Index Hgb O2 Saturation Mechanical Rate FiO2 Tidal Volume PEEP Sodium Potassium Chloride Carbon Dioxide Anion Gap BUN Creatinine Est GFR ( Amer) Est GFR (Non-Af Amer) POC Glucose (mg/dL) 259 H Random Glucose Calcium Phosphorus Magnesium Total Bilirubin AST ALT Alkaline Phosphatase Total Protein Albumin Globulin Albumin/Globulin Ratio Prolactin 44.7 H Random Vancomycin Infectious [place] Assay Negative Ur L.pneumophila Ag EKG/Cardiology Studies: Cardiology / EKG Studies 10/09/16 15:56 EKG [ELECTROCARDIOGRAM] Stat Comment: Mode Of Transportation: Reason For Exam: s/p code blue Isolation: Contact Critical Care Progress Note - Nutrition Nutrition: Nutrition Category Date Time Status NPO Diet [DIET] Diets 10/10/16 Breakfast Active Assessment/Plan (1) Severe sepsis Current Visit: Yes Status: Acute Comment: patient status post code sepsis Blood culture positive for gram-positive cocci On IV antibiotics CAT scan of the abdomen consistent with right lower lung infil Seen by surgery (2) SAGAR (acute kidney injury) Current Visit: Yes Status: Acute Comment: Continue gentle hydration and follow BUN and creatinine Nephrology consult (3) CAD (coronary artery disease) Current Visit: Yes Status: Acute (4) Pneumonia Current Visit: Yes Status: Acute Attending/Attestation - Attestation I have personally seen and examined this patient.: Yes I have fully participated in the care of the patient.: Yes I have reviewed all pertinent clinical information: Yes Notes (Text): 10/10/16 16:38 the patient seen and examined in the intensive care unit. Case discussed with house staff in the morning rounds. Remains intubated on ventilatory support CAT scan of chest consistent with bilateral infiltrate and small pleural effusion ERCP cancelled this AM. LFTs worsening and Creatinine is trending up. Amiodarone gtt on hold due to elevated LFTS. Patient on precedex gtt and levophed gtt. Will start tube feeds today @ 25cc/hr
--- NOTE | 2016-10-10 07:49 | RAD ---
HISTORY: intubated COMPARISON: 10/09/2016 FINDINGS: LUNGS: Pulmonary vascular congestion there is increased. The right PLEURA: The right lateral pleural thickening/ effusion (possibly in part loculated superiorly is renoted. . No pneumothorax apparent. CARDIOVASCULAR: Cardiomegaly as before OSSEOUS STRUCTURES: Thoraco lumbar spondylosis. Right shoulder arthrosis. Cervical spondylosis VISUALIZED UPPER ABDOMEN: Normal. OTHER FINDINGS: Right internal jugular vein catheter tip in right caval atrial junction as before. Endotracheal tube tip approximately 2 cm from the anita - unchanged. NG tube tip in gastric cardia -unchanged. Midline sternal wires intact as before. Valvular device in place as before. Pacemaker/AICD device in place as before IMPRESSION: Interval increased pulmonary venous congestion. Interval increase small right pleural effusion. More superiorly some loculated right pleural fluid [id number] Support lines as above - in satisfactory position
[2016-10-10] MEDS: Albuterol-Ipratrop 3 mg / 0.5 (3 ml) UD INH SCH ×3 (08:10→23:50)
[2016-10-10] MEDS: Simethicone 80 mg Chewtab PO SCH ×2 (10:21→18:25)
[2016-10-10] MEDS ORDERED: Phytonadione 10 mg/ml Inj (Adult) SC ONE (11:30)
[2016-10-10] MEDS: SODIUM BICARBONATE IV ONE (11:31)
[2016-10-10] MEDS: DEXTROSE IV ONE (11:31)
[2016-10-10] MEDS: [UNRECOGNIZED DRUG - OTHER] IV ONE (11:31)
--- NOTE | 2016-10-10 12:02 | CP.PCM.PN ---
Subjective - Date & Time of Evaluation Date of Evaluation: 10/10/16 Time of Evaluation: 11:59 - Subjective Subjective: Progress Note for Dr. Tinsley Pt seen and examined at bedside. PILE DRIVING TECHNICIAN called yesterday evening for patient due to respiratory distress. Pt was intubated and remains in the ICU. Pt's HR improved to the 90's overnight. Objective - Vital Signs/Intake and Output Vital Signs (last 24 hours): Temp Pulse Resp BP Pulse Ox 98.1 F 102 H 21 133/67 100 10/10/16 08:00 10/10/16 10:21 10/10/16 10:21 10/10/16 10:21 10/10/16 10:21 Intake and Output: 10/10/16 10/10/16 06:59 18:59 Intake Total 1994.0 525.6 Output Total 330 105 Balance 1664.0 420.6 - Medications Medications: Current Medications Acetylcysteine (Acetylcysteine 20%) 4 ml INH RQ6 [facility] Last Admin: 10/10/16 08:10 Dose: 4 ml Albuterol/Ipratropium (Duoneb 3 Mg/0.5 Mg (3 Ml) Ud) 3 ml INH RQ8 [facility] Last Admin: 10/10/16 08:10 Dose: 3 ml Aspirin (Ecotrin) 81 mg PO DAILY [facility] Last Admin: 10/10/16 09:46 Dose: 81 mg Docusate Sodium (Colace) 100 mg PO DAILY [facility] Last Admin: 10/10/16 10:21 Dose: Not Given Famotidine (Pepcid) 20 mg PO DAILY [facility] Last Admin: 10/10/16 09:47 Dose: 20 mg Furosemide (Lasix) 40 mg IVP BID [facility] Last Admin: 10/09/16 18:10 Dose: Not Given Heparin Sodium (Porcine) (Heparin) 5,000 units SC Q12 [facility] Last Admin: 10/10/16 11:18 Dose: Not Given Amiodarone HCl 900 mg/ (Dextrose) 500 mls @ 16.66 mls/hr IV .Q24H ONE; 0.5 MG/ MIN PRN Reason: Protocol Stop: 10/10/16 15:29 Last Admin: 10/09/16 22:11 Dose: 16.66 mls/hr Norepinephrine Bitartrate 4 mg (/ Sodium Chloride) 254 mls @ 15.24 mls/hr IV .[id number] PRN; Protocol; 4 MCG/MIN PRN Reason: TITRATE PER MD ORDER Last Titration: 10/10/16 08:28 Dose: 2 mcg/min, 7.62 mls/hr Sodium Bicarbonate 200 meq/ (Dextrose/Sodium Chloride) 1,000 mls @ 50 mls/hr IV .Q20H ONE Stop: 10/10/16 12:14 Last Admin: 10/10/16 11:31 Dose: 50 mls/hr Dexmedetomidine HCl 200 mcg/ (Sodium Chloride) 50 mls @ 4.08 mls/hr IV TITR PRN ; Protocol; 0.2 MCG/KG/HR PRN Reason: Agitation Last Admin: 10/10/16 09:46 Dose: 0.77 mcg/kg/hr, 15.71 mls/hr Meropenem 500 mg/ Sodium (Chloride) 100 mls @ 100 mls/hr IVPB Q12H [facility] Vancomycin HCl 750 mg/ Sodium (Chloride) 150 mls @ 100 mls/hr IVPB DAILY [facility] Insulin Aspart (Novolog) 0 unit SC Q6H [facility] PRN Reason: Protocol Last Admin: 10/10/16 06:36 Dose: 4 unit Lorazepam (Ativan) 2 mg IVP Q4H PRN PRN Reason: Anxiety Last Admin: 10/10/16 04:08 Dose: 2 mg Metoprolol Tartrate (Lopressor) 25 mg PO BID [facility] Last Admin: 10/09/16 18:10 Dose: Not Given Simethicone (Mylicon Chew Tab) 80 mg PO BID [facility] Last Admin: 10/10/16 10:21 Dose: Not Given - Labs Labs: 10/10/16 06:16 10/10/16 06:16 PT 27.1 SECONDS (9.7-12.2) H D 10/10/16 06:16 INR 2.3 D 10/10/16 06:16 APTT 36 SECONDS (21-34) H 10/10/16 06:16 - Constitutional Appears: Toxic, No Acute Distress - Head Exam Head Exam: ATRAUMATIC, NORMAL INSPECTION, NORMOCEPHALIC - ENT Exam ENT Exam: Mucous Membranes Dry - Respiratory Exam Respiratory Exam: Decreased Breath Sounds Additional comments: Intubated - Cardiovascular Exam Cardiovascular Exam: RRR, +S1, +S2 - GI/Abdominal Exam GI & Abdominal Exam: Soft, Normal Bowel Sounds. absent: Tenderness - Extremities Exam Extremities Exam: absent: Calf Tenderness, Pedal Edema - Neurological Exam Neurological Exam: absent: Alert, Awake, Oriented x3 - Skin Skin Exam: Intact, Normal Color, Warm Assessment and Plan (1) Tachycardia Assessment & Plan: Amiodarone causing rise in LFTs Will switch to alternative, Coreg Will continue to monitor Continue current medical management Status: Acute
--- NOTE | 2016-10-10 12:23 | CT ---
PROCEDURE: CT HEAD WITHOUT CONTRAST. HISTORY: AMS COMPARISON: None available. TECHNIQUE: Axial computed tomography images were obtained through the head/brain without intravenous contrast. Radiation dose: Total exam DLP = 1104.57 mGy-cm. This CT exam was performed using one or more of the following dose reduction techniques: Automated exposure control, adjustment of the mA and/or kV according to patient size, and/or use of iterative reconstruction technique. FINDINGS: HEMORRHAGE: No intracranial hemorrhage. BRAIN: No mass effect or edema. Mild diffuse age-appropriate cerebral atrophy. Mild periventricular white matter lucency consistent with age-related microvascular ischemic change. 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 No evidence of acute infarct. VENTRICLES: Unremarkable. No hydrocephalus. CALVARIUM: Unremarkable. PARANASAL SINUSES: Unremarkable as visualized. No significant inflammatory changes. MASTOID AIR CELLS: Nonspecific trace right mastoid effusion. No left mastoid effusion. OTHER FINDINGS: None. IMPRESSION: No intracranial mass, hemorrhage or evidence of acute infarct. 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 Trace right mastoid effusion, nonspecific.
--- NOTE | 2016-10-10 12:26 | CP.PCM.PN ---
Subjective - Date & Time of Evaluation Date of Evaluation: 10/10/16 Time of Evaluation: 12:24 - Subjective Subjective: seen and examined pt is intubated sedated ros not obtained bp normal, on low dose pressor uop 20-30cc/hr Objective - Vital Signs/Intake and Output Vital Signs (last 24 hours): Temp Pulse Resp BP Pulse Ox 98.1 F 102 H 21 133/67 100 10/10/16 08:00 10/10/16 10:21 10/10/16 10:21 10/10/16 10:21 10/10/16 10:21 Intake and Output: 10/10/16 10/10/16 06:59 18:59 Intake Total 1994.0 525.6 Output Total 330 105 Balance 1664.0 420.6 - Medications Medications: Current Medications Acetylcysteine (Acetylcysteine 20%) 4 ml INH RQ6 [facility] Last Admin: 10/10/16 08:10 Dose: 4 ml Albuterol/Ipratropium (Duoneb 3 Mg/0.5 Mg (3 Ml) Ud) 3 ml INH RQ8 [facility] Last Admin: 10/10/16 08:10 Dose: 3 ml Aspirin (Ecotrin) 81 mg PO DAILY [facility] Last Admin: 10/10/16 09:46 Dose: 81 mg Docusate Sodium (Colace) 100 mg PO DAILY [facility] Last Admin: 10/10/16 10:21 Dose: Not Given Famotidine (Pepcid) 20 mg PO DAILY [facility] Last Admin: 10/10/16 09:47 Dose: 20 mg Furosemide (Lasix) 40 mg IVP BID [facility] Last Admin: 10/09/16 18:10 Dose: Not Given Heparin Sodium (Porcine) (Heparin) 5,000 units SC Q12 [facility] Last Admin: 10/10/16 11:18 Dose: Not Given Amiodarone HCl 900 mg/ (Dextrose) 500 mls @ 16.66 mls/hr IV .Q24H ONE; 0.5 MG/ MIN PRN Reason: Protocol Stop: 10/10/16 15:29 Last Admin: 10/09/16 22:11 Dose: 16.66 mls/hr Norepinephrine Bitartrate 4 mg (/ Sodium Chloride) 254 mls @ 15.24 mls/hr IV .[id number] PRN; Protocol; 4 MCG/MIN PRN Reason: TITRATE PER MD ORDER Last Titration: 10/10/16 08:28 Dose: 2 mcg/min, 7.62 mls/hr Dexmedetomidine HCl 200 mcg/ (Sodium Chloride) 50 mls @ 4.08 mls/hr IV TITR PRN ; Protocol; 0.2 MCG/KG/HR PRN Reason: Agitation Last Admin: 10/10/16 09:46 Dose: 0.77 mcg/kg/hr, 15.71 mls/hr Meropenem 500 mg/ Sodium (Chloride) 100 mls @ 100 mls/hr IVPB Q12H [facility] Vancomycin HCl 750 mg/ Sodium (Chloride) 150 mls @ 100 mls/hr IVPB DAILY [facility] Insulin Aspart (Novolog) 0 unit SC Q6H [facility] PRN Reason: Protocol Last Admin: 10/10/16 06:36 Dose: 4 unit Lorazepam (Ativan) 2 mg IVP Q4H PRN PRN Reason: Anxiety Last Admin: 10/10/16 04:08 Dose: 2 mg Metoprolol Tartrate (Lopressor) 25 mg PO BID [facility] Last Admin: 10/09/16 18:10 Dose: Not Given Simethicone (Mylicon Chew Tab) 80 mg PO BID [facility] Last Admin: 10/10/16 10:21 Dose: Not Given - Labs Labs: 10/10/16 06:16 10/10/16 06:16 PT 27.1 SECONDS (9.7-12.2) H D 10/10/16 06:16 INR 2.3 D 10/10/16 06:16 APTT 36 SECONDS (21-34) H 10/10/16 06:16 - Constitutional Appears: Chronically Ill (intubated sedated) - Head Exam Head Exam: NORMAL INSPECTION - Eye Exam Eye Exam: Normal appearance - ENT Exam Additional comments: et tube - Neck Exam Neck Exam: Normal Inspection - Respiratory Exam Additional comments: mechanical vent sounds - Cardiovascular Exam Cardiovascular Exam: Tachycardia, REGULAR RHYTHM - GI/Abdominal Exam GI & Abdominal Exam: Distended, Soft, Normal Bowel Sounds - Extremities Exam Additional comments: scd's. 1+ edema Assessment and Plan (1) Abdominal pain Status: Acute (2) CAD (coronary artery disease) Status: Acute (3) HTN (hypertension) Status: Acute (4) Pneumonia Status: Acute (5) Sepsis Status: Acute - Assessment and Plan (Free Text) Assessment: -tc / underlying ckd -vdrf -septic shock plan: maintain pressor support may need green marketing analyst, continue to monitor
--- NOTE | 2016-10-10 12:44 | CARD ---
APPROVED REPORT EKG Measurement Heart [id number] <Conclusion> Atrial flutter with variable AV block with premature ventricular or aberrantly conducted complexes Right bundle branch block Left anterior fascicular block Bifascicular block Abnormal ECG
--- NOTE | 2016-10-10 12:49 | CP.PCM.PN ---
Subjective - Date & Time of Evaluation Date of Evaluation: 10/10/16 Time of Evaluation: 10:00 - Subjective Subjective: s/p cardiac arrest meds adjusted poor prognosis unresponsive baljit stern Objective - Vital Signs/Intake and Output Vital Signs (last 24 hours): Temp Pulse Resp BP Pulse Ox 98.4 F 100 H 19 122/74 100 10/10/16 12:00 10/10/16 12:21 10/10/16 12:21 10/10/16 12:21 10/10/16 12:21 Intake and Output: 10/10/16 10/10/16 06:59 18:59 Intake Total 1994.0 689.3 Output Total 330 175 Balance 1664.0 514.3 - Medications Medications: Current Medications Acetylcysteine (Acetylcysteine 20%) 4 ml INH RQ6 [facility] Last Admin: 10/10/16 08:10 Dose: 4 ml Albuterol/Ipratropium (Duoneb 3 Mg/0.5 Mg (3 Ml) Ud) 3 ml INH RQ8 [facility] Last Admin: 10/10/16 08:10 Dose: 3 ml Aspirin (Ecotrin) 81 mg PO DAILY [facility] Last Admin: 10/10/16 09:46 Dose: 81 mg Docusate Sodium (Colace) 100 mg PO DAILY [facility] Last Admin: 10/10/16 10:21 Dose: Not Given Famotidine (Pepcid) 20 mg PO DAILY [facility] Last Admin: 10/10/16 09:47 Dose: 20 mg Furosemide (Lasix) 40 mg IVP BID [facility] Last Admin: 10/09/16 18:10 Dose: Not Given Heparin Sodium (Porcine) (Heparin) 5,000 units SC Q12 [facility] Last Admin: 10/10/16 11:18 Dose: Not Given Amiodarone HCl 900 mg/ (Dextrose) 500 mls @ 16.66 mls/hr IV .Q24H ONE; 0.5 MG/ MIN PRN Reason: Protocol Stop: 10/10/16 15:29 Last Admin: 10/09/16 22:11 Dose: 16.66 mls/hr Norepinephrine Bitartrate 4 mg (/ Sodium Chloride) 254 mls @ 15.24 mls/hr IV .[id number] PRN; Protocol; 4 MCG/MIN PRN Reason: TITRATE PER MD ORDER Last Titration: 10/10/16 08:28 Dose: 2 mcg/min, 7.62 mls/hr Dexmedetomidine HCl 200 mcg/ (Sodium Chloride) 50 mls @ 4.08 mls/hr IV TITR PRN ; Protocol; 0.2 MCG/KG/HR PRN Reason: Agitation Last Admin: 10/10/16 09:46 Dose: 0.77 mcg/kg/hr, 15.71 mls/hr Meropenem 500 mg/ Sodium (Chloride) 100 mls @ 100 mls/hr IVPB Q12H [facility] Vancomycin HCl 750 mg/ Sodium (Chloride) 150 mls @ 100 mls/hr IVPB DAILY [facility] Insulin Aspart (Novolog) 0 unit SC Q6H [facility] PRN Reason: Protocol Last Admin: 10/10/16 12:25 Dose: 6 unit Lorazepam (Ativan) 2 mg IVP Q4H PRN PRN Reason: Anxiety Last Admin: 10/10/16 11:45 Dose: 2 mg Metoprolol Tartrate (Lopressor) 25 mg PO BID [facility] Last Admin: 10/09/16 18:10 Dose: Not Given Simethicone (Mylicon Chew Tab) 80 mg PO BID [facility] Last Admin: 10/10/16 10:21 Dose: Not Given - Labs Labs: 10/10/16 06:16 10/10/16 06:16 PT 27.1 SECONDS (9.7-12.2) H D 10/10/16 06:16 INR 2.3 D 10/10/16 06:16 APTT 36 SECONDS (21-34) H 10/10/16 06:16 Assessment and Plan (1) Pneumonia Status: Acute (2) Abdominal pain Status: Acute (3) CAD (coronary artery disease) Status: Acute (4) HTN (hypertension) Status: Acute (5) Sepsis Status: Acute (6) Severe sepsis Status: Acute
--- NOTE | 2016-10-10 12:55 | CT ---
PROCEDURE: CT Chest without contrast HISTORY: effusions COMPARISON: None. TECHNIQUE: Contiguous axial images were obtained through the chest without intravenous contrast enhancement. Sagittal and coronal reconstructions were performed. Radiation dose (DLP): 876.36 mGy-cm. This CT exam was performed using one or more of the following dose reduction techniques: Automated exposure control, adjustment of the mA and/or kV according to patient size, and/or use of iterative reconstruction technique. FINDINGS: LUNGS: Bilateral lower lobe consolidation which may be due in part to dependent atelectasis adjacent to pleural fluid collections. There is vague diffuse bilateral alveolar opacity with perihilar distribution, right greater than left. This is suggestive of pulmonary edema but is not specific. There is multifocal ill-defined opacities. There is the opacity in the right lung apex, in the anterior left upper lobe, in the anterior right upper lobe. Likely infectious etiology. There is extensive consolidation in the apical posterior segment of the left upper lobe. There is an incidental 3 mm nodule in the right upper lobe (Image 65). MEDIASTINUM: Marked cardiomegaly. CABG. AICD. Aortic valvular prosthesis. . No evidence of thoracic aortic aneurysm. Main pulmonary artery unremarkable. No vascular congestion. There are mildly enlarged mediastinal nodes, nonspecific, in the right peritracheal and prevascular spaces. A right internal jugular central venous catheter is noted terminating at the cavoatrial junction. PLEURA: Bilateral small moderate pleural effusion, right greater than left. Right pleural effusion extends to the lung apex. BONES: No fracture. No destructive lesion. UPPER ABDOMEN: 3.1 cm mid left renal cortical cyst. Kidney is only partially included in this examination. Nasogastric tube extends to the gastric lumen. Visualized liver and spleen unremarkable. Cardiomegaly. Aortic valvular prosthesis. CABG. AICD. OTHER FINDINGS: None. IMPRESSION: Consolidation both lower lobes and posterior left upper lobe. Multifocal small opacities likely infectious. Vague bilateral perihilar alveolar opacity, possibly reflecting congestive heart failure/ pulmonary edema. Small to moderate bilateral pleural effusion, right greater than left.
--- NOTE | 2016-10-10 13:05 | CP.PCM.PN ---
Subjective - Date & Time of Evaluation Date of Evaluation: 10/10/16 Time of Evaluation: 13:02 - Subjective Subjective: CONDITION POOR. INTUBATED. CARDIAC ARREST. RESP FAILURE. SEPSIS. ABN LFTS. Objective - Vital Signs/Intake and Output Vital Signs (last 24 hours): Temp Pulse Resp BP Pulse Ox 98.4 F 100 H 19 122/74 100 10/10/16 12:00 10/10/16 12:21 10/10/16 12:21 10/10/16 12:21 10/10/16 12:21 Intake and Output: 10/10/16 10/10/16 06:59 18:59 Intake Total 1994.0 739.3 Output Total 330 175 Balance 1664.0 564.3 - Medications Medications: Current Medications Acetylcysteine (Acetylcysteine 20%) 4 ml INH RQ6 [facility] Last Admin: 10/10/16 08:10 Dose: 4 ml Albuterol/Ipratropium (Duoneb 3 Mg/0.5 Mg (3 Ml) Ud) 3 ml INH RQ8 [facility] Last Admin: 10/10/16 08:10 Dose: 3 ml Aspirin (Ecotrin) 81 mg PO DAILY [facility] Last Admin: 10/10/16 09:46 Dose: 81 mg Docusate Sodium (Colace) 100 mg PO DAILY [facility] Last Admin: 10/10/16 10:21 Dose: Not Given Famotidine (Pepcid) 20 mg PO DAILY [facility] Last Admin: 10/10/16 09:47 Dose: 20 mg Furosemide (Lasix) 40 mg IVP BID [facility] Last Admin: 10/09/16 18:10 Dose: Not Given Heparin Sodium (Porcine) (Heparin) 5,000 units SC Q12 [facility] Last Admin: 10/10/16 11:18 Dose: Not Given Amiodarone HCl 900 mg/ (Dextrose) 500 mls @ 16.66 mls/hr IV .Q24H ONE; 0.5 MG/ MIN PRN Reason: Protocol Stop: 10/10/16 15:29 Last Admin: 10/09/16 22:11 Dose: 16.66 mls/hr Norepinephrine Bitartrate 4 mg (/ Sodium Chloride) 254 mls @ 15.24 mls/hr IV .[id number] PRN; Protocol; 4 MCG/MIN PRN Reason: TITRATE PER MD ORDER Last Titration: 10/10/16 08:28 Dose: 2 mcg/min, 7.62 mls/hr Dexmedetomidine HCl 200 mcg/ (Sodium Chloride) 50 mls @ 4.08 mls/hr IV TITR PRN ; Protocol; 0.2 MCG/KG/HR PRN Reason: Agitation Last Admin: 10/10/16 12:57 Dose: 0.77 mcg/kg/hr, 15.71 mls/hr Meropenem 500 mg/ Sodium (Chloride) 100 mls @ 100 mls/hr IVPB Q12H [facility] Vancomycin HCl 750 mg/ Sodium (Chloride) 150 mls @ 100 mls/hr IVPB DAILY [facility] Insulin Aspart (Novolog) 0 unit SC Q6H [facility] PRN Reason: Protocol Last Admin: 10/10/16 12:25 Dose: 6 unit Lorazepam (Ativan) 2 mg IVP Q4H PRN PRN Reason: Anxiety Last Admin: 10/10/16 11:45 Dose: 2 mg Metoprolol Tartrate (Lopressor) 25 mg PO BID [facility] Last Admin: 10/09/16 18:10 Dose: Not Given Simethicone (Mylicon Chew Tab) 80 mg PO BID [facility] Last Admin: 10/10/16 10:21 Dose: Not Given - Labs Labs: 10/10/16 06:16 10/10/16 06:16 PT 27.1 SECONDS (9.7-12.2) H D 10/10/16 06:16 INR 2.3 D 10/10/16 06:16 APTT 36 SECONDS (21-34) H 10/10/16 06:16 - Constitutional Appears: Toxic, In Acute Distress, Chronically Ill - Eye Exam Eye Exam: Normal appearance, PERRL - ENT Exam ENT Exam: Normal Exam - Respiratory Exam Respiratory Exam: Decreased Breath Sounds - Cardiovascular Exam Cardiovascular Exam: REGULAR RHYTHM, +S1, +S2 - GI/Abdominal Exam GI & Abdominal Exam: Soft, Normal Bowel Sounds - Extremities Exam Extremities Exam: Pedal Edema (INTUBATED. ON RESPIRATOR.) Assessment and Plan - Assessment and Plan (Free Text) Assessment: ABOVE. Plan: RESP CARE. ICU CARE. CONDITION POOR.
--- NOTE | 2016-10-10 13:11 | CP.PCM.PN ---
Subjective - Date & Time of Evaluation Date of Evaluation: 10/10/16 Time of Evaluation: 13:09 - Subjective Subjective: Surgery: Dr. Acevedo Pt seen and examined. S/P code blue yesterday. Pt currently intubated, on pressors x 1, and on bicarb drip. Objective - Vital Signs/Intake and Output Vital Signs (last 24 hours): Temp Pulse Resp BP Pulse Ox 98.4 F 100 H 19 122/74 100 10/10/16 12:00 10/10/16 12:21 10/10/16 12:21 10/10/16 12:21 10/10/16 12:21 Intake and Output: 10/10/16 10/10/16 06:59 18:59 Intake Total 1994.0 739.3 Output Total 330 175 Balance 1664.0 564.3 - Medications Medications: Current Medications Acetylcysteine (Acetylcysteine 20%) 4 ml INH RQ6 [facility] Last Admin: 10/10/16 08:10 Dose: 4 ml Albuterol/Ipratropium (Duoneb 3 Mg/0.5 Mg (3 Ml) Ud) 3 ml INH RQ8 [facility] Last Admin: 10/10/16 08:10 Dose: 3 ml Aspirin (Ecotrin) 81 mg PO DAILY [facility] Last Admin: 10/10/16 09:46 Dose: 81 mg Docusate Sodium (Colace) 100 mg PO DAILY [facility] Last Admin: 10/10/16 10:21 Dose: Not Given Famotidine (Pepcid) 20 mg PO DAILY [facility] Last Admin: 10/10/16 09:47 Dose: 20 mg Furosemide (Lasix) 40 mg IVP BID [facility] Last Admin: 10/09/16 18:10 Dose: Not Given Heparin Sodium (Porcine) (Heparin) 5,000 units SC Q12 [facility] Last Admin: 10/10/16 11:18 Dose: Not Given Amiodarone HCl 900 mg/ (Dextrose) 500 mls @ 16.66 mls/hr IV .Q24H ONE; 0.5 MG/ MIN PRN Reason: Protocol Stop: 10/10/16 15:29 Last Admin: 10/09/16 22:11 Dose: 16.66 mls/hr Norepinephrine Bitartrate 4 mg (/ Sodium Chloride) 254 mls @ 15.24 mls/hr IV .[id number] PRN; Protocol; 4 MCG/MIN PRN Reason: TITRATE PER MD ORDER Last Titration: 10/10/16 08:28 Dose: 2 mcg/min, 7.62 mls/hr Dexmedetomidine HCl 200 mcg/ (Sodium Chloride) 50 mls @ 4.08 mls/hr IV TITR PRN ; Protocol; 0.2 MCG/KG/HR PRN Reason: Agitation Last Admin: 10/10/16 12:57 Dose: 0.77 mcg/kg/hr, 15.71 mls/hr Meropenem 500 mg/ Sodium (Chloride) 100 mls @ 100 mls/hr IVPB Q12H [facility] Vancomycin HCl 750 mg/ Sodium (Chloride) 150 mls @ 100 mls/hr IVPB DAILY [facility] Insulin Aspart (Novolog) 0 unit SC Q6H [facility] PRN Reason: Protocol Last Admin: 10/10/16 12:25 Dose: 6 unit Lorazepam (Ativan) 2 mg IVP Q4H PRN PRN Reason: Anxiety Last Admin: 10/10/16 11:45 Dose: 2 mg Metoprolol Tartrate (Lopressor) 25 mg PO BID [facility] Last Admin: 10/09/16 18:10 Dose: Not Given Simethicone (Mylicon Chew Tab) 80 mg PO BID [facility] Last Admin: 10/10/16 10:21 Dose: Not Given - Labs Labs: 10/10/16 06:16 10/10/16 06:16 PT 27.1 SECONDS (9.7-12.2) H D 10/10/16 06:16 INR 2.3 D 10/10/16 06:16 APTT 36 SECONDS (21-34) H 10/10/16 06:16 - Constitutional Appears: Non-toxic, No Acute Distress - Head Exam Head Exam: ATRAUMATIC, NORMOCEPHALIC - Eye Exam Eye Exam: EOMI - ENT Exam ENT Exam: Mucous Membranes Moist - Neck Exam Neck Exam: Full ROM - Respiratory Exam Respiratory Exam: NORMAL BREATHING PATTERN. absent: Accessory Muscle Use, Respiratory Distress - GI/Abdominal Exam GI & Abdominal Exam: Soft. absent: Distended, Firm, Guarding, Rigid, Tenderness , Rebound Additional comments: R side cholecystostomy tube - Extremities Exam Extremities Exam: absent: Calf Tenderness, Pedal Edema - Neurological Exam Neurological Exam: absent: Alert, Awake, Oriented x3 Assessment and Plan - Assessment and Plan (Free Text) Assessment: 86M w. sepsis s/p cardiac arrest w. worsening transaminitis -recommend cholangiogram via cholecystostomy tube when pt more stable -c/w current medical management -poor prognosis -d/w attending Giovanni PGY2
[2016-10-10] MEDS: levETIRAcetam 500 MG in Sodium Chloride 0.9% 100 ML IVPB SCH (15:41)
--- NOTE | 2016-10-10 17:10 | CP.PCM.CON ---
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 CONSULTED FOR SEIZURE LIKE MOVEMENTS. HIS B/P SYSTOLICALLY AND DIASTOLICALLY LOW. CURRENTLY ON KEPPRA 500 Q12 [address] HEAD SHOWED NO ACUTE INTRACRANIAL ABNORMALITY. NO SPONTANEOUS MOVEMENTS OF EXTREMITIES. MINIMAL MOVEMENT TO NOXIOUS STIMULUS. BRAINSTEM REFLEX ARE INTACT ROS: 14 POINT REVIEW OF SYMPTOMS IS DIFFICULT TO TELL DUE TO PRESENT MEDICAL CONDITION. ALLERGIES: UNKNOWN SOCIAL HISTORY: NO ILLICIT DRUG USE, SMOKING, OR ETOH USE. FAMILY: NON CONTRIBUTORY. MEDICATIONS: REVIEWED BY NURSE'S RECONCILIATION SHEET. PAST MEDICAL HISTORY: CHF, HTN, DM, CAD S/P CABG PHYSICAL EXAM: VITAL SIGNS: REVIEWED BY THE CHART GENERAL EXAM: PATIENT SEEN IN BED, IN NO ACUTE DISTRESS OFF SEDATION HEENT: PERRLA, EOMI, NECK SUPPLE, NO JVD, NO ADENOPATHY CVS: S1, S2, RRR, NO MURMURS NOTED LUNGS: DECREASED BREATH SOUNDS B/L ABDOMEN: SOFT AND NONTENDER EXTREMITIES: NO CLUBBING OR CYANOSIS. PP 2+ B/L NEURO: PT IS COMATOSED SPEECH IS DIFFICULT TO ASSESS AT THIS TIME BRAINSTEM REFLEXES INTACT MOTOR EXAM: NORMAL TONE, NORMAL BULK OF MUSCLE, NO SPONTANEOUS MOVEMENTS OF THE EXTREMITIES SENSORY EXAM: WITHDRAWS MINIMALLY TO NOXIOUS STIMULI DEEP TENDON REFLEXES: 2+ THROUGHOUT EXCEPT 1 AT THE ANKLES. COORDINATION:DEFERRED FOR NOW GAIT: DEFERRED FOR NOW. LABS: REVIEWED BY THE CHART. ASSESSMENT AND PLAN: 86 YEAR OLD MAN W/ PMH OF HTN, HLD, CHF, DM, CAD S/P CABG WAS BROUGHT TO [facility] FROM [facility] WITH ALTERED MENTAL STATUS, HYPOTENSION, AND INCREASED SERUM LACTATE AND WAS FOUND TO BE IN SEPSIS WITH PNEUMONIA, AND MRSA IN SPUTUM S/P CARDIAC WITH ROSC. CONSULTED FOR SEIZURE LIKE MOVEMENTS. HIS B/P SYSTOLICALLY AND DIASTOLICALLY LOW. CURRENTLY ON KEPPRA 500 Q12 FOR [address]. CT HEAD SHOWED NO ACUTE INTRACRANIAL ABNORMALITY. NO SPONTANEOUS MOVEMENTS OF EXTREMITIES. MINIMAL MOVEMENT TO NOXIOUS STIMULUS. 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 2 . CONTINUE WITH KEPPRA 500 IV Q12 FOR SEIZURE PROPHYLAXIS. 3. EEG 4. REPEAT CT SCAN IN 24 HOURS OF HEAD. 5. PROGNOSIS IS GUARDED, CONTINUE WITH ICU MANAGEMENT. THANK YOU PLEASE RECONSULT NECESSARY. Kristina DYKES MD Past Patient History - Past Medical History & Family History Past Medical History?: Yes - Past Social History Smoking Status: Never Smoked - CARDIAC Hx Congestive Heart Failure: Yes Hx Hypertension: Yes - PULMONARY Hx Respiratory Disorders: No - NEUROLOGICAL Hx Neurological Disorder: No - HEENT Hx HEENT Problems: No - RENAL Hx Chronic Kidney Disease: Yes - ENDOCRINE/METABOLIC Hx Diabetes Mellitus Type 1: Yes - HEMATOLOGICAL/ONCOLOGICAL Hx Blood Disorders: No - INTEGUMENTARY Hx Dermatological Problems: No - MUSCULOSKELETAL/RHEUMATOLOGICAL Hx Musculoskeletal Disorders: No Hx Falls: No - GASTROINTESTINAL Hx Gastrointestinal Disorders: No - GENITOURINARY/GYNECOLOGICAL Hx Genitourinary Disorders: No - PSYCHIATRIC Hx Substance Use: No - SURGICAL HISTORY Hx Coronary Artery Bypass Graft: Yes - ANESTHESIA Hx Anesthesia: Yes Hx Anesthesia Reactions: No Hx Malignant Hyperthermia: No Has any member of the family had a problem w/ anesthesia?: No Meds Allergies/Adverse Reactions: Allergies Allergy/AdvReac Type Severity Reaction Status Date / Time No Known Allergies Allergy Unverified 10/05/16 22:02 - Medications Medications: Current Medications Acetylcysteine (Acetylcysteine 20%) 4 ml INH RQ6 [facility] Last Admin: 10/10/16 16:17 Dose: 4 ml Albuterol/Ipratropium (Duoneb 3 Mg/0.5 Mg (3 Ml) Ud) 3 ml INH RQ8 [facility] Last Admin: 10/10/16 16:16 Dose: 3 ml Aspirin (Ecotrin) 81 mg PO DAILY [facility] Last Admin: 10/10/16 09:46 Dose: 81 mg Docusate Sodium (Colace) 100 mg PO DAILY [facility] Last Admin: 10/10/16 10:21 Dose: Not Given Famotidine (Pepcid) 20 mg PO DAILY [facility] Last Admin: 10/10/16 09:47 Dose: 20 mg Furosemide (Lasix) 40 mg IVP BID [facility] Last Admin: 10/09/16 18:10 Dose: Not Given Heparin Sodium (Porcine) (Heparin) 5,000 units SC Q12 [facility] Last Admin: 10/10/16 11:18 Dose: Not Given Norepinephrine Bitartrate 4 mg (/ Sodium Chloride) 254 mls @ 15.24 mls/hr IV .[id number] PRN; Protocol; 4 MCG/MIN PRN Reason: TITRATE PER MD ORDER Last Titration: 10/10/16 08:28 Dose: 2 mcg/min, 7.62 mls/hr Dexmedetomidine HCl 200 mcg/ (Sodium Chloride) 50 mls @ 4.08 mls/hr IV TITR PRN ; Protocol; 0.2 MCG/KG/HR PRN Reason: Agitation Last Admin: 10/10/16 16:25 Dose: 0.77 mcg/kg/hr, 15.71 mls/hr Meropenem 500 mg/ Sodium (Chloride) 100 mls @ 100 mls/hr IVPB Q12H [facility] Vancomycin HCl 750 mg/ Sodium (Chloride) 150 mls @ 100 mls/hr IVPB DAILY [facility] Levetiracetam 500 mg/ Sodium (Chloride) 105 mls @ 420 mls/hr IVPB Q12H [facility] Last Admin: 10/10/16 15:41 Dose: 420 mls/hr Insulin Aspart (Novolog) 0 unit SC Q6H [facility] PRN Reason: Protocol Last Admin: 10/10/16 12:25 Dose: 6 unit Lorazepam (Ativan) 2 mg IVP Q4H PRN PRN Reason: Anxiety Last Admin: 10/10/16 11:45 Dose: 2 mg Metoprolol Tartrate (Lopressor) 25 mg PO BID [facility] Last Admin: 10/09/16 18:10 Dose: Not Given Simethicone (Mylicon Chew Tab) 80 mg PO BID [facility] Last Admin: 10/10/16 10:21 Dose: Not Given Thiamine HCl (Vitamin B1 Inj) 100 mg IV Q8H [facility] Results - Vital Signs Recent Vital Signs: Last Vital Signs Temp 98.4 F 10/10/16 12:00 Pulse 120 H 10/10/16 15:03 Resp 14 10/10/16 15:03 BP 107/66 10/10/16 15:03 Pulse Ox 100 10/10/16 15:03 - Labs Result Diagrams: 10/10/16 06:16 10/10/16 06:16 Labs: Laboratory Results - last 24 hr 0610/09/16 10/09/16 06:00 17:52 23:50 WBC RBC Hgb Hct MCV MCH MCHC RDW Plt Count MPV Neut % (Auto) Lymph % (Auto) [place] % (Auto) Eos % (Auto) Baso % (Auto) Neut # Lymph # [place] # Eos # Baso # PT INR APTT Puncture Site pCO2 pO2 HCO3 ABG pH ABG Total CO2 ABG O2 Saturation ABG Base Excess ABG Hemoglobin ABG Carboxyhemoglobin POC ABG HHb (Measured) ABG Methemoglobin Julius Test A-a O2 Difference Respiratory Index Hgb O2 Saturation Mechanical Rate FiO2 Tidal Volume PEEP Sodium Potassium Chloride Carbon Dioxide Anion Gap BUN Creatinine Est GFR ( Amer) Est GFR (Non-Af Amer) POC Glucose (mg/dL) 134 H 197 H Random Glucose Calcium Phosphorus Magnesium Total Bilirubin AST ALT Alkaline Phosphatase Total Protein Albumin Globulin Albumin/Globulin Ratio Prolactin Random Vancomycin Infectious [place] Assay Ur L.pneumophila Ag Negative 10/10/16 10/10/16 10/10/16 04:15 06:16 06:16 WBC 9.2 RBC 2.99 L Hgb 8.6 L Hct 27.1 L MCV 90.7 MCH 28.9 MCHC 31.9 L RDW 17.0 H Plt Count 74 L D MPV 11.0 Neut % (Auto) 83.1 H Lymph % (Auto) 10.1 L [place] % (Auto) 3.7 Eos % (Auto) 2.7 Baso % (Auto) 0.4 Neut # 7.7 H Lymph # 0.9 L [place] # 0.3 Eos # 0.2 Baso # 0.0 PT INR APTT Puncture Site Rr pCO2 41 pO2 139 H HCO3 20.4 L ABG pH 7.30 L ABG Total CO2 21.5 L ABG O2 Saturation 100.0 H ABG Base Excess -5.8 L ABG Hemoglobin 8.6 L ABG Carboxyhemoglobin 1.7 H POC ABG HHb (Measured) 0.0 ABG Methemoglobin 0.7 Julius Test Pos A-a O2 Difference 523.0 Respiratory Index 3.8 Hgb O2 Saturation 97.6 Mechanical Rate 18 FiO2 100.0 Tidal Volume 500 PEEP 5 Sodium 139 Potassium 6.0 H Chloride 106 Carbon Dioxide 23 Anion Gap 16 BUN 76 H Creatinine 4.2 H Est GFR ( Amer) 16 Est GFR (Non-Af Amer) 14 POC Glucose (mg/dL) Random Glucose 213 H Calcium 7.9 L Phosphorus 6.4 H Magnesium 2.0 Total Bilirubin 4.7 H AST 3950 H ALT 2494 H Alkaline Phosphatase 110 Total Protein 5.8 L Albumin 2.3 L Globulin 3.4 Albumin/Globulin Ratio 0.7 L Prolactin Random Vancomycin Infectious [place] Assay Ur L.pneumophila Ag 10/10/16 10/10/16 10/10/16 06:16 06:18 06:25 WBC RBC Hgb Hct MCV MCH MCHC RDW Plt Count MPV Neut % (Auto) Lymph % (Auto) [place] % (Auto) Eos % (Auto) Baso % (Auto) Neut # Lymph # [place] # Eos # Baso # PT 27.1 H D INR 2.3 D APTT 36 H Puncture Site pCO2 pO2 HCO3 ABG pH ABG Total CO2 ABG O2 Saturation ABG Base Excess ABG Hemoglobin ABG Carboxyhemoglobin POC ABG HHb (Measured) ABG Methemoglobin Julius Test A-a O2 Difference Respiratory Index Hgb O2 Saturation Mechanical Rate FiO2 Tidal Volume PEEP Sodium Potassium Chloride Carbon Dioxide Anion Gap BUN Creatinine Est GFR ( Amer) Est GFR (Non-Af Amer) POC Glucose (mg/dL) 211 H Random Glucose Calcium Phosphorus Magnesium Total Bilirubin AST ALT Alkaline Phosphatase Total Protein Albumin Globulin Albumin/Globulin Ratio Prolactin Random Vancomycin 30.47 Infectious [place] Assay Ur L.pneumophila Ag 10/10/16 10/10/16 10/10/16 11:34 12:20 15:17 WBC RBC Hgb Hct MCV MCH MCHC RDW Plt Count MPV Neut % (Auto) Lymph % (Auto) [place] % (Auto) Eos % (Auto) Baso % (Auto) Neut # Lymph # [place] # Eos # Baso # PT INR APTT Puncture Site pCO2 pO2 HCO3 ABG pH ABG Total CO2 ABG O2 Saturation ABG Base Excess ABG Hemoglobin ABG Carboxyhemoglobin POC ABG HHb (Measured) ABG Methemoglobin Julius Test A-a O2 Difference Respiratory Index Hgb O2 Saturation Mechanical Rate FiO2 Tidal Volume PEEP Sodium Potassium Chloride Carbon Dioxide Anion Gap BUN Creatinine Est GFR ( Amer) Est GFR (Non-Af Amer) POC Glucose (mg/dL) 259 H Random Glucose Calcium Phosphorus Magnesium Total Bilirubin AST ALT Alkaline Phosphatase Total Protein Albumin Globulin Albumin/Globulin Ratio Prolactin 44.7 H Random Vancomycin Infectious [place] Assay Negative Ur L.pneumophila Ag
[2016-10-10] MEDS: Thiamine 100 mg/ml Inj IV SCH (18:38)
[2016-10-10] MEDS ORDERED: SODIUM BICARBONATE IV SCH (19:45)
[2016-10-10] MEDS ORDERED: [UNRECOGNIZED DRUG - OTHER] IV SCH (19:45)
[2016-10-10] MEDS ORDERED: DEXTROSE IV SCH (19:45)
[2016-10-11] MEDS: Acetylcysteine 20% Inhal Soln (4ml) INH SCH ×4 (01:35→19:53)
[2016-10-11] MEDS: levETIRAcetam 500 MG in Sodium Chloride 0.9% 100 ML IVPB SCH (02:43)
[2016-10-11] MEDS: Dexmedetomidine Hydrochloride 200 MCG in Sodium Chloride 0.9% 48 ML IV PRN ×3 (03:32→12:58)
[2016-10-11 04:46] LABS: ARTERIAL BLOOD GAS HCO3 26.2 mmol/L (21-28); ARTERIAL BLOOD GAS HEMOGLOBIN 14.8 g/dL (11.7-17.4); ARTERIAL BLOOD GAS O2 SAT 99.8 % (95-98); ARTERIAL BLOOD GAS PCO2 39 mm/Hg (35-45); ARTERIAL BLOOD GAS PH 7.43 (7.35-7.45); ARTERIAL BLOOD GAS PO2 203 mm/Hg (80-100); ARTERIAL BLOOD GAS TCO2 27.1 mmol/L (22-28)
[2016-10-11] MEDS: Meropenem 500 MG in Sodium Chloride 0.9% 100 ML IVPB SCH ×2 (05:12→19:47)
[2016-10-11] MEDS: (Novolog) Insulin Aspart, Recombinant 100 u/ml 10 ml vial SC SCH ×3 (05:38→18:21)
[2016-10-11 06:16] LABS: INR 2.7
[2016-10-11 06:22] LABS: BASO % 0.3 % (0.0-2.0); EOS # 0.3 K/uL (0.0-0.7); EOS % 5.1 % (0.0-4.0); HEMOGLOBIN 9.1 g/dL (12.0-18.0); LYMPH # 0.5 K/uL (1.0-4.3); LYMPH % 6.8 % (20.0-40.0); MEAN CELL VOLUME 93.3 fL (80.0-94.0); MEAN CORPUSCULAR HEMOGLOBIN 30.6 pg (27.0-31.0); MEAN CORPUSCULAR HGB CONC 32.8 g/dL (33.0-37.0); MEAN PLATELET VOLUME 11.7 fL (7.2-11.7); MONO # 0.3 K/uL (0.0-0.8); MONO % 4.2 % (0.0-10.0); NEUT # 5.5 K/uL (1.8-7.0); NEUT % 83.6 % (50.0-75.0); NRBC % 9.8 % (0.0-2.0); PLATELET COUNT 67 K/uL (130-400); RBC 2.96 Mil/uL (4.40-5.90); WHITE BLOOD COUNT 6.6 K/uL (4.8-10.8)
[2016-10-11 06:27] LABS: ALBUMIN 2.2 g/dL (3.5-5.0)
[2016-10-11 06:30] LABS: ALB/GLOB RATIO 0.6 (1.0-2.1)
[2016-10-11 06:31] LABS: CALCIUM 8.1 mg/dl (8.6-10.4); MAGNESIUM 2.1 mg/dL (1.6-2.3)
--- NOTE | 2016-10-11 07:35 | CP.CCUPN ---
<Mary Ventura - Last Filed: 10/11/16 15:34> CCU Subjective - Physician Review Subjective (Free Text): 10/11/16 15:34 Patient seen and examined at beside. Intubated on vent (18, 100%, 500, 5). Minimal secretions. No acute events overnight and patient was afebrile overnight BP and HR have been labile all day Not on any sedation. Feeds on hold. Patient on Levophed gtt, Norepinephrine gtt, and Epinephrine gtt ROS unobtainable. CCU Objective - Vital Signs / Intake & Output Vital Signs (Last 4 hours): Vital Signs Temp Pulse Resp BP Pulse Ox 10/11/16 07:03 135 H 30 H 108/65 100 10/11/16 07:00 136 H 19 100 10/11/16 06:03 133 H 23 113/69 100 10/11/16 06:00 133 H 22 100 10/11/16 05:23 129 H 26 H 106/67 100 10/11/16 05:15 127 H 23 85/55 L 100 10/11/16 05:03 125 H 19 80/51 L 10/11/16 05:00 126 H 32 H 10/11/16 04:03 128 H 19 97/63 L 100 10/11/16 04:00 98 F 129 H 22 100 Intake and Output (Last 8hrs): Intake & Output 10/10/16 10/11/16 10/11/16 22:59 06:59 14:59 Intake Total 902.7 1185.9 115.9 Output Total 320 350 40 Balance 582.7 835.9 75.9 Intake: IV 100 100 Intake, IV Amount 587.7 775.9 65.9 Left Antecubital 200 Right Distal Port 127.2 127.2 15.9 Internal Jugular Right Medial Port 60.5 48.7 Right Proximal Port 400 400 50 Internal Jugular Tube Feeding 215 310 50 Output: Drainage 0 40 Right Medial Abdomen 0 40 Urine 320 350 Urethral (Quijano) 320 350 Other: # Bowel Movements 0 - Physical Exam Head: Positive for: Atraumatic, Normocephalic Pupils: Positive for: PERRL. Negative for: Sluggish, Non-Reactive Conjunctiva: Positive for: Normal. Negative for: Injected, Icteric Mouth: Positive for: Dry, Other (ET tube in place- minimal secretions) Neck: Positive for: Trachea Midline. Negative for: Meningeal Signs, MIDLINE TENDERNESS, Paraspinal Tenderness, JVD, Lymphadenopathy, Bruit, Other Respiratory/Chest: Positive for: Wheezes (b/l), Rales (b/l), Other (intubated on vent). Negative for: Clear to Auscultation, Respiratory Distress, Accessory Muscle Use, Decreased Breath Sounds, Retracting, Rhonchi Cardiovascular: Positive for: Normal S1, S2, Tachycardic, Other (HR labile all day). Negative for: Murmurs, Irregular Rhythm Abdomen: Positive for: Distention, Other (cholecystostomy tube in place) Upper Extremity: Positive for: NORMAL PULSES. Negative for: Cyanosis Lower Extremity: Positive for: Normal Inspection, Edema (+1b/l), NORMAL PULSES, Capillary Refill < 2 s. Negative for: CALF TENDERNESS Neurological: Negative for: Speech Normal Skin: Positive for: Warm, Dry, Normal Color Psychiatric: Positive for: Other (intubated on vent). Negative for: Alert, Oriented x 3, Normal Insight, Normal Concentration - Medications Active Medications: Active Medications Generic Name Dose Route Start Last Admin Trade Name Freq PRN Reason Stop Dose Admin Acetylcysteine 4 ml 10/06/16 14:00 10/11/16 01:35 Acetylcysteine 20% INH Not Given RQ6 CHERY Albuterol/Ipratropium 3 ml 10/08/16 08:15 10/10/16 23:50 Duoneb 3 Mg/0.5 Mg (3 Ml) Ud INH 3 ml RQ8 CHERY Administration Aspirin 81 mg 10/07/16 10:15 10/10/16 09:46 Ecotrin PO 81 mg DAILY CHERY Administration Docusate Sodium 100 mg 10/09/16 14:15 10/10/16 10:21 Colace PO Not Given DAILY CHERY Famotidine 20 mg 10/07/16 10:15 10/10/16 09:47 Pepcid PO 20 mg DAILY CHERY Administration Furosemide 40 mg 10/09/16 18:00 10/09/16 18:10 Lasix IVP Not Given BID CHERY Heparin Sodium (Porcine) 5,000 units 10/06/16 10:30 10/10/16 11:18 Heparin SC Not Given Q12 CHERY Norepinephrine Bitartrate 4 mg 254 mls @ 15.24 mls/hr 10/09/16 14:32 00:45 / Sodium Chloride IV 1.46 mcg/min .[id number] PRN 5.6 mls/hr TITRATE PER MD ORDER Titration Protocol 4 MCG/MIN Dexmedetomidine HCl 200 mcg/ 50 mls @ 4.08 mls/hr 10/09/16 16:28 10/11/16 03: 32 Sodium Chloride IV 0.77 mcg/kg/hr TITR PRN 15.9 mls/hr Agitation Administration Protocol 0.2 MCG/KG/HR Meropenem 500 mg/ Sodium 100 mls @ 100 mls/hr 10/10/16 18:00 10/11/16 05:12 Chloride IVPB 100 mls/hr Q12H CHERY Administration Vancomycin HCl 750 mg/ Sodium 150 mls @ 100 mls/hr 10/11/16 10:00 Chloride IVPB DAILY CHERY Levetiracetam 500 mg/ Sodium 105 mls @ 420 mls/hr 10/10/16 15:00 10/11/16 02: 43 Chloride IVPB 420 mls/hr Q12H CHERY Administration Sodium Bicarbonate 200 meq/ 1,200 mls @ 50 mls/hr 10/10/16 19:45 Dextrose/Sodium Chloride IV .Q24H CHERY Insulin Aspart 0 unit 10/09/16 18:00 10/11/16 05:38 Novolog SC 4 unit Q6H CHERY Administration Protocol Lorazepam 2 mg 10/09/16 15:25 10/10/16 11:45 Ativan IVP 2 mg Q4H PRN Administration Anxiety Metoprolol Tartrate 25 mg 10/08/16 10:00 10/09/16 18:10 Lopressor PO Not Given BID CHERY Simethicone 80 mg 10/09/16 18:00 10/10/16 18:25 Mylicon Chew Tab PO Not Given BID CHERY Thiamine HCl 100 mg 10/10/16 16:30 10/10/16 18:38 Vitamin B1 Inj IV 100 mg Q8H CHERY Administration - Patient Studies Lab Studies: Microbiology Studies 10/09/16 04:00 Blood Culture - Preliminary Blood-Venous NO GROWTH AFTER 24 HOURS 10/09/16 04:00 Blood Culture - Preliminary Blood-Venous NO GROWTH AFTER 24 HOURS Lab Studies 10/11/16 10/11/16 10/11/16 Range/Units 06:03 06:03 06:03 WBC 6.6 (4.8-10.8) K/uL RBC 2.96 L (4.40-5.90) Mil/uL Hgb 9.1 L (12.0-18.0) g/dL Hct 27.6 L (35.0-51.0) % MCV 93.3 D (80.0-94.0) fL MCH 30.6 (27.0-31.0) pg MCHC 32.8 L (33.0-37.0) g/dL RDW 17.0 H (11.5-14.5) % Plt Count 67 L (130-400) K/uL MPV 11.7 (7.2-11.7) fL Neut % (Auto) 83.6 H (50.0-75.0) % Lymph % (Auto) 6.8 L (20.0-40.0) % [place] % (Auto) 4.2 (0.0-10.0) % Eos % (Auto) 5.1 H (0.0-4.0) % Baso % (Auto) 0.3 (0.0-2.0) % Neut # 5.5 (1.8-7.0) K/uL Lymph # 0.5 L (1.0-4.3) K/uL [place] # 0.3 (0.0-0.8) K/uL Eos # 0.3 (0.0-0.7) K/uL Baso # 0.0 (0.0-0.2) K/uL PT 31.0 H* (9.7-12.2) SECONDS INR 2.7 APTT 38 H (21-34) SECONDS Puncture Site pCO2 (35-45) mm/Hg pO2 (80-100) mm/Hg HCO3 (21-28) mmol/L ABG pH (7.35-7.45) ABG Total CO2 (22-28) mmol/L ABG O2 Saturation (95-98) % ABG Base Excess (-2.0-3.0) mmol/L ABG Hemoglobin (11.7-17.4) g/dL ABG Carboxyhemoglobin (0.5-1.5) % POC ABG HHb (Measured) (0.0-5.0) % ABG Methemoglobin (0.0-3.0) % Julius Test A-a O2 Difference mm/Hg Respiratory Index Hgb O2 Saturation (95.0-98.0) % Mechanical Rate FiO2 % Tidal Volume PEEP Sodium 145 (132-148) mmol/L Potassium 5.1 (3.6-5.2) mmol/L Chloride 107 (98-107) mmol/L Carbon Dioxide 27 (22-30) mmol/L Anion Gap 16 (10-20) BUN 76 H (9-20) mg/dL Creatinine 3.9 H (0.8-1.5) MG/DL Est GFR ( Amer) 18 Est GFR (Non-Af Amer) 15 POC Glucose (mg/dL) (65-110) mg/dL Random Glucose 205 H (75-110) mg/dL Calcium 8.1 L (8.6-10.4) mg/dl Phosphorus 4.2 (2.5-4.5) mg/dL Magnesium 2.1 (1.6-2.3) mg/dL Total Bilirubin 5.6 H (0.2-1.3) mg/dL AST 1393 H (17-59) U/L ALT 1814 H (21-72) U/L Alkaline Phosphatase 132 H (38-126) U/L Total Protein 5.7 L (6.3-8.3) g/dL Albumin 2.2 L (3.5-5.0) g/dL Globulin 3.5 (2.2-3.9) gm/dL Albumin/Globulin Ratio 0.6 L (1.0-2.1) Prolactin (3.7-17.9) ng/mL Random Vancomycin ug/mL Infectious [place] Assay (NEGATIVE) Ur L.pneumophila Ag (NEGATIVE) 10/11/16 10/11/16 10/11/16 Range/Units 06:03 05:25 04:35 WBC (4.8-10.8) K/uL RBC (4.40-5.90) Mil/uL Hgb (12.0-18.0) g/dL Hct (35.0-51.0) % MCV (80.0-94.0) fL MCH (27.0-31.0) pg MCHC (33.0-37.0) g/dL RDW (11.5-14.5) % Plt Count (130-400) K/uL MPV (7.2-11.7) fL Neut % (Auto) (50.0-75.0) % Lymph % (Auto) (20.0-40.0) % [place] % (Auto) (0.0-10.0) % Eos % (Auto) (0.0-4.0) % Baso % (Auto) (0.0-2.0) % Neut # (1.8-7.0) K/uL Lymph # (1.0-4.3) K/uL [place] # (0.0-0.8) K/uL Eos # (0.0-0.7) K/uL Baso # (0.0-0.2) K/uL PT (9.7-12.2) SECONDS INR APTT (21-34) SECONDS Puncture Site Lb pCO2 39 (35-45) mm/Hg pO2 203 H (80-100) mm/Hg HCO3 26.2 (21-28) mmol/L ABG pH 7.43 (7.35-7.45) ABG Total CO2 27.1 (22-28) mmol/L ABG O2 Saturation 99.8 H (95-98) % ABG Base Excess 1.6 (-2.0-3.0) mmol/L ABG Hemoglobin 14.8 (11.7-17.4) g/dL ABG Carboxyhemoglobin 1.4 (0.5-1.5) % POC ABG HHb (Measured) 0.2 (0.0-5.0) % ABG Methemoglobin 1.2 (0.0-3.0) % Julius Test Na A-a O2 Difference 461.0 mm/Hg Respiratory Index 2.3 Hgb O2 Saturation 97.2 (95.0-98.0) % Mechanical Rate 18 FiO2 100.0 % Tidal Volume 500 PEEP 5 Sodium (132-148) mmol/L Potassium (3.6-5.2) mmol/L Chloride (98-107) mmol/L Carbon Dioxide (22-30) mmol/L Anion Gap (10-20) BUN (9-20) mg/dL Creatinine (0.8-1.5) MG/DL Est GFR ( Amer) Est GFR (Non-Af Amer) POC Glucose (mg/dL) 238 H (65-110) mg/dL Random Glucose (75-110) mg/dL Calcium (8.6-10.4) mg/dl Phosphorus (2.5-4.5) mg/dL Magnesium (1.6-2.3) mg/dL Total Bilirubin (0.2-1.3) mg/dL AST (17-59) U/L ALT (21-72) U/L Alkaline Phosphatase (38-126) U/L Total Protein (6.3-8.3) g/dL Albumin (3.5-5.0) g/dL Globulin (2.2-3.9) gm/dL Albumin/Globulin Ratio (1.0-2.1) Prolactin (3.7-17.9) ng/mL Random Vancomycin 24.20 ug/mL Infectious [place] Assay (NEGATIVE) Ur L.pneumophila Ag (NEGATIVE) 10/10/16 10/10/16 10/10/16 Range/Units 23:24 17:53 15:17 WBC (4.8-10.8) K/uL RBC (4.40-5.90) Mil/uL Hgb (12.0-18.0) g/dL Hct (35.0-51.0) % MCV (80.0-94.0) fL MCH (27.0-31.0) pg MCHC (33.0-37.0) g/dL RDW (11.5-14.5) % Plt Count (130-400) K/uL MPV (7.2-11.7) fL Neut % (Auto) (50.0-75.0) % Lymph % (Auto) (20.0-40.0) % [place] % (Auto) (0.0-10.0) % Eos % (Auto) (0.0-4.0) % Baso % (Auto) (0.0-2.0) % Neut # (1.8-7.0) K/uL Lymph # (1.0-4.3) K/uL [place] # (0.0-0.8) K/uL Eos # (0.0-0.7) K/uL Baso # (0.0-0.2) K/uL PT (9.7-12.2) SECONDS INR APTT (21-34) SECONDS Puncture Site pCO2 (35-45) mm/Hg pO2 (80-100) mm/Hg HCO3 (21-28) mmol/L ABG pH (7.35-7.45) ABG Total CO2 (22-28) mmol/L ABG O2 Saturation (95-98) % ABG Base Excess (-2.0-3.0) mmol/L ABG Hemoglobin (11.7-17.4) g/dL ABG Carboxyhemoglobin (0.5-1.5) % POC ABG HHb (Measured) (0.0-5.0) % ABG Methemoglobin (0.0-3.0) % Julius Test A-a O2 Difference mm/Hg Respiratory Index Hgb O2 Saturation (95.0-98.0) % Mechanical Rate FiO2 % Tidal Volume PEEP Sodium (132-148) mmol/L Potassium (3.6-5.2) mmol/L Chloride (98-107) mmol/L Carbon Dioxide (22-30) mmol/L Anion Gap (10-20) BUN (9-20) mg/dL Creatinine (0.8-1.5) MG/DL Est GFR ( Amer) Est GFR (Non-Af Amer) POC Glucose (mg/dL) 220 H 162 H (65-110) mg/dL Random Glucose (75-110) mg/dL Calcium (8.6-10.4) mg/dl Phosphorus (2.5-4.5) mg/dL Magnesium (1.6-2.3) mg/dL Total Bilirubin (0.2-1.3) mg/dL AST (17-59) U/L ALT (21-72) U/L Alkaline Phosphatase (38-126) U/L Total Protein (6.3-8.3) g/dL Albumin (3.5-5.0) g/dL Globulin (2.2-3.9) gm/dL Albumin/Globulin Ratio (1.0-2.1) Prolactin 44.7 H (3.7-17.9) ng/mL Random Vancomycin ug/mL Infectious [place] Assay (NEGATIVE) Ur L.pneumophila Ag (NEGATIVE) 10/10/16 10/10/16 10/07/16 Range/Units 12:20 11:34 06:00 WBC (4.8-10.8) K/uL RBC (4.40-5.90) Mil/uL Hgb (12.0-18.0) g/dL Hct (35.0-51.0) % MCV (80.0-94.0) fL MCH (27.0-31.0) pg MCHC (33.0-37.0) g/dL RDW (11.5-14.5) % Plt Count (130-400) K/uL MPV (7.2-11.7) fL Neut % (Auto) (50.0-75.0) % Lymph % (Auto) (20.0-40.0) % [place] % (Auto) (0.0-10.0) % Eos % (Auto) (0.0-4.0) % Baso % (Auto) (0.0-2.0) % Neut # (1.8-7.0) K/uL Lymph # (1.0-4.3) K/uL [place] # (0.0-0.8) K/uL Eos # (0.0-0.7) K/uL Baso # (0.0-0.2) K/uL PT (9.7-12.2) SECONDS INR APTT (21-34) SECONDS Puncture Site pCO2 (35-45) mm/Hg pO2 (80-100) mm/Hg HCO3 (21-28) mmol/L ABG pH (7.35-7.45) ABG Total CO2 (22-28) mmol/L ABG O2 Saturation (95-98) % ABG Base Excess (-2.0-3.0) mmol/L ABG Hemoglobin (11.7-17.4) g/dL ABG Carboxyhemoglobin (0.5-1.5) % POC ABG HHb (Measured) (0.0-5.0) % ABG Methemoglobin (0.0-3.0) % Julius Test A-a O2 Difference mm/Hg Respiratory Index Hgb O2 Saturation (95.0-98.0) % Mechanical Rate FiO2 % Tidal Volume PEEP Sodium (132-148) mmol/L Potassium (3.6-5.2) mmol/L Chloride (98-107) mmol/L Carbon Dioxide (22-30) mmol/L Anion Gap (10-20) BUN (9-20) mg/dL Creatinine (0.8-1.5) MG/DL Est GFR ( Amer) Est GFR (Non-Af Amer) POC Glucose (mg/dL) 259 H (65-110) mg/dL Random Glucose (75-110) mg/dL Calcium (8.6-10.4) mg/dl Phosphorus (2.5-4.5) mg/dL Magnesium (1.6-2.3) mg/dL Total Bilirubin (0.2-1.3) mg/dL AST (17-59) U/L ALT (21-72) U/L Alkaline Phosphatase (38-126) U/L Total Protein (6.3-8.3) g/dL Albumin (3.5-5.0) g/dL Globulin (2.2-3.9) gm/dL Albumin/Globulin Ratio (1.0-2.1) Prolactin (3.7-17.9) ng/mL Random Vancomycin ug/mL Infectious [place] Assay Negative (NEGATIVE) Ur L.pneumophila Ag Negative (NEGATIVE) Laboratory Results - last 24 hr 10/07/16 10/10/16 10/10/16 06:00 11:34 12:20 WBC RBC Hgb Hct MCV MCH MCHC RDW Plt Count MPV Neut % (Auto) Lymph % (Auto) [place] % (Auto) Eos % (Auto) Baso % (Auto) Neut # Lymph # [place] # Eos # Baso # PT INR APTT Puncture Site pCO2 pO2 HCO3 ABG pH ABG Total CO2 ABG O2 Saturation ABG Base Excess ABG Hemoglobin ABG Carboxyhemoglobin POC ABG HHb (Measured) ABG Methemoglobin Julius Test A-a O2 Difference Respiratory Index Hgb O2 Saturation Mechanical Rate FiO2 Tidal Volume PEEP Sodium Potassium Chloride Carbon Dioxide Anion Gap BUN Creatinine Est GFR ( Amer) Est GFR (Non-Af Amer) POC Glucose (mg/dL) 259 H Random Glucose Calcium Phosphorus Magnesium Total Bilirubin AST ALT Alkaline Phosphatase Total Protein Albumin Globulin Albumin/Globulin Ratio Prolactin Random Vancomycin Infectious [place] Assay Negative Ur L.pneumophila Ag Negative 10/10/16 10/10/16 10/10/16 15:17 17:53 23:24 WBC RBC Hgb Hct MCV MCH MCHC RDW Plt Count MPV Neut % (Auto) Lymph % (Auto) [place] % (Auto) Eos % (Auto) Baso % (Auto) Neut # Lymph # [place] # Eos # Baso # PT INR APTT Puncture Site pCO2 pO2 HCO3 ABG pH ABG Total CO2 ABG O2 Saturation ABG Base Excess ABG Hemoglobin ABG Carboxyhemoglobin POC ABG HHb (Measured) ABG Methemoglobin Julius Test A-a O2 Difference Respiratory Index Hgb O2 Saturation Mechanical Rate FiO2 Tidal Volume PEEP Sodium Potassium Chloride Carbon Dioxide Anion Gap BUN Creatinine Est GFR ( Amer) Est GFR (Non-Af Amer) POC Glucose (mg/dL) 162 H 220 H Random Glucose Calcium Phosphorus Magnesium Total Bilirubin AST ALT Alkaline Phosphatase Total Protein Albumin Globulin Albumin/Globulin Ratio Prolactin 44.7 H Random Vancomycin Infectious [place] Assay Ur L.pneumophila Ag 10/11/16 10/11/16 10/11/16 04:35 05:25 06:03 WBC RBC Hgb Hct MCV MCH MCHC RDW Plt Count MPV Neut % (Auto) Lymph % (Auto) [place] % (Auto) Eos % (Auto) Baso % (Auto) Neut # Lymph # [place] # Eos # Baso # PT INR APTT Puncture Site Lb pCO2 39 pO2 203 H HCO3 26.2 ABG pH 7.43 ABG Total CO2 27.1 ABG O2 Saturation 99.8 H ABG Base Excess 1.6 ABG Hemoglobin 14.8 ABG Carboxyhemoglobin 1.4 POC ABG HHb (Measured) 0.2 ABG Methemoglobin 1.2 Julius Test Na A-a O2 Difference 461.0 Respiratory Index 2.3 Hgb O2 Saturation 97.2 Mechanical Rate 18 FiO2 100.0 Tidal Volume 500 PEEP 5 Sodium Potassium Chloride Carbon Dioxide Anion Gap BUN Creatinine Est GFR ( Amer) Est GFR (Non-Af Amer) POC Glucose (mg/dL) 238 H Random Glucose Calcium Phosphorus Magnesium Total Bilirubin AST ALT Alkaline Phosphatase Total Protein Albumin Globulin Albumin/Globulin Ratio Prolactin Random Vancomycin 24.20 Infectious [place] Assay Ur L.pneumophila Ag 10/11/16 10/11/16 10/11/16 06:03 06:03 06:03 WBC 6.6 RBC 2.96 L Hgb 9.1 L Hct 27.6 L MCV 93.3 D MCH 30.6 MCHC 32.8 L RDW 17.0 H Plt Count 67 L MPV 11.7 Neut % (Auto) 83.6 H Lymph % (Auto) 6.8 L [place] % (Auto) 4.2 Eos % (Auto) 5.1 H Baso % (Auto) 0.3 Neut # 5.5 Lymph # 0.5 L [place] # 0.3 Eos # 0.3 Baso # 0.0 PT 31.0 H* INR 2.7 APTT 38 H Puncture Site pCO2 pO2 HCO3 ABG pH ABG Total CO2 ABG O2 Saturation ABG Base Excess ABG Hemoglobin ABG Carboxyhemoglobin POC ABG HHb (Measured) ABG Methemoglobin Julius Test A-a O2 Difference Respiratory Index Hgb O2 Saturation Mechanical Rate FiO2 Tidal Volume PEEP Sodium 145 Potassium 5.1 Chloride 107 Carbon Dioxide 27 Anion Gap 16 BUN 76 H Creatinine 3.9 H Est GFR ( Amer) 18 Est GFR (Non-Af Amer) 15 POC Glucose (mg/dL) Random Glucose 205 H Calcium 8.1 L Phosphorus 4.2 Magnesium 2.1 Total Bilirubin 5.6 H AST 1393 H ALT 1814 H Alkaline Phosphatase 132 H Total Protein 5.7 L Albumin 2.2 L Globulin 3.5 Albumin/Globulin Ratio 0.6 L Prolactin Random Vancomycin Infectious [place] Assay Ur L.pneumophila Ag EKG/Cardiology Studies: Cardiology / EKG Studies 10/11/16 06:54 EKG [ELECTROCARDIOGRAM] Stat Comment: Mode Of Transportation: Reason For Exam: rapid heart rate Isolation: Contact Fingerstick Blood Sugar Results: 203 Review of Systems - Review of Systems Systems not reviewed;Unavailable: Acuity of Condition Critical Care Progress Note - Nutrition Nutrition: Nutrition Category Date Time Status NPO Diet [DIET] Diets 10/10/16 Breakfast Active Assessment/Plan - Assessment and Plan (Free Text) Assessment: 86yo M PMHx of HTN, HLD, DM, CHF, CAD s/p CABG presented with abdominal pain and reported AMS Plan: Neuro -ROS unobtainable -CT head: negative- no intracranial mass, hemorrhage or evidence of acute infarct. 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 Trace R mastoid effusion. Cardio -tachycardic and hypotensive -Amiodarone gtt on hold -Levophed gtt -Phenylephrine gtt -Epinephrine gtt -Digoxin 0.25mg ivp -Echo 10/06: recommend RICH to evaluate endocarditis; [place] LVH, LV systolic function is low normal, EF 50-55%, hypokinesis in inferior wall, Grad II pseudonormal filling dynamics; mild valvular and mild pulmonary HTN -ASA 81mg po daily -EP Cardiology Dr Tinsley following -Cardiology Dr Celestine Anderson following Respiratory -Intubated on vent (18, 100, 500, 5) -CXR 10/10: interval increased pulmonary venous congestion. Interval increase small R pleural effusion. More superiorly some loculated R pleural fluid possible- similar appearing -ABG improving this AM after patient was started on bicarb yesterday 10/09 -CT chest: consolidation both lower lobes and posteiror L upper lobe. Multifocal small opacities likely infx. Vague b/l perihilar alveolar opacity, possibly reflecting CHF/pulmonary edema. Small to mod b/l pleural effusions R>L -Sputum: +Acinetobacter Baumannii and MRSA -Nares: +MRSA -Duoneb 3ml inh q8 -Acetylcystine 4ml inh q6 -Merrem 500mg Q12 -Vancocin 750mg ivpb q24- on hold- will check random vanc tomorrow 10/11 -Dr Nice ID following GI -repeat CT abd/pelvis 10/09: moderate size R sided effusion increased fro prior study. Mild R basilar atelectasis. Trace L effusion and minimal L basilar atelectasis. Cardiomegaly. Incident to cholecystostomy tube again noted. Vague infiltration changes seen within the mesentery about the distal pancreas nonspecific. r/o pancreatitis therefore correlation with serum amylase and lipase recommended. Areas present within the urinary bladder likely due to instrumentation with in situ unclamped quijano cath. r/o cystitis. Small fluid collection L inguinal region unchanged. Probable small scrotal hydroceles. -Abd/renal u/s: limited study; b/l renal cysts; echogenic renal parenchyma may be seen in setting of medical renal disease; quijano cath in urinary bladder; echogenic liver seen in setting of hepatic parenchymal disease or fatty infiltration. Cholecystectomy. Incidental note is made or R sided pleural effusion -Cholecystostomy tube in place -transaminitis AST 3950--> 1393 ALT 2494--> 1814 Alk Phos 104--> 132 -CEA 3.5 -CA 19-9: 160 -AFP: <0.8 -Acute hep panel negative -MRCP cancelled due to pacemaker -ERCP cancelled as patient is unstable -CT Abd/pelvis: R pleural effusion with bibasilar atelectasis. Superimposed pneumonia not excluded. L inguinal collection [seroma vs hematoma vs abscess vs pseudoaneurysm] -Surgery Dr Acevedo consulted -Feeds on hold -GI Dr Perry consulted -IR Dr Arzola consulted ID -Severe sepsis -6.6 WBC this AM -Acute hep panel negative -Legionella negative -Procalcitonin 44.7 -Sputum: +Acinetobacter Baumannii and MRSA -Blood: +S Aureus x 2 -Nares: +MRSA -Urine: negative -Merrem 500mg Q8 -Vancocin 750mg ivpb q24- on hold -Dr Nice ID following Heme -Likely anemia of chronic disease -H&H stable -elevated INR 2.7 -Patient given one dose of vitamin K yesterday 10/11 Renal -SAGAR vs CKD -renal u/s: limited study; b/l renal cysts; echogenic renal parenchyma may be seen in setting of medical renal disease; quijano cath in urinary bladder -Lasix 40mg ivp bid on hold -Nephro Dr. Newell following Endocrine -Hx of DM2 -HgbA1c 8.6 -RISS -Accucheck MSK -no acute issues DVT ppx: SCDs GI ppx: Pepcid 20mg po daily Diet: tube feeds @ 25cc/hr- on hold Code Status: full code Case discussed with Dr. Silverio Ventura PGY2 <Jamal Sawyer - Last Filed: 10/11/16 16:24> CCU Objective - Vital Signs / Intake & Output Vital Signs (Last 4 hours): Vital Signs Pulse Resp BP Pulse Ox 10/11/16 15:17 90 26 H 140/61 99 10/11/16 15:02 91 H 27 H 124/52 L 99 10/11/16 15:01 91 H 28 H 126/52 L 100 10/11/16 15:00 91 H 30 H 127/54 L 100 10/11/16 14:59 91 H 32 H 124/55 L 100 10/11/16 14:58 90 29 H 128/57 L 100 10/11/16 14:44 92 H 28 H 127/54 L 100 10/11/16 14:30 92 H 27 H 100 10/11/16 14:29 94 H 29 H 120/54 L 100 10/11/16 14:14 95 H 19 126/60 100 10/11/16 14:00 94 H 25 H 100 10/11/16 13:44 106 H 28 H 121/64 100 10/11/16 13:30 133 H 21 96 10/11/16 13:15 83 17 98/82 L 10/11/16 13:00 101 H 29 H 10/11/16 12:59 80/47 L 10/11/16 12:44 117 H 27 H 80/47 L 100 10/11/16 12:30 124 H 25 H 99 Intake and Output (Last 8hrs): Intake & Output 10/11/16 10/11/16 10/11/16 06:59 14:59 22:59 Intake Total 1235.9 1124.0 Output Total 350 275 Balance 885.9 849.0 Weight 187 lb Intake: IV 150 290 Intake, IV Amount 775.9 584.0 Left Antecubital 200 200 Right Distal Port 127.2 87.6 Internal Jugular Right Medial Port 48.7 146.4 Right Proximal Port 400 150 Internal Jugular Tube Feeding 310 250 Output: Drainage 40 Right Medial Abdomen 40 Urine 350 235 Urethral (Quijano) 350 235 - Medications Active Medications: Active Medications Generic Name Dose Route Start Last Admin Trade Name Freq PRN Reason Stop Dose Admin Acetylcysteine 4 ml 10/06/16 14:00 10/11/16 16:09 Acetylcysteine 20% INH 4 ml RQ6 CHERY Administration Albuterol/Ipratropium 3 ml 10/08/16 08:15 10/11/16 16:09 Duoneb 3 Mg/0.5 Mg (3 Ml) Ud INH 3 ml RQ8 CHERY Administration Ascorbic Acid 500 mg 10/11/16 10:00 10/11/16 09:58 Vitamin C 500 Mg Tab PO 500 mg DAILY CHERY Administration Aspirin 81 mg 10/07/16 10:15 10/11/16 09:58 Ecotrin PO 81 mg DAILY CHERY Administration Digoxin 0.25 mg 10/11/16 18:00 Lanoxin IVP DAILY@1800 CHERY Docusate Sodium 100 mg 10/09/16 14:15 10/11/16 09:58 Colace PO 100 mg DAILY CHERY Administration Famotidine 20 mg 10/07/16 10:15 10/11/16 09:58 Pepcid PO 20 mg DAILY CHERY Administration Furosemide 40 mg 10/09/16 18:00 10/09/16 18:10 Lasix IVP Not Given BID CHERY Heparin Sodium (Porcine) 5,000 units 10/06/16 10:30 10/10/16 11:18 Heparin SC Not Given Q12 CHERY Norepinephrine Bitartrate 4 mg 254 mls @ 15.24 mls/hr 10/09/16 14:32 13:15 / Sodium Chloride IV 5 mcg/min .[id number] PRN 19.05 mls/hr TITRATE PER MD ORDER Administration Protocol 4 MCG/MIN Dexmedetomidine HCl 200 mcg/ 50 mls @ 4.08 mls/hr 10/09/16 16:28 10/11/16 12: 58 Sodium Chloride IV 0.5 mcg/kg/hr TITR PRN 10.2 mls/hr Agitation Administration Protocol 0.2 MCG/KG/HR Meropenem 500 mg/ Sodium 100 mls @ 100 mls/hr 10/10/16 18:00 10/11/16 05:12 Chloride IVPB 100 mls/hr Q12H CHERY Administration Vancomycin HCl 750 mg/ Sodium 150 mls @ 100 mls/hr 10/11/16 10:00 10/11/16 09 :58 Chloride IVPB 100 mls/hr DAILY CHERY Administration Levetiracetam 500 mg/ Sodium 105 mls @ 420 mls/hr 10/10/16 15:00 10/11/16 02: 43 Chloride IVPB 420 mls/hr Q12H CHERY Administration Amiodarone HCl 900 mg/ 500 mls @ 16.66 mls/hr 10/11/16 12:30 Dextrose IV 10/12/16 12:29 .Q24H ONE Protocol 0.5 MG/MIN Phenylephrine HCl 30 mg/ 253 mls @ 10.12 mls/hr 10/11/16 11:35 10/11/16 12:59 Sodium Chloride IV 20 mcg/min .Q24H PRN 10.12 mls/hr TITRATE PER MD ORDER Administration Protocol 20 MCG/MIN Epinephrine HCl 1 mg/ Sodium 251 mls @ 15.06 mls/hr 10/11/16 13:48 10/11/16 14:11 Chloride IV 1 mcg/min .[id number] PRN 15.06 mls/hr TITRATE PER MD ORDER Administration Protocol 1 MCG/MIN Insulin Aspart 0 unit 06/26/17 18:00 10/11/16 12:50 Novolog SC 4 unit Q6H CHERY Administration Protocol Lorazepam 2 mg 10/09/16 15:25 10/10/16 11:45 Ativan IVP 2 mg Q4H PRN Administration Anxiety Metoprolol Tartrate 25 mg 10/08/16 10:00 10/09/16 18:10 Lopressor PO Not Given BID CHERY Thiamine HCl 100 mg 10/11/16 14:00 10/11/16 13:41 Vitamin B1 Inj IV 100 mg Q8 CHERY Administration - Patient Studies Lab Studies: Microbiology Studies 10/09/16 04:00 Blood Culture - Preliminary Blood-Venous NO GROWTH AFTER 48 HOURS 10/09/16 04:00 Blood Culture - Preliminary Blood-Venous NO GROWTH AFTER 48 HOURS Lab Studies 10/11/16 10/11/16 10/11/16 Range/Units 12:20 06:03 06:03 WBC (4.8-10.8) K/uL RBC (4.40-5.90) Mil/uL Hgb (12.0-18.0) g/dL Hct (35.0-51.0) % MCV (80.0-94.0) fL MCH (27.0-31.0) pg MCHC (33.0-37.0) g/dL RDW (11.5-14.5) % Plt Count (130-400) K/uL MPV (7.2-11.7) fL Neut % (Auto) (50.0-75.0) % Lymph % (Auto) (20.0-40.0) % [place] % (Auto) (0.0-10.0) % Eos % (Auto) (0.0-4.0) % Baso % (Auto) (0.0-2.0) % Neut # (1.8-7.0) K/uL Lymph # (1.0-4.3) K/uL [place] # (0.0-0.8) K/uL Eos # (0.0-0.7) K/uL Baso # (0.0-0.2) K/uL Neutrophils % (Manual) (50-75) % Lymphocytes % (Manual) (20-40) % Monocytes % (Manual) Eosinophils % (Manual) (0-4) % Nucleated RBC % (0-0) % Platelet Estimate (NORMAL) Large Platelets Giant Platelets Hypochromasia (manual) Poikilocytosis (manual Anisocytosis (manual) Microcytosis (manual) Macrocytosis (manual) Ovalocytes Wil[place]ham Cells PT 31.0 H* (9.7-12.2) SECONDS INR 2.7 APTT 38 H (21-34) SECONDS Puncture Site pCO2 (35-45) mm/Hg pO2 (80-100) mm/Hg HCO3 (21-28) mmol/L ABG pH (7.35-7.45) ABG Total CO2 (22-28) mmol/L ABG O2 Saturation (95-98) % ABG Base Excess (-2.0-3.0) mmol/L ABG Hemoglobin (11.7-17.4) g/dL ABG Carboxyhemoglobin (0.5-1.5) % POC ABG HHb (Measured) (0.0-5.0) % ABG Methemoglobin (0.0-3.0) % Julius Test A-a O2 Difference mm/Hg Respiratory Index Hgb O2 Saturation (95.0-98.0) % Mechanical Rate FiO2 % Tidal Volume PEEP Sodium 145 (132-148) mmol/L Potassium 5.1 (3.6-5.2) mmol/L Chloride 107 (98-107) mmol/L Carbon Dioxide 27 (22-30) mmol/L Anion Gap 16 (10-20) BUN 76 H (9-20) mg/dL Creatinine 3.9 H (0.8-1.5) MG/DL Est GFR ( Amer) 18 Est GFR (Non-Af Amer) 15 POC Glucose (mg/dL) 249 H (65-110) mg/dL Random Glucose 205 H (75-110) mg/dL Calcium 8.1 L (8.6-10.4) mg/dl Phosphorus 4.2 (2.5-4.5) mg/dL Magnesium 2.1 (1.6-2.3) mg/dL Total Bilirubin 5.6 H (0.2-1.3) mg/dL AST 1393 H (17-59) U/L ALT 1814 H (21-72) U/L Alkaline Phosphatase 132 H (38-126) U/L Total Protein 5.7 L (6.3-8.3) g/dL Albumin 2.2 L (3.5-5.0) g/dL Globulin 3.5 (2.2-3.9) gm/dL Albumin/Globulin Ratio 0.6 L (1.0-2.1) Prolactin (3.7-17.9) ng/mL Random Vancomycin ug/mL Infectious [place] Assay (NEGATIVE) 10/11/16 10/11/16 10/11/16 Range/Units 06:03 06:03 05:25 WBC 6.6 (4.8-10.8) K/uL RBC 2.96 L (4.40-5.90) Mil/uL Hgb 9.1 L (12.0-18.0) g/dL Hct 27.6 L (35.0-51.0) % MCV 93.3 D (80.0-94.0) fL MCH 30.6 (27.0-31.0) pg MCHC 32.8 L (33.0-37.0) g/dL RDW 17.0 H (11.5-14.5) % Plt Count 67 L (130-400) K/uL MPV 11.7 (7.2-11.7) fL Neut % (Auto) 83.6 H (50.0-75.0) % Lymph % (Auto) 6.8 L (20.0-40.0) % [place] % (Auto) 4.2 (0.0-10.0) % Eos % (Auto) 5.1 H (0.0-4.0) % Baso % (Auto) 0.3 (0.0-2.0) % Neut # 5.5 (1.8-7.0) K/uL Lymph # 0.5 L (1.0-4.3) K/uL [place] # 0.3 (0.0-0.8) K/uL Eos # 0.3 (0.0-0.7) K/uL Baso # 0.0 (0.0-0.2) K/uL Neutrophils % (Manual) 84 H (50-75) % Lymphocytes % (Manual) 11 L (20-40) % Monocytes % (Manual) TEST NOT PERFORMED Eosinophils % (Manual) 5 H (0-4) % Nucleated RBC % 17 H (0-0) % Platelet Estimate Decreased L (NORMAL) Large Platelets Present Giant Platelets Present Hypochromasia (manual) Slight Poikilocytosis (manual Slight Anisocytosis (manual) Slight Microcytosis (manual) Slight Macrocytosis (manual) Slight Ovalocytes Slight [place]ham Cells Slight PT (9.7-12.2) SECONDS INR APTT (21-34) SECONDS Puncture Site pCO2 (35-45) mm/Hg pO2 (80-100) mm/Hg HCO3 (21-28) mmol/L ABG pH (7.35-7.45) ABG Total CO2 (22-28) mmol/L ABG O2 Saturation (95-98) % ABG Base Excess (-2.0-3.0) mmol/L ABG Hemoglobin (11.7-17.4) g/dL ABG Carboxyhemoglobin (0.5-1.5) % POC ABG HHb (Measured) (0.0-5.0) % ABG Methemoglobin (0.0-3.0) % Julius Test A-a O2 Difference mm/Hg Respiratory Index Hgb O2 Saturation (95.0-98.0) % Mechanical Rate FiO2 % Tidal Volume PEEP Sodium (132-148) mmol/L Potassium (3.6-5.2) mmol/L Chloride (98-107) mmol/L Carbon Dioxide (22-30) mmol/L Anion Gap (10-20) BUN (9-20) mg/dL Creatinine (0.8-1.5) MG/DL Est GFR ( Amer) Est GFR (Non-Af Amer) POC Glucose (mg/dL) 238 H (65-110) mg/dL Random Glucose (75-110) mg/dL Calcium (8.6-10.4) mg/dl Phosphorus (2.5-4.5) mg/dL Magnesium (1.6-2.3) mg/dL Total Bilirubin (0.2-1.3) mg/dL AST (17-59) U/L ALT (21-72) U/L Alkaline Phosphatase (38-126) U/L Total Protein (6.3-8.3) g/dL Albumin (3.5-5.0) g/dL Globulin (2.2-3.9) gm/dL Albumin/Globulin Ratio (1.0-2.1) Prolactin (3.7-17.9) ng/mL Random Vancomycin 24.20 ug/mL Infectious [place] Assay (NEGATIVE) 10/11/16 10/10/16 10/10/16 Range/Units 04:35 23:24 17:53 WBC (4.8-10.8) K/uL RBC (4.40-5.90) Mil/uL Hgb (12.0-18.0) g/dL Hct (35.0-51.0) % MCV (80.0-94.0) fL MCH (27.0-31.0) pg MCHC (33.0-37.0) g/dL RDW (11.5-14.5) % Plt Count (130-400) K/uL MPV (7.2-11.7) fL Neut % (Auto) (50.0-75.0) % Lymph % (Auto) (20.0-40.0) % [place] % (Auto) (0.0-10.0) % Eos % (Auto) (0.0-4.0) % Baso % (Auto) (0.0-2.0) % Neut # (1.8-7.0) K/uL Lymph # (1.0-4.3) K/uL [place] # (0.0-0.8) K/uL Eos # (0.0-0.7) K/uL Baso # (0.0-0.2) K/uL Neutrophils % (Manual) (50-75) % Lymphocytes % (Manual) (20-40) % Monocytes % (Manual) Eosinophils % (Manual) (0-4) % Nucleated RBC % (0-0) % Platelet Estimate (NORMAL) Large Platelets Giant Platelets Hypochromasia (manual) Poikilocytosis (manual Anisocytosis (manual) Microcytosis (manual) Macrocytosis (manual) Ovalocytes [place] Cells PT (9.7-12.2) SECONDS INR APTT (21-34) SECONDS Puncture Site Lb pCO2 39 (35-45) mm/Hg pO2 203 H (80-100) mm/Hg HCO3 26.2 (21-28) mmol/L ABG pH 7.43 (7.35-7.45) ABG Total CO2 27.1 (22-28) mmol/L ABG O2 Saturation 99.8 H (95-98) % ABG Base Excess 1.6 (-2.0-3.0) mmol/L ABG Hemoglobin 14.8 (11.7-17.4) g/dL ABG Carboxyhemoglobin 1.4 (0.5-1.5) % POC ABG HHb (Measured) 0.2 (0.0-5.0) % ABG Methemoglobin 1.2 (0.0-3.0) % Julius Test Na A-a O2 Difference 461.0 mm/Hg Respiratory Index 2.3 Hgb O2 Saturation 97.2 (95.0-98.0) % Mechanical Rate 18 FiO2 100.0 % Tidal Volume 500 PEEP 5 Sodium (132-148) mmol/L Potassium (3.6-5.2) mmol/L Chloride (98-107) mmol/L Carbon Dioxide (22-30) mmol/L Anion Gap (10-20) BUN (9-20) mg/dL Creatinine (0.8-1.5) MG/DL Est GFR ( Amer) Est GFR (Non-Af Amer) POC Glucose (mg/dL) 220 H 162 H (65-110) mg/dL Random Glucose (75-110) mg/dL Calcium (8.6-10.4) mg/dl Phosphorus (2.5-4.5) mg/dL Magnesium (1.6-2.3) mg/dL Total Bilirubin (0.2-1.3) mg/dL AST (17-59) U/L ALT (21-72) U/L Alkaline Phosphatase (38-126) U/L Total Protein (6.3-8.3) g/dL Albumin (3.5-5.0) g/dL Globulin (2.2-3.9) gm/dL Albumin/Globulin Ratio (1.0-2.1) Prolactin (3.7-17.9) ng/mL Random Vancomycin ug/mL Infectious [place] Assay (NEGATIVE) 10/10/16 10/10/16 Range/Units 15:17 11:34 WBC (4.8-10.8) K/uL RBC (4.40-5.90) Mil/uL Hgb (12.0-18.0) g/dL Hct (35.0-51.0) % MCV (80.0-94.0) fL MCH (27.0-31.0) pg MCHC (33.0-37.0) g/dL RDW (11.5-14.5) % Plt Count (130-400) K/uL MPV (7.2-11.7) fL Neut % (Auto) (50.0-75.0) % Lymph % (Auto) (20.0-40.0) % [place] % (Auto) (0.0-10.0) % Eos % (Auto) (0.0-4.0) % Baso % (Auto) (0.0-2.0) % Neut # (1.8-7.0) K/uL Lymph # (1.0-4.3) K/uL [place] # (0.0-0.8) K/uL Eos # (0.0-0.7) K/uL Baso # (0.0-0.2) K/uL Neutrophils % (Manual) (50-75) % Lymphocytes % (Manual) (20-40) % Monocytes % (Manual) Eosinophils % (Manual) (0-4) % Nucleated RBC % (0-0) % Platelet Estimate (NORMAL) Large Platelets Giant Platelets Hypochromasia (manual) Poikilocytosis (manual Anisocytosis (manual) Microcytosis (manual) Macrocytosis (manual) Ovalocytes [place] Cells PT (9.7-12.2) SECONDS INR APTT (21-34) SECONDS Puncture Site pCO2 (35-45) mm/Hg pO2 (80-100) mm/Hg HCO3 (21-28) mmol/L ABG pH (7.35-7.45) ABG Total CO2 (22-28) mmol/L ABG O2 Saturation (95-98) % ABG Base Excess (-2.0-3.0) mmol/L ABG Hemoglobin (11.7-17.4) g/dL ABG Carboxyhemoglobin (0.5-1.5) % POC ABG HHb (Measured) (0.0-5.0) % ABG Methemoglobin (0.0-3.0) % Julius Test A-a O2 Difference mm/Hg Respiratory Index Hgb O2 Saturation (95.0-98.0) % Mechanical Rate FiO2 % Tidal Volume PEEP Sodium (132-148) mmol/L Potassium (3.6-5.2) mmol/L Chloride (98-107) mmol/L Carbon Dioxide (22-30) mmol/L Anion Gap (10-20) BUN (9-20) mg/dL Creatinine (0.8-1.5) MG/DL Est GFR ( Amer) Est GFR (Non-Af Amer) POC Glucose (mg/dL) (65-110) mg/dL Random Glucose (75-110) mg/dL Calcium (8.6-10.4) mg/dl Phosphorus (2.5-4.5) mg/dL Magnesium (1.6-2.3) mg/dL Total Bilirubin (0.2-1.3) mg/dL AST (17-59) U/L ALT (21-72) U/L Alkaline Phosphatase (38-126) U/L Total Protein (6.3-8.3) g/dL Albumin (3.5-5.0) g/dL Globulin (2.2-3.9) gm/dL Albumin/Globulin Ratio (1.0-2.1) Prolactin 44.7 H (3.7-17.9) ng/mL Random Vancomycin ug/mL Infectious [place] Assay Negative (NEGATIVE) Laboratory Results - last 24 hr 10/10/16 10/10/16 10/10/16 11:34 15:17 17:53 WBC RBC Hgb Hct MCV MCH MCHC RDW Plt Count MPV Neut % (Auto) Lymph % (Auto) [place] % (Auto) Eos % (Auto) Baso % (Auto) Neut # Lymph # [place] # Eos # Baso # Neutrophils % (Manual) Lymphocytes % (Manual) Monocytes % (Manual) Eosinophils % (Manual) Nucleated RBC % Platelet Estimate Large Platelets Giant Platelets Hypochromasia (manual) Poikilocytosis (manual Anisocytosis (manual) Microcytosis (manual) Macrocytosis (manual) Ovalocytes Fabiano Cells PT INR APTT Puncture Site pCO2 pO2 HCO3 ABG pH ABG Total CO2 ABG O2 Saturation ABG Base Excess ABG Hemoglobin ABG Carboxyhemoglobin POC ABG HHb (Measured) ABG Methemoglobin Julius Test A-a O2 Difference Respiratory Index Hgb O2 Saturation Mechanical Rate FiO2 Tidal Volume PEEP Sodium Potassium Chloride Carbon Dioxide Anion Gap BUN Creatinine Est GFR ( Amer) Est GFR (Non-Af Amer) POC Glucose (mg/dL) 162 H Random Glucose Calcium Phosphorus Magnesium Total Bilirubin AST ALT Alkaline Phosphatase Total Protein Albumin Globulin Albumin/Globulin Ratio Prolactin 44.7 H Random Vancomycin Infectious [place] Assay Negative 10/10/16 10/11/16 10/11/16 23:24 04:35 05:25 WBC RBC Hgb Hct MCV MCH MCHC RDW Plt Count MPV Neut % (Auto) Lymph % (Auto) [place] % (Auto) Eos % (Auto) Baso % (Auto) Neut # Lymph # [place] # Eos # Baso # Neutrophils % (Manual) Lymphocytes % (Manual) Monocytes % (Manual) Eosinophils % (Manual) Nucleated RBC % Platelet Estimate Large Platelets Giant Platelets Hypochromasia (manual) Poikilocytosis (manual Anisocytosis (manual) Microcytosis (manual) Macrocytosis (manual) Ovalocytes [place] Cells PT INR APTT Puncture Site Lb pCO2 39 pO2 203 H HCO3 26.2 ABG pH 7.43 ABG Total CO2 27.1 ABG O2 Saturation 99.8 H ABG Base Excess 1.6 ABG Hemoglobin 14.8 ABG Carboxyhemoglobin 1.4 POC ABG HHb (Measured) 0.2 ABG Methemoglobin 1.2 Julius Test Na A-a O2 Difference 461.0 Respiratory Index 2.3 Hgb O2 Saturation 97.2 Mechanical Rate 18 FiO2 100.0 Tidal Volume 500 PEEP 5 Sodium Potassium Chloride Carbon Dioxide Anion Gap BUN Creatinine Est GFR ( Amer) Est GFR (Non-Af Amer) POC Glucose (mg/dL) 220 H 238 H Random Glucose Calcium Phosphorus Magnesium Total Bilirubin AST ALT Alkaline Phosphatase Total Protein Albumin Globulin Albumin/Globulin Ratio Prolactin Random Vancomycin Infectious [place] Assay 10/11/16 10/11/16 10/11/16 06:03 06:03 06:03 WBC 6.6 RBC 2.96 L Hgb 9.1 L Hct 27.6 L MCV 93.3 D MCH 30.6 MCHC 32.8 L RDW 17.0 H Plt Count 67 L MPV 11.7 Neut % (Auto) 83.6 H Lymph % (Auto) 6.8 L [place] % (Auto) 4.2 Eos % (Auto) 5.1 H Baso % (Auto) 0.3 Neut # 5.5 Lymph # 0.5 L [place] # 0.3 Eos # 0.3 Baso # 0.0 Neutrophils % (Manual) 84 H Lymphocytes % (Manual) 11 L Monocytes % (Manual) TEST NOT PERFORMED Eosinophils % (Manual) 5 H Nucleated RBC % 17 H Platelet Estimate Decreased L Large Platelets Present Giant Platelets Present Hypochromasia (manual) Slight Poikilocytosis (manual Slight Anisocytosis (manual) Slight Microcytosis (manual) Slight Macrocytosis (manual) Slight Ovalocytes Slight Fabiano Cells Slight PT INR APTT Puncture Site pCO2 pO2 HCO3 ABG pH ABG Total CO2 ABG O2 Saturation ABG Base Excess ABG Hemoglobin ABG Carboxyhemoglobin POC ABG HHb (Measured) ABG Methemoglobin Julius Test A-a O2 Difference Respiratory Index Hgb O2 Saturation Mechanical Rate FiO2 Tidal Volume PEEP Sodium 145 Potassium 5.1 Chloride 107 Carbon Dioxide 27 Anion Gap 16 BUN 76 H Creatinine 3.9 H Est GFR ( Amer) 18 Est GFR (Non-Af Amer) 15 POC Glucose (mg/dL) Random Glucose 205 H Calcium 8.1 L Phosphorus 4.2 Magnesium 2.1 Total Bilirubin 5.6 H AST 1393 H ALT 1814 H Alkaline Phosphatase 132 H Total Protein 5.7 L Albumin 2.2 L Globulin 3.5 Albumin/Globulin Ratio 0.6 L Prolactin Random Vancomycin 24.20 Infectious [place] Assay 10/11/16 10/11/16 06:03 12:20 WBC RBC Hgb Hct MCV MCH MCHC RDW Plt Count MPV Neut % (Auto) Lymph % (Auto) [place] % (Auto) Eos % (Auto) Baso % (Auto) Neut # Lymph # [place] # Eos # Baso # Neutrophils % (Manual) Lymphocytes % (Manual) Monocytes % (Manual) Eosinophils % (Manual) Nucleated RBC % Platelet Estimate Large Platelets Giant Platelets Hypochromasia (manual) Poikilocytosis (manual Anisocytosis (manual) Microcytosis (manual) Macrocytosis (manual) Ovalocytes [place] Cells PT 31.0 H* INR 2.7 APTT 38 H Puncture Site pCO2 pO2 HCO3 ABG pH ABG Total CO2 ABG O2 Saturation ABG Base Excess ABG Hemoglobin ABG Carboxyhemoglobin POC ABG HHb (Measured) ABG Methemoglobin Julius Test A-a O2 Difference Respiratory Index Hgb O2 Saturation Mechanical Rate FiO2 Tidal Volume PEEP Sodium Potassium Chloride Carbon Dioxide Anion Gap BUN Creatinine Est GFR ( Amer) Est GFR (Non-Af Amer) POC Glucose (mg/dL) 249 H Random Glucose Calcium Phosphorus Magnesium Total Bilirubin AST ALT Alkaline Phosphatase Total Protein Albumin Globulin Albumin/Globulin Ratio Prolactin Random Vancomycin Infectious [place] Assay EKG/Cardiology Studies: Cardiology / EKG Studies 10/11/16 06:54 EKG [ELECTROCARDIOGRAM] Stat Comment: Mode Of Transportation: Reason For Exam: rapid heart rate Isolation: Contact Critical Care Progress Note - Nutrition Nutrition: Nutrition Category Date Time Status NPO Diet [DIET] Diets 10/10/16 Breakfast Active Assessment/Plan (1) Severe sepsis Current Visit: Yes Status: Acute Comment: patient status post code sepsis Blood culture positive for gram-positive cocci On IV antibiotics CAT scan of the abdomen consistent with right lower lung infil Seen by surgery (2) SAGAR (acute kidney injury) Current Visit: Yes Status: Acute Comment: Continue gentle hydration and follow BUN and creatinine Nephrology consult (3) CAD (coronary artery disease) Current Visit: Yes Status: Acute (4) Pneumonia Current Visit: Yes Status: Acute Attending/Attestation - Attestation I have personally seen and examined this patient.: Yes I have fully participated in the care of the patient.: Yes I have reviewed all pertinent clinical information: Yes Notes (Text): 10/11/16 16:21 patient seen and examined in the intensive care unit. Case discussed with house staff in the morning rounds. Remains intubated on ventilatory support requiring 100% FiO2 Hypotensive on multiple pressors Been treated for septic shock with multiple antibiotics Prognosis poor with multiorgan failure
[2016-10-11] MEDS: Thiamine 100 mg/ml Inj IV SCH ×3 (07:46→21:35)
[2016-10-11] MEDS: Albuterol-Ipratrop 3 mg / 0.5 (3 ml) UD INH SCH ×2 (07:46→16:09)
--- NOTE | 2016-10-11 08:11 | CP.PCM.PN ---
Subjective - Date & Time of Evaluation Date of Evaluation: 10/11/16 Time of Evaluation: 08:09 - Subjective Subjective: Gen sx: Dr Acevedo Pt S&E. Remains intubated and sedated on precedex. Vent settings 100/28/500/ 5. Off pressors Now on Keppra for seizure like activity. Remains tachycardic , Amiodarone being held due to transaminitis. Tolerating tube feeds I/ 3L O/ 1L Objective - Vital Signs/Intake and Output Vital Signs (last 24 hours): Temp Pulse Resp BP Pulse Ox 98 F 135 H 30 H 108/65 100 10/11/16 04:00 10/11/16 07:03 10/11/16 07:03 10/11/16 07:03 10/11/16 07:03 Intake and Output: 10/11/16 10/11/16 06:59 18:59 Intake Total 1694.6 115.9 Output Total 500 40 Balance 1194.6 75.9 - Medications Medications: Current Medications Acetylcysteine (Acetylcysteine 20%) 4 ml INH RQ6 [facility] Last Admin: 10/11/16 07:46 Dose: 4 ml Albuterol/Ipratropium (Duoneb 3 Mg/0.5 Mg (3 Ml) Ud) 3 ml INH RQ8 [facility] Last Admin: 10/11/16 07:46 Dose: 3 ml Aspirin (Ecotrin) 81 mg PO DAILY [facility] Last Admin: 10/10/16 09:46 Dose: 81 mg Digoxin (Lanoxin) 0.25 mg IVP DAILY@1800 [facility] Docusate Sodium (Colace) 100 mg PO DAILY [facility] Last Admin: 10/10/16 10:21 Dose: Not Given Famotidine (Pepcid) 20 mg PO DAILY [facility] Last Admin: 10/10/16 09:47 Dose: 20 mg Furosemide (Lasix) 40 mg IVP BID [facility] Last Admin: 10/09/16 18:10 Dose: Not Given Heparin Sodium (Porcine) (Heparin) 5,000 units SC Q12 [facility] Last Admin: 10/10/16 11:18 Dose: Not Given Norepinephrine Bitartrate 4 mg (/ Sodium Chloride) 254 mls @ 15.24 mls/hr IV .[id number] PRN; Protocol; 4 MCG/MIN PRN Reason: TITRATE PER MD ORDER Last Titration: 10/11/16 00:45 Dose: 1.46 mcg/min, 5.6 mls/hr Dexmedetomidine HCl 200 mcg/ (Sodium Chloride) 50 mls @ 4.08 mls/hr IV TITR PRN ; Protocol; 0.2 MCG/KG/HR PRN Reason: Agitation Last Admin: 10/11/16 07:40 Dose: 0.77 mcg/kg/hr, 15.71 mls/hr Meropenem 500 mg/ Sodium (Chloride) 100 mls @ 100 mls/hr IVPB Q12H [facility] Last Admin: 10/11/16 05:12 Dose: 100 mls/hr Vancomycin HCl 750 mg/ Sodium (Chloride) 150 mls @ 100 mls/hr IVPB DAILY [facility] Levetiracetam 500 mg/ Sodium (Chloride) 105 mls @ 420 mls/hr IVPB Q12H [facility] Last Admin: 10/11/16 02:43 Dose: 420 mls/hr Sodium Bicarbonate 200 meq/ (Dextrose/Sodium Chloride) 1,200 mls @ 50 mls/hr IV .Q24H [facility] Last Admin: 10/10/16 20:00 Dose: Not Given Insulin Aspart (Novolog) 0 unit SC Q6H [facility] PRN Reason: Protocol Last Admin: 10/11/16 05:38 Dose: 4 unit Lorazepam (Ativan) 2 mg IVP Q4H PRN PRN Reason: Anxiety Last Admin: 10/10/16 11:45 Dose: 2 mg Metoprolol Tartrate (Lopressor) 25 mg PO BID [facility] Last Admin: 10/09/16 18:10 Dose: Not Given Simethicone (Mylicon Chew Tab) 80 mg PO BID [facility] Last Admin: 10/10/16 18:25 Dose: Not Given Thiamine HCl (Vitamin B1 Inj) 100 mg IV Q8H [facility] Last Admin: 10/11/16 07:46 Dose: 100 mg - Labs Labs: 10/11/16 06:03 10/11/16 06:03 PT 31.0 SECONDS (9.7-12.2) H* 10/11/16 06:03 INR 2.7 10/11/16 06:03 APTT 38 SECONDS (21-34) H 10/11/16 06:03 - Constitutional Appears: Toxic - ENT Exam ENT Exam: Mucous Membranes Dry - Respiratory Exam Respiratory Exam: absent: Accessory Muscle Use, Respiratory Distress Additional comments: Ventilated: PRVC 100 FiO2, TV 500, RR 28, PEEP 5 - Cardiovascular Exam Cardiovascular Exam: Tachycardia - GI/Abdominal Exam GI & Abdominal Exam: Distended, Soft. absent: Firm, Guarding - Extremities Exam Extremities Exam: absent: Pedal Edema - Skin Skin Exam: Normal Color, Warm Assessment and Plan - Assessment and Plan (Free Text) Assessment: 86M s/p CABG and Cholecystectomy, admitted with sepsis likely 2/2 pneumonia, s/ p Code Blue 2 days ago Plan: if pt stabilizes would need cholangiogram through PTC tube sepsis likely 2/2 pneumonia abx/vent/hemodynamic mgmt per ICU Prognosis remains guarded will d/w Dr Kristina Beltran, PGY2
[2016-10-11 08:19] LABS: ANISOCYTOSIS SLIGHT; EOSINOPHIL 5 % (0-4); HYPOCHROMIC SLIGHT; LYMPHOCYTE 11 % (20-40); NEUTROPHIL 84 % (50-75); NUCLEATED RED BLOOD CELL 17 % (0-0); PLATELET ESTIMATE DECREASED (NORMAL); POIKILOCYTOSIS SLIGHT; TOTAL CELLS COUNTED 100
[2016-10-11 08:20] LABS: BURR CELLS SLIGHT; GIANT PLATELETS PRESENT; LARGE PLATELETS PRESENT; MICROCYTOSIS SLIGHT; OVALOCYTES SLIGHT
--- NOTE | 2016-10-11 10:21 | CP.PCM.PN ---
Subjective - Date & Time of Evaluation Date of Evaluation: 10/11/16 Time of Evaluation: 10:16 - Subjective Subjective: Progress Note for Dr. Tinsley Pt seen and examined at bedside. Pt remains intubated at this time. No acute events overnight as per nursing. Heart rate overnight was consistently in the 120-130 range. Objective - Vital Signs/Intake and Output Vital Signs (last 24 hours): Temp Pulse Resp BP Pulse Ox 98 F 135 H 30 H 108/65 100 10/11/16 04:00 10/11/16 07:03 10/11/16 07:03 10/11/16 07:03 10/11/16 07:03 Intake and Output: 10/11/16 10/11/16 06:59 18:59 Intake Total 1694.6 115.9 Output Total 500 40 Balance 1194.6 75.9 - Medications Medications: Current Medications Acetylcysteine (Acetylcysteine 20%) 4 ml INH RQ6 [facility] Last Admin: 10/11/16 07:46 Dose: 4 ml Albuterol/Ipratropium (Duoneb 3 Mg/0.5 Mg (3 Ml) Ud) 3 ml INH RQ8 [facility] Last Admin: 10/11/16 07:46 Dose: 3 ml Ascorbic Acid (Vitamin C 500 Mg Tab) 500 mg PO DAILY [facility] Last Admin: 10/11/16 09:58 Dose: 500 mg Aspirin (Ecotrin) 81 mg PO DAILY [facility] Last Admin: 10/11/16 09:58 Dose: 81 mg Digoxin (Lanoxin) 0.25 mg IVP DAILY@1800 [facility] Docusate Sodium (Colace) 100 mg PO DAILY [facility] Last Admin: 10/11/16 09:58 Dose: 100 mg Famotidine (Pepcid) 20 mg PO DAILY [facility] Last Admin: 10/11/16 09:58 Dose: 20 mg Furosemide (Lasix) 40 mg IVP BID [facility] Last Admin: 10/09/16 18:10 Dose: Not Given Heparin Sodium (Porcine) (Heparin) 5,000 units SC Q12 [facility] Last Admin: 10/10/16 11:18 Dose: Not Given Norepinephrine Bitartrate 4 mg (/ Sodium Chloride) 254 mls @ 15.24 mls/hr IV .[id number] PRN; Protocol; 4 MCG/MIN PRN Reason: TITRATE PER MD ORDER Last Titration: 10/11/16 00:45 Dose: 1.46 mcg/min, 5.6 mls/hr Dexmedetomidine HCl 200 mcg/ (Sodium Chloride) 50 mls @ 4.08 mls/hr IV TITR PRN ; Protocol; 0.2 MCG/KG/HR PRN Reason: Agitation Last Admin: 10/11/16 07:40 Dose: 0.77 mcg/kg/hr, 15.71 mls/hr Meropenem 500 mg/ Sodium (Chloride) 100 mls @ 100 mls/hr IVPB Q12H [facility] Last Admin: 10/11/16 05:12 Dose: 100 mls/hr Vancomycin HCl 750 mg/ Sodium (Chloride) 150 mls @ 100 mls/hr IVPB DAILY [facility] Last Admin: 10/11/16 09:58 Dose: 100 mls/hr Levetiracetam 500 mg/ Sodium (Chloride) 105 mls @ 420 mls/hr IVPB Q12H [facility] Last Admin: 10/11/16 02:43 Dose: 420 mls/hr Insulin Aspart (Novolog) 0 unit SC Q6H [facility] PRN Reason: Protocol Last Admin: 10/11/16 05:38 Dose: 4 unit Lorazepam (Ativan) 2 mg IVP Q4H PRN PRN Reason: Anxiety Last Admin: 10/10/16 11:45 Dose: 2 mg Metoprolol Tartrate (Lopressor) 25 mg PO BID [facility] Last Admin: 10/09/16 18:10 Dose: Not Given Thiamine HCl (Vitamin B1 Inj) 100 mg IV Q8 [facility] - Labs Labs: 10/11/16 06:03 10/11/16 06:03 PT 31.0 SECONDS (9.7-12.2) H* 10/11/16 06:03 INR 2.7 10/11/16 06:03 APTT 38 SECONDS (21-34) H 10/11/16 06:03 - Constitutional Appears: Toxic, No Acute Distress - Head Exam Head Exam: ATRAUMATIC, NORMAL INSPECTION, NORMOCEPHALIC - ENT Exam ENT Exam: Mucous Membranes Moist - Respiratory Exam Respiratory Exam: Decreased Breath Sounds. absent: Wheezes - Cardiovascular Exam Cardiovascular Exam: RRR, +S1, +S2 - GI/Abdominal Exam GI & Abdominal Exam: Soft, Normal Bowel Sounds. absent: Tenderness - Extremities Exam Extremities Exam: Pedal Edema (Trace b/l). absent: Calf Tenderness - Neurological Exam Neurological Exam: absent: Alert, Awake Additional comments: Intubated - Skin Skin Exam: Intact, Normal Color, Warm Assessment and Plan (1) Tachycardia Assessment & Plan: Amiodarone discontinued due to elevations in LFTs Coreg will be started Continue to monitor HR Continue current medical management Status: Acute
--- NOTE | 2016-10-11 10:53 | RAD ---
HISTORY: s/p intubation COMPARISON: 10/10/2026 FINDINGS: LUNGS: No focal consolidation. Ill-defined patchy opacity about the right hilum, nonspecific. Please note that the examination is limited due to oblique positioning. PLEURA: Probable small bilateral pleural effusion. No pneumothorax. CARDIOVASCULAR: Normal heart size. Status post CABG. AICD noted. Aortic valvular prosthesis noted. Right IJ central venous catheter unchanged. ET tube and NG tube unchanged. OSSEOUS STRUCTURES: No significant abnormalities. VISUALIZED UPPER ABDOMEN: Normal. OTHER FINDINGS: None. IMPRESSION: Small bilateral pleural effusion. Vague right perihilar opacity, nonspecific. Limited due to oblique positioning. Lines and tubes unchanged.
[2016-10-11] MEDS: Phenylephrine 30 MG in Sodium Chloride 0.9% 250 ML IV PRN ×2 (12:59→22:48)
--- NOTE | 2016-10-11 13:26 | CP.PCM.PN ---
Subjective - Date & Time of Evaluation Date of Evaluation: 10/11/16 Time of Evaluation: 13:23 - Subjective Subjective: Events noted Remains on vent; pressor -dependent; sedated UO- about 800ml/24 hrs Creat remains 3.9 On treatment for sepsis lytes acceptable Objective - Vital Signs/Intake and Output Vital Signs (last 24 hours): Temp Pulse Resp BP Pulse Ox 98 F 110 H 30 H 80/46 L 100 10/11/16 04:00 10/11/16 13:00 10/11/16 07:03 10/11/16 13:15 10/11/16 07:03 Intake and Output: 10/11/16 10/11/16 06:59 18:59 Intake Total 1694.6 405.9 Output Total 500 40 Balance 1194.6 365.9 - Medications Medications: Current Medications Acetylcysteine (Acetylcysteine 20%) 4 ml INH RQ6 [facility] Last Admin: 10/11/16 07:46 Dose: 4 ml Albuterol/Ipratropium (Duoneb 3 Mg/0.5 Mg (3 Ml) Ud) 3 ml INH RQ8 [facility] Last Admin: 10/11/16 07:46 Dose: 3 ml Ascorbic Acid (Vitamin C 500 Mg Tab) 500 mg PO DAILY [facility] Last Admin: 10/11/16 09:58 Dose: 500 mg Aspirin (Ecotrin) 81 mg PO DAILY [facility] Last Admin: 10/11/16 09:58 Dose: 81 mg Digoxin (Lanoxin) 0.25 mg IVP DAILY@1800 [facility] Docusate Sodium (Colace) 100 mg PO DAILY [facility] Last Admin: 10/11/16 09:58 Dose: 100 mg Famotidine (Pepcid) 20 mg PO DAILY [facility] Last Admin: 10/11/16 09:58 Dose: 20 mg Furosemide (Lasix) 40 mg IVP BID [facility] Last Admin: 10/09/16 18:10 Dose: Not Given Heparin Sodium (Porcine) (Heparin) 5,000 units SC Q12 [facility] Last Admin: 10/10/16 11:18 Dose: Not Given Norepinephrine Bitartrate 4 mg (/ Sodium Chloride) 254 mls @ 15.24 mls/hr IV .[id number] PRN; Protocol; 4 MCG/MIN PRN Reason: TITRATE PER MD ORDER Last Admin: 10/11/16 13:15 Dose: 5 mcg/min, 19.05 mls/hr Dexmedetomidine HCl 200 mcg/ (Sodium Chloride) 50 mls @ 4.08 mls/hr IV TITR PRN ; Protocol; 0.2 MCG/KG/HR PRN Reason: Agitation Last Admin: 10/11/16 12:58 Dose: 0.5 mcg/kg/hr, 10.2 mls/hr Meropenem 500 mg/ Sodium (Chloride) 100 mls @ 100 mls/hr IVPB Q12H [facility] Last Admin: 10/11/16 05:12 Dose: 100 mls/hr Vancomycin HCl 750 mg/ Sodium (Chloride) 150 mls @ 100 mls/hr IVPB DAILY [facility] Last Admin: 10/11/16 09:58 Dose: 100 mls/hr Levetiracetam 500 mg/ Sodium (Chloride) 105 mls @ 420 mls/hr IVPB Q12H [facility] Last Admin: 10/11/16 02:43 Dose: 420 mls/hr Amiodarone HCl 900 mg/ (Dextrose) 500 mls @ 16.66 mls/hr IV .Q24H ONE; 0.5 MG/ MIN PRN Reason: Protocol Stop: 10/12/16 12:29 Last Admin: 10/11/16 13:00 Dose: 16.66 mls/hr Phenylephrine HCl 30 mg/ (Sodium Chloride) 253 mls @ 10.12 mls/hr IV .Q24H PRN ; Protocol; 20 MCG/MIN PRN Reason: TITRATE PER MD ORDER Last Admin: 10/11/16 12:59 Dose: 20 mcg/min, 10.12 mls/hr Insulin Aspart (Novolog) 0 unit SC Q6H [facility] PRN Reason: Protocol Last Admin: 10/11/16 12:50 Dose: 4 unit Lorazepam (Ativan) 2 mg IVP Q4H PRN PRN Reason: Anxiety Last Admin: 10/10/16 11:45 Dose: 2 mg Metoprolol Tartrate (Lopressor) 25 mg PO BID [facility] Last Admin: 10/09/16 18:10 Dose: Not Given Thiamine HCl (Vitamin B1 Inj) 100 mg IV Q8 [facility] - Labs Labs: 10/11/16 06:03 10/11/16 06:03 PT 31.0 SECONDS (9.7-12.2) H* 10/11/16 06:03 INR 2.7 06/28/17 06:03 APTT 38 SECONDS (21-34) H 10/11/16 06:03 - Constitutional Appears: In Acute Distress, Chronically Ill - Head Exam Head Exam: ATRAUMATIC, NORMAL INSPECTION - Eye Exam Eye Exam: EOMI, Normal appearance - Neck Exam Neck Exam: Normal Inspection. absent: Tenderness - Cardiovascular Exam Cardiovascular Exam: Tachycardia, +S1 - GI/Abdominal Exam GI & Abdominal Exam: Soft. absent: Tenderness - Extremities Exam Extremities Exam: Normal Inspection. absent: Tenderness - Neurological Exam Neurological Exam: Altered, Motor Sensory Deficit - Skin Skin Exam: Dry, Warm Assessment and Plan (1) SAGAR (acute kidney injury) Status: Acute (2) CAD (coronary artery disease) Status: Acute (3) Pneumonia Status: Acute (4) Severe sepsis Status: Acute - Assessment and Plan (Free Text) Plan: Continue vent support, IV ABs, pressors BP too low to consider dialysis at this point Monitor renal function, lytes
--- NOTE | 2016-10-11 13:53 | CP.PCM.PN ---
Subjective - Date & Time of Evaluation Date of Evaluation: 10/11/16 Time of Evaluation: 13:50 - Subjective Subjective: CONDITION POOR. INTUBATED. ON RESPIRATOR. HYPOTENSIVE. PROGNOSIS GUARDED. CONDITION POOR. Objective - Vital Signs/Intake and Output Vital Signs (last 24 hours): Temp Pulse Resp BP Pulse Ox 98 F 110 H 30 H 80/46 L 100 10/11/16 04:00 10/11/16 13:00 10/11/16 07:03 10/11/16 13:15 10/11/16 07:03 Intake and Output: 10/11/16 10/11/16 06:59 18:59 Intake Total 1694.6 405.9 Output Total 500 40 Balance 1194.6 365.9 - Medications Medications: Current Medications Acetylcysteine (Acetylcysteine 20%) 4 ml INH RQ6 [facility] Last Admin: 10/11/16 07:46 Dose: 4 ml Albuterol/Ipratropium (Duoneb 3 Mg/0.5 Mg (3 Ml) Ud) 3 ml INH RQ8 [facility] Last Admin: 10/11/16 07:46 Dose: 3 ml Ascorbic Acid (Vitamin C 500 Mg Tab) 500 mg PO DAILY [facility] Last Admin: 10/11/16 09:58 Dose: 500 mg Aspirin (Ecotrin) 81 mg PO DAILY [facility] Last Admin: 10/11/16 09:58 Dose: 81 mg Digoxin (Lanoxin) 0.25 mg IVP DAILY@1800 [facility] Docusate Sodium (Colace) 100 mg PO DAILY [facility] Last Admin: 10/11/16 09:58 Dose: 100 mg Epinephrine Bitartrate (Epinephrine) 1 mg IV ONCE ONE Stop: 10/11/16 13:50 Famotidine (Pepcid) 20 mg PO DAILY [facility] Last Admin: 10/11/16 09:58 Dose: 20 mg Furosemide (Lasix) 40 mg IVP BID [facility] Last Admin: 10/09/16 18:10 Dose: Not Given Heparin Sodium (Porcine) (Heparin) 5,000 units SC Q12 [facility] Last Admin: 10/10/16 11:18 Dose: Not Given Norepinephrine Bitartrate 4 mg (/ Sodium Chloride) 254 mls @ 15.24 mls/hr IV .[id number] PRN; Protocol; 4 MCG/MIN PRN Reason: TITRATE PER MD ORDER Last Admin: 10/11/16 13:15 Dose: 5 mcg/min, 19.05 mls/hr Dexmedetomidine HCl 200 mcg/ (Sodium Chloride) 50 mls @ 4.08 mls/hr IV TITR PRN ; Protocol; 0.2 MCG/KG/HR PRN Reason: Agitation Last Admin: 10/11/16 12:58 Dose: 0.5 mcg/kg/hr, 10.2 mls/hr Meropenem 500 mg/ Sodium (Chloride) 100 mls @ 100 mls/hr IVPB Q12H [facility] Last Admin: 10/11/16 05:12 Dose: 100 mls/hr Vancomycin HCl 750 mg/ Sodium (Chloride) 150 mls @ 100 mls/hr IVPB DAILY [facility] Last Admin: 10/11/16 09:58 Dose: 100 mls/hr Levetiracetam 500 mg/ Sodium (Chloride) 105 mls @ 420 mls/hr IVPB Q12H [facility] Last Admin: 10/11/16 02:43 Dose: 420 mls/hr Amiodarone HCl 900 mg/ (Dextrose) 500 mls @ 16.66 mls/hr IV .Q24H ONE; 0.5 MG/ MIN PRN Reason: Protocol Stop: 10/12/16 12:29 Last Admin: 10/11/16 13:00 Dose: 16.66 mls/hr Phenylephrine HCl 30 mg/ (Sodium Chloride) 253 mls @ 10.12 mls/hr IV .Q24H PRN ; Protocol; 20 MCG/MIN PRN Reason: TITRATE PER MD ORDER Last Admin: 10/11/16 12:59 Dose: 20 mcg/min, 10.12 mls/hr Epinephrine HCl 1 mg/ Sodium (Chloride) 251 mls @ 15.06 mls/hr IV .[id number] PRN ; Protocol; 1 MCG/MIN PRN Reason: TITRATE PER MD ORDER Insulin Aspart (Novolog) 0 unit SC Q6H [facility] PRN Reason: Protocol Last Admin: 10/11/16 12:50 Dose: 4 unit Lorazepam (Ativan) 2 mg IVP Q4H PRN PRN Reason: Anxiety Last Admin: 10/10/16 11:45 Dose: 2 mg Metoprolol Tartrate (Lopressor) 25 mg PO BID [facility] Last Admin: 10/09/16 18:10 Dose: Not Given Thiamine HCl (Vitamin B1 Inj) 100 mg IV Q8 [facility] Last Admin: 10/11/16 13:41 Dose: 100 mg - Labs Labs: 10/11/16 06:03 10/11/16 06:03 PT 31.0 SECONDS (9.7-12.2) H* 10/11/16 06:03 INR 2.7 10/11/16 06:03 APTT 38 SECONDS (21-34) H 10/11/16 06:03 - Constitutional Appears: In Acute Distress - Eye Exam Eye Exam: Normal appearance, PERRL - ENT Exam ENT Exam: Normal Exam - Respiratory Exam Respiratory Exam: Decreased Breath Sounds, Rales - Cardiovascular Exam Cardiovascular Exam: Tachycardia, REGULAR RHYTHM, +S1, +S2 - GI/Abdominal Exam GI & Abdominal Exam: Soft, Normal Bowel Sounds - Extremities Exam Extremities Exam: Full ROM, Normal Capillary Refill, Normal Inspection. absent : Joint Swelling, Pedal Edema - Additional Findings Additional findings: CONDITION DETERIORATING. Assessment and Plan - Assessment and Plan (Free Text) Assessment: SEPTIC SHOCK. CAD. CARDIOGENIC SHOCK. Plan: FOR SUPPORTIVE CARE. ICU CARE.
[2016-10-11] MEDS: EPINEPHrine- 1 MG in Sodium Chloride 0.9% 250 ML IV PRN (14:11)
--- NOTE | 2016-10-11 17:19 | CP.PCM.PN ---
Subjective - Date & Time of Evaluation Date of Evaluation: 10/11/16 Time of Evaluation: 10:00 - Subjective Subjective: EEG REPORT: CONDITION OF THIS RECORDING: DROWSY DIAGNOSIS: AMS MEDICATIONS: REVIEWED BY NURSE'S RECONCILIATION INTERPRETATION: THIS IS A 16 CHANNEL INTERNATIONAL RECORDING. THE BACKEND OF THIS TRACING WAS COMPOSED OF 6-7 CYCLES PER SECOND. THERE WAS SMALL AMOUNT OF BETA ACTIVITY OF 16-20 CPS IN THE RECORDING AND INCREASE AMOUNT OF THETA ACTIVITY OF 5-7 CPS SEEN IN THIS TRACING. DROWSINESS WAS CHARACTERIZED BY MIXED BETA AND THETA ACTIVITIES. SLEEP WAS CHARACTERIZED BY VERTEX TRANSIENT WAVE, SLEEP SPINDLES, AND B/L SLOWING. PHOTIC STIMULATION SHOWED NO CHANGE IN THE TRACING. NO PAROXYSMAL ACTIVITY NOTED IN THIS RECORDING. EMG ARTIFACT WAS SEEN. CONCLUSION: THIS IS AN ABNORMAL EEG SHOWING MILD B/L SLOWING THROUGHOUT THE RECORDING CONSISTENT WITH MILD B/L CEREBRAL DYSFUNCTION. NO SEIZURE ACTIVITY. Kristina DYKES MD Objective - Vital Signs/Intake and Output Vital Signs (last 24 hours): Temp Pulse Resp BP Pulse Ox 98 F 90 26 H 140/61 99 10/11/16 04:00 10/11/16 15:17 10/11/16 15:17 10/11/16 15:17 10/11/16 15:17 Intake and Output: 10/11/16 10/11/16 06:59 18:59 Intake Total 1694.6 1124.0 Output Total 500 275 Balance 1194.6 849.0 - Medications Medications: Current Medications Acetylcysteine (Acetylcysteine 20%) 4 ml INH RQ6 [facility] Last Admin: 10/11/16 16:09 Dose: 4 ml Albuterol/Ipratropium (Duoneb 3 Mg/0.5 Mg (3 Ml) Ud) 3 ml INH RQ8 [facility] Last Admin: 10/11/16 16:09 Dose: 3 ml Ascorbic Acid (Vitamin C 500 Mg Tab) 500 mg PO DAILY [facility] Last Admin: 10/11/16 09:58 Dose: 500 mg Aspirin (Ecotrin) 81 mg PO DAILY [facility] Last Admin: 10/11/16 09:58 Dose: 81 mg Digoxin (Lanoxin) 0.25 mg IVP DAILY@1800 [facility] Docusate Sodium (Colace) 100 mg PO DAILY [facility] Last Admin: 10/11/16 09:58 Dose: 100 mg Famotidine (Pepcid) 20 mg PO DAILY [facility] Last Admin: 10/11/16 09:58 Dose: 20 mg Furosemide (Lasix) 40 mg IVP BID [facility] Last Admin: 10/09/16 18:10 Dose: Not Given Heparin Sodium (Porcine) (Heparin) 5,000 units SC Q12 [facility] Last Admin: 10/10/16 11:18 Dose: Not Given Norepinephrine Bitartrate 4 mg (/ Sodium Chloride) 254 mls @ 15.24 mls/hr IV .[id number] PRN; Protocol; 4 MCG/MIN PRN Reason: TITRATE PER MD ORDER Last Admin: 10/11/16 13:15 Dose: 5 mcg/min, 19.05 mls/hr Dexmedetomidine HCl 200 mcg/ (Sodium Chloride) 50 mls @ 4.08 mls/hr IV TITR PRN ; Protocol; 0.2 MCG/KG/HR PRN Reason: Agitation Last Admin: 10/11/16 12:58 Dose: 0.5 mcg/kg/hr, 10.2 mls/hr Meropenem 500 mg/ Sodium (Chloride) 100 mls @ 100 mls/hr IVPB Q12H [facility] Last Admin: 10/11/16 05:12 Dose: 100 mls/hr Vancomycin HCl 750 mg/ Sodium (Chloride) 150 mls @ 100 mls/hr IVPB DAILY [facility] Last Admin: 10/11/16 09:58 Dose: 100 mls/hr Levetiracetam 500 mg/ Sodium (Chloride) 105 mls @ 420 mls/hr IVPB Q12H [facility] Last Admin: 10/11/16 02:43 Dose: 420 mls/hr Amiodarone HCl 900 mg/ (Dextrose) 500 mls @ 16.66 mls/hr IV .Q24H ONE; 0.5 MG/ MIN PRN Reason: Protocol Stop: 10/12/16 12:29 Phenylephrine HCl 30 mg/ (Sodium Chloride) 253 mls @ 10.12 mls/hr IV .Q24H PRN ; Protocol; 20 MCG/MIN PRN Reason: TITRATE PER MD ORDER Last Admin: 10/11/16 12:59 Dose: 20 mcg/min, 10.12 mls/hr Epinephrine HCl 1 mg/ Sodium (Chloride) 251 mls @ 15.06 mls/hr IV .[id number] PRN ; Protocol; 1 MCG/MIN PRN Reason: TITRATE PER MD ORDER Last Admin: 10/11/16 14:11 Dose: 1 mcg/min, 15.06 mls/hr Insulin Aspart (Novolog) 0 unit SC Q6H [facility] PRN Reason: Protocol Last Admin: 10/11/16 12:50 Dose: 4 unit Lorazepam (Ativan) 2 mg IVP Q4H PRN PRN Reason: Anxiety Last Admin: 10/10/16 11:45 Dose: 2 mg Metoprolol Tartrate (Lopressor) 25 mg PO BID [facility] Last Admin: 10/09/16 18:10 Dose: Not Given Thiamine HCl (Vitamin B1 Inj) 100 mg IV Q8 [facility] Last Admin: 10/11/16 13:41 Dose: 100 mg - Labs Labs: 10/11/16 06:03 10/11/16 06:03 PT 31.0 SECONDS (9.7-12.2) H* 10/11/16 06:03 INR 2.7 10/11/16 06:03 APTT 38 SECONDS (21-34) H 10/11/16 06:03
[2016-10-11] MEDS: Digoxin 500 mcg/2ml (0.5 mg/2ml) Inj IVP SCH (18:33)
--- NOTE | 2016-10-11 18:45 | CP.PCM.PN ---
Subjective - Date & Time of Evaluation Date of Evaluation: 10/11/16 Time of Evaluation: 09:00 - Subjective Subjective: intubated in icu unresponsive on vent growing MRSA blood and MRSA/Acinetobacter sputum on Vanco Merrem EEG reviewed ABNORMAL EEG SHOWING MILD B/L SLOWING THROUGHOUT THE RECORDING CONSISTENT WITH MILD B/L CEREBRAL DYSFUNCTION. NO SEIZURE ACTIVITY. Objective - Vital Signs/Intake and Output Vital Signs (last 24 hours): Temp Pulse Resp BP Pulse Ox 98 F 103 H 14 133/63 100 10/11/16 04:00 10/11/16 18:04 10/11/16 18:04 10/11/16 17:48 10/11/16 18:04 Intake and Output: 10/11/16 10/11/16 06:59 18:59 Intake Total 1694.6 1128.0 Output Total 500 275 Balance 1194.6 853.0 - Medications Medications: Current Medications Acetylcysteine (Acetylcysteine 20%) 4 ml INH RQ6 [facility] Last Admin: 10/11/16 16:09 Dose: 4 ml Albuterol/Ipratropium (Duoneb 3 Mg/0.5 Mg (3 Ml) Ud) 3 ml INH RQ8 [facility] Last Admin: 10/11/16 16:09 Dose: 3 ml Ascorbic Acid (Vitamin C 500 Mg Tab) 500 mg PO DAILY [facility] Last Admin: 10/11/16 09:58 Dose: 500 mg Aspirin (Ecotrin) 81 mg PO DAILY [facility] Last Admin: 10/11/16 09:58 Dose: 81 mg Digoxin (Lanoxin) 0.25 mg IVP DAILY@1800 [facility] Last Admin: 10/11/16 18:33 Dose: Not Given Docusate Sodium (Colace) 100 mg PO DAILY [facility] Last Admin: 10/11/16 09:58 Dose: 100 mg Famotidine (Pepcid) 20 mg PO DAILY [facility] Last Admin: 10/11/16 09:58 Dose: 20 mg Furosemide (Lasix) 40 mg IVP BID [facility] Last Admin: 10/09/16 18:10 Dose: Not Given Heparin Sodium (Porcine) (Heparin) 5,000 units SC Q12 [facility] Last Admin: 10/10/16 11:18 Dose: Not Given Norepinephrine Bitartrate 4 mg (/ Sodium Chloride) 254 mls @ 15.24 mls/hr IV .[id number] PRN; Protocol; 4 MCG/MIN PRN Reason: TITRATE PER MD ORDER Last Titration: 10/11/16 18:00 Dose: 0 mcg/min, 0 mls/hr Dexmedetomidine HCl 200 mcg/ (Sodium Chloride) 50 mls @ 4.08 mls/hr IV TITR PRN ; Protocol; 0.2 MCG/KG/HR PRN Reason: Agitation Last Titration: 10/11/16 15:00 Dose: 0 mcg/kg/hr, 0 mls/hr Meropenem 500 mg/ Sodium (Chloride) 100 mls @ 100 mls/hr IVPB Q12H [facility] Last Admin: 10/11/16 05:12 Dose: 100 mls/hr Vancomycin HCl 750 mg/ Sodium (Chloride) 150 mls @ 100 mls/hr IVPB DAILY [facility] Last Admin: 10/11/16 09:58 Dose: 100 mls/hr Levetiracetam 500 mg/ Sodium (Chloride) 105 mls @ 420 mls/hr IVPB Q12H [facility] Last Admin: 10/11/16 02:43 Dose: 420 mls/hr Amiodarone HCl 900 mg/ (Dextrose) 500 mls @ 16.66 mls/hr IV .Q24H ONE; 0.5 MG/ MIN PRN Reason: Protocol Stop: 10/12/16 12:29 Last Admin: 10/11/16 14:45 Dose: Not Given Phenylephrine HCl 30 mg/ (Sodium Chloride) 253 mls @ 10.12 mls/hr IV .Q24H PRN ; Protocol; 20 MCG/MIN PRN Reason: TITRATE PER MD ORDER Last Admin: 10/11/16 12:59 Dose: 20 mcg/min, 10.12 mls/hr Epinephrine HCl 1 mg/ Sodium (Chloride) 251 mls @ 15.06 mls/hr IV .[id number] PRN ; Protocol; 1 MCG/MIN PRN Reason: TITRATE PER MD ORDER Last Admin: 10/11/16 14:11 Dose: 1 mcg/min, 15.06 mls/hr Insulin Aspart (Novolog) 0 unit SC Q6H [facility] PRN Reason: Protocol Last Admin: 10/11/16 18:21 Dose: 8 unit Lorazepam (Ativan) 2 mg IVP Q4H PRN PRN Reason: Anxiety Last Admin: 10/10/16 11:45 Dose: 2 mg Metoprolol Tartrate (Lopressor) 25 mg PO BID [facility] Last Admin: 10/09/16 18:10 Dose: Not Given Thiamine HCl (Vitamin B1 Inj) 100 mg IV Q8 [facility] Last Admin: 10/11/16 13:41 Dose: 100 mg - Labs Labs: 10/11/16 06:03 10/11/16 06:03 PT 31.0 SECONDS (9.7-12.2) H* 10/11/16 06:03 INR 2.7 10/11/16 06:03 APTT 38 SECONDS (21-34) H 10/11/16 06:03 Assessment and Plan (1) Pneumonia Status: Acute (2) Abdominal pain Status: Acute (3) CAD (coronary artery disease) Status: Acute (4) HTN (hypertension) Status: Acute (5) Sepsis Status: Acute (6) Severe sepsis Status: Acute
[2016-10-12] MEDS: (Novolog) Insulin Aspart, Recombinant 100 u/ml 10 ml vial SC SCH ×4 (00:20→18:13)
[2016-10-12] MEDS: Albuterol-Ipratrop 3 mg / 0.5 (3 ml) UD INH SCH ×3 (00:39→16:05)
[2016-10-12] MEDS: levETIRAcetam 500 MG in Sodium Chloride 0.9% 100 ML IVPB SCH (02:57)
[2016-10-12] MEDS: Acetylcysteine 20% Inhal Soln (4ml) INH SCH ×4 (03:44→16:05)
[2016-10-12] MEDS: Meropenem 500 MG in Sodium Chloride 0.9% 100 ML IVPB SCH ×2 (05:10→17:31)
[2016-10-12] MEDS: Thiamine 100 mg/ml Inj IV SCH ×3 (06:00→22:48)
[2016-10-12 06:04] LABS: ABG ALLEN TEST POS; ARTERIAL BLOOD GAS HCO3 25.9 mmol/L (21-28); ARTERIAL BLOOD GAS HEMOGLOBIN 8.5 g/dL (11.7-17.4); ARTERIAL BLOOD GAS O2 SAT 100.9 % (95-98); ARTERIAL BLOOD GAS PCO2 45 mm/Hg (35-45); ARTERIAL BLOOD GAS PH 7.38 (7.35-7.45); ARTERIAL BLOOD GAS PO2 125 mm/Hg (80-100)
[2016-10-12] MEDS: EPINEPHrine- 1 MG in Sodium Chloride 0.9% 250 ML IV PRN (06:45)
[2016-10-12 06:50] LABS: BASO # 0.1 K/uL (0.0-0.2); BASO % 0.6 % (0.0-2.0); EOS # 0.3 K/uL (0.0-0.7)
--- NOTE | 2016-10-12 06:55 | CP.PCM.PN ---
Subjective - Date & Time of Evaluation Date of Evaluation: 10/12/16 Time of Evaluation: 06:53 - Subjective Subjective: Gen Sx: Dr Acevedo Pt S&E in ICU. Remains intubated and sedated. Now on two pressors 20mcg phenylephrine 1mcg epi. Remains on 100% fiO2. Grimaces to pain. Objective - Vital Signs/Intake and Output Vital Signs (last 24 hours): Temp Pulse Resp BP Pulse Ox 99.8 F H 96 H 20 125/59 L 99 10/12/16 04:00 10/12/16 06:33 10/12/16 06:33 10/12/16 06:33 10/12/16 06:33 Intake and Output: 10/11/16 10/12/16 18:59 06:59 Intake Total 1571.9 1815.0 Output Total 410 840 Balance 1161.9 975.0 - Medications Medications: Current Medications Acetylcysteine (Acetylcysteine 20%) 4 ml INH RQ6 [facility] Last Admin: 10/12/16 03:44 Dose: Not Given Albuterol/Ipratropium (Duoneb 3 Mg/0.5 Mg (3 Ml) Ud) 3 ml INH RQ8 [facility] Last Admin: 10/12/16 00:39 Dose: 3 ml Ascorbic Acid (Vitamin C 500 Mg Tab) 500 mg PO DAILY [facility] Last Admin: 10/11/16 09:58 Dose: 500 mg Aspirin (Ecotrin) 81 mg PO DAILY [facility] Last Admin: 10/11/16 09:58 Dose: 81 mg Digoxin (Lanoxin) 0.25 mg IVP DAILY@1800 [facility] Last Admin: 10/11/16 18:33 Dose: Not Given Docusate Sodium (Colace) 100 mg PO DAILY [facility] Last Admin: 10/11/16 09:58 Dose: 100 mg Famotidine (Pepcid) 20 mg PO DAILY [facility] Last Admin: 10/11/16 09:58 Dose: 20 mg Furosemide (Lasix) 40 mg IVP BID [facility] Last Admin: 10/09/16 18:10 Dose: Not Given Heparin Sodium (Porcine) (Heparin) 5,000 units SC Q12 [facility] Last Admin: 10/10/16 11:18 Dose: Not Given Norepinephrine Bitartrate 4 mg (/ Sodium Chloride) 254 mls @ 15.24 mls/hr IV .[id number] PRN; Protocol; 4 MCG/MIN PRN Reason: TITRATE PER MD ORDER Last Titration: 10/11/16 18:00 Dose: 0 mcg/min, 0 mls/hr Dexmedetomidine HCl 200 mcg/ (Sodium Chloride) 50 mls @ 4.08 mls/hr IV TITR PRN ; Protocol; 0.2 MCG/KG/HR PRN Reason: Agitation Last Titration: 10/11/16 15:00 Dose: 0 mcg/kg/hr, 0 mls/hr Meropenem 500 mg/ Sodium (Chloride) 100 mls @ 100 mls/hr IVPB Q12H [facility] Last Admin: 10/12/16 05:10 Dose: 100 mls/hr Vancomycin HCl 750 mg/ Sodium (Chloride) 150 mls @ 100 mls/hr IVPB DAILY [facility] Last Admin: 10/11/16 09:58 Dose: 100 mls/hr Levetiracetam 500 mg/ Sodium (Chloride) 105 mls @ 420 mls/hr IVPB Q12H [facility] Last Admin: 10/12/16 02:57 Dose: 420 mls/hr Phenylephrine HCl 30 mg/ (Sodium Chloride) 253 mls @ 10.12 mls/hr IV .Q24H PRN ; Protocol; 20 MCG/MIN PRN Reason: TITRATE PER MD ORDER Last Titration: 10/12/16 03:03 Dose: 19.76 mcg/min, 10 mls/hr Epinephrine HCl 1 mg/ Sodium (Chloride) 251 mls @ 15.06 mls/hr IV .[id number] PRN ; Protocol; 1 MCG/MIN PRN Reason: TITRATE PER MD ORDER Last Admin: 10/12/16 06:45 Dose: 1 mcg/min, 15.06 mls/hr Insulin Aspart (Novolog) 0 unit SC Q6H [facility] PRN Reason: Protocol Last Admin: 10/12/16 06:00 Dose: 6 unit Lorazepam (Ativan) 2 mg IVP Q4H PRN PRN Reason: Anxiety Last Admin: 10/10/16 11:45 Dose: 2 mg Metoprolol Tartrate (Lopressor) 25 mg PO BID [facility] Last Admin: 10/09/16 18:10 Dose: Not Given Thiamine HCl (Vitamin B1 Inj) 100 mg IV Q8 [facility] Last Admin: 10/12/16 06:00 Dose: 100 mg - Labs Labs: 10/11/16 06:03 10/11/16 06:03 PT 31.0 SECONDS (9.7-12.2) H* 10/11/16 06:03 INR 2.7 10/11/16 06:03 APTT 38 SECONDS (21-34) H 10/11/16 06:03 - Constitutional Appears: Toxic, Chronically Ill - Eye Exam Eye Exam: PERRL - ENT Exam ENT Exam: Mucous Membranes Dry - Respiratory Exam Respiratory Exam: absent: Accessory Muscle Use, Respiratory Distress Additional comments: ventilator 100%/500/09/08 - GI/Abdominal Exam GI & Abdominal Exam: Distended, Firm, Tenderness Assessment and Plan - Assessment and Plan (Free Text) Assessment: 86M s/p CABG and Cholecystectomy, admitted with sepsis likely 2/2 pneumonia, s/ p Code Blue 3 days ago Plan: no identifiable intra-abdominal source sepsis likely 2/2 to pneumonia abx/vent/hemodynamic mgmt per ICU Prognosis remains guarded will d/w Dr Kristina Beltran, PGY2
[2016-10-12 07:10] LABS: ALB/GLOB RATIO 0.6 (1.0-2.1)
[2016-10-12 07:11] LABS: MAGNESIUM 2.1 mg/dL (1.6-2.3)
[2016-10-12 07:19] LABS: EOS % 2.7 % (0.0-4.0); HEMOGLOBIN 8.4 g/dL (12.0-18.0); LYMPH % 9.9 % (20.0-40.0); MEAN CELL VOLUME 89.3 fL (80.0-94.0); MEAN CORPUSCULAR HEMOGLOBIN 28.3 pg (27.0-31.0); MEAN CORPUSCULAR HGB CONC 31.7 g/dL (33.0-37.0); MEAN PLATELET VOLUME 11.2 fL (7.2-11.7); MONO # 0.5 K/uL (0.0-0.8); MONO % 4.5 % (0.0-10.0); NEUT # 8.7 K/uL (1.8-7.0); NEUT % 82.3 % (50.0-75.0); NRBC % 4.4 % (0.0-2.0); PLATELET COUNT 62 K/uL (130-400); RBC 2.97 Mil/uL (4.40-5.90); RED CELL DISTRIBUTION WIDTH 16.9 % (11.5-14.5); WHITE BLOOD COUNT 10.5 K/uL (4.8-10.8)
--- NOTE | 2016-10-12 07:21 | CP.CCUPN ---
<Mary Ventura - Last Filed: 10/12/16 18:40> CCU Subjective - Physician Review Subjective (Free Text): 10/12/16 18:40 Patient seen and examined at beside. Intubated on vent (18, 100%, 500, 5). Minimal secretions. BP and HR continue to be labile all day Patient restarted on precedex gtt. Continues to be on phenylephrine gtt and epinephrine gtt Patient receiving 1U FFP as per Dr. Perry ROS unobtainable. Patient to be NPO after midnight for PEG tomorrow in AM with son's consent. CCU Objective - Vital Signs / Intake & Output Vital Signs (Last 4 hours): Vital Signs Temp Pulse Resp BP Pulse Ox 10/12/16 06:33 96 H 20 125/59 L 99 10/12/16 06:30 96 H 17 99 10/12/16 06:18 96 H 22 128/61 100 10/12/16 06:03 95 H 20 126/60 99 10/12/16 06:00 95 H 23 100 10/12/16 05:48 95 H 25 H 131/60 100 10/12/16 05:47 95 H 22 99 10/12/16 05:33 95 H 16 130/63 100 10/12/16 05:30 95 H 21 100 10/12/16 05:18 96 H 23 129/60 100 10/12/16 05:02 94 H 11 L 106/51 L 100 10/12/16 05:00 95 H 11 L 100 10/12/16 04:48 98 H 15 98/62 L 98 10/12/16 04:33 93 H 22 115/50 L 99 10/12/16 04:30 94 H 23 99 10/12/16 04:18 93 H 21 112/50 L 98 10/12/16 04:03 94 H 25 H 114/51 L 98 10/12/16 04:00 99.8 F H 96 H 10 L 100 10/12/16 03:48 94 H 21 123/56 L 99 10/12/16 03:33 96 H 23 122/54 L 98 10/12/16 03:30 96 H 24 98 Intake and Output (Last 8hrs): Intake & Output 10/11/16 10/12/16 10/12/16 22:59 06:59 14:59 Intake Total 1055.9 1207.0 Output Total 405 570 Balance 650.9 637.0 Weight 198 lb Intake: IV 257 307 Intake, IV Amount 448.9 425.0 Left Antecubital 100 200 Right Distal Port 120 120 Internal Jugular Right Medial Port 33.9 Right Proximal Port 195 105.0 Internal Jugular Tube Feeding 350 475 Output: Drainage 25 Right Medial Abdomen 25 Urine 380 570 Urethral (Quijano) 380 570 - Physical Exam Head: Positive for: Atraumatic, Normocephalic Pupils: Positive for: PERRL. Negative for: Sluggish, Non-Reactive Extroacular Muscles: Positive for: EOMI Conjunctiva: Positive for: Normal. Negative for: Injected, Icteric Mouth: Positive for: Dry, Other (ET tube in place- minimal secretions) Neck: Positive for: Trachea Midline. Negative for: Meningeal Signs, MIDLINE TENDERNESS, Paraspinal Tenderness, JVD, Lymphadenopathy, Bruit, Other Respiratory/Chest: Positive for: Wheezes (b/l), Rales (b/l), Other (intubated on vent). Negative for: Clear to Auscultation, Respiratory Distress, Accessory Muscle Use, Decreased Breath Sounds, Retracting, Rhonchi Cardiovascular: Positive for: Normal S1, S2, Tachycardic, Other (HR labile all day). Negative for: Murmurs, Irregular Rhythm Abdomen: Positive for: Distention, Other (cholecystostomy tube in place) Upper Extremity: Positive for: NORMAL PULSES. Negative for: Cyanosis Lower Extremity: Positive for: Normal Inspection, Edema (+1b/l), NORMAL PULSES, Capillary Refill < 2 s. Negative for: CALF TENDERNESS Neurological: Negative for: Speech Normal Skin: Positive for: Warm, Dry, Normal Color Psychiatric: Positive for: Other (intubated on vent). Negative for: Alert, Oriented x 3, Normal Insight, Normal Concentration - Medications Active Medications: Active Medications Generic Name Dose Route Start Last Admin Trade Name Freq PRN Reason Stop Dose Admin Acetylcysteine 4 ml 10/06/16 14:00 10/12/16 03:44 Acetylcysteine 20% INH Not Given RQ6 CHERY Albuterol/Ipratropium 3 ml 10/08/16 08:15 10/12/16 00:39 Duoneb 3 Mg/0.5 Mg (3 Ml) Ud INH 3 ml RQ8 CHERY Administration Ascorbic Acid 500 mg 10/11/16 10:00 10/11/16 09:58 Vitamin C 500 Mg Tab PO 500 mg DAILY CHERY Administration Aspirin 81 mg 10/07/16 10:15 10/11/16 09:58 Ecotrin PO 81 mg DAILY CHERY Administration Digoxin 0.25 mg 10/11/16 18:00 10/11/16 18:33 Lanoxin IVP Not Given DAILY@1800 CHERY Docusate Sodium 100 mg 10/09/16 14:15 10/11/16 09:58 Colace PO 100 mg DAILY CHERY Administration Famotidine 20 mg 10/07/16 10:15 10/11/16 09:58 Pepcid PO 20 mg DAILY CHERY Administration Furosemide 40 mg 10/09/16 18:00 10/09/16 18:10 Lasix IVP Not Given BID [facility] Heparin Sodium (Porcine) 5,000 units 10/06/16 10:30 10/10/16 11:18 Heparin SC Not Given Q12 CHERY Norepinephrine Bitartrate 4 mg 254 mls @ 15.24 mls/hr 10/09/16 14:32 18:00 / Sodium Chloride IV 0 mcg/min .[id number] PRN 0 mls/hr TITRATE PER MD ORDER Titration Protocol 4 MCG/MIN Dexmedetomidine HCl 200 mcg/ 50 mls @ 4.08 mls/hr 10/09/16 16:28 10/11/16 15: 00 Sodium Chloride IV 0 mcg/kg/hr TITR PRN 0 mls/hr Agitation Titration Protocol 0.2 MCG/KG/HR Meropenem 500 mg/ Sodium 100 mls @ 100 mls/hr 10/10/16 18:00 10/12/16 05:10 Chloride IVPB 100 mls/hr Q12H CHERY Administration Vancomycin HCl 750 mg/ Sodium 150 mls @ 100 mls/hr 10/11/16 10:00 10/11/16 09 :58 Chloride IVPB 100 mls/hr DAILY CHERY Administration Levetiracetam 500 mg/ Sodium 105 mls @ 420 mls/hr 10/10/16 15:00 10/12/16 02: 57 Chloride IVPB 420 mls/hr Q12H CHERY Administration Phenylephrine HCl 30 mg/ 253 mls @ 10.12 mls/hr 10/11/16 11:35 10/12/16 03:03 Sodium Chloride IV 19.76 mcg/min .Q24H PRN 10 mls/hr TITRATE PER MD ORDER Titration Protocol 20 MCG/MIN Epinephrine HCl 1 mg/ Sodium 251 mls @ 15.06 mls/hr 10/11/16 13:48 10/12/16 06:45 Chloride IV 1 mcg/min .[id number] PRN 15.06 mls/hr TITRATE PER MD ORDER Administration Protocol 1 MCG/MIN Insulin Aspart 0 unit 10/09/16 18:00 10/12/16 06:00 Novolog SC 6 unit Q6H CHERY Administration Protocol Lorazepam 2 mg 10/09/16 15:25 10/10/16 11:45 Ativan IVP 2 mg Q4H PRN Administration Anxiety Metoprolol Tartrate 25 mg 10/08/16 10:00 10/09/16 18:10 Lopressor PO Not Given BID CHERY Thiamine HCl 100 mg 10/11/16 14:00 10/12/16 06:00 Vitamin B1 Inj IV 100 mg Q8 CHERY Administration - Patient Studies Lab Studies: Microbiology Studies 10/09/16 04:00 Blood Culture - Preliminary Blood-Venous NO GROWTH AFTER 48 HOURS 10/09/16 04:00 Blood Culture - Preliminary Blood-Venous NO GROWTH AFTER 48 HOURS Lab Studies 10/12/16 10/12/16 10/12/16 Range/Units 06:31 06:31 05:19 WBC 10.5 D (4.8-10.8) K/uL RBC 2.97 L (4.40-5.90) Mil/uL Hgb 8.4 L (12.0-18.0) g/dL Hct 26.5 L (35.0-51.0) % MCV 89.3 D (80.0-94.0) fL MCH 28.3 (27.0-31.0) pg MCHC 31.7 L (33.0-37.0) g/dL RDW 16.9 H (11.5-14.5) % Plt Count 62 L (130-400) K/uL MPV 11.2 (7.2-11.7) fL Neut % (Auto) 82.3 H (50.0-75.0) % Lymph % (Auto) 9.9 L (20.0-40.0) % Sully % (Auto) 4.5 (0.0-10.0) % Eos % (Auto) 2.7 (0.0-4.0) % Baso % (Auto) 0.6 (0.0-2.0) % Neut # 8.7 H (1.8-7.0) K/uL Lymph # 1.0 (1.0-4.3) K/uL Sully # 0.5 (0.0-0.8) K/uL Eos # 0.3 (0.0-0.7) K/uL Baso # 0.1 (0.0-0.2) K/uL Neutrophils % (Manual) (50-75) % Lymphocytes % (Manual) (20-40) % Monocytes % (Manual) Eosinophils % (Manual) (0-4) % Nucleated RBC % (0-0) % Platelet Estimate (NORMAL) Large Platelets Giant Platelets Hypochromasia (manual) Poikilocytosis (manual Anisocytosis (manual) Microcytosis (manual) Macrocytosis (manual) Ovalocytes Fabiano Cells Puncture Site pCO2 (35-45) mm/Hg pO2 (80-100) mm/Hg HCO3 (21-28) mmol/L ABG pH (7.35-7.45) ABG Total CO2 (22-28) mmol/L ABG O2 Saturation (95-98) % ABG Base Excess (-2.0-3.0) mmol/L ABG Hemoglobin (11.7-17.4) g/dL ABG Carboxyhemoglobin (0.5-1.5) % POC ABG HHb (Measured) (0.0-5.0) % ABG Methemoglobin (0.0-3.0) % Julius Test A-a O2 Difference mm/Hg Respiratory Index Hgb O2 Saturation (95.0-98.0) % Mechanical Rate FiO2 % Tidal Volume PEEP Sodium 146 (132-148) mmol/L Potassium 4.8 (3.6-5.2) mmol/L Chloride 110 H (98-107) mmol/L Carbon Dioxide 27 (22-30) mmol/L Anion Gap 14 (10-20) BUN 81 H (9-20) mg/dL Creatinine 3.9 H (0.8-1.5) MG/DL Est GFR ( Amer) 18 Est GFR (Non-Af Amer) 15 POC Glucose (mg/dL) 267 H (65-110) mg/dL Random Glucose 305 H (75-110) mg/dL Calcium 8.0 L (8.6-10.4) mg/dl Phosphorus 3.6 (2.5-4.5) mg/dL Magnesium 2.1 (1.6-2.3) mg/dL Total Bilirubin 7.4 H (0.2-1.3) mg/dL AST 544 H D (17-59) U/L Alkaline Phosphatase 144 H (38-126) U/L Total Protein 5.5 L (6.3-8.3) g/dL Albumin 2.0 L (3.5-5.0) g/dL Globulin 3.5 (2.2-3.9) gm/dL Albumin/Globulin Ratio 0.6 L (1.0-2.1) 10/12/16 10/11/16 10/11/16 Range/Units 03:00 23:56 17:42 WBC (4.8-10.8) K/uL RBC (4.40-5.90) Mil/uL Hgb (12.0-18.0) g/dL Hct (35.0-51.0) % MCV (80.0-94.0) fL MCH (27.0-31.0) pg MCHC (33.0-37.0) g/dL RDW (11.5-14.5) % Plt Count (130-400) K/uL MPV (7.2-11.7) fL Neut % (Auto) (50.0-75.0) % Lymph % (Auto) (20.0-40.0) % Sully % (Auto) (0.0-10.0) % Eos % (Auto) (0.0-4.0) % Baso % (Auto) (0.0-2.0) % Neut # (1.8-7.0) K/uL Lymph # (1.0-4.3) K/uL Sully # (0.0-0.8) K/uL Eos # (0.0-0.7) K/uL Baso # (0.0-0.2) K/uL Neutrophils % (Manual) (50-75) % Lymphocytes % (Manual) (20-40) % Monocytes % (Manual) Eosinophils % (Manual) (0-4) % Nucleated RBC % (0-0) % Platelet Estimate (NORMAL) Large Platelets Giant Platelets Hypochromasia (manual) Poikilocytosis (manual Anisocytosis (manual) Microcytosis (manual) Macrocytosis (manual) Ovalocytes Buchtel Cells Puncture Site R rad pCO2 45 (35-45) mm/Hg pO2 125 H (80-100) mm/Hg HCO3 25.9 (21-28) mmol/L ABG pH 7.38 (7.35-7.45) ABG Total CO2 28.0 (22-28) mmol/L ABG O2 Saturation 100.9 H (95-98) % ABG Base Excess 1.2 (-2.0-3.0) mmol/L ABG Hemoglobin 8.5 L (11.7-17.4) g/dL ABG Carboxyhemoglobin 2.2 H (0.5-1.5) % POC ABG HHb (Measured) -0.9 L (0.0-5.0) % ABG Methemoglobin 0.8 (0.0-3.0) % Julius Test Pos A-a O2 Difference 532.0 mm/Hg Respiratory Index 4.3 Hgb O2 Saturation 97.8 (95.0-98.0) % Mechanical Rate 18 FiO2 100.0 % Tidal Volume 500 PEEP 5 Sodium (132-148) mmol/L Potassium (3.6-5.2) mmol/L Chloride (98-107) mmol/L Carbon Dioxide (22-30) mmol/L Anion Gap (10-20) BUN (9-20) mg/dL Creatinine (0.8-1.5) MG/DL Est GFR ( Amer) Est GFR (Non-Af Amer) POC Glucose (mg/dL) 301 H 307 H (65-110) mg/dL Random Glucose (75-110) mg/dL Calcium (8.6-10.4) mg/dl Phosphorus (2.5-4.5) mg/dL Magnesium (1.6-2.3) mg/dL Total Bilirubin (0.2-1.3) mg/dL AST (17-59) U/L Alkaline Phosphatase (38-126) U/L Total Protein (6.3-8.3) g/dL Albumin (3.5-5.0) g/dL Globulin (2.2-3.9) gm/dL Albumin/Globulin Ratio (1.0-2.1) 10/11/16 10/11/16 Range/Units 12:20 06:03 WBC (4.8-10.8) K/uL RBC (4.40-5.90) Mil/uL Hgb (12.0-18.0) g/dL Hct (35.0-51.0) % MCV (80.0-94.0) fL MCH (27.0-31.0) pg MCHC (33.0-37.0) g/dL RDW (11.5-14.5) % Plt Count (130-400) K/uL MPV (7.2-11.7) fL Neut % (Auto) (50.0-75.0) % Lymph % (Auto) (20.0-40.0) % Sully % (Auto) (0.0-10.0) % Eos % (Auto) (0.0-4.0) % Baso % (Auto) (0.0-2.0) % Neut # (1.8-7.0) K/uL Lymph # (1.0-4.3) K/uL Sully # (0.0-0.8) K/uL Eos # (0.0-0.7) K/uL Baso # (0.0-0.2) K/uL Neutrophils % (Manual) 84 H (50-75) % Lymphocytes % (Manual) 11 L (20-40) % Monocytes % (Manual) TEST NOT PERFORMED Eosinophils % (Manual) 5 H (0-4) % Nucleated RBC % 17 H (0-0) % Platelet Estimate Decreased L (NORMAL) Large Platelets Present Giant Platelets Present Hypochromasia (manual) Slight Poikilocytosis (manual Slight Anisocytosis (manual) Slight Microcytosis (manual) Slight Macrocytosis (manual) Slight Ovalocytes Slight Buchtel Cells Slight Puncture Site pCO2 (35-45) mm/Hg pO2 (80-100) mm/Hg HCO3 (21-28) mmol/L ABG pH (7.35-7.45) ABG Total CO2 (22-28) mmol/L ABG O2 Saturation (95-98) % ABG Base Excess (-2.0-3.0) mmol/L ABG Hemoglobin (11.7-17.4) g/dL ABG Carboxyhemoglobin (0.5-1.5) % POC ABG HHb (Measured) (0.0-5.0) % ABG Methemoglobin (0.0-3.0) % Julius Test A-a O2 Difference mm/Hg Respiratory Index Hgb O2 Saturation (95.0-98.0) % Mechanical Rate FiO2 % Tidal Volume PEEP Sodium (132-148) mmol/L Potassium (3.6-5.2) mmol/L Chloride (98-107) mmol/L Carbon Dioxide (22-30) mmol/L Anion Gap (10-20) BUN (9-20) mg/dL Creatinine (0.8-1.5) MG/DL Est GFR ( Amer) Est GFR (Non-Af Amer) POC Glucose (mg/dL) 249 H (65-110) mg/dL Random Glucose (75-110) mg/dL Calcium (8.6-10.4) mg/dl Phosphorus (2.5-4.5) mg/dL Magnesium (1.6-2.3) mg/dL Total Bilirubin (0.2-1.3) mg/dL AST (17-59) U/L Alkaline Phosphatase (38-126) U/L Total Protein (6.3-8.3) g/dL Albumin (3.5-5.0) g/dL Globulin (2.2-3.9) gm/dL Albumin/Globulin Ratio (1.0-2.1) Laboratory Results - last 24 hr 10/11/16 10/11/16 10/11/16 06:03 12:20 17:42 WBC RBC Hgb Hct MCV MCH MCHC RDW Plt Count MPV Neut % (Auto) Lymph % (Auto) Sully % (Auto) Eos % (Auto) Baso % (Auto) Neut # Lymph # Sully # Eos # Baso # Neutrophils % (Manual) 84 H Lymphocytes % (Manual) 11 L Monocytes % (Manual) TEST NOT PERFORMED Eosinophils % (Manual) 5 H Nucleated RBC % 17 H Platelet Estimate Decreased L Large Platelets Present Giant Platelets Present Hypochromasia (manual) Slight Poikilocytosis (manual Slight Anisocytosis (manual) Slight Microcytosis (manual) Slight Macrocytosis (manual) Slight Ovalocytes Slight Buchtel Cells Slight Puncture Site pCO2 pO2 HCO3 ABG pH ABG Total CO2 ABG O2 Saturation ABG Base Excess ABG Hemoglobin ABG Carboxyhemoglobin POC ABG HHb (Measured) ABG Methemoglobin Julius Test A-a O2 Difference Respiratory Index Hgb O2 Saturation Mechanical Rate FiO2 Tidal Volume PEEP Sodium Potassium Chloride Carbon Dioxide Anion Gap BUN Creatinine Est GFR ( Amer) Est GFR (Non-Af Amer) POC Glucose (mg/dL) 249 H 307 H Random Glucose Calcium Phosphorus Magnesium Total Bilirubin AST Alkaline Phosphatase Total Protein Albumin Globulin Albumin/Globulin Ratio 10/11/16 10/12/16 10/12/16 23:56 03:00 05:19 WBC RBC Hgb Hct MCV MCH MCHC RDW Plt Count MPV Neut % (Auto) Lymph % (Auto) Sully % (Auto) Eos % (Auto) Baso % (Auto) Neut # Lymph # Sully # Eos # Baso # Neutrophils % (Manual) Lymphocytes % (Manual) Monocytes % (Manual) Eosinophils % (Manual) Nucleated RBC % Platelet Estimate Large Platelets Giant Platelets Hypochromasia (manual) Poikilocytosis (manual Anisocytosis (manual) Microcytosis (manual) Macrocytosis (manual) Ovalocytes Fabiano Cells Puncture Site R rad pCO2 45 pO2 125 H HCO3 25.9 ABG pH 7.38 ABG Total CO2 28.0 ABG O2 Saturation 100.9 H ABG Base Excess 1.2 ABG Hemoglobin 8.5 L ABG Carboxyhemoglobin 2.2 H POC ABG HHb (Measured) -0.9 L ABG Methemoglobin 0.8 Julius Test Pos A-a O2 Difference 532.0 Respiratory Index 4.3 Hgb O2 Saturation 97.8 Mechanical Rate 18 FiO2 100.0 Tidal Volume 500 PEEP 5 Sodium Potassium Chloride Carbon Dioxide Anion Gap BUN Creatinine Est GFR ( Amer) Est GFR (Non-Af Amer) POC Glucose (mg/dL) 301 H 267 H Random Glucose Calcium Phosphorus Magnesium Total Bilirubin AST Alkaline Phosphatase Total Protein Albumin Globulin Albumin/Globulin Ratio 10/12/16 10/12/16 06:31 06:31 WBC 10.5 D RBC 2.97 L Hgb 8.4 L Hct 26.5 L MCV 89.3 D MCH 28.3 MCHC 31.7 L RDW 16.9 H Plt Count 62 L MPV 11.2 Neut % (Auto) 82.3 H Lymph % (Auto) 9.9 L Sully % (Auto) 4.5 Eos % (Auto) 2.7 Baso % (Auto) 0.6 Neut # 8.7 H Lymph # 1.0 Sully # 0.5 Eos # 0.3 Baso # 0.1 Neutrophils % (Manual) Lymphocytes % (Manual) Monocytes % (Manual) Eosinophils % (Manual) Nucleated RBC % Platelet Estimate Large Platelets Giant Platelets Hypochromasia (manual) Poikilocytosis (manual Anisocytosis (manual) Microcytosis (manual) Macrocytosis (manual) Ovalocytes Buchtel Cells Puncture Site pCO2 pO2 HCO3 ABG pH ABG Total CO2 ABG O2 Saturation ABG Base Excess ABG Hemoglobin ABG Carboxyhemoglobin POC ABG HHb (Measured) ABG Methemoglobin Julius Test A-a O2 Difference Respiratory Index Hgb O2 Saturation Mechanical Rate FiO2 Tidal Volume PEEP Sodium 146 Potassium 4.8 Chloride 110 H Carbon Dioxide 27 Anion Gap 14 BUN 81 H Creatinine 3.9 H Est GFR ( Amer) 18 Est GFR (Non-Af Amer) 15 POC Glucose (mg/dL) Random Glucose 305 H Calcium 8.0 L Phosphorus 3.6 Magnesium 2.1 Total Bilirubin 7.4 H AST 544 H D Alkaline Phosphatase 144 H Total Protein 5.5 L Albumin 2.0 L Globulin 3.5 Albumin/Globulin Ratio 0.6 L EKG/Cardiology Studies: Cardiology / EKG Studies 10/11/16 06:54 EKG [ELECTROCARDIOGRAM] Stat Comment: Mode Of Transportation: Reason For Exam: rapid heart rate Isolation: Contact Fingerstick Blood Sugar Results: 203 Review of Systems - Review of Systems Systems not reviewed;Unavailable: Acuity of Condition Critical Care Progress Note - Nutrition Nutrition: Nutrition Category Date Time Status NPO Diet [DIET] Diets 10/10/16 Breakfast Active Assessment/Plan - Assessment and Plan (Free Text) Assessment: 86yo M PMHx of HTN, HLD, DM, CHF, CAD s/p CABG presented with abdominal pain and reported AMS Plan: Neuro -ROS unobtainable -Precede gtt for agitation -Thiamine 100mg iv q8 -EEG: abnl EEG showing mild b/l slowing throughout the recording consistent with mild b/l cerebral dysfunction. No seizure activity. -CT head: negative- no intracranial mass, hemorrhage or evidence of acute infarct. 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 Trace R mastoid effusion. -Dr. Mccall neurology following Cardio -tachycardic and hypotensive -ASA 81mg po daily -Levophed gtt -Phenylephrine gtt -Epinephrine gtt -Digoxin 0.25mg ivp -Echo 10/06: recommend RICH to evaluate endocarditis; Borderlie LVH, LV systolic function is low normal, EF 50-55%, hypokinesis in inferior wall, Grad II pseudonormal filling dynamics; mild valvular and mild pulmonary HTN -ASA 81mg po daily -EP Cardiology Dr Tinsley following -Cardiology Dr Celestine Anderson following Respiratory -Intubated on vent (18, 100, 500, 5) -CT chest: consolidation both lower lobes and posteiror L upper lobe. Multifocal small opacities likely infx. Vague b/l perihilar alveolar opacity, possibly reflecting CHF/pulmonary edema. Small to mod b/l pleural effusions R>L -Sputum: +Acinetobacter Baumannii and MRSA -Nares: +MRSA -Duoneb 3ml inh q8 -Acetylcystine 4ml inh q6 -Merrem 500mg Q12 -Vancocin 750mg ivpb q24- on hold- will check random vanc tomorrow 10/11 -Dr Nice ID following GI -For PEG in AM with son's consent -Feeds on hold after midnight -PT/INR ordered for AM -repeat CT abd/pelvis 10/09: moderate size R sided effusion increased fro prior study. Mild R basilar atelectasis. Trace L effusion and minimal L basilar atelectasis. Cardiomegaly. Incident to cholecystostomy tube again noted. Vague infiltration changes seen within the mesentery about the distal pancreas nonspecific. r/o pancreatitis therefore correlation with serum amylase and lipase recommended. Areas present within the urinary bladder likely due to instrumentation with in situ unclamped quijano cath. r/o cystitis. Small fluid collection L inguinal region unchanged. Probable small scrotal hydroceles. -Abd/renal u/s: limited study; b/l renal cysts; echogenic renal parenchyma may be seen in setting of medical renal disease; quijano cath in urinary bladder; echogenic liver seen in setting of hepatic parenchymal disease or fatty infiltration. Cholecystectomy. Incidental note is made or R sided pleural effusion -Cholecystostomy tube in place -transaminitis AST 3950--> 1393--> 544 ALT 2494--> 1814--> 1303 Alk Phos 104--> 132--> 144 -CEA 3.5 -CA 19-9: 160 -AFP: <0.8 -Acute hep panel negative -MRCP cancelled due to pacemaker -ERCP cancelled as patient is unstable -CT Abd/pelvis: R pleural effusion with bibasilar atelectasis. Superimposed pneumonia not excluded. L inguinal collection [seroma vs hematoma vs abscess vs pseudoaneurysm] -Surgery Dr Acevedo consulted -GI Dr Perry consulted -IR Dr Arzola consulted ID -Severe sepsis -Acute hep panel negative -Legionella negative -Procalcitonin 44.7 -Sputum: +Acinetobacter Baumannii and MRSA -Blood: +S Aureus x 2 -Nares: +MRSA -Urine: negative -Merrem 500mg Q8 -Vancocin 750mg ivpb q24- on hold -f/u random vanc in AM -Vitamin C 500mg po daily -Dr Nice ID following Heme -Likely anemia of chronic disease -H&H stable -elevated INR 2.7 -being transfused 1U FFP -f/u PT/INR in AM -Patient given one dose of vitamin K yesterday 10/11 Renal -SAGAR vs CKD -renal u/s: limited study; b/l renal cysts; echogenic renal parenchyma may be seen in setting of medical renal disease; quijano cath in urinary bladder -Nephro Dr. Newell following Endocrine -Hx of DM2 -HgbA1c 8.6 -RISS -Lantus 10u sc hs -Accucheck MSK -no acute issues DVT ppx: SCDs GI ppx: Pepcid 20mg po daily Diet: tube feeds @ 25cc/hr- on hold after midnight Code Status: full code Case discussed with Dr. Lana Ventura PGY2 <Rahul Schwartz - Last Filed: 10/12/16 19:13> CCU Objective - Vital Signs / Intake & Output Vital Signs (Last 4 hours): Vital Signs Pulse Resp BP Pulse Ox 10/12/16 17:41 116 H 29 H 128/68 100 10/12/16 17:30 112 H 30 H 116/55 L 100 10/12/16 17:26 117 H 23 116/55 L 100 10/12/16 17:10 109 H 27 H 132/52 L 100 10/12/16 17:00 113 H 27 H 100 10/12/16 16:56 119 H 22 116/66 100 10/12/16 16:40 105 H 21 76/45 L 100 10/12/16 16:30 106 H 25 H 100 10/12/16 16:25 109 H 19 97/54 L 100 10/12/16 16:00 111 H 30 H 100 10/12/16 15:58 107 H 27 H 87/46 L 100 10/12/16 15:30 102 H 27 H 100 10/12/16 15:28 108 H 31 H 95/51 L 100 Intake and Output (Last 8hrs): Intake & Output 10/12/16 10/12/16 10/12/16 06:59 14:59 22:59 Intake Total 1194.0 384 197 Output Total 670 410 Balance 524.0 -26 197 Weight 198 lb Intake: IV 294 114 197 Intake, IV Amount 425.0 150 Left Antecubital 200 Right Distal Port 120 90 Internal Jugular Right Proximal Port 105.0 60 Internal Jugular Tube Feeding 475 120 Output: Drainage 100 Right Medial Abdomen 100 Urine 570 410 Urethral (Quijano) 570 410 - Medications Active Medications: Active Medications Generic Name Dose Route Start Last Admin Trade Name Averyq PRN Reason Stop Dose Admin Acetylcysteine 4 ml 10/06/16 14:00 10/12/16 13:29 Acetylcysteine 20% INH Not Given RQ6 CHERY Albuterol/Ipratropium 3 ml 10/08/16 08:15 10/12/16 16:05 Duoneb 3 Mg/0.5 Mg (3 Ml) Ud INH 3 ml RQ8 CHERY Administration Ascorbic Acid 500 mg 10/11/16 10:00 10/12/16 09:54 Vitamin C 500 Mg Tab PO 500 mg DAILY CHERY Administration Aspirin 81 mg 10/07/16 10:15 10/12/16 09:54 Ecotrin PO 81 mg DAILY CHERY Administration Digoxin 0.25 mg 10/11/16 18:00 10/12/16 18:46 Lanoxin IVP 0.25 mg DAILY@1800 CHERY Administration Docusate Sodium 100 mg 10/09/16 14:15 10/12/16 09:54 Colace PO 100 mg DAILY CHERY Administration Famotidine 20 mg 10/07/16 10:15 10/12/16 09:54 Pepcid PO 20 mg DAILY CHERY Administration Furosemide 40 mg 10/09/16 18:00 10/09/16 18:10 Lasix IVP Not Given BID CHERY Heparin Sodium (Porcine) 5,000 units 10/06/16 10:30 10/10/16 11:18 Heparin SC Not Given Q12 CHERY Meropenem 500 mg/ Sodium 100 mls @ 100 mls/hr 10/10/16 18:00 10/12/16 17:31 Chloride IVPB 100 mls/hr Q12H CHERY Administration Vancomycin HCl 750 mg/ Sodium 150 mls @ 100 mls/hr 10/11/16 10:00 10/11/16 09 :58 Chloride IVPB 100 mls/hr DAILY CHERY Administration Levetiracetam 500 mg/ Sodium 105 mls @ 420 mls/hr 10/10/16 15:00 10/12/16 02: 57 Chloride IVPB 420 mls/hr Q12H CHERY Administration Phenylephrine HCl 30 mg/ 253 mls @ 10.12 mls/hr 10/11/16 11:35 10/12/16 17:30 Sodium Chloride IV 100 mcg/min .Q24H PRN 50.6 mls/hr TITRATE PER MD ORDER Administration Protocol 20 MCG/MIN Epinephrine HCl 1 mg/ Sodium 251 mls @ 15.06 mls/hr 10/11/16 13:48 10/12/16 12:30 Chloride IV 0.5 mcg/min .[id number] PRN 7.53 mls/hr TITRATE PER MD ORDER Titration Protocol 1 MCG/MIN Dexmedetomidine HCl 200 mcg/ 50 mls @ 4.49 mls/hr 10/12/16 13:24 Sodium Chloride IV TITR PRN Agitation Protocol 0.2 MCG/KG/HR Insulin Aspart 0 unit 10/09/16 18:00 10/12/16 18:13 Novolog SC 12 unit Q6H CHERY Administration Protocol Insulin Glargine 10 unit 10/12/16 22:00 Lantus SC HS CHERY Lorazepam 2 mg 10/09/16 15:25 10/12/16 14:40 Ativan IVP 2 mg Q4H PRN Administration Anxiety Metoprolol Tartrate 25 mg 10/08/16 10:00 10/09/16 18:10 Lopressor PO Not Given BID CHERY Thiamine HCl 100 mg 10/11/16 14:00 10/12/16 14:44 Vitamin B1 Inj IV 100 mg Q8 CHERY Administration - Patient Studies Lab Studies: Microbiology Studies 10/09/16 04:00 Blood Culture - Preliminary Blood-Venous NO GROWTH AFTER 3 DAYS 10/09/16 04:00 Blood Culture - Preliminary Blood-Venous NO GROWTH AFTER 3 DAYS Lab Studies 10/12/16 10/12/16 10/12/16 Range/Units 18:08 15:06 11:27 WBC (4.8-10.8) K/uL RBC (4.40-5.90) Mil/uL Hgb (12.0-18.0) g/dL Hct (35.0-51.0) % MCV (80.0-94.0) fL MCH (27.0-31.0) pg MCHC (33.0-37.0) g/dL RDW (11.5-14.5) % Plt Count (130-400) K/uL MPV (7.2-11.7) fL Neut % (Auto) (50.0-75.0) % Lymph % (Auto) (20.0-40.0) % Sully % (Auto) (0.0-10.0) % Eos % (Auto) (0.0-4.0) % Baso % (Auto) (0.0-2.0) % Neut # (1.8-7.0) K/uL Lymph # (1.0-4.3) K/uL Sully # (0.0-0.8) K/uL Eos # (0.0-0.7) K/uL Baso # (0.0-0.2) K/uL Neutrophils % (Manual) (50-75) % Lymphocytes % (Manual) (20-40) % Monocytes % (Manual) (0-10) % Eosinophils % (Manual) (0-4) % Nucleated RBC % (0-0) % Platelet Estimate (NORMAL) Giant Platelets Polychromasia Hypochromasia (manual) Poikilocytosis (manual Anisocytosis (manual) Microcytosis (manual) Macrocytosis (manual) Target Cells Tear Drop Cells Fabiano Cells Puncture Site pCO2 (35-45) mm/Hg pO2 (80-100) mm/Hg HCO3 (21-28) mmol/L ABG pH (7.35-7.45) ABG Total CO2 (22-28) mmol/L ABG O2 Saturation (95-98) % ABG Base Excess (-2.0-3.0) mmol/L ABG Hemoglobin (11.7-17.4) g/dL ABG Carboxyhemoglobin (0.5-1.5) % POC ABG HHb (Measured) (0.0-5.0) % ABG Methemoglobin (0.0-3.0) % Julius Test A-a O2 Difference mm/Hg Respiratory Index Hgb O2 Saturation (95.0-98.0) % Mechanical Rate FiO2 % Tidal Volume PEEP Sodium (132-148) mmol/L Potassium (3.6-5.2) mmol/L Chloride (98-107) mmol/L Carbon Dioxide (22-30) mmol/L Anion Gap (10-20) BUN (9-20) mg/dL Creatinine (0.8-1.5) MG/DL Est GFR ( Amer) Est GFR (Non-Af Amer) POC Glucose (mg/dL) 460 H* 380 H (65-110) mg/dL Random Glucose (75-110) mg/dL Calcium (8.6-10.4) mg/dl Phosphorus (2.5-4.5) mg/dL Magnesium (1.6-2.3) mg/dL Total Bilirubin (0.2-1.3) mg/dL AST (17-59) U/L ALT (21-72) U/L Alkaline Phosphatase (38-126) U/L Total Protein (6.3-8.3) g/dL Albumin (3.5-5.0) g/dL Globulin (2.2-3.9) gm/dL Albumin/Globulin Ratio (1.0-2.1) Prolactin 36.0 H (3.7-17.9) ng/mL Vancomycin Trough (5.0-10.0) ug/mL Digoxin (0.8-2.0) ng/mL Blood Type Blood Type Confirm Antibody Screen Antibody Identification 10/12/16 10/12/16 10/12/16 Range/Units 11:10 08:59 06:31 WBC (4.8-10.8) K/uL RBC (4.40-5.90) Mil/uL Hgb (12.0-18.0) g/dL Hct (35.0-51.0) % MCV (80.0-94.0) fL MCH (27.0-31.0) pg MCHC (33.0-37.0) g/dL RDW (11.5-14.5) % Plt Count (130-400) K/uL MPV (7.2-11.7) fL Neut % (Auto) (50.0-75.0) % Lymph % (Auto) (20.0-40.0) % Sully % (Auto) (0.0-10.0) % Eos % (Auto) (0.0-4.0) % Baso % (Auto) (0.0-2.0) % Neut # (1.8-7.0) K/uL Lymph # (1.0-4.3) K/uL Sully # (0.0-0.8) K/uL Eos # (0.0-0.7) K/uL Baso # (0.0-0.2) K/uL Neutrophils % (Manual) (50-75) % Lymphocytes % (Manual) (20-40) % Monocytes % (Manual) (0-10) % Eosinophils % (Manual) (0-4) % Nucleated RBC % (0-0) % Platelet Estimate (NORMAL) Giant Platelets Polychromasia Hypochromasia (manual) Poikilocytosis (manual Anisocytosis (manual) Microcytosis (manual) Macrocytosis (manual) Target Cells Tear Drop Cells Fabiano Cells Puncture Site pCO2 (35-45) mm/Hg pO2 (80-100) mm/Hg HCO3 (21-28) mmol/L ABG pH (7.35-7.45) ABG Total CO2 (22-28) mmol/L ABG O2 Saturation (95-98) % ABG Base Excess (-2.0-3.0) mmol/L ABG Hemoglobin (11.7-17.4) g/dL ABG Carboxyhemoglobin (0.5-1.5) % POC ABG HHb (Measured) (0.0-5.0) % ABG Methemoglobin (0.0-3.0) % Julius Test A-a O2 Difference mm/Hg Respiratory Index Hgb O2 Saturation (95.0-98.0) % Mechanical Rate FiO2 % Tidal Volume PEEP Sodium 146 (132-148) mmol/L Potassium 4.8 (3.6-5.2) mmol/L Chloride 110 H (98-107) mmol/L Carbon Dioxide 27 (22-30) mmol/L Anion Gap 14 (10-20) BUN 81 H (9-20) mg/dL Creatinine 3.9 H (0.8-1.5) MG/DL Est GFR ( Amer) 18 Est GFR (Non-Af Amer) 15 POC Glucose (mg/dL) (65-110) mg/dL Random Glucose 305 H (75-110) mg/dL Calcium 8.0 L (8.6-10.4) mg/dl Phosphorus 3.6 (2.5-4.5) mg/dL Magnesium 2.1 (1.6-2.3) mg/dL Total Bilirubin 7.4 H (0.2-1.3) mg/dL AST 544 H D (17-59) U/L ALT 1303 H (21-72) U/L Alkaline Phosphatase 144 H (38-126) U/L Total Protein 5.5 L (6.3-8.3) g/dL Albumin 2.0 L (3.5-5.0) g/dL Globulin 3.5 (2.2-3.9) gm/dL Albumin/Globulin Ratio 0.6 L (1.0-2.1) Prolactin (3.7-17.9) ng/mL Vancomycin Trough 20.2 H (5.0-10.0) ug/mL Digoxin 0.7 L (0.8-2.0) ng/mL Blood Type A NEGATIVE Blood Type Confirm A NEGATIVE Antibody Screen Positive Antibody Identification Anti D 10/12/16 10/12/16 10/12/16 Range/Units 06:31 05:19 03:00 WBC 10.5 D (4.8-10.8) K/uL RBC 2.97 L (4.40-5.90) Mil/uL Hgb 8.4 L (12.0-18.0) g/dL Hct 26.5 L (35.0-51.0) % MCV 89.3 D (80.0-94.0) fL MCH 28.3 (27.0-31.0) pg MCHC 31.7 L (33.0-37.0) g/dL RDW 16.9 H (11.5-14.5) % Plt Count 62 L (130-400) K/uL MPV 11.2 (7.2-11.7) fL Neut % (Auto) 82.3 H (50.0-75.0) % Lymph % (Auto) 9.9 L (20.0-40.0) % Sully % (Auto) 4.5 (0.0-10.0) % Eos % (Auto) 2.7 (0.0-4.0) % Baso % (Auto) 0.6 (0.0-2.0) % Neut # 8.7 H (1.8-7.0) K/uL Lymph # 1.0 (1.0-4.3) K/uL Sully # 0.5 (0.0-0.8) K/uL Eos # 0.3 (0.0-0.7) K/uL Baso # 0.1 (0.0-0.2) K/uL Neutrophils % (Manual) 83 H (50-75) % Lymphocytes % (Manual) 10 L (20-40) % Monocytes % (Manual) 3 (0-10) % Eosinophils % (Manual) 4 (0-4) % Nucleated RBC % 9 H (0-0) % Platelet Estimate Decreased L (NORMAL) Giant Platelets Present Polychromasia Slight Hypochromasia (manual) Slight Poikilocytosis (manual Slight Anisocytosis (manual) Slight Microcytosis (manual) Slight Macrocytosis (manual) Slight Target Cells Slight Tear Drop Cells Slight Buchtel Cells Slight Puncture Site R rad pCO2 45 (35-45) mm/Hg pO2 125 H (80-100) mm/Hg HCO3 25.9 (21-28) mmol/L ABG pH 7.38 (7.35-7.45) ABG Total CO2 28.0 (22-28) mmol/L ABG O2 Saturation 100.9 H (95-98) % ABG Base Excess 1.2 (-2.0-3.0) mmol/L ABG Hemoglobin 8.5 L (11.7-17.4) g/dL ABG Carboxyhemoglobin 2.2 H (0.5-1.5) % POC ABG HHb (Measured) -0.9 L (0.0-5.0) % ABG Methemoglobin 0.8 (0.0-3.0) % Julius Test Pos A-a O2 Difference 532.0 mm/Hg Respiratory Index 4.3 Hgb O2 Saturation 97.8 (95.0-98.0) % Mechanical Rate 18 FiO2 100.0 % Tidal Volume 500 PEEP 5 Sodium (132-148) mmol/L Potassium (3.6-5.2) mmol/L Chloride (98-107) mmol/L Carbon Dioxide (22-30) mmol/L Anion Gap (10-20) BUN (9-20) mg/dL Creatinine (0.8-1.5) MG/DL Est GFR ( Amer) Est GFR (Non-Af Amer) POC Glucose (mg/dL) 267 H (65-110) mg/dL Random Glucose (75-110) mg/dL Calcium (8.6-10.4) mg/dl Phosphorus (2.5-4.5) mg/dL Magnesium (1.6-2.3) mg/dL Total Bilirubin (0.2-1.3) mg/dL AST (17-59) U/L ALT (21-72) U/L Alkaline Phosphatase (38-126) U/L Total Protein (6.3-8.3) g/dL Albumin (3.5-5.0) g/dL Globulin (2.2-3.9) gm/dL Albumin/Globulin Ratio (1.0-2.1) Prolactin (3.7-17.9) ng/mL Vancomycin Trough (5.0-10.0) ug/mL Digoxin (0.8-2.0) ng/mL Blood Type Blood Type Confirm Antibody Screen Antibody Identification 10/11/16 10/11/16 Range/Units 23:56 12:20 WBC (4.8-10.8) K/uL RBC (4.40-5.90) Mil/uL Hgb (12.0-18.0) g/dL Hct (35.0-51.0) % MCV (80.0-94.0) fL MCH (27.0-31.0) pg MCHC (33.0-37.0) g/dL RDW (11.5-14.5) % Plt Count (130-400) K/uL MPV (7.2-11.7) fL Neut % (Auto) (50.0-75.0) % Lymph % (Auto) (20.0-40.0) % Sully % (Auto) (0.0-10.0) % Eos % (Auto) (0.0-4.0) % Baso % (Auto) (0.0-2.0) % Neut # (1.8-7.0) K/uL Lymph # (1.0-4.3) K/uL Sully # (0.0-0.8) K/uL Eos # (0.0-0.7) K/uL Baso # (0.0-0.2) K/uL Neutrophils % (Manual) (50-75) % Lymphocytes % (Manual) (20-40) % Monocytes % (Manual) (0-10) % Eosinophils % (Manual) (0-4) % Nucleated RBC % (0-0) % Platelet Estimate (NORMAL) Giant Platelets Polychromasia Hypochromasia (manual) Poikilocytosis (manual Anisocytosis (manual) Microcytosis (manual) Macrocytosis (manual) Target Cells Tear Drop Cells Fabiano Cells Puncture Site pCO2 (35-45) mm/Hg pO2 (80-100) mm/Hg HCO3 (21-28) mmol/L ABG pH (7.35-7.45) ABG Total CO2 (22-28) mmol/L ABG O2 Saturation (95-98) % ABG Base Excess (-2.0-3.0) mmol/L ABG Hemoglobin (11.7-17.4) g/dL ABG Carboxyhemoglobin (0.5-1.5) % POC ABG HHb (Measured) (0.0-5.0) % ABG Methemoglobin (0.0-3.0) % Julius Test A-a O2 Difference mm/Hg Respiratory Index Hgb O2 Saturation (95.0-98.0) % Mechanical Rate FiO2 % Tidal Volume PEEP Sodium (132-148) mmol/L Potassium (3.6-5.2) mmol/L Chloride (98-107) mmol/L Carbon Dioxide (22-30) mmol/L Anion Gap (10-20) BUN (9-20) mg/dL Creatinine (0.8-1.5) MG/DL Est GFR ( Amer) Est GFR (Non-Af Amer) POC Glucose (mg/dL) 301 H 249 H (65-110) mg/dL Random Glucose (75-110) mg/dL Calcium (8.6-10.4) mg/dl Phosphorus (2.5-4.5) mg/dL Magnesium (1.6-2.3) mg/dL Total Bilirubin (0.2-1.3) mg/dL AST (17-59) U/L ALT (21-72) U/L Alkaline Phosphatase (38-126) U/L Total Protein (6.3-8.3) g/dL Albumin (3.5-5.0) g/dL Globulin (2.2-3.9) gm/dL Albumin/Globulin Ratio (1.0-2.1) Prolactin (3.7-17.9) ng/mL Vancomycin Trough (5.0-10.0) ug/mL Digoxin (0.8-2.0) ng/mL Blood Type Blood Type Confirm Antibody Screen Antibody Identification Laboratory Results - last 24 hr 10/11/16 10/11/16 10/12/16 12:20 23:56 03:00 WBC RBC Hgb Hct MCV MCH MCHC RDW Plt Count MPV Neut % (Auto) Lymph % (Auto) Sully % (Auto) Eos % (Auto) Baso % (Auto) Neut # Lymph # Sully # Eos # Baso # Neutrophils % (Manual) Lymphocytes % (Manual) Monocytes % (Manual) Eosinophils % (Manual) Nucleated RBC % Platelet Estimate Giant Platelets Polychromasia Hypochromasia (manual) Poikilocytosis (manual Anisocytosis (manual) Microcytosis (manual) Macrocytosis (manual) Target Cells Tear Drop Cells Fabiano Cells Puncture Site R rad pCO2 45 pO2 125 H HCO3 25.9 ABG pH 7.38 ABG Total CO2 28.0 ABG O2 Saturation 100.9 H ABG Base Excess 1.2 ABG Hemoglobin 8.5 L ABG Carboxyhemoglobin 2.2 H POC ABG HHb (Measured) -0.9 L ABG Methemoglobin 0.8 Julius Test Pos A-a O2 Difference 532.0 Respiratory Index 4.3 Hgb O2 Saturation 97.8 Mechanical Rate 18 FiO2 100.0 Tidal Volume 500 PEEP 5 Sodium Potassium Chloride Carbon Dioxide Anion Gap BUN Creatinine Est GFR ( Amer) Est GFR (Non-Af Amer) POC Glucose (mg/dL) 249 H 301 H Random Glucose Calcium Phosphorus Magnesium Total Bilirubin AST ALT Alkaline Phosphatase Total Protein Albumin Globulin Albumin/Globulin Ratio Prolactin Vancomycin Trough Digoxin Blood Type Blood Type Confirm Antibody Screen Antibody Identification 10/12/16 10/12/16 10/12/16 05:19 06:31 06:31 WBC 10.5 D RBC 2.97 L Hgb 8.4 L Hct 26.5 L MCV 89.3 D MCH 28.3 MCHC 31.7 L RDW 16.9 H Plt Count 62 L MPV 11.2 Neut % (Auto) 82.3 H Lymph % (Auto) 9.9 L Sully % (Auto) 4.5 Eos % (Auto) 2.7 Baso % (Auto) 0.6 Neut # 8.7 H Lymph # 1.0 Sully # 0.5 Eos # 0.3 Baso # 0.1 Neutrophils % (Manual) 83 H Lymphocytes % (Manual) 10 L Monocytes % (Manual) 3 Eosinophils % (Manual) 4 Nucleated RBC % 9 H Platelet Estimate Decreased L Giant Platelets Present Polychromasia Slight Hypochromasia (manual) Slight Poikilocytosis (manual Slight Anisocytosis (manual) Slight Microcytosis (manual) Slight Macrocytosis (manual) Slight Target Cells Slight Tear Drop Cells Slight Fabiano Cells Slight Puncture Site pCO2 pO2 HCO3 ABG pH ABG Total CO2 ABG O2 Saturation ABG Base Excess ABG Hemoglobin ABG Carboxyhemoglobin POC ABG HHb (Measured) ABG Methemoglobin Julius Test A-a O2 Difference Respiratory Index Hgb O2 Saturation Mechanical Rate FiO2 Tidal Volume PEEP Sodium 146 Potassium 4.8 Chloride 110 H Carbon Dioxide 27 Anion Gap 14 BUN 81 H Creatinine 3.9 H Est GFR ( Amer) 18 Est GFR (Non-Af Amer) 15 POC Glucose (mg/dL) 267 H Random Glucose 305 H Calcium 8.0 L Phosphorus 3.6 Magnesium 2.1 Total Bilirubin 7.4 H AST 544 H D ALT 1303 H Alkaline Phosphatase 144 H Total Protein 5.5 L Albumin 2.0 L Globulin 3.5 Albumin/Globulin Ratio 0.6 L Prolactin Vancomycin Trough Digoxin Blood Type Blood Type Confirm Antibody Screen Antibody Identification 10/12/16 10/12/16 10/12/16 08:59 11:10 11:27 WBC RBC Hgb Hct MCV MCH MCHC RDW Plt Count MPV Neut % (Auto) Lymph % (Auto) Sully % (Auto) Eos % (Auto) Baso % (Auto) Neut # Lymph # Sully # Eos # Baso # Neutrophils % (Manual) Lymphocytes % (Manual) Monocytes % (Manual) Eosinophils % (Manual) Nucleated RBC % Platelet Estimate Giant Platelets Polychromasia Hypochromasia (manual) Poikilocytosis (manual Anisocytosis (manual) Microcytosis (manual) Macrocytosis (manual) Target Cells Tear Drop Cells Buchtel Cells Puncture Site pCO2 pO2 HCO3 ABG pH ABG Total CO2 ABG O2 Saturation ABG Base Excess ABG Hemoglobin ABG Carboxyhemoglobin POC ABG HHb (Measured) ABG Methemoglobin Julius Test A-a O2 Difference Respiratory Index Hgb O2 Saturation Mechanical Rate FiO2 Tidal Volume PEEP Sodium Potassium Chloride Carbon Dioxide Anion Gap BUN Creatinine Est GFR ( Amer) Est GFR (Non-Af Amer) POC Glucose (mg/dL) 380 H Random Glucose Calcium Phosphorus Magnesium Total Bilirubin AST ALT Alkaline Phosphatase Total Protein Albumin Globulin Albumin/Globulin Ratio Prolactin Vancomycin Trough 20.2 H Digoxin 0.7 L Blood Type A NEGATIVE Blood Type Confirm A NEGATIVE Antibody Screen Positive Antibody Identification Anti D 10/12/16 10/12/16 15:06 18:08 WBC RBC Hgb Hct MCV MCH MCHC RDW Plt Count MPV Neut % (Auto) Lymph % (Auto) Sully % (Auto) Eos % (Auto) Baso % (Auto) Neut # Lymph # Sully # Eos # Baso # Neutrophils % (Manual) Lymphocytes % (Manual) Monocytes % (Manual) Eosinophils % (Manual) Nucleated RBC % Platelet Estimate Giant Platelets Polychromasia Hypochromasia (manual) Poikilocytosis (manual Anisocytosis (manual) Microcytosis (manual) Macrocytosis (manual) Target Cells Tear Drop Cells Fabiano Cells Puncture Site pCO2 pO2 HCO3 ABG pH ABG Total CO2 ABG O2 Saturation ABG Base Excess ABG Hemoglobin ABG Carboxyhemoglobin POC ABG HHb (Measured) ABG Methemoglobin Julius Test A-a O2 Difference Respiratory Index Hgb O2 Saturation Mechanical Rate FiO2 Tidal Volume PEEP Sodium Potassium Chloride Carbon Dioxide Anion Gap BUN Creatinine Est GFR ( Amer) Est GFR (Non-Af Amer) POC Glucose (mg/dL) 460 H* Random Glucose Calcium Phosphorus Magnesium Total Bilirubin AST ALT Alkaline Phosphatase Total Protein Albumin Globulin Albumin/Globulin Ratio Prolactin 36.0 H Vancomycin Trough Digoxin Blood Type Blood Type Confirm Antibody Screen Antibody Identification Critical Care Progress Note - Nutrition Nutrition: Nutrition Category Date Time Status NPO Diet [DIET] Diets 10/10/16 Breakfast Active NPO Diet [DIET] Diets 10/13/16 Breakfast Active Assessment/Plan (1) Severe sepsis Current Visit: Yes Status: Acute Comment: patient status post code sepsis Blood culture positive for gram-positive cocci On IV antibiotics CAT scan of the abdomen consistent with right lower lung infil Seen by surgery (2) HTN (hypertension) Current Visit: Yes Status: Acute (3) CAD (coronary artery disease) Current Visit: Yes Status: Acute Attending/Attestation - Attestation I have personally seen and examined this patient.: Yes I have fully participated in the care of the patient.: Yes I have reviewed all pertinent clinical information: Yes Notes (Text): 10/12/16 19:13 Today: , October 12, 2016 The Patient was seen and examined at the bedside, Medical records reviewed, all clinical/lab/hemodynamic/radiographic data were reviewed and management issues were discussed and formulated, Events reviewed Pain issues, skin care, head of the bed elevation, glycemic control were addressed. Agree with above treatment plans as transcribed in Dr. Mary griffiths
[2016-10-12 08:20] LABS: ANISOCYTOSIS SLIGHT; EOSINOPHIL 4 % (0-4); HYPOCHROMIC SLIGHT; LYMPHOCYTE 10 % (20-40); MONOCYTE 3 % (0-10); NEUTROPHIL 83 % (50-75); NUCLEATED RED BLOOD CELL 9 % (0-0); PLATELET ESTIMATE DECREASED (NORMAL); POIKILOCYTOSIS SLIGHT; TOTAL CELLS COUNTED 100
[2016-10-12 08:21] LABS: BURR CELLS SLIGHT; GIANT PLATELETS PRESENT; TARGET CELLS SLIGHT; TEARDROP CELLS SLIGHT
[2016-10-12 08:22] LABS: MICROCYTOSIS SLIGHT; POLYCHROMIC SLIGHT
[2016-10-12 09:50] LABS: VANCOMYCIN TROUGH 20.2 ug/mL (5.0-10.0)
--- NOTE | 2016-10-12 10:12 | CP.PCM.PCO ---
Physician Communication Note - Physician Communication Note Physician Communication Note: Son called X 2, voicemail left. No call back yet.
--- NOTE | 2016-10-12 12:37 | CP.PCM.PN ---
Subjective - Date & Time of Evaluation Date of Evaluation: 10/12/16 Time of Evaluation: 12:35 - Subjective Subjective: Progress Note for Dr. Tinsley Pt seen and examined at bedside. Pt remains intubated. No acute events overnight as per nursing. Not following commands, but responsive to painful stimuli. Objective - Vital Signs/Intake and Output Vital Signs (last 24 hours): Temp Pulse Resp BP Pulse Ox 99.3 F 100 H 23 94/52 L 100 10/12/16 08:00 10/12/16 10:00 10/12/16 10:00 10/12/16 09:58 10/12/16 10:00 Intake and Output: 10/12/16 10/12/16 06:59 18:59 Intake Total 1815.0 110 Output Total 940 50 Balance 875.0 60 - Medications Medications: Current Medications Acetylcysteine (Acetylcysteine 20%) 4 ml INH RQ6 [facility] Last Admin: 10/12/16 07:53 Dose: 4 ml Albuterol/Ipratropium (Duoneb 3 Mg/0.5 Mg (3 Ml) Ud) 3 ml INH RQ8 [facility]ERY Last Admin: 10/12/16 07:53 Dose: 3 ml Ascorbic Acid (Vitamin C 500 Mg Tab) 500 mg PO DAILY [facility] Last Admin: 10/12/16 09:54 Dose: 500 mg Aspirin (Ecotrin) 81 mg PO DAILY [facility] Last Admin: 10/12/16 09:54 Dose: 81 mg Digoxin (Lanoxin) 0.25 mg IVP DAILY@1800 [facility] Last Admin: 10/11/16 18:33 Dose: Not Given Docusate Sodium (Colace) 100 mg PO DAILY [facility] Last Admin: 10/12/16 09:54 Dose: 100 mg Famotidine (Pepcid) 20 mg PO DAILY [facility] Last Admin: 10/12/16 09:54 Dose: 20 mg Furosemide (Lasix) 40 mg IVP BID [facility] Last Admin: 10/09/16 18:10 Dose: Not Given Heparin Sodium (Porcine) (Heparin) 5,000 units SC Q12 [facility] Last Admin: 10/10/16 11:18 Dose: Not Given Dexmedetomidine HCl 200 mcg/ (Sodium Chloride) 50 mls @ 4.08 mls/hr IV TITR PRN ; Protocol; 0.2 MCG/KG/HR PRN Reason: Agitation Last Titration: 10/11/16 15:00 Dose: 0 mcg/kg/hr, 0 mls/hr Meropenem 500 mg/ Sodium (Chloride) 100 mls @ 100 mls/hr IVPB Q12H [facility] Last Admin: 10/12/16 05:10 Dose: 100 mls/hr Vancomycin HCl 750 mg/ Sodium (Chloride) 150 mls @ 100 mls/hr IVPB DAILY [facility] Last Admin: 10/11/16 09:58 Dose: 100 mls/hr Levetiracetam 500 mg/ Sodium (Chloride) 105 mls @ 420 mls/hr IVPB Q12H [facility] Last Admin: 10/12/16 02:57 Dose: 420 mls/hr Phenylephrine HCl 30 mg/ (Sodium Chloride) 253 mls @ 10.12 mls/hr IV .Q24H PRN ; Protocol; 20 MCG/MIN PRN Reason: TITRATE PER MD ORDER Last Titration: 10/12/16 03:03 Dose: 19.76 mcg/min, 10 mls/hr Epinephrine HCl 1 mg/ Sodium (Chloride) 251 mls @ 15.06 mls/hr IV .[id number] PRN ; Protocol; 1 MCG/MIN PRN Reason: TITRATE PER MD ORDER Last Admin: 10/12/16 06:45 Dose: 1 mcg/min, 15.06 mls/hr Insulin Aspart (Novolog) 0 unit SC Q6H [facility] PRN Reason: Protocol Last Admin: 10/12/16 06:00 Dose: 6 unit Insulin Glargine (Lantus) 10 unit SC HS [facility] Lorazepam (Ativan) 2 mg IVP Q4H PRN PRN Reason: Anxiety Last Admin: 10/10/16 11:45 Dose: 2 mg Metoprolol Tartrate (Lopressor) 25 mg PO BID [facility] Last Admin: 10/09/16 18:10 Dose: Not Given Thiamine HCl (Vitamin B1 Inj) 100 mg IV Q8 [facility] Last Admin: 10/12/16 06:00 Dose: 100 mg - Labs Labs: 10/12/16 06:31 10/12/16 06:31 PT 31.0 SECONDS (9.7-12.2) H* 10/11/16 06:03 INR 2.7 10/11/16 06:03 APTT 38 SECONDS (21-34) H 10/11/16 06:03 - Constitutional Appears: Toxic, No Acute Distress - Head Exam Head Exam: ATRAUMATIC, NORMAL INSPECTION, NORMOCEPHALIC - ENT Exam ENT Exam: Mucous Membranes Dry - Respiratory Exam Respiratory Exam: Decreased Breath Sounds Additional comments: Intubated - Cardiovascular Exam Cardiovascular Exam: Tachycardia, +S1, +S2 - GI/Abdominal Exam GI & Abdominal Exam: Soft, Normal Bowel Sounds. absent: Tenderness - Extremities Exam Extremities Exam: absent: Calf Tenderness, Pedal Edema - Neurological Exam Neurological Exam: absent: Alert, Awake - Skin Skin Exam: Intact, Normal Color, Warm Assessment and Plan (1) Tachycardia Assessment & Plan: Digoxin added to regimen yesterday Pt responding to therapy with HR between 90-100 Continue current medical regimen Status: Acute
[2016-10-12] MEDS ORDERED: Dexmedetomidine Hydrochloride 200 MCG in Sodium Chloride 0.9% 48 ML IV PRN (13:24)
--- NOTE | 2016-10-12 14:11 | CP.PCM.PN ---
Subjective - Date & Time of Evaluation Date of Evaluation: 10/12/16 Time of Evaluation: 14:09 - Subjective Subjective: condition remains poor. intubated. cad. tachycardic. Objective - Vital Signs/Intake and Output Vital Signs (last 24 hours): Temp Pulse Resp BP Pulse Ox 99.3 F 100 H 23 94/52 L 100 10/12/16 08:00 10/12/16 10:00 10/12/16 10:00 10/12/16 09:58 10/12/16 10:00 Intake and Output: 10/12/16 10/12/16 06:59 18:59 Intake Total 1815.0 110 Output Total 940 50 Balance 875.0 60 - Medications Medications: Current Medications Acetylcysteine (Acetylcysteine 20%) 4 ml INH RQ6 [facility] Last Admin: 10/12/16 13:29 Dose: Not Given Albuterol/Ipratropium (Duoneb 3 Mg/0.5 Mg (3 Ml) Ud) 3 ml INH RQ8 [facility] Last Admin: 10/12/16 07:53 Dose: 3 ml Ascorbic Acid (Vitamin C 500 Mg Tab) 500 mg PO DAILY [facility]PL[facility] BY [facility] Last Admin: 10/12/16 09:54 Dose: 500 mg Aspirin (Ecotrin) 81 mg PO DAILY [facility] Last Admin: 10/12/16 09:54 Dose: 81 mg Digoxin (Lanoxin) 0.25 mg IVP DAILY@1800 [facility] Last Admin: 10/11/16 18:33 Dose: Not Given Docusate Sodium (Colace) 100 mg PO DAILY [facility] Last Admin: 10/12/16 09:54 Dose: 100 mg Famotidine (Pepcid) 20 mg PO DAILY [facility] Last Admin: 10/12/16 09:54 Dose: 20 mg Furosemide (Lasix) 40 mg IVP BID [facility] Last Admin: 10/09/16 18:10 Dose: Not Given Heparin Sodium (Porcine) (Heparin) 5,000 units SC Q12 [facility] Last Admin: 10/10/16 11:18 Dose: Not Given Meropenem 500 mg/ Sodium (Chloride) 100 mls @ 100 mls/hr IVPB Q12H [facility] Last Admin: 10/12/16 05:10 Dose: 100 mls/hr Vancomycin HCl 750 mg/ Sodium (Chloride) 150 mls @ 100 mls/hr IVPB DAILY [facility] Last Admin: 10/11/16 09:58 Dose: 100 mls/hr Levetiracetam 500 mg/ Sodium (Chloride) 105 mls @ 420 mls/hr IVPB Q12H [facility]PL[facility] Last Admin: 10/12/16 02:57 Dose: 420 mls/hr Phenylephrine HCl 30 mg/ (Sodium Chloride) 253 mls @ 10.12 mls/hr IV .Q24H PRN ; Protocol; 20 MCG/MIN PRN Reason: TITRATE PER MD ORDER Last Titration: 10/12/16 03:03 Dose: 19.76 mcg/min, 10 mls/hr Epinephrine HCl 1 mg/ Sodium (Chloride) 251 mls @ 15.06 mls/hr IV .[id number] PRN ; Protocol; 1 MCG/MIN PRN Reason: TITRATE PER MD ORDER Last Admin: 10/12/16 06:45 Dose: 1 mcg/min, 15.06 mls/hr Dexmedetomidine HCl 200 mcg/ (Sodium Chloride) 50 mls @ 4.49 mls/hr IV TITR PRN ; Protocol; 0.2 MCG/KG/HR PRN Reason: Agitation Insulin Aspart (Novolog) 0 unit SC Q6H CHERY PRN Reason: Protocol Last Admin: 10/12/16 06:00 Dose: 6 unit Insulin Glargine (Lantus) 10 unit SC HS REPLACED BY [facility] Lorazepam (Ativan) 2 mg IVP Q4H PRN PRN Reason: Anxiety Last Admin: 10/10/16 11:45 Dose: 2 mg Metoprolol Tartrate (Lopressor) 25 mg PO BID REPLACED BY [facility] Last Admin: 10/09/16 18:10 Dose: Not Given Thiamine HCl (Vitamin B1 Inj) 100 mg IV Q8 REPLACED BY [facility] Last Admin: 10/12/16 06:00 Dose: 100 mg - Labs Labs: 10/12/16 06:31 10/12/16 06:31 PT 31.0 SECONDS (9.7-12.2) H* 10/11/16 06:03 INR 2.7 10/11/16 06:03 APTT 38 SECONDS (21-34) H 10/11/16 06:03 - Constitutional Appears: Chronically Ill - Eye Exam Eye Exam: PERRL - Respiratory Exam Respiratory Exam: Decreased Breath Sounds - Cardiovascular Exam Cardiovascular Exam: Tachycardia, REGULAR RHYTHM, +S1, +S2 - GI/Abdominal Exam GI & Abdominal Exam: Soft, Normal Bowel Sounds - Extremities Exam Extremities Exam: Pedal Edema Assessment and Plan - Assessment and Plan (Free Text) Assessment: cad. tachycardic. sepsis. Plan: for digoxin. icu care. resp care. antibiotics.
[2016-10-12] MEDS ORDERED: Digoxin 500 mcg/2ml (0.5 mg/2ml) Inj IVP ONE (14:45)
--- NOTE | 2016-10-12 14:49 | RAD ---
HISTORY: intubated COMPARISON: 10/11/2016 FINDINGS: LUNGS: Shallow lung volumes diffuse pulmonary venous congestion is less diffuse pulmonary edema suspect the patchy airspace opacities are slightly more conspicuous a right infrahilar right lung base with some minimal improved aeration here has occurred since the prior exam. Bold probable small bilateral pleural effusions are all similar appearing. No active pulmonary disease. PLEURA: As above. No pneumothorax seen CARDIOVASCULAR: Cardiomegaly as before. Midline sternotomy as before OSSEOUS STRUCTURES: Thoraco lumbar spondylosis VISUALIZED UPPER ABDOMEN: Normal. OTHER FINDINGS: Pacemaker/AICD device in place as before possible defibrillator device placed over the left lung base left upper abdomen. Correlate clinically. The right internal jugular vein thin small catheter course in the thorax beyond the superior vena cava the extending in continuing along the right atrium and the under penetration and faint similar densities optimal contrast delineation of all of the confounding support lines here. Needed consider repeat exam with better penetration at this time this course of the right internal jugular vein catheter is indeterminate along its most inferior aspect. IMPRESSION: Cardiomegaly and pulmonary venous congestion/ congestive heart failure suspect some minimal improvement in the aeration at the right lung base is probable. Graft 2. The support lines are renoted. However the inferior course of the thin central line vertically through the right heart is indeterminate some suggestion of it in the right atrium and beyond question. Consider repeat chest x-ray with increased technique to better assess contrast this thin catheter with the dense heart
[2016-10-12] MEDS: Phenylephrine 30 MG in Sodium Chloride 0.9% 250 ML IV PRN ×2 (17:30→21:18)
[2016-10-12 18:46] VITALS: PULSE 127
[2016-10-12] MEDS: Digoxin 500 mcg/2ml (0.5 mg/2ml) Inj IVP SCH (18:46)
--- NOTE | 2016-10-12 19:51 | CP.PCM.PN ---
Subjective - Date & Time of Evaluation Date of Evaluation: 10/12/16 Time of Evaluation: 10:00 - Subjective Subjective: pt seen and examined on 2 pressors, fio2 80% good uop creatinine stabilized Objective - Vital Signs/Intake and Output Vital Signs (last 24 hours): Temp Pulse Resp BP Pulse Ox 99.4 F 116 H 29 H 128/68 100 10/12/16 12:00 10/12/16 17:41 10/12/16 17:41 10/12/16 17:41 10/12/16 17:41 Intake and Output: 10/12/16 10/13/16 18:59 06:59 Intake Total 840.5 78 Output Total 550 Balance 290.5 78 - Medications Medications: Current Medications Acetylcysteine (Acetylcysteine 20%) 4 ml INH RQ6 [facility] Last Admin: 10/12/16 13:29 Dose: Not Given Albuterol/Ipratropium (Duoneb 3 Mg/0.5 Mg (3 Ml) Ud) 3 ml INH RQ8 [facility] Last Admin: 10/12/16 16:05 Dose: 3 ml Ascorbic Acid (Vitamin C 500 Mg Tab) 500 mg PO DAILY [facility] Last Admin: 10/12/16 09:54 Dose: 500 mg Aspirin (Ecotrin) 81 mg PO DAILY [facility] Last Admin: 10/12/16 09:54 Dose: 81 mg Digoxin (Lanoxin) 0.25 mg IVP DAILY@1800 [facility] Last Admin: 10/12/16 18:46 Dose: 0.25 mg Docusate Sodium (Colace) 100 mg PO DAILY [facility] Last Admin: 10/12/16 09:54 Dose: 100 mg Famotidine (Pepcid) 20 mg PO DAILY [facility] Last Admin: 10/12/16 09:54 Dose: 20 mg Furosemide (Lasix) 40 mg IVP BID [facility] Last Admin: 10/09/16 18:10 Dose: Not Given Heparin Sodium (Porcine) (Heparin) 5,000 units SC Q12 [facility] Last Admin: 10/10/16 11:18 Dose: Not Given Meropenem 500 mg/ Sodium (Chloride) 100 mls @ 100 mls/hr IVPB Q12H [facility] Last Admin: 10/12/16 17:31 Dose: 100 mls/hr Vancomycin HCl 750 mg/ Sodium (Chloride) 150 mls @ 100 mls/hr IVPB DAILY [facility] Last Admin: 10/11/16 09:58 Dose: 100 mls/hr Levetiracetam 500 mg/ Sodium (Chloride) 105 mls @ 420 mls/hr IVPB Q12H [facility] Last Admin: 10/12/16 02:57 Dose: 420 mls/hr Phenylephrine HCl 30 mg/ (Sodium Chloride) 253 mls @ 10.12 mls/hr IV .Q24H PRN ; Protocol; 20 MCG/MIN PRN Reason: TITRATE PER MD ORDER Last Titration: 10/12/16 19:00 Dose: 148.22 mcg/min, 75 mls/hr Epinephrine HCl 1 mg/ Sodium (Chloride) 251 mls @ 15.06 mls/hr IV .[id number] PRN ; Protocol; 1 MCG/MIN PRN Reason: TITRATE PER MD ORDER Last Titration: 10/12/16 12:30 Dose: 0.5 mcg/min, 7.53 mls/hr Dexmedetomidine HCl 200 mcg/ (Sodium Chloride) 50 mls @ 4.49 mls/hr IV TITR PRN ; Protocol; 0.2 MCG/KG/HR PRN Reason: Agitation Insulin Aspart (Novolog) 0 unit SC Q6H [facility] PRN Reason: Protocol Last Admin: 10/12/16 18:13 Dose: 12 unit Insulin Glargine (Lantus) 10 unit SC HS [facility] Lorazepam (Ativan) 2 mg IVP Q4H PRN PRN Reason: Anxiety Last Admin: 10/12/16 14:40 Dose: 2 mg Metoprolol Tartrate (Lopressor) 25 mg PO BID [facility] Last Admin: 10/09/16 18:10 Dose: Not Given Thiamine HCl (Vitamin B1 Inj) 100 mg IV Q8 [facility] Last Admin: 10/12/16 14:44 Dose: 100 mg - Labs Labs: 10/12/16 06:31 10/12/16 06:31 PT 31.0 SECONDS (9.7-12.2) H* 10/11/16 06:03 INR 2.7 10/11/16 06:03 APTT 38 SECONDS (21-34) H 10/11/16 06:03 - Constitutional Appears: Unkempt, Cachectic, Chronically Ill - Head Exam Head Exam: NORMAL INSPECTION - Eye Exam Eye Exam: Normal appearance - ENT Exam Additional comments: et tube - Neck Exam Neck Exam: Normal Inspection - Respiratory Exam Respiratory Exam: NORMAL BREATHING PATTERN (mechanical vent sounds) - Cardiovascular Exam Cardiovascular Exam: Tachycardia, REGULAR RHYTHM - GI/Abdominal Exam GI & Abdominal Exam: Distended, Soft - Extremities Exam Extremities Exam: Pedal Edema Assessment and Plan (1) Abdominal pain Status: Acute (2) CAD (coronary artery disease) Status: Acute (3) HTN (hypertension) Status: Acute (4) Pneumonia Status: Acute (5) Sepsis Status: Acute - Assessment and Plan (Free Text) Assessment: septic shock vdrf multiorgan failure not a candidate for hemodialysis at this time. avoid nephrotoxic meds, check vanco trough recommend comfort care
[2016-10-12] MEDS ORDERED: (Lantus) Insulin Glargine, Recombinant SC SCH (22:00)
[2016-10-12 22:30] LABS: ABG ALLEN TEST POS; ARTERIAL BLOOD GAS HCO3 10.8 mmol/L (21-28); ARTERIAL BLOOD GAS O2 SAT 99.3 % (95-98); ARTERIAL BLOOD GAS PCO2 57 mm/Hg (35-45); ARTERIAL BLOOD GAS PH 6.99 (7.35-7.45); ARTERIAL BLOOD GAS PO2 107 mm/Hg (80-100); ARTERIAL BLOOD GAS TCO2 15.4 mmol/L (22-28)
[2016-10-12] MEDS ORDERED: Sodium Bicarbonate (8.4%) 50 Meq Syringe IVP ONE (22:32)
[2016-10-12] MEDS ORDERED: Calcium Gluconate 4.65 MEQ in Dextrose 5% In Water 100 ML IV ONE (22:33)
[2016-10-12] MEDS ORDERED: Sodium Bicarbonate (8.4%) 50 Meq Syringe ONE (22:35)
[2016-10-12] MEDS ORDERED: Sodium Bicarbonate 100 ML in Dextrose 5% In Water 1,000 ML IV SCH (22:45)
[2016-10-12] MEDS: Sodium Bicarbonate 8.4% 100 MEQ in Dextrose 5% In Water 1,000 ML IV SCH (22:55)
[2016-10-12] MEDS ORDERED: Sodium Bicarbonate 8.4% 100 MEQ in Dextrose 5% In Water 1,000 ML IV SCH (23:15)
[2016-10-12] MEDS ORDERED: (Novolin R) Insulin Human Regular 100 units/ml vial IV ONE (23:23)
[2016-10-12] MEDS: Albumin Human 25% (12.5 gm/50 ml) IV SCH (23:36)
--- NOTE | 2016-10-13 00:12 | CP.PCM.PN ---
<Rachel Frank - Last Filed: 10/13/16 00:57> Subjective - Date & Time of Evaluation Date of Evaluation: 10/13/16 Time of Evaluation: 20:00 - Subjective Subjective: 22:06 CODE Blue Asystole noted CPR initiated per ACLS protocol. Patient was given 2 rounds of epi. He was shocked once for Vfib. Pulses obtained. Patient is on 2 pressers. BS 391. 23:07 CODE Blue CPR initiated per ACLS protocol. 2 rounds of epi given. Bicarb given. Albumin ordered. Bicarb drip started. Calcium gluconate given x 1 dose for suspected hyperkalemia. 3 U IV insulin ordered. BS 352. Pulses obtained. 23:28 CODE Blue Patient was pulseless and bradycardic. CPR initiated per ACLS protocol. 6 rounds of epi given. Shocked once. PEA noted, no pulses obtained Time of : 23:58 (Please see code sheet for full details.) Objective - Vital Signs/Intake and Output Vital Signs (last 24 hours): Temp Pulse Resp BP Pulse Ox 99.6 F 115 H 26 H 54/24 L 100 10/12/16 16:00 10/12/16 19:41 10/12/16 19:41 10/12/16 22:43 10/12/16 19:41 Intake and Output: 10/12/16 10/13/16 18:59 06:59 Intake Total 1102.0 547.5 Output Total 825 30 Balance 277.0 517.5 - Medications Medications: Current Medications Acetylcysteine (Acetylcysteine 20%) 4 ml INH RQ6 [facility] Last Admin: 10/12/16 16:05 Dose: 4 ml Albumin Human (Albumin Human 25% (12.5 Gm/50 Ml)) 12.5 gm IV Q1H [facility] Stop: 10/13/16 00:26 Last Admin: 10/12/16 23:36 Dose: 12.5 gm Albuterol/Ipratropium (Duoneb 3 Mg/0.5 Mg (3 Ml) Ud) 3 ml INH RQ8 [facility] Last Admin: 10/12/16 16:05 Dose: 3 ml Ascorbic Acid (Vitamin C 500 Mg Tab) 500 mg PO DAILY [facility] Last Admin: 10/12/16 09:54 Dose: 500 mg Aspirin (Ecotrin) 81 mg PO DAILY [facility] Last Admin: 10/12/16 09:54 Dose: 81 mg Digoxin (Lanoxin) 0.25 mg IVP DAILY@1800 [facility] Last Admin: 10/12/16 18:46 Dose: 0.25 mg Docusate Sodium (Colace) 100 mg PO DAILY [facility] Last Admin: 10/12/16 09:54 Dose: 100 mg Famotidine (Pepcid) 20 mg PO DAILY [facility] Last Admin: 10/12/16 09:54 Dose: 20 mg Furosemide (Lasix) 40 mg IVP BID [facility] Last Admin: 10/09/16 18:10 Dose: Not Given Heparin Sodium (Porcine) (Heparin) 5,000 units SC Q12 [facility] Last Admin: 10/10/16 11:18 Dose: Not Given Meropenem 500 mg/ Sodium (Chloride) 100 mls @ 100 mls/hr IVPB Q12H [facility] Last Admin: 10/12/16 17:31 Dose: 100 mls/hr Vancomycin HCl 750 mg/ Sodium (Chloride) 150 mls @ 100 mls/hr IVPB DAILY [facility] Last Admin: 10/11/16 09:58 Dose: 100 mls/hr Levetiracetam 500 mg/ Sodium (Chloride) 105 mls @ 420 mls/hr IVPB Q12H [facility] Last Admin: 10/12/16 02:57 Dose: 420 mls/hr Phenylephrine HCl 30 mg/ (Sodium Chloride) 253 mls @ 10.12 mls/hr IV .Q24H PRN ; Protocol; 20 MCG/MIN PRN Reason: TITRATE PER MD ORDER Last Titration: 10/12/16 22:00 Dose: 197.62 mcg/min, 100 mls/hr Epinephrine HCl 1 mg/ Sodium (Chloride) 251 mls @ 15.06 mls/hr IV .[id number] PRN ; Protocol; 1 MCG/MIN PRN Reason: TITRATE PER MD ORDER Last Titration: 10/12/16 20:37 Dose: 0.25 mcg/min, 3.8 mls/hr Dexmedetomidine HCl 200 mcg/ (Sodium Chloride) 50 mls @ 4.49 mls/hr IV TITR PRN ; Protocol; 0.2 MCG/KG/HR PRN Reason: Agitation Last Titration: 10/12/16 20:00 Dose: 0 mcg/kg/hr, 0 mls/hr Norepinephrine Bitartrate 4 mg (/ Dextrose) 254 mls @ 15.24 mls/hr IV .[id number] PRN; Protocol; 4 MCG/MIN PRN Reason: TITRATE PER MD ORDER Last Titration: 10/12/16 23:22 Dose: 19.68 mcg/min, 75 mls/hr Sodium Bicarbonate 100 meq/ (Dextrose) 1,100 mls @ 250 mls/hr IV .Q4H24M [facility] Last Admin: 10/12/16 22:55 Dose: 250 mls/hr Sodium Bicarbonate 100 meq/ (Dextrose) 1,100 mls @ 999 mls/hr IV .Q1H7M [facility] Stop: 10/13/16 01:27 Insulin Aspart (Novolog) 0 unit SC Q6H [facility] PRN Reason: Protocol Last Admin: 10/12/16 18:13 Dose: 12 unit Insulin Glargine (Lantus) 10 unit SC HS [facility] Last Admin: 10/12/16 22:49 Dose: 10 u Lorazepam (Ativan) 2 mg IVP Q4H PRN PRN Reason: Anxiety Last Admin: 10/12/16 20:33 Dose: 2 mg Metoprolol Tartrate (Lopressor) 25 mg PO BID [facility] Last Admin: 10/09/16 18:10 Dose: Not Given Thiamine HCl (Vitamin B1 Inj) 100 mg IV Q8 [facility] Last Admin: 10/12/16 22:48 Dose: 100 mg - Labs Labs: 10/12/16 06:31 10/12/16 06:31 PT 31.0 SECONDS (9.7-12.2) H* 10/11/16 06:03 INR 2.7 10/11/16 06:03 APTT 38 SECONDS (21-34) H 10/11/16 06:03 <Rahul Schwartz M - Last Filed: 10/13/16 01:20> Objective - Vital Signs/Intake and Output Vital Signs (last 24 hours): Temp Pulse Resp BP Pulse Ox 99.6 F 115 H 26 H 54/24 L 100 10/12/16 16:00 10/12/16 19:41 10/12/16 19:41 10/12/16 22:43 10/12/16 19:41 Intake and Output: 10/12/16 10/13/16 18:59 06:59 Intake Total 1102.0 547.5 Output Total 825 30 Balance 277.0 517.5 - Medications Medications: Current Medications Acetylcysteine (Acetylcysteine 20%) 4 ml INH RQ6 [facility] Last Admin: 10/12/16 16:05 Dose: 4 ml Albuterol/Ipratropium (Duoneb 3 Mg/0.5 Mg (3 Ml) Ud) 3 ml INH RQ8 [facility] Last Admin: 10/12/16 16:05 Dose: 3 ml Ascorbic Acid (Vitamin C 500 Mg Tab) 500 mg PO DAILY [facility] Last Admin: 10/12/16 09:54 Dose: 500 mg Aspirin (Ecotrin) 81 mg PO DAILY [facility] Last Admin: 10/12/16 09:54 Dose: 81 mg Digoxin (Lanoxin) 0.25 mg IVP DAILY@1800 [facility] Last Admin: 10/12/16 18:46 Dose: 0.25 mg Docusate Sodium (Colace) 100 mg PO DAILY [facility] Last Admin: 10/12/16 09:54 Dose: 100 mg Famotidine (Pepcid) 20 mg PO DAILY [facility] Last Admin: 10/12/16 09:54 Dose: 20 mg Furosemide (Lasix) 40 mg IVP BID [facility] Last Admin: 10/09/16 18:10 Dose: Not Given Heparin Sodium (Porcine) (Heparin) 5,000 units SC Q12 [facility] Last Admin: 10/10/16 11:18 Dose: Not Given Meropenem 500 mg/ Sodium (Chloride) 100 mls @ 100 mls/hr IVPB Q12H [facility] Last Admin: 10/12/16 17:31 Dose: 100 mls/hr Vancomycin HCl 750 mg/ Sodium (Chloride) 150 mls @ 100 mls/hr IVPB DAILY [facility] Last Admin: 10/11/16 09:58 Dose: 100 mls/hr Levetiracetam 500 mg/ Sodium (Chloride) 105 mls @ 420 mls/hr IVPB Q12H [facility] Last Admin: 10/12/16 02:57 Dose: 420 mls/hr Phenylephrine HCl 30 mg/ (Sodium Chloride) 253 mls @ 10.12 mls/hr IV .Q24H PRN ; Protocol; 20 MCG/MIN PRN Reason: TITRATE PER MD ORDER Last Titration: 10/12/16 22:00 Dose: 197.62 mcg/min, 100 mls/hr Epinephrine HCl 1 mg/ Sodium (Chloride) 251 mls @ 15.06 mls/hr IV .[id number] PRN ; Protocol; 1 MCG/MIN PRN Reason: TITRATE PER MD ORDER Last Titration: 10/12/16 20:37 Dose: 0.25 mcg/min, 3.8 mls/hr Dexmedetomidine HCl 200 mcg/ (Sodium Chloride) 50 mls @ 4.49 mls/hr IV TITR PRN ; Protocol; 0.2 MCG/KG/HR PRN Reason: Agitation Last Titration: 10/12/16 20:00 Dose: 0 mcg/kg/hr, 0 mls/hr Norepinephrine Bitartrate 4 mg (/ Dextrose) 254 mls @ 15.24 mls/hr IV .[id number] PRN; Protocol; 4 MCG/MIN PRN Reason: TITRATE PER MD ORDER Last Titration: 10/12/16 23:22 Dose: 19.68 mcg/min, 75 mls/hr Sodium Bicarbonate 100 meq/ (Dextrose) 1,100 mls @ 250 mls/hr IV .Q4H24M [facility] Last Admin: 10/13/16 00:27 Dose: 250 mls/hr Sodium Bicarbonate 100 meq/ (Dextrose) 1,100 mls @ 999 mls/hr IV .Q1H7M [facility] Stop: 10/13/16 01:27 Last Admin: 10/12/16 23:15 Dose: 999 mls/hr Insulin Aspart (Novolog) 0 unit SC Q6H [facility] PRN Reason: Protocol Last Admin: 10/12/16 18:13 Dose: 12 unit Insulin Glargine (Lantus) 10 unit SC HS [facility] Last Admin: 10/12/16 22:49 Dose: 10 u Lorazepam (Ativan) 2 mg IVP Q4H PRN PRN Reason: Anxiety Last Admin: 10/12/16 20:33 Dose: 2 mg Metoprolol Tartrate (Lopressor) 25 mg PO BID [facility] Last Admin: 10/09/16 18:10 Dose: Not Given Thiamine HCl (Vitamin B1 Inj) 100 mg IV Q8 [facility] Last Admin: 10/12/16 22:48 Dose: 100 mg - Labs Labs: 10/12/16 06:31 10/12/16 06:31 PT 31.0 SECONDS (9.7-12.2) H* 10/11/16 06:03 INR 2.7 10/11/16 06:03 APTT 38 SECONDS (21-34) H 10/11/16 06:03 Assessment and Plan (1) Severe sepsis Status: Acute (2) HTN (hypertension) Status: Acute (3) CAD (coronary artery disease) Status: Acute Attending/Attestation - Attestation I have personally seen and examined this patient.: Yes I have fully participated in the care of the patient.: Yes I have reviewed all pertinent clinical information, including history, physical exam and plan: Yes Notes (Text): 10/13/16 01:19 I was present thought the whole resuscitation process and agree with the findings as transcribed in Dr Frank note. I called and informed the son PMD made aware
[2016-10-13] MEDS: Albumin Human 25% (12.5 gm/50 ml) IV SCH (00:25)
[2016-10-13] MEDS: Sodium Bicarbonate 8.4% 100 MEQ in Dextrose 5% In Water 1,000 ML IV SCH (00:27)
--- NOTE | 2016-10-13 01:26 | CP.PCM.PRO ---
Pronouncement of Note - Clinical Findings Physical Exam: No Response Verbal/Painful Stimuli, Absent Peripheral Pulses{ Carotid & Femoral}, Absent Heart & Breath Sounds, No Pupillary Light Reflex, No Corneal Reflex, Pupils Fixed & Dilated, Absence of Vital Signs - Pronouncement Time Time of Pronouncement of : 12:52 - Notifications Pronouncement Notifications: Family Notified, Atending Notified Food Dehydrator Operator Notified: No - Autopsy Autopsy Requested: No - [place] [id number]
[2016-10-13 01:51] VITALS: BP 49/29; PULSE 47; RESP 99; O2SAT 72
[2016-10-13 02:16] VITALS: TEMP 98.6
--- NOTE | 2016-10-30 13:29 | CARD ---
APPROVED REPORT EKG Measurement Heart [id number] 160P [id number] <Conclusion> Sinus tachycardia with frequent premature ventricular complexes Right bundle branch block Left anterior fascicular block Bifascicular block Cannot rule out Inferior infarct (masked by fascicular block?), age undetermined Abnormal ECG
--- NOTE | 2016-11-04 04:01 | DS ---
HISTORY OF PRESENT ILLNESS: The patient has chief complaint of weakness, fatigue, and tiredness. Patient on bedrest, supportive care on the floor. Eva Barrow MD
== END 2016-10-13 02:30 | DRG 871 ==
LOC: C.ER 21:52 → C.9E 23:57 → C.9I 10-06 01:03
PROVIDERS: ADMIT Internal Medicine Pulmonary Disease; ATTEND Internal Medicine Pulmonary Disease
PROC: 05HM33Z Insertion of Infusion Device into Right Internal Jugular Vein, Percutaneous Approach (ICD-10-PCS; 2016-10-06)
PROC: 5A1945Z Respiratory Ventilation, 24-96 Consecutive Hours (ICD-10-PCS; principal; 2016-10-09)
PROC: 0BH17EZ Insertion of Endotracheal Airway into Trachea, Via Natural or Artificial Opening (ICD-10-PCS; 2016-10-09)
PROC: 30233K1 Transfusion of Nonautologous Frozen Plasma into Peripheral Vein, Percutaneous Approach (ICD-10-PCS; 2016-10-12)
PROC: 5A12012 Performance of Cardiac Output, Single, Manual (ICD-10-PCS; 2016-10-13)
PROC: 3E043XZ Introduction of Vasopressor into Central Vein, Percutaneous Approach (ICD-10-PCS; 2016-10-13)
DX: A41.02 Sepsis due to Methicillin resistant Staphylococcus aureus (principal); J18.9 Pneumonia, unspecified organism; J96.90 Respiratory failure, unspecified, unspecified whether with hypoxia or hypercapnia; R65.21 Severe sepsis with septic shock; I13.0 Hypertensive heart and chronic kidney disease with heart failure and stage 1 through stage 4 chronic kidney disease, or unspecified chronic kidney disease; N17.9 Acute kidney failure, unspecified; N18.4 Chronic kidney disease, stage 4 (severe); K83.1 Obstruction of bile duct; J44.0 Chronic obstructive pulmonary disease with (acute) lower respiratory infection; I50.9 Heart failure, unspecified; E10.22 Type 1 diabetes mellitus with diabetic chronic kidney disease; I45.2 Bifascicular block; D69.6 Thrombocytopenia, unspecified; Z95.1 Presence of aortocoronary bypass graft; Z90.49 Acquired absence of other specified parts of digestive tract; I25.10 Atherosclerotic heart disease of native coronary artery without angina pectoris; E78.5 Hyperlipidemia, unspecified; R56.9 Unspecified convulsions; I46.9 Cardiac arrest, cause unspecified; Z93.3 Colostomy status; D63.8 Anemia in other chronic diseases classified elsewhere; G93.89 Other specified disorders of brain; E87.5 Hyperkalemia